=== PATIENT | male | born 1985 | race Caucasian/White ===

== ENCOUNTER 2017-07-30 16:46 | Inpatient (IN) | payer SELFPAY ==
[~2017-07-30] VITALS: Ht 180.3 cm; Wt 68.8 kg
[~2017-07-30 16:46] MED LIST: LORTA5
[2017-07-30 16:52] VITALS: BP 124/74; PULSE 87; RESP 12; TEMP 98.5; O2SAT 99
--- NOTE | 2017-07-30 17:43 | RADRPT ---
EXAM DATE/TIME: 07/30/2017 17:17 [facility] COMPARISON: No previous studies available for comparison. INDICATIONS : Pain. MEDICAL HISTORY : Previous ankle fracture. SURGICAL HISTORY : None. ENCOUNTER: Initial ACUITY: 1 week PAIN SCORE: 8/10 LOCATION: Right Tib fib. FINDINGS: Two view examination of the right tibia demonstrates no evidence of fracture or dislocation. Bony mi neralization is normal. The soft tissue structures are intact. CONCLUSION: Negative Lauri Hein MD FACR on July 30, 2017 at 17:40 Board Certified Radiologist. This report was verified electronically.
--- NOTE | 2017-07-30 17:44 | RADRPT ---
EXAM DATE/TIME: 07/30/2017 17:24 [facility] COMPARISON: No previous studies available for comparison. INDICATIONS : Pain. MEDICAL HISTORY : None. SURGICAL HISTORY : None. ENCOUNTER: Initial ACUITY: 1 week PAIN SCORE: 10/10 LOCATION: Right Knee FINDINGS: Plateau fracture involving the lateral plateau depression by approximately 5-6 mm. Medial plateau in tact. Large joint effusion. CONCLUSION: Lateral plateau fracture Lauri Hein MD FACR on July 30, 2017 at 17:41 Board Certified Radiologist. This report was verified electronically.
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
[2017-07-30] MEDS ORDERED: ACETAMINOPHEN/HYDROcodone 325 MG/5 MG TAB PO ONE (19:45)
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
--- NOTE | 2017-07-30 21:04 | RADRPT ---
EXAM DATE/TIME: 07/30/2017 20:00 [facility] COMPARISON: No previous studies available for comparison. INDICATIONS : Right leg pain. MEDICAL HISTORY : Right ankle fracture. SURGICAL HISTORY : None. ENCOUNTER: Initial ACUITY: 4 - 6 days PAIN SCORE: 8/10 LOCATION: Right leg. TECHNIQUE: Venous ultrasound of the leg was performed from the inguinal ligament to the proximal calf. Real-kinjal e, color Doppler and spectral tracing, compression and augmentation techniques were used. FINDINGS: There is normal compressibility of the deep venous system from the inguinal region to the proximal ca lf. No echogenic clot is seen in the lumen of the common femoral, femoral, popliteal, and posterior tibial veins. There is a normal response of the venous system to proximal and distal augmentation an d respiration. CONCLUSION: No evidence of right lower extremity DVT. Liang Johnson MD on July 30, 2017 at 21:01 Board Certified Radiologist. This report was verified electronically.
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
[2017-07-30] MEDS ORDERED: BISACODYL 10 MG SUPP RECTAL PRN (23:00)
[2017-07-30] MEDS ORDERED: ONDANSETRON HCL 4 MG/2 ML VIAL IVP PRN (23:00)
[2017-07-30] MEDS ORDERED: SENNOSIDES 8.6 MG TAB PO PRN (23:00)
[2017-07-30] MEDS ORDERED: LACTULOSE SYRUP 20 GM/30 ML CUP PO PRN (23:00)
[2017-07-30] MEDS ORDERED: SODIUM CHLORIDE 0.9% FLUSH 10 ML FLUSH IV FLUSH PRN (23:00)
[2017-07-30] MEDS ORDERED: ACETAMINOPHEN/HYDROcodone 325 MG/5 MG TAB PO PRN (23:00)
[2017-07-30] MEDS ORDERED: MAGNESIUM HYDROXIDE SUSP 30 ML CUP PO PRN (23:00)
[2017-07-30] MEDS ORDERED: ACETAMINOPHEN 325 MG TAB PO PRN (23:00)
[2017-07-30 23:34] VITALS: PULSE 71; RESP 16; O2SAT 100
[2017-07-30] MEDS: MORPHINE SULFATE 2 MG/ML INJ IV PUSH PRN (23:35)
[2017-07-30] MEDS: SODIUM CHLOR 0.9% 1000 ML INJ 1,000 ML IV SCH (23:35)
[2017-07-31] VITALS (8 sets, daily range): BP systolic 108–125; BP diastolic 57–75; PULSE 64–88; RESP 16–18; TEMP 96.1–98.4; O2SAT 97–99
[2017-07-31] MEDS ORDERED: CHLORHEXIDINE GLUCONATE 2 % 1 PACK (2 CLOTHS) TOPICAL PRN (02:45)
[2017-07-31] MEDS ORDERED: LACTATED RINGER'S 1000 ML IV PRN (02:45)
[2017-07-31] MEDS ORDERED: POVIDONE IODINE 5% (ANTISEPSIS KIT) 4 APPLICATIONS EACH NARE PRN (02:45)
[2017-07-31] MEDS ORDERED: SODIUM CHLORID 0.9% 500 ML IV PRN (02:45)
[2017-07-31] MEDS: MORPHINE SULFATE 2 MG/ML INJ IV PUSH PRN ×2 (02:45→05:56)
[2017-07-31 03:06] LABS: AUTOMATED NEUTROPHIL # 2.5 TH/MM3 (1.8-7.7); BASOPHIL # 0.1 TH/MM3 (0-0.2); BASOPHIL % 0.8 % (0.0-2.0); EOSINOPHIL # 0.7 TH/MM3 (0-0.4); HEMATOCRIT 39.7 % (39.0-51.0); HEMOGLOBIN 13.4 GM/DL (13.0-17.0); LYMPH % 41.5 % (9.0-44.0); LYMPHOCYTE # 2.7 TH/MM3 (1.0-4.8); MEAN CELL VOLUME 88.7 FL (80.0-100.0); MEAN CORPUSCULAR HGB CONC 33.8 % (32.0-36.0); MEAN PLATELET VOLUME 7.5 FL (7.0-11.0); MONO % 8.6 % (0.0-8.0); MONOCYTE # 0.6 TH/MM3 (0-0.9); NEUT % 38.1 % (16.0-70.0); PLATELET COUNT 214 TH/MM3 (150-450); RED BLOOD COUNT 4.47 MIL/MM3 (4.50-5.90); RED CELL DISTRIBUTION WIDTH 13.9 % (11.6-17.2); WHITE BLOOD COUNT 6.6 TH/MM3 (4.0-11.0)
[2017-07-31 03:09] LABS: PROTHROMBIN TIME - PATIENT 10.3 SEC (9.8-11.6)
[2017-07-31 03:27] LABS: ALBUMIN 3.1 GM/DL (3.4-5.0); ALT (GPT) 19 U/L (12-78); AST (GOT) 28 U/L (15-37); BICARBONATE 24.2 MEQ/L (21.0-32.0); BLOOD UREA NITROGEN 11 MG/DL (7-18); CALCIUM 8.4 MG/DL (8.5-10.1); CHLORIDE 105 MEQ/L (98-107); CREATININE 0.83 MG/DL (0.60-1.30); GLOMERULAR FILTRATION RATE 107 ML/MIN (>89); GLUCOSE,RANDOM 85 MG/DL (74-106); SODIUM (NA) 135 MEQ/L (136-145)
[2017-07-31 03:30] LABS: ALKALINE PHOSPHATASE 62 U/L (45-117); TOTAL BILIRUBIN ADULT 0.4 MG/DL (0.2-1.0); TOTAL PROTEIN 7.8 GM/DL (6.4-8.2)
[2017-07-31] MEDS: SODIUM CHLOR 0.9% 1000 ML INJ 1,000 ML IV SCH (08:48)
[2017-07-31] MEDS: SODIUM CHLORIDE 0.9% FLUSH 10 ML FLUSH IV FLUSH SCH ×2 (09:00→21:00)
[2017-07-31] MEDS: DOCUSATE SODIUM 50 MG/SENNA 8.6 MG TAB PO SCH ×2 (09:00→21:24)
[2017-07-31] MEDS ORDERED: ACETAMINOPHEN 1000 MG/100 ML 100 ML IV ONE (10:18)
[2017-07-31] MEDS ORDERED: GENTAMICIN SULFATE 80 MG/2 ML VIAL ONE (10:23)
[2017-07-31] MEDS ORDERED: VANCOMYCIN HCL 1000 MG VIAL ONE (10:53)
[2017-07-31] MEDS ORDERED: ceFAZolin INJ 1,000 MG VIAL IV ONE (12:00)
[2017-07-31] MEDS ORDERED: PROPOFOL 200 MG/20 ML AMP IV ONE (12:00)
[2017-07-31] MEDS ORDERED: DEXAMETHASONE SOD PHOS 4 MG/ML VIAL IV ONE (12:00)
[2017-07-31] MEDS ORDERED: LIDOCAINE HCL 1% PF 5 ML SYRINGE OTHER ONE (12:00)
[2017-07-31] MEDS ORDERED: SUCCINYLCHOLINE CHLORIDE 200 MG/10 ML VIAL IV ONE (12:00)
[2017-07-31] MEDS ORDERED: ePHEDrine/NS 25 MG/5 ML SYRINGE IV ONE (12:00)
[2017-07-31] MEDS ORDERED: ONDANSETRON HCL 4 MG/2 ML VIAL IV ONE (12:00)
[2017-07-31] MEDS ORDERED: diphenhydrAMINE HCL 25 MG CAP PO PRN (12:15)
[2017-07-31] MEDS ORDERED: NALOXONE HCL 0.4 MG/ML AMP IV PUSH PRN (12:15)
[2017-07-31] MEDS ORDERED: oxyCODONE/ACETAMINOPHEN 5 MG/325 MG TAB PO PRN (12:15)
[2017-07-31] MEDS ORDERED: Post-op Orders (for Pharmacy) XX ONE (12:15)
[2017-07-31] MEDS ORDERED: MISCELLANEOUS NURSING INFORMATION XX PRN (12:15)
[2017-07-31] MEDS ORDERED: *MEPERIDINE 25 MG INJ VIAL PERIprocedural Use ONLY ONE (12:24)
[2017-07-31] MEDS ORDERED: *morphine SULFATE 10 MG/ML PERIprocedure ONLY ONE ×2 (12:28→12:35)
[2017-07-31] MEDS ORDERED: MIDAZOLAM HCL 2 MG/2 ML VIAL ONE (12:29)
[2017-07-31] MEDS ORDERED: MORPHINE SULFATE 4 MG/ML INJ ONE (12:30)
[2017-07-31] MEDS ORDERED: *HYDROmorphone PF 1 MG VIAL PERIprocedural Use ONLY ONE ×2 (12:39→13:01)
--- NOTE | 2017-07-31 12:41 | RADRPT ---
EXAM DATE/TIME: 07/31/2017 11:49 [facility] COMPARISON: KNEE RIGHT COMPLETE (4VWS), July 30, 2017, 17:24. INDICATIONS : Open reduction, internal fixation of the right knee. MEDICAL HISTORY : None. SURGICAL HISTORY : None. ENCOUNTER: Subsequent ACUITY: 2 days PAIN SCORE: Non-responsive. LOCATION: Right knee. FINDINGS: 4 intraoperative digital spot images of the right knee. Lateral proximal tibial internal fixation dragan te and 6 transfixing screws identified. Lateral tibial condyle fracture again seen. Alignment near-an atomic. CONCLUSION: Intraoperative images showing proximal tibial surgical hardware. Liang Johnson MD on July 31, 2017 at 12:37 Board Certified Radiologist. This report was verified electronically.
[2017-07-31] MEDS: D5-1/2 NS + KCL 20 MEQ INJ 1,000 ML IV SCH ×2 (12:45→23:44)
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
[2017-07-31] MEDS ORDERED: DO NOT ADM ANY ANTICOAGULANT DRUGS PRN (13:15)
[2017-07-31] MEDS: PCA - TOTAL MG MORPHINE DELIVERED PER SHIFT SCH ×2 (14:00→21:25)
[2017-07-31] MEDS: MORPHINE SULFATE 30 MG/30 ML PCA IV SCH (14:37)
--- NOTE | 2017-07-31 16:36 | HHI.PR ---
Subjective Remarks Mr. Clark is status post repair of his right tibial plateau fracture. He's doing well postop. No complaints of nausea or vomiting. Pain is under control. Objective Vital Signs Date Time Temp Pulse Resp B/P (MAP) Pulse Ox O2 Delivery O2 Flow Rate FiO2 07/31/17 14:37 16 07/31/17 14:00 18 07/31/17 13:30 96.1 68 18 118/75 (89) 99 07/31/17 13:25 Nasal Cannula 2.00 07/31/17 13:00 97.6 89 16 135/74 (94) 97 Nasal Cannula 2 07/31/17 12:45 90 16 135/57 (83) 97 Nasal Cannula 2 07/31/17 12:30 92 16 159/73 (101) 98 Nasal Cannula 2 07/31/17 12:23 97.6 90 16 125/57 (79) 97 Nasal Cannula 2 07/31/17 08:00 96.5 65 18 119/73 (88) 99 07/31/17 04:00 96.5 70 16 119/67 (84) 99 07/31/17 00:05 97.4 66 17 120/71 (87) 99 07/30/17 23:52 07/30/17 23:34 71 16 100 Room Air 07/30/17 20:15 Room Air 07/30/17 16:52 98.5 87 12 124/74 (91) 99 I/O 07/30/17 07/30/17 07/30/17 07/31/17 07/31/17 07/31/17 07:00 15:00 23:00 07:00 15:00 23:00 Intake Total 0 ml 800 ml Output Total 200 ml Balance 0 ml 600 ml Intake Oral 0 ml Other 800 ml Output Estimated Blood Loss 200 ml # Voids 2 Result Diagram: 07/31/17 0245 07/31/17 0245 Objective Remarks GENERAL: NAD, A&Ox3 HEAD: Normocephalic. NECK: Supple, trachea midline. No lymphadenopathy. EYES: No scleral icterus. No injection or drainage. CARDIOVASCULAR: Regular rate and rhythm without murmurs, gallops, or rubs. RESPIRATORY: Breath sounds equal bilaterally. No accessory muscle use. GASTROINTESTINAL: Abdomen soft, non-tender, nondistended. MUSCULOSKELETAL: No cyanosis, or edema. Right leg is bandaged, postop. SKIN: Warm and dry. NEURO: No focal neurological deficitis. A/P Problem List: (1) Tibial plateau fracture, right ICD Code: S82.141A - Displaced bicondylar fracture of right tibia, initial encounter for closed fracture Assessment and Plan 32-year-old male admitted secondary to right tibial plateau fracture. Status post surgical repair this morning. Patient doing well postop. Labs ordered for monitoring. Check hemoglobin level tomorrow. Consider transfusion if hemoglobin level is significantly low. Right tibial plateau fracture Status post surgical repair PT Ortho following Continue as needed pain treatments Nicotine dependence Patient has been counseled to quit As needed NicoDerm DVT prophylaxis Per orthopedic prescription, postop Problem Qualifiers (1) Tibial plateau fracture, right: Qualified Codes: S82.141A - Displaced bicondylar fracture of right tibia, initial encounter for closed fracture Nadir Zarco MD Jul 31, 2017 16:36
[2017-07-31] MEDS: ceFAZolin 2 GM PREMIX 50 ML IV SCH (17:11)
[2017-07-31] MEDS: oxyCODONE/ACETAMINOPHEN 5 MG/325 MG TAB PO PRN (21:25)
--- NOTE | 2017-07-31 22:23 | MP ---
cc: TIGIST PERRY DATE OF SURGERY 07/31/17 PREOPERATIVE DIAGNOSIS Right knee tibial plateau fracture. POSTOPERATIVE DIAGNOSIS Right knee tibial plateau fracture. PROCEDURE Right knee open reduction internal fixation using [employer] specialty locking plate for lateral intra-articular displaced tibial plateau fracture. ANESTHESIA General SURGEON Milton Perry MD CARE MANAGER CNA SURGEON Beatriz NUR ESTIMATED BLOOD LOSS 200 mL DRAINS None SPECIMEN None COMPLICATIONS None known. INDICATION Sanchez Clark is a 32-year-old male who sustained a fracture to his right knee, primarily lateral side tibial plateau fracture, although there is some minimal displaced fragments in the medial side. Significant intra-articular displacement and diastasis of the fracture fragment as well as displacement and therefore surgical intervention was discussed and we did discuss the theoretical option of nonoperative treatment and the recommendation was surgery. The risks and benefits and alternatives were thoroughly discussed including discussion of risk of infection, nerve damage, blood vessel damage, anesthetic complications, medical complications, unforeseen possible complications. All of his questions were answered. Informed consent was obtained. PROCEDURE IN DETAIL The patient was brought into the operating room, was placed under general anesthetic. The right lower extremity was prepped and draped in usual sterile fashion. IV antibiotics were given. Time-out was completed. We made a lateral based incision and obtained hemostasis and then went down to the fascial layer. Then we split the fascial layer and, at this point, we put the tourniquet up. Then we proceeded to mobilize the soft tissue away from the bone at the lateral aspect of the knee. We did make a small horizontal cut in the synovium just below the lateral meniscus. No obvious lateral meniscus tear was identified. With traction and slight varus of the knee, we were able to look into the joint, see some displacement of the fracture. With traction and this configuration, we were able to bring a bone tamp up from underneath the bone and gently tap it upwards and we used multiple clamps to compress the bone upward into a very good anatomic appearing alignment and then provisionally fixated with K-wires and then selected our lateral based plate and then fixed that to the bone with a bone clamp and then proceeded to place our multiple different screws. The most inferior screw was a cortical screw and then other screws were locking screws. Overall excellent fixation and the alignment looked very close to anatomic. AP, lateral and oblique views showed the final result. We irrigated out with copious amounts of irrigation. We proceeded to close in layers of absorbable sutures, subcuticular on the skin and then monae. Sterile dressing was applied. The patient was awaken and returned to the recovery room in stable condition. MD SOTO Davidson/ /1:09 PM /10:07 PM
[2017-08-01] MEDS: ceFAZolin 2 GM PREMIX 50 ML IV SCH ×2 (01:34→08:26)
[2017-08-01] MEDS: MORPHINE SULFATE 30 MG/30 ML PCA IV SCH ×2 (02:46→08:30)
[2017-08-01] MEDS: oxyCODONE/ACETAMINOPHEN 5 MG/325 MG TAB PO PRN ×2 (02:47→11:08)
[2017-08-01 04:15] VITALS: BP 109/59; PULSE 83; RESP 16; TEMP 97.8; O2SAT 98
[2017-08-01] MEDS: PCA - TOTAL MG MORPHINE DELIVERED PER SHIFT SCH ×2 (06:35→11:10)
[2017-08-01 08:00] VITALS: BP 122/69; PULSE 73; RESP 18; TEMP 95.7; O2SAT 100
[2017-08-01] MEDS: DOCUSATE SODIUM 50 MG/SENNA 8.6 MG TAB PO SCH (08:25)
[2017-08-01] MEDS: D5-1/2 NS + KCL 20 MEQ INJ 1,000 ML IV SCH (08:26)
[2017-08-01] MEDS: SODIUM CHLORIDE 0.9% FLUSH 10 ML FLUSH IV FLUSH SCH (08:26)
[2017-08-01] MEDS ORDERED: MULTIVITAMINS/MINERALS THERAPEUTIC TAB PO SCH (09:00)
--- NOTE | 2017-08-01 10:34 | PD.ORT.PN ---
Subjective Subjective Remarks comfortable Objective Vitals Vital Signs Date Time Temp Pulse Resp B/P (MAP) Pulse Ox O2 Delivery O2 Flow Rate FiO2 08/01/17 08:30 18 08/01/17 08:00 95.7 73 18 122/69 (86) 100 08/01/17 06:35 18 08/01/17 05:17 Room Air 08/01/17 04:15 97.8 83 16 109/59 (76) 98 08/01/17 02:52 18 08/01/17 02:46 18 07/31/17 23:25 98.4 88 16 114/72 (86) 99 07/31/17 21:25 18 07/31/17 21:00 97.0 81 16 125/66 (85) 98 07/31/17 16:42 96.7 64 17 108/57 (74) 97 07/31/17 14:37 16 07/31/17 14:00 18 07/31/17 13:30 96.1 68 18 118/75 (89) 99 07/31/17 13:25 Nasal Cannula 2.00 07/31/17 13:00 97.6 89 16 135/74 (94) 97 Nasal Cannula 2 07/31/17 12:45 90 16 135/57 (83) 97 Nasal Cannula 2 07/31/17 12:30 92 16 159/73 (101) 98 Nasal Cannula 2 07/31/17 12:23 97.6 90 16 125/57 (79) 97 Nasal Cannula 2 I/O 07/31/17 07/31/17 07/31/17 08/01/17 08/01/17 08/01/17 07:00 15:00 23:00 07:00 15:00 23:00 Intake Total 0 ml 1520 ml 720 ml 2411 ml Output Total 800 ml 900 ml Balance 0 ml 720 ml 720 ml 1511 ml Intake Oral 0 ml 720 ml 720 ml 1020 ml IV Total 1391 ml Other 800 ml Output Urine Total 600 ml 900 ml Estimated Blood Loss 200 ml # Voids 2 2 3 # Bowel Movements 0 0 Result Diagram: 07/31/1724407/31/17244 Objective Remarks uma wrap and dressing in place calves soft NVI Assessment & Plan Ortho Post Op Day #: 1 (orif Right tibial plateau) Problem List: (1) Tibial plateau fracture, right ICD Codes: S82.141A - Displaced bicondylar fracture of right tibia, initial encounter for closed fracture Qualifiers: Qualified Codes: S82.141A - Displaced bicondylar fracture of right tibia, initial encounter for closed fracture Assessment and Plan discussed surgical findings Non weight bearing Up and active with crutches Feet and ankle range of motion exercises Ok to d/c home F/u in 2 weeks Conor Bhandari MD Aug 01, 2017 10:34
[2017-08-01] MEDS ORDERED: OXYC1TAB63 PO (10:38)
[2017-08-01 11:10] VITALS: RESP 18
[2017-08-01] MEDS ORDERED: DOCU100C15 PO (11:16)
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
== END 2017-08-01 12:56 | disposition home or self-care (01) | DRG 493 ==
LOC: NEPD 16:46 → NEDA 22:53 → N06A 23:58
PROVIDERS: ADMIT Hospitalist; ATTEND Hospitalist
PROC: 0QSG04Z Reposition Right Tibia with Internal Fixation Device, Open Approach (ICD-10-PCS; principal; 2017-07-31 10:26)
DX: S82.141A Displaced bicondylar fracture of right tibia, initial encounter for closed fracture (principal); S32.391A Other fracture of right ilium, initial encounter for closed fracture; F17.210 Nicotine dependence, cigarettes, uncomplicated; V58.6XXA Passenger in pick-up truck or van injured in noncollision transport accident in traffic accident, initial encounter
CPT/HCPCS: 73564; 73590; 73700; 76000; 80053; 85025; 85610; 85730; 93971; C1713; J0131; J0330; J0690; J1100; J1170; J1580; J2175; J2250; J2270; J2405; J3010; J3370; J3480; J7030; J7120

== ENCOUNTER 2017-08-23 05:04 | Inpatient (IN) | payer SELFPAY ==
[~2017-08-23] VITALS: Ht 180.3 cm; Wt 67.4 kg
[2017-08-23] VITALS (7 sets, daily range): BP systolic 104–144; BP diastolic 59–78; PULSE 80–114; RESP 17–22; TEMP 97.2–100.3; O2SAT 96–100
[~2017-08-23 05:04] MED LIST changes: +DOCU100C15 PO; -LORTA5; +OXYC1TAB63 PO
[2017-08-23] MEDS ORDERED: SODIUM CHLOR 0.9% 1000 ML INJ 800 ML IV ONE (05:14)
[2017-08-23] MEDS ORDERED: SODIUM CHLOR 0.9% 1000 ML INJ 1,000 ML IV ONE (05:14)
[2017-08-23] MEDS ORDERED: HYDROmorphone HCL PF 2 MG/ML VIAL IV PUSH ONE ×2 (05:15→06:30)
[2017-08-23] MEDS ORDERED: ACETAMINOPHEN 325 MG TAB PO ONE (05:15)
--- NOTE | 2017-08-23 05:32 | PD ---
HPI Chief Complaint: Pain: Acute or Chronic Time Seen by Provider: 05:09 Travel History International Travel<30 days: No Contact w/Intl Traveler<30days: No Traveled to known affect area: No History of Present Illness HPI 32-year-old male who is status post ORIF for right tibial plateau fracture on by Dr. Bhandari brought in by ambulance from home for evaluation of severe right knee pain, swelling, warmth, fever. EMS noted the patient to be hypotensive and administered a liter of normal saline IV prior to arrival. Patient reports that the pain is severe and started yesterday with mild swelling and pain. When he awoke this morning the pain was unbearable. He denies any recent injuries to the knee. He states that his dog has been licking his surgical wound. States that he has not used IV drugs in 10 years. PFSH Past Medical History ADHD: Yes Cancer: No Cardiovascular Problems: No Diminished Hearing: No Endocrine: No Genitourinary: No Immune Disorder: No Musculoskeletal: Yes (right fractured ankle twice 2011) Neurologic: No Psychiatric: No Reproductive: No Respiratory: No Tetanus Vaccination: < 5 Years Influenza Vaccination: No Social History Alcohol Use: Yes Tobacco Use: Yes (1PPD) Substance Use: No (hx of ) Allergies-Medications (Allergen,Severity, Reaction): Coded Allergies: No Known Allergies (Unverified Allergy, Unknown, 07/30/17) Reported Meds & Prescriptions Reported Meds & Active Scripts Active Docusate Sodium 100 Mg Cap 100 Mg PO BID PRN Oxycodone-Acetaminophen 5-325 (Oxycodone HCl/Acetaminophen) 5 Mg-325 Mg Tablet 1 Tab PO Q4H PRN 10 Days Review of Systems Except as stated in HPI: all other systems reviewed are Neg Physical Exam Narrative GENERAL: Well-developed, well-nourished, moderate distress secondary to pain. SKIN: Right lateral knee with several open wounds with purulent drainage. There is surrounding warmth, erythema, and edema. No crepitus. No fluctuance or induration. HEAD: Atraumatic. Normocephalic. EYES: Pupils equal and round. No scleral icterus. No injection or drainage. ENT: Mucous membranes pink and dry. NECK: Trachea midline. No JVD. No nuchal rigidity. CARDIOVASCULAR: Tachycardic, rate 115, regular. Bilateral dorsalis pedis pulses are brisk and equal. RESPIRATORY: No accessory muscle use. Clear to auscultation. Breath sounds equal bilaterally. GASTROINTESTINAL: Abdomen soft, non-tender, nondistended. MUSCULOSKELETAL: Skin exam as above. Limited range of motion in right knee secondary to pain with diffuse tenderness to the right knee. Right inguinal lymphadenopathy. NEUROLOGICAL: Awake and alert. No obvious cranial nerve deficits. Motor grossly within normal limits. Normal speech. PSYCHIATRIC: Appropriate mood and affect; insight and judgment normal. Data Data Last Documented VS Vital Signs Date Time Temp Pulse Resp B/P (MAP) Pulse Ox O2 Delivery O2 Flow Rate FiO2 08/23/17 05:16 Room Air 08/23/17 05:10 100.3 114 22 117/59 (78) 99 Orders Orders Sepsis Workup Initiated (08/23/17 ) Complete Blood Count With Diff (08/23/17 05:14) Comprehensive Metabolic Panel (08/23/17 05:14) Prothrombin Time / Inr (Pt) (08/23/17 05:14) Act Partial Throm Time (Ptt) (08/23/17 05:14) Lactic Acid Sepsis Protocol (08/23/17 05:14) Blood Culture (08/23/17 05:14) Ecg Monitoring (08/23/17 05:14) Iv Access Insert/Monitor (08/23/17 05:14) Oximetry (08/23/17 05:14) Acetaminophen (Tylenol) (08/23/17 05:15) Sodium Chlor 0.9% 1000 Ml Inj (Ns 1000 M (08/23/17 05:14) Sodium Chlor 0.9% 1000 Ml Inj (Ns 1000 M (08/23/17 05:14) Wound Culture And Gram Stain (08/23/17 05:14) Knee, Complete (4vws) (08/23/17 ) Hydromorphone Pf Inj (Dilaudid Pf Inj) (08/23/17 05:15) Westergren Sedimentation Rate (08/23/17 05:32) C-Reactive Protein (Crp) (08/23/17 05:14) Vancomycin Inj (Vancomycin Inj) (08/23/17 05:45) Piperacil-Tazo 4.5 Gm Premix (Zosyn 4.5 (08/23/17 05:45) Consult Orthopedic (08/23/17 ) Diet Npo (08/23/17 Breakfast) Admit Order (Ed Use Only) (08/23/17 06:18) Labs Laboratory Tests Test 08/23/17 05:27 White Blood Count 15.6 TH/MM3 Red Blood Count 4.24 MIL/MM3 Hemoglobin 12.8 GM/DL Hematocrit 36.1 % Mean Corpuscular Volume 85.1 FL Mean Corpuscular Hemoglobin 30.1 PG Mean Corpuscular Hemoglobin Concent 35.4 % Red Cell Distribution Width 12.7 % Platelet Count 202 TH/MM3 Mean Platelet Volume 8.5 FL Neutrophils (%) (Auto) 84.7 % Lymphocytes (%) (Auto) 6.7 % Monocytes (%) (Auto) 7.8 % Eosinophils (%) (Auto) 0.5 % Basophils (%) (Auto) 0.3 % Neutrophils # (Auto) 13.2 TH/MM3 Lymphocytes # (Auto) 1.0 TH/MM3 Monocytes # (Auto) 1.2 TH/MM3 Eosinophils # (Auto) 0.1 TH/MM3 Basophils # (Auto) 0.0 TH/MM3 CBC Comment DIFF FINAL Differential Comment Erythrocyte Sedimentation Rate 23 mm/hr Prothrombin Time 12.5 SEC Prothromb Time International Ratio 1.2 RATIO Activated Partial Thromboplast Time 29.8 SEC Blood Urea Nitrogen 12 MG/DL Creatinine 1.07 MG/DL Random Glucose 112 MG/DL Total Protein 8.1 GM/DL Albumin 3.8 GM/DL Calcium Level 9.0 MG/DL Alkaline Phosphatase 91 U/L Aspartate Amino Transf (AST/SGOT) 16 U/L Alanine Aminotransferase (ALT/SGPT) 9 U/L Total Bilirubin 1.3 MG/DL Sodium Level 132 MEQ/L Potassium Level 3.4 MEQ/L Chloride Level 97 MEQ/L Carbon Dioxide Level 24.3 MEQ/L Anion Gap 11 MEQ/L Estimat Glomerular Filtration Rate 80 ML/MIN Lactic Acid Level 1.9 mmol/L C-Reactive Protein 7.00 MG/DL [facility] Medical Decision Making Medical Screen Exam Complete: Yes Emergency Medical Condition: Yes Differential Diagnosis Septic arthritis, infected hardware, cellulitis, sepsis Narrative Course Initial vital signs show heart rate 114, blood pressure 117/59, pulse ox 99% on room air, oral temp of 100.3F. Patient has several open wounds to his right lateral knee that are draining pus. Sample was obtained and sent for culture and sensitivity. 5:45 AM: I discussed the case with on-call orthopedist Dr. Chiang who covers for the patient's orthopedist Dr. Bhandari. Plan is to start the patient on IV antibiotics, have him admitted to the medical service with consultation placed to Dr. Bhandari. CBC: WBC 15.6, hemoglobin 12.8, hematocrit 36.1, platelets 202, neutrophils 85%. CMP: Sodium 132, potassium 3.4, chloride 97, otherwise essentially unremarkable. Lactic acid is 1.9. CRP 7. ESR 23 Right knee x-ray: CONCLUSION: Soft tissue swelling along the lateral aspect of the knee. Hardware demonstrates no abnormality. Case discussed with hospitalist Dr. Fairbanks who will admit the patient to her service. Diagnosis Primary Impression: Sepsis Qualified Codes: A41.9 - Sepsis, unspecified organism Additional Impression: Postoperative infection of knee Qualified Codes: T81.4XXA - Infection following a procedure, initial encounter Admitting Information Admitting Physician Requests: Admit Khoi Riley MD Aug 23, 2017 05:32
[2017-08-23] MEDS ORDERED: PIPERACIL-TAZO 4.5 GM PREMIX 100 ML IV ONE (05:45)
[2017-08-23] MEDS ORDERED: VANCOMYCIN INJ 1,000 MG in SODIUM CHLOR 0.9% 250 ML INJ 250 ML IV ONE (05:45)
[2017-08-23 05:48] LABS: AUTOMATED NEUTROPHIL # 13.2 TH/MM3 (1.8-7.7); BASOPHIL % 0.3 % (0.0-2.0); EOSINOPHIL # 0.1 TH/MM3 (0-0.4); EOSINOPHIL % 0.5 % (0.0-4.0); HEMATOCRIT 36.1 % (39.0-51.0); HEMOGLOBIN 12.8 GM/DL (13.0-17.0); LYMPH % 6.7 % (9.0-44.0); MEAN CELL VOLUME 85.1 FL (80.0-100.0); MEAN CORPUSCULAR HEMOGLOBIN 30.1 PG (27.0-34.0); MEAN CORPUSCULAR HGB CONC 35.4 % (32.0-36.0); MEAN PLATELET VOLUME 8.5 FL (7.0-11.0); MONO % 7.8 % (0.0-8.0); MONOCYTE # 1.2 TH/MM3 (0-0.9); NEUT % 84.7 % (16.0-70.0); PLATELET COUNT 202 TH/MM3 (150-450); RED BLOOD COUNT 4.24 MIL/MM3 (4.50-5.90); RED CELL DISTRIBUTION WIDTH 12.7 % (11.6-17.2); WHITE BLOOD COUNT 15.6 TH/MM3 (4.0-11.0)
[2017-08-23 05:56] LABS: INTERNATIONAL NORMALIZED RATIO 1.2 RATIO; PROTHROMBIN TIME - PATIENT 12.5 SEC (9.8-11.6)
[2017-08-23 06:01] LABS: ALBUMIN 3.8 GM/DL (3.4-5.0); AST (GOT) 16 U/L (15-37); BICARBONATE 24.3 MEQ/L (21.0-32.0); BLOOD UREA NITROGEN 12 MG/DL (7-18); CHLORIDE 97 MEQ/L (98-107); CREATININE 1.07 MG/DL (0.60-1.30); GLOMERULAR FILTRATION RATE 80 ML/MIN (>89); GLUCOSE,RANDOM 112 MG/DL (74-106); SODIUM (NA) 132 MEQ/L (136-145)
--- NOTE | 2017-08-23 06:02 | RADRPT ---
EXAM DATE/TIME: 08/23/2017 05:36 [facility] COMPARISON: KNEE RIGHT COMPLETE (4VWS), July 30, 2017, 17:24. KNEE RIGHT COMPLETE (4VWS), July 31, 2017, 1 1:49. INDICATIONS : Pain in right knee, possible infection. MEDICAL HISTORY : None. SURGICAL HISTORY : Tibial plateau surgery. ENCOUNTER: Initial ACUITY: 1 day PAIN SCORE: 10/10 LOCATION: Right knee FINDINGS: 5 views of the right knee demonstrate no fracture or dislocation. Mineralization is within normal hendrix its. There is a lateral proximal tibial side plate with multiple interlocking screws for treatment of the lateral tibial plateau fracture. There is mild soft tissue swelling of lateral and. No joint eff usion is identified. There are no findings to indicate hardware failure or loosening. CONCLUSION: Soft tissue swelling along the lateral aspect of the knee. Hardware demonstrates no abnormality. Pavan Shukla MD on August 23, 2017 at 5:58 Board Certified Radiologist. This report was verified electronically.
[2017-08-23 06:03] LABS: ALT (GPT) 9 U/L (12-78)
[2017-08-23 06:09] LABS: ALKALINE PHOSPHATASE 91 U/L (45-117); TOTAL BILIRUBIN ADULT 1.3 MG/DL (0.2-1.0); TOTAL PROTEIN 8.1 GM/DL (6.4-8.2)
[2017-08-23] MEDS ORDERED: Vancomycin Consult Pharmacy 1 EA OTHER SCH (06:30)
[2017-08-23] MEDS ORDERED: LACTULOSE SYRUP 20 GM/30 ML CUP PO PRN (06:30)
[2017-08-23] MEDS ORDERED: ONDANSETRON HCL 4 MG/2 ML VIAL IVP PRN (06:30)
[2017-08-23] MEDS ORDERED: ACETAMINOPHEN/HYDROcodone 325 MG/5 MG TAB PO PRN (06:30)
[2017-08-23] MEDS ORDERED: SENNOSIDES 8.6 MG TAB PO PRN (06:30)
[2017-08-23] MEDS ORDERED: MORPHINE SULFATE 2 MG/ML INJ IV PUSH PRN (06:30)
[2017-08-23] MEDS ORDERED: BISACODYL 10 MG SUPP RECTAL PRN (06:30)
[2017-08-23] MEDS ORDERED: MIDAZOLAM HCL 2 MG/2 ML VIAL ONE (07:28)
--- NOTE | 2017-08-23 07:45 | MB ---
cc: MARIANNE VEGA DATE OF ADMISSION 08/23/2017 DATE OF CONSULTATION 08/23/2017 REASON FOR CONSULTATION Right knee infection. HISTORY Sanchez is a 32-year-old male who initially sustained a right tibial plateau fracture on July 30, 2017. The patient subsequently had open reduction, internal fixation of right tibial plateau by Dr. Conor Bhandari. The patient has been at home. He complains of increasing right knee pain. He was brought to the emergency room via EMS complaining of right knee pain and swelling. He is currently writhing in discomfort in the emergency department. His only complaint is his right knee. Pain is worse with any kind of movement. PAST MEDICAL HISTORY ILLNESSES ADHD. SURGERIES ORIF right tibial plateau and right ankle. ALLERGIES None. MEDICATIONS Percocet. SOCIAL HISTORY The patient drinks alcohol. He smokes a pack a day. He has a history of IV drug use. He states that he has not used drugs in 10 years. FAMILY HISTORY Noncontributory. REVIEW OF SYSTEMS The patient denies headache, visual changes, neck pain, chest pain, shortness of breath, abdominal pain, nausea, vomiting or recent weight loss, numbness or tingling of extremities. He feels like he has had some fevers. He complains of right knee pain and swelling. PHYSICAL EXAMINATION GENERAL: The patient is a well-developed, well-nourished 32-year-old male. He is awake and alert. He is in obvious pain and discomfort. VITAL SIGNS: Temperature 100.3, pulse 109, respirations 22, blood pressure 144/75, O2 sat 98% on room air. HEAD: The patient is normocephalic. Pupils are equal. NECK: Soft, nontender. Trachea is midline. ABDOMEN: Soft, nontender, nondistended. EXTREMITIES: Examination of the bilateral upper extremities reveals no pain with shoulder, elbow or wrist motion bilaterally. Skin is intact to both hands. He has intact sensation in both fingers. Examination of the left leg reveals no pain with hip, knee or ankle motion. Skin is intact. Dorsalis pedis pulse is palpable. Sensation is intact in the left foot. Examination of right leg reveals no tenderness around his hip or ankle. He has intact sensation in the right foot. Dorsalis pedis pulse is palpable. Examination of his knee reveals some drainage from his incision. He has his knee flexed at approximately 90 degrees. He will not move his knee at all. There is a small amount of erythema around the incision. Calf and thigh compartments are soft. X-RAYS X-rays of the right knee were reviewed. X-rays reveal a right tibial plateau fracture. The fracture appears to be well-aligned. The hardware is in good position. The x-rays are of suboptimal quality because the patient is unable to extend his knee. LABORATORY DATA The patient has a white blood cell count 15.6, hemoglobin 12.8, hematocrit of 36.1. INR is 1.2. BUN is 12 and creatinine is 1.07. IMPRESSION 1. Tobacco dependence. 2. Right knee infection. 3. Right tibial plateau fracture status post ORIF on 07/31/[address] Conor Bhandari. PLAN I discussed his case with Dr. Bhandari as well as with the patient. At this point the patient would benefit from irrigation and debridement of right tibia and possible arthrotomy with irrigation and debridement of right knee. I will plan on hardware retention at this time. The patient will then need IV antibiotics. The risks of surgery include bleeding, infection, injury to arteries, nerves and blood vessels, recurrent infection and need for eventual hardware removal as well as medical complications including blood clot, stroke, heart attack and . All questions were answered. I will plan on surgery today. A mid-level provider in my office, nurse practitioner or PA, may see this patient on a follow-up basis and continue to implement the objective of this plan including: Starting or adjusting medications, injections of muscle, tendon, bursa or joints, cast application, orthotic or brace application, physical therapy, further radiographic studies including x-ray, MRI, CT, ultrasounds or bone scan, vascular studies, neurologic studies, or other specialist consultations, and proceeding with surgical management as appropriate. MD DAVID Rodas/LARISSA /7:18 AM /7:33 AM
[2017-08-23] MEDS: LACTATED RINGER'S 1000 ML IV PRN (08:00)
[2017-08-23] MEDS: SODIUM CHLORIDE 0.9% FLUSH 10 ML FLUSH IV FLUSH SCH ×2 (08:08→20:15)
[2017-08-23] MEDS: SODIUM CHLORIDE 0.9% FLUSH 10 ML FLUSH IV FLUSH PRN (08:09)
[2017-08-23] MEDS ORDERED: METOPROLOL TARTRATE 25 MG TAB PO PRN (08:45)
[2017-08-23] MEDS ORDERED: SODIUM CHLORID 0.9% 500 ML IV PRN (08:45)
[2017-08-23] MEDS ORDERED: POVIDONE IODINE 5% (ANTISEPSIS KIT) 4 APPLICATIONS EACH NARE PRN (08:45)
[2017-08-23] MEDS ORDERED: INSULIN HUMAN REGULAR 1,000 UNITS/10 ML VIAL SQ PRN (08:45)
[2017-08-23] MEDS ORDERED: CHLORHEXIDINE GLUCONATE 2 % 1 PACK (2 CLOTHS) TOPICAL PRN (08:45)
[2017-08-23] MEDS ORDERED: HYDROmorphone HCL PF 1 MG/ML VIAL IV PUSH ONE (08:45)
[2017-08-23] MEDS: DOCUSATE SODIUM 50 MG/SENNA 8.6 MG TAB PO SCH ×2 (09:00→20:15)
[2017-08-23] MEDS ORDERED: VANCOMYCIN HCL 1000 MG VIAL ONE (09:11)
[2017-08-23] MEDS ORDERED: diphenhydrAMINE HCL 25 MG CAP PO PRN (09:30)
[2017-08-23] MEDS ORDERED: Post-op Orders (for Pharmacy) XX ONE (09:30)
--- NOTE | 2017-08-23 09:30 | PD.OP ---
cc: Arturo Santamaria MD Operative Report Date of Surgery: Aug 23, 2017 Preoperative Diagnosis: Right tibial plateau wound infection, septic arthritis right knee Postoperative Diagnosis: Procedure: Irrigation and debridement right proximal tibia plateau, right knee arthrotomy with irrigation and debridement of infection Anesthesia: Gen. Surgeon: Arturo Santamaria Gore Seamer(s): SITA Hale PA-C The surgical procedure was assisted by my physician blacksmith assistant. My P.A. presence was necessary throughout this case for the manipulation and positioning of the surgical extremity. My P.A. was assisting me throughout the duration of this procedure. The skill set of a physician blacksmith assistant was medically necessary to complete this procedure. During the surgical case the holter technician was working at the back table and the physician blacksmith assistant was directly assisting me. Operation and Findings: .Patient was seen and evaluated preoperatively. Patient was found to have infection of the right proximal tibia and right knee joint. Knee effusion and erythema were noted. Informed consent was obtained after detailed discussion of risk and benefits of surgery. Operative site was marked. Patient was brought to the operating room. IV sedation and GETA were administered by anesthesiologist. Operative leg was prepped with alcohol followed by Hibiclens and draped in usual sterile fashion. Timeout procedure was performed. Procedure began with a incision through previous scar. There was purulent drainage coming from the incision. Iliotibial band was opened. Sutures were removed from previous closure. There was some purulent fluid around the tibial plateau and hardware. Fluid cultures were obtained from this. Curettes and rongeurs were now used to debride soft tissue around the proximal tibia and hardware. Pulsatile lavage was used to thoroughly irrigate soft tissue, bone, and hardware. Next attention was turned towards the right knee arthrotomy. A 4 cm incision over the lateral knee. Subcutaneous tissue dissected with Bovie. Iliotibial band was opened in line with fibers. The joint was now opened through arthrotomy. A large volume of purulent fluid was found within the knee. Specimen was obtained for cultures and sensitivities. The knee joint was manipulated. The knee joint was palpated and loculations were manually debrided. A portion of the synovium was excised. After excisional debridement was complete, the wound was thoroughly irrigated with sterile saline. At this point the wound was clean. Capsule was closed with #1 PDS, Subcutaneous tissues closed with 3-0 PDS and skin was closed with 3-0 nylon. A GABRIELA drain was placed into the wound. Sterile dressings were applied. Patient was awakened and transferred to recovery in stable condition. Needle and sponge counts were correct Arturo Santamaria MD Aug 23, 2017 09:30
[2017-08-23] MEDS ORDERED: DO NOT ADM ANY ANTICOAGULANT DRUGS PRN ×2 (09:53→10:45)
[2017-08-23] MEDS ORDERED: CEFEPIME INJ 2,000 MG in SODIUM CHLORIDE 0.9% INJ 100 ML IV SCH (10:00)
[2017-08-23] MEDS: SODIUM CHLOR 0.9% 1000 ML INJ 1,000 ML IV SCH ×2 (10:10→20:17)
[2017-08-23] MEDS: CEFEPIME INJ 2,000 MG in SODIUM CHLORIDE 0.9% INJ 100 ML IV SCH ×2 (11:36→20:14)
[2017-08-23] MEDS ORDERED: DEXAMETHASONE SOD PHOS 4 MG/ML VIAL IV ONE (12:00)
[2017-08-23] MEDS ORDERED: ONDANSETRON HCL 4 MG/2 ML VIAL IV ONE (12:00)
[2017-08-23] MEDS ORDERED: KETOROLAC TROMETHAMINE 30 MG/ML (IVP) VIAL IV PUSH ONE (12:00)
[2017-08-23] MEDS ORDERED: LIDOCAINE HCL 1% PF 5 ML SYRINGE OTHER ONE (12:00)
[2017-08-23] MEDS: ACETAMINOPHEN/HYDROcodone 325 MG/10 MG TAB PO PRN ×4 (12:00→23:22)
[2017-08-23] MEDS ORDERED: PROPOFOL 200 MG/20 ML AMP IV ONE (12:00)
[2017-08-23] MEDS: MORPHINE SULFATE 4 MG/ML INJ IV PUSH PRN ×3 (13:32→21:39)
--- NOTE | 2017-08-23 16:28 | PD.ID.CON ---
History of Present Illness Service ID Consult Requested By Dr. Mariano Reason for Consult Evaluation and Mment of possible Right knee hardware infection. Primary Care Physician No Primary Care Physician Diagnoses: History of Present Illness Mr. Clark is a 32-year-old male who reports a past medical history of injury to the right tibial plateau region in early July when he was visiting his father. After he returned from that resulted approximately a week after that injury he presented to the emergency department was seen by Dr. Conor Bhandari and underwent open reduction internal fixation of the right tibial plateau. Patient reports that postoperatively this was doing well up until the day prior to admission when the area became peritonitis swollen and tender. Due to increasing pain he presented to the emergency department via EMS. Patient was reportedly riding and discomfort in the emergency department and his only complaint was right knee pain with the slightest movement. Patient's past medical history is also significant for reported history of ADHD. Patient met criteria for sepsis on admission the temperature 100.3, leukocytosis and the source of infection being his right knee. An x-ray of the knee was done and orthopedic consult was placed. Dr. Mariano has been involved in at the present time patient has had an irrigation and debridement of the right knee. Per review of notes it appears that the hardware still in place. Intraoperative cultures are pending at the time of my evaluation but Gram stain does show gram-positive cocci in pairs likely staph or strep. Infectious disease is consulted for evaluation and management of possible right knee hardware infection. Review of Systems ROS Limitations: Poor Historian Constitutional: DENIES: Diaphoretic episodes, Fatigue, Fever, Weight gain, Weight loss, Chills, Dizziness, Change in appetite, Night Sweats Endocrine: DENIES: Heat/cold intolerance, Polydipsia, Polyuria, Polyphagia Eyes: DENIES: Blurred vision, Diplopia, Eye inflammation, Eye pain, Vision loss , Photosensitivity, Double Vision Ears, nose, mouth, throat: DENIES: Tinnitus, Hearing loss, Vertigo, Nasal discharge, Oral lesions, Throat pain, Hoarseness, Ear Pain, Running Nose, Epistaxis, Sinus Pain, Toothache, Odynophagia Respiratory: DENIES: Apneas, Cough, Snoring, Wheezing, Hemoptysis, Sputum production, Shortness of breath Cardiovascular: DENIES: Chest pain, Palpitations, Syncope, Dyspnea on Exertion , PND, Lower Extremity Edema, Orthopnea, Claudication Gastrointestinal: DENIES: Abdominal pain, Black stools, Bloody stools, Constipation, Diarrhea, Nausea, Vomiting, Difficulty Swallowing, Anorexia Genitourinary: DENIES: Sexual dysfunction, Urinary frequency, Urinary incontinence, Urgency, Hematuria, Dysuria, Nocturia, Penile Discharge, Testicular Pain, Testicular Swelling Musculoskeletal: COMPLAINS OF: Joint pain, Stiffness, Joint Swelling, DENIES: Muscle aches, Back pain, Neck pain Integumentary: DENIES: Abnormal pigmentation, Nail changes, Pruritus, Rash Hematologic/lymphatic: DENIES: Bruising, Lymphadenopathy Immunologic/allergic: DENIES: Eczema, Urticaria Neurologic: DENIES: Abnormal gait, Headache, Localized weakness, Paresthesias, Seizures, Speech Problems, Tremor, Poor Balance Psychiatric: DENIES: Anxiety, Confusion, Mood changes, Depression, Hallucinations, Agitation, Suicidal Ideation, Homicidal Ideation, Delusions Except as stated in HPI: all other systems reviewed are Neg Past Family Social History Allergies: Coded Allergies: No Known Allergies (Unverified Allergy, Unknown, 07/30/17) Past Medical History Reported history of ADHD Past Surgical History Open reduction internal fixation of the right knee August 15, 2017. Reported Medications Reported Meds & Active Scripts Active Docusate Sodium 100 Mg Cap 100 Mg PO BID PRN Oxycodone-Acetaminophen 5-325 (Oxycodone HCl/Acetaminophen) 5 Mg-325 Mg Tablet 1 Tab PO Q4H PRN 10 Days Active Ordered Medications Current Medications Medications (Trade) Dose Ordered Sig/Violette Route Start Time Stop Time Status Last Admin Pharmacy Profile Note 0 ml @ 0 mls/hr UNSCH OTHER 08/23/17 06:30 Sodium Chloride 1,000 ml @ 100 mls/hr Q10H IV 08/23/17 08:00 08/23/17 10:10 (NS Flush) 2 ml UNSCH PRN IV FLUSH 08/23/17 06:30 08/23/17 08:09 (NS Flush) 2 ml BID IV FLUSH 08/23/17 09:00 08/23/17 08:08 (Zofran Inj) 4 mg Q6H PRN IVP 08/23/17 06:30 (Tylenol) 650 mg Q6H PRN PO 08/23/17 06:30 (Roseann-Colace) 1 tab BID PO 08/23/17 09:00 (Milk Of Magnesia Liq) 30 ml Q12H PRN PO 08/23/17 06:30 (Senokot) 17.2 mg Q12H PRN PO 08/23/17 06:30 (Dulcolax Supp) 10 mg DAILY PRN RECTAL 08/23/17 06:30 (Lactulose Liq) 30 ml DAILY PRN PO 08/23/17 06:30 Lactated Ringer's 1,000 ml @ 30 mls/hr Q24H PRN IV 08/23/17 08:45 08/26/17 08:44 08/23/17 08:00 Sodium Chloride 500 ml @ 30 mls/hr [id number] PRN IV 08/23/17 08:45 08/26/17 08:44 (Lopressor) 25 mg [employer] CONSULT[employer] PRN PO 08/23/17 08:45 08/26/17 08:44 (Betadine 5% Antisepsis Kit) 1 applic [employer] CONS[employer] PRN EACH NARE 08/23/17 08:45 08/26/17 08:44 (Chlorhexidine 2% Cloth) 3 pack [employer] PRN TOPICAL 08/23/17 08:45 08/26/17 08:44 (NovoLIN R INJ) See Protocol Table ... TE[employer] CONSULTANT PRN SQ 08/23/17 08:45 08/26/17 08:44 (Benadryl) 25 mg Q6H PRN PO 08/23/17 09:30 (Morphine Inj) 4 mg Q3H PRN IV PUSH 08/23/17 09:30 08/23/17 13:32 ([place] 10-325 Mg) 1 tab Q3H PRN PO 08/23/17 09:30 08/23/17 12:00 Vancomycin HCl 1250 mg/Sodium Chloride 262.5 ml @ 250 mls/hr Q12H IV 08/23/17 16:00 Miscellaneous Information SPECIFIC LAB TO BE DRAWN:VANCOMYCIN TROUGH DATE TO... ONCE ONCE .XX 08/25/17 03:45 08/25/17 03:46 Miscellaneous Information ALL NURSING DEPARTME... UNSCH PRN .XX 08/23/17 10:45 08/24/17 10:44 Cefepime HCl 2000 mg/Sodium Chloride 100 ml @ 200 mls/hr Q8H IV 08/23/17 11:00 08/23/17 11:36 Family History Reviewed and noncontributory to current infectious disease problems. Social History Admits to occasional alcohol. Smokes one pack per day since childhood and has prior history of exposure to passive smoking. Denies any IV drug abuse. 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 Physical Exam Vital Signs Vital Signs Date Time Temp Pulse Resp B/P (MAP) Pulse Ox O2 Delivery O2 Flow Rate FiO2 08/23/17 16:12 97.2 80 17 104/66 (79) 98 08/23/17 12:15 99.3 80 17 121/78 (92) 96 08/23/17 12:00 89 08/23/17 10:28 98.9 101 14 122/75 (91) 95 Room Air 08/23/17 10:15 101 14 128/71 (90) 94 Room Air 08/23/17 10:00 104 14 136/73 (94) 97 Room Air 08/23/17 09:51 98.6 109 14 145/78 (100) 98 Room Air 08/23/17 07:14 08/23/17 06:41 109 144/75 (98) 98 Room Air 08/23/17 05:16 Room Air 08/23/17 05:10 100.3 114 22 117/59 (78) 99 Physical Exam GENERAL: This is a well-nourished, well-developed patient, in no apparent distress. SKIN: No rashes, ecchymoses or lesions. Cool and dry. HEAD: Atraumatic. Normocephalic. No temporal or scalp tenderness. EYES: Pupils equal round and reactive. Extraocular motions intact. No scleral icterus. No injection or drainage. ENT: Nose without bleeding, purulent drainage or septal hematoma. Throat without erythema, tonsillar hypertrophy or exudate. Uvula midline. Airway patent. NECK: Trachea midline. Supple, nontender, no meningeal signs. CARDIOVASCULAR: HS audible. RESPIRATORY: Clear to auscultation. Breath sounds equal bilaterally. GASTROINTESTINAL: Abdomen soft, non-tender, nondistended. MUSCULOSKELETAL: Right knee with dressing and brace in place. Drain bulb with sanguinous discharge. NEUROLOGICAL: Awake and alert. Non focal exam. Psych cooperative IV line sites with no e.o infection. Laboratory Laboratory Tests Test 08/23/17 05:27 White Blood Count 15.6 Red Blood Count 4.24 Hemoglobin 12.8 Hematocrit 36.1 Mean Corpuscular Volume 85.1 Mean Corpuscular Hemoglobin 30.1 Mean Corpuscular Hemoglobin Concent 35.4 Red Cell Distribution Width 12.7 Platelet Count 202 Mean Platelet Volume 8.5 Neutrophils (%) (Auto) 84.7 Lymphocytes (%) (Auto) 6.7 Monocytes (%) (Auto) 7.8 Eosinophils (%) (Auto) 0.5 Basophils (%) (Auto) 0.3 Neutrophils # (Auto) 13.2 Lymphocytes # (Auto) 1.0 Monocytes # (Auto) 1.2 Eosinophils # (Auto) 0.1 Basophils # (Auto) 0.0 CBC Comment DIFF FINAL Differential Comment Erythrocyte Sedimentation Rate 23 Prothrombin Time 12.5 Prothromb Time International Ratio 1.2 Activated Partial Thromboplast Time 29.8 Blood Urea Nitrogen 12 Creatinine 1.07 Random Glucose 112 Total Protein 8.1 Albumin 3.8 Calcium Level 9.0 Alkaline Phosphatase 91 Aspartate Amino Transf (AST/SGOT) 16 Alanine Aminotransferase (ALT/SGPT) 9 Total Bilirubin 1.3 Sodium Level 132 Potassium Level 3.4 Chloride Level 97 Carbon Dioxide Level 24.3 Anion Gap 11 Estimat Glomerular Filtration Rate 80 Lactic Acid Level 1.9 C-Reactive Protein 7.00 Date/Time Source Procedure Growth Status 08/23/17 05:27 Blood Peripheral Aerobic Blood Culture Pending Received 08/23/17 05:27 Blood Peripheral Anaerobic Blood Culture Pending Received 08/23/17 09:10 Fluid Other Fungal Smear - Final NO FUNGAL ELEMENTS SEEN. Resulted 08/23/17 09:10 Fluid Other Fungal Culture Pending Resulted 08/23/17 09:10 Wound Knee Fungal Smear - Final NO FUNGAL ELEMENTS SEEN. Resulted 08/23/17 09:10 Wound Knee Fungal Culture Pending Resulted Result Diagram: 08/23/17 0527 08/23/17 0527 Imaging Last Impressions Knee X-Ray 08/23/17 0000 Signed Impressions: Service Date/Time: Wednesday, August 23, 2017 05:36 - CONCLUSION: Soft tissue swelling along the lateral aspect of the knee. Hardware demonstrates no abnormality. Pavan Shukla MD Assessment and Plan Assessment and Plan Sepsis present on admission Right knee hardware infection status post irrigation and debridement Hardware still in place History of ADHD Recommendations: Continue cefepime IV Continue vancomycin IV Follow blood cultures No PICC till cleared by ID follow cultures Follow clinically. [email or web address] patient. Connie Nick MD Aug 23, 2017 16:28
[2017-08-23] MEDS: VANCOMYCIN INJ 1,250 MG in SODIUM CHLOR 0.9% 250 ML INJ 250 ML IV SCH (17:04)
[2017-08-23] MEDS ORDERED: CEFEPIME INJ 1,000 MG in SODIUM CHLORIDE 0.9% INJ 100 ML IV SCH (18:00)
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
[2017-08-23] MEDS ORDERED: VANCOMYCIN INJ 1,000 MG in SODIUM CHLOR 0.9% 250 ML INJ 250 ML IV SCH (21:00)
[2017-08-24] VITALS (10 sets, daily range): BP systolic 92–108; BP diastolic 54–57; PULSE 76–107; RESP 16–20; TEMP 97.9–100.9; O2SAT 95–100
[2017-08-24] MEDS: MORPHINE SULFATE 4 MG/ML INJ IV PUSH PRN ×8 (00:25→23:57)
[2017-08-24] MEDS: ACETAMINOPHEN/HYDROcodone 325 MG/10 MG TAB PO PRN ×7 (02:52→21:59)
[2017-08-24] MEDS: CEFEPIME INJ 2,000 MG in SODIUM CHLORIDE 0.9% INJ 100 ML IV SCH ×2 (02:52→11:20)
[2017-08-24] MEDS: VANCOMYCIN INJ 1,250 MG in SODIUM CHLOR 0.9% 250 ML INJ 250 ML IV SCH ×2 (03:01→15:54)
[2017-08-24] MEDS: SODIUM CHLOR 0.9% 1000 ML INJ 1,000 ML IV SCH (06:19)
--- NOTE | 2017-08-24 07:19 | PD.ORT.PN ---
Subjective Subjective Remarks POD 1 s/p I&D right knee doing well. pain controlled. no changes Objective Vitals Vital Signs Date Time Temp Pulse Resp B/P (MAP) Pulse Ox O2 Delivery O2 Flow Rate FiO2 08/24/17 04:00 90 08/24/17 04:00 99.6 91 16 108/57 (74) 98 08/24/17 03:45 18 08/24/17 03:45 18 08/24/17 00:00 101 08/24/17 00:00 99.0 97 16 105/55 (72) 97 08/23/17 20:00 98.8 110 18 107/60 (76) 100 08/23/17 16:12 97.2 80 17 104/66 (79) 98 08/23/17 16:05 93 08/23/17 12:15 99.3 80 17 121/78 (92) 96 08/23/17 12:00 89 08/23/17 10:28 98.9 101 14 122/75 (91) 95 Room Air 08/23/17 10:15 101 14 128/71 (90) 94 Room Air 08/23/17 10:00 104 14 136/73 (94) 97 Room Air 08/23/17 09:51 98.6 109 14 145/78 (100) 98 Room Air I/O 08/23/17 08/23/17 08/23/17 08/24/17 08/24/17 08/24/17 06:59 14:59 22:59 06:59 14:59 22:59 Intake Total 1900 ml 1050 ml 480 ml Output Total 100 ml 700 ml 1160 ml Balance 1900 ml 950 ml -220 ml -1160 ml Intake Oral 0 ml 480 ml IV Total 1900 ml 250 ml Other 800 ml Output Urine Total 700 ml 1100 ml Drainage Total 0 ml 60 ml Estimated Blood Loss 100 ml # Voids 0 # Bowel Movements 0 Result Diagram: 08/23/1752608/23/17526 Objective Remarks RLE: dressings clean and dry. intact. +drain. NVI Assessment & Plan Assessment and Plan 1)Right Tibial Plateau Fx s/p ORIF 3 weeks ago with subsequent hardware infection 2) Right tibial plateau I&D - POD 1 -NWB -maintain knee brace except for PROM with therapy -maintain drain. plan for DC -will monitor cultures and tailor Abx accordingly. Fuentes Pizarro PA/[employer] PA Aug 24, 2017 07:19
[2017-08-24] MEDS: DOCUSATE SODIUM 50 MG/SENNA 8.6 MG TAB PO SCH ×2 (08:20→20:59)
[2017-08-24] MEDS: SODIUM CHLORIDE 0.9% FLUSH 10 ML FLUSH IV FLUSH PRN ×2 (08:22→11:19)
[2017-08-24 08:38] LABS: AUTOMATED NEUTROPHIL # 7.2 TH/MM3 (1.8-7.7); BASOPHIL % 0.2 % (0.0-2.0); EOSINOPHIL # 0.1 TH/MM3 (0-0.4); EOSINOPHIL % 0.6 % (0.0-4.0); HEMATOCRIT 35.8 % (39.0-51.0); HEMOGLOBIN 12.3 GM/DL (13.0-17.0); LYMPH % 12.4 % (9.0-44.0); LYMPHOCYTE # 1.2 TH/MM3 (1.0-4.8); MEAN CELL VOLUME 87.6 FL (80.0-100.0); MEAN CORPUSCULAR HEMOGLOBIN 30.1 PG (27.0-34.0); MEAN CORPUSCULAR HGB CONC 34.4 % (32.0-36.0); MONO % 10.9 % (0.0-8.0); NEUT % 75.9 % (16.0-70.0); PLATELET COUNT 121 TH/MM3 (150-450); RED BLOOD COUNT 4.08 MIL/MM3 (4.50-5.90); RED CELL DISTRIBUTION WIDTH 12.8 % (11.6-17.2); WHITE BLOOD COUNT 9.5 TH/MM3 (4.0-11.0)
[2017-08-24 08:56] LABS: ALBUMIN 2.4 GM/DL (3.4-5.0); ALKALINE PHOSPHATASE 63 U/L (45-117); ALT (GPT) 9 U/L (12-78); AST (GOT) 22 U/L (15-37); BICARBONATE 25.6 MEQ/L (21.0-32.0); BLOOD UREA NITROGEN 9 MG/DL (7-18); CALCIUM 8.1 MG/DL (8.5-10.1); CHLORIDE 103 MEQ/L (98-107); CREATININE 0.84 MG/DL (0.60-1.30); GLOMERULAR FILTRATION RATE 106 ML/MIN (>89); GLUCOSE,RANDOM 124 MG/DL (74-106); SODIUM (NA) 132 MEQ/L (136-145); TOTAL BILIRUBIN ADULT 0.5 MG/DL (0.2-1.0); TOTAL PROTEIN 6.4 GM/DL (6.4-8.2)
[2017-08-24] MEDS: SODIUM CHLORIDE 0.9% FLUSH 10 ML FLUSH IV FLUSH SCH ×2 (09:00→20:59)
[2017-08-24] MEDS: cefTRIAXone INJ 2,000 MG in SODIUM CHLORIDE 0.9% INJ 100 ML IV SCH (13:10)
--- NOTE | 2017-08-24 14:25 | HHI.PR ---
Subjective Remarks Pain on right knee is better.' Denies fevers but states has had chills. Denies abdominal pain, nausea, vomiting or diarrhea. Objective Vitals Vital Signs Date Time Temp Pulse Resp B/P (MAP) Pulse Ox O2 Delivery O2 Flow Rate FiO2 08/24/17 12:00 86 08/24/17 12:00 99.3 92 18 99/54 (69) 95 08/24/17 08:00 86 08/24/17 08:00 98.9 91 18 100/54 (69) 96 08/24/17 08:00 107 08/24/17 04:00 90 08/24/17 04:00 99.6 91 16 108/57 (74) 98 08/24/17 03:45 18 08/24/17 03:45 18 08/24/17 00:00 101 08/24/17 00:00 99.0 97 16 105/55 (72) 97 08/23/17 20:00 98.8 110 18 107/60 (76) 100 08/23/17 16:12 97.2 80 17 104/66 (79) 98 08/23/17 16:05 93 I/O 08/23/17 08/23/17 08/23/17 08/24/17 08/24/17 08/24/17 07:00 15:00 23:00 07:00 15:00 23:00 Intake Total 1900 ml 1050 ml 480 ml Output Total 100 ml 700 ml 1160 ml Balance 1900 ml 950 ml -220 ml -1160 ml Intake Oral 0 ml 480 ml IV Total 1900 ml 250 ml Other 800 ml Output Urine Total 700 ml 1100 ml Drainage Total 0 ml 60 ml Estimated Blood Loss 100 ml # Voids 0 # Bowel Movements 0 Result Diagram: 08/24/17 0758 08/24/17 0758 Imaging Last Impressions Knee X-Ray 08/23/17 0000 Signed Impressions: Service Date/Time: Wednesday, August 23, 2017 05:36 - CONCLUSION: Soft tissue swelling along the lateral aspect of the knee. Hardware demonstrates no abnormality. Pavan Shukla MD Objective Remarks GENERAL: This is a well-nourished, well-developed patient, in water distress due to pain. SKIN: No rashes, ecchymoses or lesions. Cool and dry. HEAD: Atraumatic. Normocephalic. No temporal or scalp tenderness. EYES: Pupils equal round and reactive. Extraocular motions intact. No scleral icterus. No injection or drainage. ENT: Nose without bleeding, purulent drainage or septal hematoma. Throat without erythema, tonsillar hypertrophy or exudate. Uvula midline. Airway patent. NECK: Trachea midline. No JVD or lymphadenopathy. Supple, nontender, no meningeal signs. CARDIOVASCULAR: Regular rate and rhythm without murmurs, gallops, or rubs. RESPIRATORY: Clear to auscultation. Breath sounds equal bilaterally. No wheezes , rales, or rhonchi. GASTROINTESTINAL: Abdomen soft, non-tender, nondistended. No hepato-splenomegaly , or palpable masses. No guarding. MUSCULOSKELETAL: Right lower extremity is currently in a cast. Right knee is dressed in a brace with moderate swelling and tenderness to palpation. The left lower extremity has no edema. There is no calf tenderness bilaterally. Pedal pulses are intact bilaterally. NEUROLOGICAL: Awake and alert. Cranial nerves II through XII intact. Motor and sensory grossly within normal limits. Five out of 5 muscle strength in all muscle groups. Normal speech. Procedures Irrigation and debridement right proximal tibia plateau, right knee arthrotomy with irrigation and debridement of infection Medications and IVs Current Medications Medications (Trade) Dose Ordered Sig/Violette Route Start Time Stop Time Status Last Admin Pharmacy Profile Note 0 ml @ 0 mls/hr UNSCH OTHER 08/23/17 06:30 Sodium Chloride 1,000 ml @ 100 mls/hr Q10H IV 08/23/17 08:00 08/24/17 06:19 (NS Flush) 2 ml UNSCH PRN IV FLUSH 08/23/17 06:30 08/24/17 11:19 (NS Flush) 2 ml BID IV FLUSH 08/23/17 09:00 08/24/17 09:00 (Zofran Inj) 4 mg Q6H PRN IVP 08/23/17 06:30 (Tylenol) 650 mg Q6H PRN PO 08/23/17 06:30 (Roseann-Colace) 1 tab BID PO 08/23/17 09:00 (Milk Of Magnesia Liq) 30 ml Q12H PRN PO 08/23/17 06:30 (Senokot) 17.2 mg Q12H PRN PO 08/23/17 06:30 (Dulcolax Supp) 10 mg DAILY PRN RECTAL 08/23/17 06:30 (Lactulose Liq) 30 ml DAILY PRN PO 08/23/17 06:30 Lactated Ringer's 1,000 ml @ 30 mls/hr Q24H PRN IV 08/23/17 08:45 08/26/17 08:44 08/23/17 08:00 Sodium Chloride 500 ml @ 30 mls/hr [id number] PRN IV 08/23/17 08:45 08/26/17 08:44 (Lopressor) 25 mg HEALTH AND WELLNESS MANAGER PRN PO 08/23/17 08:45 08/26/17 08:44 (Betadine 5% Antisepsis Kit) 1 applic HEALTH AND WELLNESS MANAGER PRN EACH NARE 08/23/17 08:45 08/26/17 08:44 (Chlorhexidine 2% Cloth) 3 pack HEALTH AND WELLNESS MANAGER PRN TOPICAL 08/23/17 08:45 08/26/17 08:44 (NovoLIN R INJ) See Protocol Table ... HEALTH AND WELLNESS MANAGER PRN SQ 08/23/17 08:45 08/26/17 08:44 (Benadryl) 25 mg Q6H PRN PO 08/23/17 09:30 (Morphine Inj) 4 mg Q3H PRN IV PUSH 08/23/17 09:30 08/24/17 11:19 ([place] 10-325 Mg) 1 tab Q3H PRN PO 08/23/17 09:30 08/24/17 13:00 Vancomycin HCl 1250 mg/Sodium Chloride 262.5 ml @ 250 mls/hr Q12H IV 08/23/17 16:00 08/24/17 03:01 Miscellaneous Information SPECIFIC LAB TO BE DRAWN:VANCOMYCIN TROUGH DATE TO... ONCE ONCE .XX 08/25/17 03:45 08/25/17 03:46 Ceftriaxone Sodium 2000 mg/ Sodium Chloride 100 ml @ 200 mls/hr Q24H IV 08/24/17 13:00 08/24/17 13:10 Urinary Catheter: No Vascular Central Line Catheter: No A/P Problem List: (1) Sepsis ICD Code: A41.9 - Sepsis, unspecified organism Status: Acute (2) Postoperative infection of knee ICD Code: T81.4XXA - Infection following a procedure, initial encounter Status: Acute (3) Tobacco abuse ICD Code: Z72.0 - Tobacco use Assessment and Plan Patient admitted to the medical floor. Orthopedic surgery and infectious disease consulted. sp Irrigation and debridement right proximal tibia plateau, right knee arthrotomy with irrigation and debridement of infection Continue IV antibiotics as per ID recommendations Sepsis clinically improving with resolved leukocytosis and improving tachycardia. Patient currently On Iv Vancomycin and IV Rocephin Wound culture growing Group A beta strep. Pain control as per orthopedic surgery recommendations. Pain control with [place] and IV morphine. Follow-up wound and blood cultures. Monitor WBC and vital signs per We'll place on nicotine patch. Smoking cessation advised. Discharge Planning Continue to monitor in the medical floor. Problem Qualifiers (1) Sepsis: Qualified Codes: A41.9 - Sepsis, unspecified organism (2) Postoperative infection of knee: Qualified Codes: T81.4XXA - Infection following a procedure, initial encounter Shawn Smith MD Aug 24, 2017 14:25
[2017-08-24] MEDS ORDERED: NICOTINE 21 MG/24 HR PATCH T-DERMAL ONE (14:30)
--- NOTE | 2017-08-24 14:32 | HHI.IDPN ---
Subjective Subjective Remarks Mr. Clark is a 32-year-old male who reports a past medical history of injury to the right tibial plateau region in early July when he was visiting his father. After he returned from that resulted approximately a week after that injury he presented to the emergency department was seen by Dr. Conor Bhandari and underwent open reduction internal fixation of the right tibial plateau. Patient reports that postoperatively this was doing well up until the day prior to admission when the area became peritonitis swollen and tender. Due to increasing pain he presented to the emergency department via EMS. Patient was reportedly riding and discomfort in the emergency department and his only complaint was right knee pain with the slightest movement. Patient's past medical history is also significant for reported history of ADHD. Patient met criteria for sepsis on admission the temperature 100.3, leukocytosis and the source of infection being his right knee. An x-ray of the knee was done and orthopedic consult was placed. Dr. Santamaria has been involved in at the present time patient has had an irrigation and debridement of the right knee. Per review of notes it appears that the hardware still in place. Intraoperative cultures are pending at the time of my evaluation but Gram stain does show gram-positive cocci in pairs likely staph or strep. Infectious disease is consulted for evaluation and management of possible right knee hardware infection. Overnight events reviewed Low grade fevers No rash No diarrhea reports he does not have home. Was putting up with mother: he will have to check if she will take him back. Antibiotics Cefepime IV Vanco IV Lines Line sites with no e.o infection Past Medical History reviewed Allergies: Coded Allergies: No Known Allergies (Unverified Allergy, Unknown, 07/30/17) Objective . Vital Signs Date Time Temp Pulse Resp B/P (MAP) Pulse Ox O2 Delivery O2 Flow Rate FiO2 08/24/17 12:00 86 08/24/17 12:00 99.3 92 18 99/54 (69) 95 08/24/17 08:00 86 08/24/17 08:00 98.9 91 18 100/54 (69) 96 08/24/17 08:00 107 08/24/17 04:00 90 08/24/17 04:00 99.6 91 16 108/57 (74) 98 08/24/17 03:45 18 08/24/17 03:45 18 08/24/17 00:00 101 08/24/17 00:00 99.0 97 16 105/55 (72) 97 08/23/17 20:00 98.8 110 18 107/60 (76) 100 08/23/17 16:12 97.2 80 17 104/66 (79) 98 08/23/17 16:05 93 . Laboratory Tests Test 08/23/17 05:27 08/24/17 07:58 White Blood Count 15.6 TH/MM3 9.5 TH/MM3 Red Blood Count 4.24 MIL/MM3 4.08 MIL/MM3 Hemoglobin 12.8 GM/DL 12.3 GM/DL Hematocrit 36.1 % 35.8 % Mean Corpuscular Volume 85.1 FL 87.6 FL Mean Corpuscular Hemoglobin 30.1 PG 30.1 PG Mean Corpuscular Hemoglobin Concent 35.4 % 34.4 % Red Cell Distribution Width 12.7 % 12.8 % Platelet Count 202 TH/MM3 121 TH/MM3 Mean Platelet Volume 8.5 FL 9.0 FL Neutrophils (%) (Auto) 84.7 % 75.9 % Lymphocytes (%) (Auto) 6.7 % 12.4 % Monocytes (%) (Auto) 7.8 % 10.9 % Eosinophils (%) (Auto) 0.5 % 0.6 % Basophils (%) (Auto) 0.3 % 0.2 % Neutrophils # (Auto) 13.2 TH/MM3 7.2 TH/MM3 Lymphocytes # (Auto) 1.0 TH/MM3 1.2 TH/MM3 Monocytes # (Auto) 1.2 TH/MM3 1.0 TH/MM3 Eosinophils # (Auto) 0.1 TH/MM3 0.1 TH/MM3 Basophils # (Auto) 0.0 TH/MM3 0.0 TH/MM3 CBC Comment DIFF FINAL DIFF FINAL Differential Comment Erythrocyte Sedimentation Rate 23 mm/hr Laboratory Tests Test 08/23/17 05:27 08/24/17 07:58 Blood Urea Nitrogen 12 MG/DL 9 MG/DL Creatinine 1.07 MG/DL 0.84 MG/DL Random Glucose 112 MG/DL 124 MG/DL Total Protein 8.1 GM/DL 6.4 GM/DL Albumin 3.8 GM/DL 2.4 GM/DL Calcium Level 9.0 MG/DL 8.1 MG/DL Alkaline Phosphatase 91 U/L 63 U/L Aspartate Amino Transf (AST/SGOT) 16 U/L 22 U/L Alanine Aminotransferase (ALT/SGPT) 9 U/L 9 U/L Total Bilirubin 1.3 MG/DL 0.5 MG/DL Sodium Level 132 MEQ/L 132 MEQ/L Potassium Level 3.4 MEQ/L 4.5 MEQ/L Chloride Level 97 MEQ/L 103 MEQ/L Carbon Dioxide Level 24.3 MEQ/L 25.6 MEQ/L Anion Gap 11 MEQ/L 3 MEQ/L Estimat Glomerular Filtration Rate 80 ML/MIN 106 ML/MIN Lactic Acid Level 1.9 mmol/L C-Reactive Protein 7.00 MG/DL Microbiology Date/Time Source Procedure Growth Status 08/23/17 05:27 Blood Peripheral Aerobic Blood Culture - Preliminary NO GROWTH IN 1 DAY Resulted 08/23/17 05:27 Blood Peripheral Anaerobic Blood Culture - Preliminary NO GROWTH IN 1 DAY Resulted 08/23/17 05:09 Blood Peripheral Aerobic Blood Culture - Preliminary NO GROWTH IN 1 DAY Resulted 08/23/17 05:09 Blood Peripheral Anaerobic Blood Culture - Preliminary NO GROWTH IN 1 DAY Resulted 08/23/17 09:10 Fluid Other Fungal Smear - Final NO FUNGAL ELEMENTS SEEN. Resulted 08/23/17 09:10 Fluid Other Fungal Culture Pending Resulted 08/23/17 09:10 Fluid Other Acid Fast Stain - Final NO ACID FAST BACILLI SEEN Resulted 08/23/17 09:10 Fluid Other Mycobacterial Culture Pending Resulted 08/23/17 09:10 Fluid Other Gram Stain - Final Resulted 08/23/17 09:10 Body Fluid Culture - Preliminary Group A Beta Strep Resulted 08/23/17 09:10 Wound Knee Fungal Smear - Final NO FUNGAL ELEMENTS SEEN. Resulted 08/23/17 09:10 Wound Knee Fungal Culture Pending Resulted 08/23/17 09:10 Wound Knee Acid Fast Stain - Final NO ACID FAST BACILLI SEEN Resulted 08/23/17 09:10 Wound Knee Mycobacterial Culture Pending Resulted 08/23/17 09:10 Wound Knee Gram Stain - Final Resulted 08/23/17 09:10 Wound Culture - Preliminary Group A Beta Strep Resulted 08/23/17 06:20 Wound Knee Gram Stain - Final Resulted 08/23/17 06:20 Wound Culture - Preliminary Group A Beta Strep Resulted Imaging Last Impressions Knee X-Ray 08/23/17 0000 Signed Impressions: Service Date/Time: Wednesday, August 23, 2017 05:36 - CONCLUSION: Soft tissue swelling along the lateral aspect of the knee. Hardware demonstrates no abnormality. Pavan Shukla MD Physical Exam GENERAL: This is a well-nourished, well-developed patient, in no apparent distress. SKIN: No rashes, ecchymoses or lesions. Cool and dry. HEAD: Atraumatic. Normocephalic. No temporal or scalp tenderness. EYES: Pupils equal round and reactive. Extraocular motions intact. No scleral icterus. No injection or drainage. ENT: Nose without bleeding, purulent drainage or septal hematoma. Throat without erythema, tonsillar hypertrophy or exudate. Uvula midline. Airway patent. NECK: Trachea midline. Supple, nontender, no meningeal signs. CARDIOVASCULAR: HS audible. RESPIRATORY: Clear to auscultation. Breath sounds equal bilaterally. GASTROINTESTINAL: Abdomen soft, non-tender, nondistended. MUSCULOSKELETAL: Right knee with dressing and brace in place. Drain bulb with sanguinous discharge. NEUROLOGICAL: Awake and alert. Non focal exam. Psych cooperative IV line sites with no e.o infection. Assessment & Plan Remarks Sepsis present on admission Right knee hardware infection status post irrigation and debridement Hardware still in place History of ADHD Recommendations: DC cefepime IV Start Ceftriaxone IV d.w Micro to get susceptibilities on Strep from intraop specimen. Continue vancomycin IV Follow blood cultures No PICC till cleared by ID follow cultures Follow clinically. d.w patient. d/w Case management: will need IV antibiotics for 6 wks. Homeless. Will ask mom if she will let him stay. Will d.w Ortho about any plans for further surgery. Await Micro susceptibilities for Connie Nick MD Aug 24, 2017 14:32
[2017-08-24] MEDS: IBUPROFEN 400 MG TAB PO PRN (15:53)
[2017-08-25] VITALS (8 sets, daily range): BP systolic 100–116; BP diastolic 52–59; PULSE 75–95; RESP 17–18; TEMP 97.5–99.5; O2SAT 96–100
[2017-08-25] MEDS: ACETAMINOPHEN/HYDROcodone 325 MG/10 MG TAB PO PRN ×7 (01:00→21:59)
[2017-08-25] MEDS: MORPHINE SULFATE 4 MG/ML INJ IV PUSH PRN ×6 (03:23→23:07)
[2017-08-25] MEDS ORDERED: PHARMACY ORDERED LAB ONE ×2 (03:45→15:45)
[2017-08-25] MEDS: VANCOMYCIN INJ 1,250 MG in SODIUM CHLOR 0.9% 250 ML INJ 250 ML IV SCH ×2 (04:36→16:39)
--- NOTE | 2017-08-25 07:08 | PD.ORT.PN ---
Subjective Subjective Remarks Resting in bed. Has removed knee immobilizer, because "puts too much pressure on my knee". Objective Vitals Vital Signs Date Time Temp Pulse Resp B/P (MAP) Pulse Ox O2 Delivery O2 Flow Rate FiO2 08/25/17 03:18 97.5 76 18 100/55 (70) 96 08/25/17 02:23 Room Air 08/24/17 23:55 97.9 76 18 92/54 (67) 97 08/24/17 23:43 78 08/24/17 20:25 Room Air 08/24/17 20:12 98.0 84 18 106/56 (73) 97 08/24/17 19:44 85 08/24/17 16:31 100.9 86 20 98/57 (71) 100 08/24/17 16:00 87 08/24/17 12:00 86 08/24/17 12:00 99.3 92 18 99/54 (69) 95 08/24/17 08:00 86 08/24/17 08:00 98.9 91 18 100/54 (69) 96 08/24/17 08:00 107 I/O 08/24/17 08/24/17 08/24/17 08/25/17 08/25/17 08/25/17 07:00 15:00 23:00 07:00 15:00 23:00 Intake Total 120 ml 262.5 ml Output Total 1160 ml 1200 ml 60 ml Balance -1160 ml -1080 ml -60 ml 262.5 ml Intake Oral 120 ml IV Total 262.5 ml Output Urine Total 1100 ml 1200 ml Drainage Total 60 ml 60 ml # Bowel Movements 0 Result Diagram: 08/24/17 0758 08/24/17 0758 Objective Remarks Right lower extremity: Clean dry dressings in place. Drain intact. Knee immobilizer on counter. Knee resting on pillows at about 25. Intact sensation distally with good capillary refills Assessment & Plan Assessment and Plan 1)Right Tibial Plateau Fx s/p ORIF 3 weeks ago with subsequent hardware infection 2) Right tibial plateau I&D - POD 2 -NWB -maintain knee brace except for PROM with therapy -maintain drain. plan for DC -will monitor cultures and tailor Abx accordingly. Joey Bella Jr. Aug 25, 2017 07:08
[2017-08-25] MEDS: DOCUSATE SODIUM 50 MG/SENNA 8.6 MG TAB PO SCH ×2 (08:34→20:44)
[2017-08-25] MEDS: NICOTINE 21 MG/24 HR PATCH T-DERMAL SCH (08:35)
[2017-08-25] MEDS: SODIUM CHLORIDE 0.9% FLUSH 10 ML FLUSH IV FLUSH SCH ×2 (09:00→20:36)
[2017-08-25] MEDS: REMOVE OLD PATCH T-DERMAL SCH (09:00)
[2017-08-25] MEDS: IBUPROFEN 400 MG TAB PO PRN (10:22)
[2017-08-25] MEDS: LACTATED RINGER'S 1000 ML IV PRN (13:08)
[2017-08-25] MEDS: cefTRIAXone INJ 2,000 MG in SODIUM CHLORIDE 0.9% INJ 100 ML IV SCH (13:08)
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
[2017-08-25] MEDS: SODIUM CHLOR 0.9% 1000 ML INJ 1,000 ML IV SCH (15:43)
[2017-08-25 16:04] LABS: HEMOGLOBIN 10.4 GM/DL (13.0-17.0); MEAN CELL VOLUME 86.7 FL (80.0-100.0); MEAN CORPUSCULAR HEMOGLOBIN 30.1 PG (27.0-34.0); MEAN CORPUSCULAR HGB CONC 34.7 % (32.0-36.0); MEAN PLATELET VOLUME 8.7 FL (7.0-11.0); PLATELET COUNT 127 TH/MM3 (150-450); RED BLOOD COUNT 3.46 MIL/MM3 (4.50-5.90); RED CELL DISTRIBUTION WIDTH 12.9 % (11.6-17.2); WHITE BLOOD COUNT 6.2 TH/MM3 (4.0-11.0)
[2017-08-25 16:41] LABS: CREATININE 0.61 MG/DL (0.60-1.30)
--- NOTE | 2017-08-25 19:41 | RADRPT ---
EXAM DATE/TIME: 08/25/2017 19:04 [facility] COMPARISON: US LEG RIGHT VENOUS DOPPLER, July 30, 2017, 20:00. INDICATIONS : Right leg pain. MEDICAL HISTORY : ADHD. Right ankle fracture. SURGICAL HISTORY : Right knee surgery. Right kne incision and drainage. ENCOUNTER: Subsequent ACUITY: 3 days PAIN SCORE: 6/10 LOCATION: Right leg. TECHNIQUE: Venous ultrasound of the leg was performed from the inguinal ligament to the proximal calf. Real-kinjal e, color Doppler and spectral tracing, compression and augmentation techniques were used. FINDINGS: There is normal compressibility of the visualized deep venous system from the inguinal region to the proximal calf. No echogenic clot is seen in the lumen of the common femoral, femoral, popliteal, and posterior tibial veins. There is a normal response of the venous system to proximal and distal augm entation and respiration. CONCLUSION: No evidence of DVT. No change compared to the prior study. Andrew Bland MD on August 25, 2017 at 19:38 Board Certified Radiologist. This report was verified electronically.
[2017-08-25] MEDS: HEPARIN SODIUM - SQ 10,000 UNITS/ML VIAL SQ SCH (20:45)
--- NOTE | 2017-08-25 21:16 | RADRPT ---
EXAM DATE/TIME: 08/25/2017 20:14 [place] COMPARISON: No previous studies available for comparison. INDICATIONS : Lower back pain after fall. MEDICAL HISTORY : None. SURGICAL HISTORY : None. ENCOUNTER: Initial ACUITY: 3 weeks PAIN SCORE: 6/10 LOCATION: lower back. FINDINGS: There are five non-rib bearing vertebral bodies. The vertebral bodies are in normal alignment withou t evidence of subluxation or scoliosis. The disc spaces are maintained. The posterior elements are intact without evidence of spondylolysis. The pedicles are intact. Bony mineralization is normal. No fracture is identified. CONCLUSION: Normal examination for a patient of this age. Andrew Bland MD on August 25, 2017 at 21:13 Board Certified Radiologist. This report was verified electronically.
[2017-08-25] MEDS: VANCOMYCIN 1 GM/200 ML PREMIX IV SCH (23:09)
[2017-08-26] VITALS (12 sets, daily range): BP systolic 102–120; BP diastolic 56–69; PULSE 60–94; RESP 17–20; TEMP 98–99.5; O2SAT 96–99
[2017-08-26] MEDS: ACETAMINOPHEN/HYDROcodone 325 MG/10 MG TAB PO PRN ×2 (01:25→08:10)
[2017-08-26] MEDS: MORPHINE SULFATE 4 MG/ML INJ IV PUSH PRN ×5 (03:27→22:28)
[2017-08-26] MEDS: HEPARIN SODIUM - SQ 10,000 UNITS/ML VIAL SQ SCH ×3 (06:00→22:27)
[2017-08-26] MEDS: SODIUM CHLOR 0.9% 1000 ML INJ 1,000 ML IV SCH ×2 (06:04→20:34)
[2017-08-26] MEDS: VANCOMYCIN 1 GM/200 ML PREMIX IV SCH (08:00)
[2017-08-26] MEDS: SODIUM CHLORIDE 0.9% FLUSH 10 ML FLUSH IV FLUSH SCH ×2 (08:08→20:29)
[2017-08-26] MEDS: DOCUSATE SODIUM 50 MG/SENNA 8.6 MG TAB PO SCH ×2 (08:09→20:27)
[2017-08-26] MEDS: REMOVE OLD PATCH T-DERMAL SCH (08:10)
[2017-08-26] MEDS: NICOTINE 21 MG/24 HR PATCH T-DERMAL SCH (08:10)
[2017-08-26] MEDS ORDERED: ACETAMINOPHEN/HYDROcodone 325 MG/5 MG TAB PO PRN (10:45)
[2017-08-26] MEDS: ACETAMINOPHEN/HYDROcodone 325 MG/5 MG TAB PO PRN ×3 (11:48→20:29)
[2017-08-26] MEDS: cefTRIAXone INJ 2,000 MG in SODIUM CHLORIDE 0.9% INJ 100 ML IV SCH (12:08)
[2017-08-26] MEDS ORDERED: EPIN1INJ21 SQ (13:28)
[2017-08-26] MEDS ORDERED: SOLU250I IV PUSH (13:28)
[2017-08-26] MEDS ORDERED: EPIN1INJ21 IV PUSH (13:28)
[2017-08-26] MEDS ORDERED: CEFT2INJ IV (13:28)
--- NOTE | 2017-08-26 13:35 | HHI.FF ---
cc: Negar Villa MD Infusion Therapy Location of Infusion Therapy: Ambulatory Infusion Therapy Order Patient Information Appointment Date: Aug 26, 2017 Patient Weight 74.1 kg Diagnosis: Diagnosis Strep hardware infection/osteomyelitis. 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 [] May leave port accessed during therapy. [] May leave peripheral site accessed for duration of therapy. [x] If patient has SOB or respiratory distress, check oxygen saturation. If less than 90% or clinical signs of respiratory distress, administer oxygen at 2 L/min. via nasal cannula and notify physician. [x] Anaphylaxis/Reaction orders: * Stop infusion. * Keep IV line open with saline flush. * Notify physician. * Monitor vital signs every 15 minutes until symptoms resolve. * Check Oxygen saturation; Oxygen at 2 L/min. via nasal cannula if less than 90% or clinical signs of respiratory distress. * Administer diphenhydramine (Benadryl) 25 mg IV STAT, (unless patient has received as pre-med). May repeat once, if necessary. * Solu-Cortef 250 mg IVP over 30-60 seconds, use 100 mg vials for each dissolution. * Epinephrine (1mg/1 ml) 0.3 mg subcutaneously or IVP now with any signs of respiratory distress. * Check with physician for new additional pre-med orders if patient is re- challenged or re-treated. [x] May remove PICC line when treatment complete, after confirming with Physician. [x] If the patient is admitted to the hospital, the ED, or transferred via [facility] , complete transfer form including medication reconciliation order sheet. Laboratory Tests Weekly Labs: CBC w/diff, Creatinine, CRP, LFT's (Hepatic function test) Additional Information Please draw weekly labs, fax to numbers below and Call with abnormals, change in clinical condition or problems to: Dr.Reba Villa or or covering ID Physician Follow up appt: Patient to schedule follow up appt with Dr.Reba Villa within 2 weeks post discharge. Follow up with PCP Follow up with other MDs as planned. Counseling: Counseled about medication side effects Counseled about PICC line care and hand hygiene. Connie Nick MD Aug 26, 2017 13:35
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
[2017-08-26] MEDS: ACETAMINOPHEN 325 MG TAB PO PRN (15:07)
[2017-08-26] MEDS ORDERED: PHARMACY ORDERED LAB ONE (15:45)
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
[2017-08-27] VITALS (7 sets, daily range): BP systolic 103–139; BP diastolic 59–83; PULSE 66–91; RESP 20; TEMP 97.6–101; O2SAT 95–97
[2017-08-27] MEDS: ACETAMINOPHEN/HYDROcodone 325 MG/5 MG TAB PO PRN ×5 (00:46→21:27)
[2017-08-27] MEDS: MORPHINE SULFATE 4 MG/ML INJ IV PUSH PRN ×3 (03:09→10:59)
[2017-08-27] MEDS: SODIUM CHLOR 0.9% 1000 ML INJ 1,000 ML IV SCH ×3 (06:40→19:25)
[2017-08-27] MEDS: HEPARIN SODIUM - SQ 10,000 UNITS/ML VIAL SQ SCH ×3 (06:41→21:27)
[2017-08-27 07:50] LABS: HEMATOCRIT 32.5 % (39.0-51.0); HEMOGLOBIN 11.3 GM/DL (13.0-17.0); MEAN CELL VOLUME 86.7 FL (80.0-100.0); MEAN CORPUSCULAR HEMOGLOBIN 30.2 PG (27.0-34.0); MEAN CORPUSCULAR HGB CONC 34.8 % (32.0-36.0); MEAN PLATELET VOLUME 8.1 FL (7.0-11.0); PLATELET COUNT 185 TH/MM3 (150-450); RED BLOOD COUNT 3.75 MIL/MM3 (4.50-5.90); RED CELL DISTRIBUTION WIDTH 12.9 % (11.6-17.2); WHITE BLOOD COUNT 5.8 TH/MM3 (4.0-11.0)
[2017-08-27 08:11] LABS: BICARBONATE 36.2 MEQ/L (21.0-32.0); CALCIUM 9.1 MG/DL (8.5-10.1); CREATININE 0.67 MG/DL (0.60-1.30)
[2017-08-27] MEDS: NICOTINE 21 MG/24 HR PATCH T-DERMAL SCH (08:45)
[2017-08-27] MEDS: SODIUM CHLORIDE 0.9% FLUSH 10 ML FLUSH IV FLUSH SCH ×2 (08:45→19:48)
[2017-08-27] MEDS: DOCUSATE SODIUM 50 MG/SENNA 8.6 MG TAB PO SCH ×2 (08:45→19:47)
[2017-08-27] MEDS: REMOVE OLD PATCH T-DERMAL SCH (08:45)
[2017-08-27] MEDS: cefTRIAXone INJ 2,000 MG in SODIUM CHLORIDE 0.9% INJ 100 ML IV SCH (13:13)
[2017-08-27] MEDS: MORPHINE SULFATE 15 MG CONTROLLED RELEASE TAB PO SCH ×2 (13:15→21:27)
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
[2017-08-27] MEDS: IBUPROFEN 400 MG TAB PO PRN (17:51)
[2017-08-27] MEDS: MAGNESIUM HYDROXIDE SUSP 30 ML CUP PO PRN (19:47)
[2017-08-28] VITALS (9 sets, daily range): BP systolic 105–119; BP diastolic 58–71; PULSE 66–98; RESP 18–22; TEMP 97.7–99.5; O2SAT 94–98
[2017-08-28] MEDS: ACETAMINOPHEN/HYDROcodone 325 MG/5 MG TAB PO PRN ×4 (03:09→23:15)
[2017-08-28] MEDS: MORPHINE SULFATE 15 MG CONTROLLED RELEASE TAB PO SCH ×2 (05:44→13:21)
[2017-08-28] MEDS: HEPARIN SODIUM - SQ 10,000 UNITS/ML VIAL SQ SCH ×3 (05:44→21:44)
[2017-08-28] MEDS: SODIUM CHLOR 0.9% 1000 ML INJ 1,000 ML IV SCH (05:44)
[2017-08-28] MEDS: SODIUM CHLORIDE 0.9% FLUSH 10 ML FLUSH IV FLUSH SCH ×2 (09:00→21:00)
[2017-08-28] MEDS: DOCUSATE SODIUM 50 MG/SENNA 8.6 MG TAB PO SCH ×2 (09:28→21:44)
[2017-08-28] MEDS: REMOVE OLD PATCH T-DERMAL SCH (09:28)
[2017-08-28] MEDS: NICOTINE 21 MG/24 HR PATCH T-DERMAL SCH (09:28)
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
[2017-08-28] MEDS: cefTRIAXone INJ 2,000 MG in SODIUM CHLORIDE 0.9% INJ 100 ML IV SCH (13:20)
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
[2017-08-28] MEDS: MORPHINE SULFATE 30 MG CONTROLLED RELEASE TAB PO SCH (21:44)
[2017-08-29] VITALS: BP 118/69; PULSE 71; PULSE 80; RESP 16; TEMP 98.4; O2SAT 96
[2017-08-29] MEDS: ACETAMINOPHEN/HYDROcodone 325 MG/5 MG TAB PO PRN ×5 (03:18→20:56)
[2017-08-29 04:00] VITALS: BP 120/63; PULSE 70; PULSE 81; RESP 18; TEMP 98.6; O2SAT 96
[2017-08-29] MEDS: MORPHINE SULFATE 30 MG CONTROLLED RELEASE TAB PO SCH ×3 (05:15→23:00)
[2017-08-29] MEDS: HEPARIN SODIUM - SQ 10,000 UNITS/ML VIAL SQ SCH ×3 (05:49→23:00)
[2017-08-29 08:00] VITALS: BP 104/61; PULSE 67; PULSE 71; RESP 22; TEMP 97.9; O2SAT 97
[2017-08-29] MEDS: NICOTINE 21 MG/24 HR PATCH T-DERMAL SCH (08:04)
[2017-08-29] MEDS: REMOVE OLD PATCH T-DERMAL SCH (08:05)
[2017-08-29] MEDS: DOCUSATE SODIUM 50 MG/SENNA 8.6 MG TAB PO SCH ×2 (08:05→20:55)
[2017-08-29] MEDS: SODIUM CHLORIDE 0.9% FLUSH 10 ML FLUSH IV FLUSH SCH ×2 (08:07→20:56)
[2017-08-29 12:00] VITALS: BP 114/68; PULSE 78; PULSE 80; RESP 20; TEMP 97.9; O2SAT 94
--- NOTE | 2017-08-29 13:19 | PD.ORT.PN ---
Subjective Subjective Remarks Patient resting comfortably. Denies CP/SOB. Denies current fevers. States drain output has increased over the last couple of days Objective Vitals Vital Signs Date Time Temp Pulse Resp B/P (MAP) Pulse Ox O2 Delivery O2 Flow Rate FiO2 08/29/17 12:00 97.9 80 20 114/68 (83) 94 08/29/17 08:00 71 08/29/17 08:00 97.9 67 22 104/61 (75) 97 08/29/17 08:00 Room Air 08/29/17 04:22 Room Air 08/29/17 04:00 98.6 81 18 120/63 (82) 96 08/29/17 04:00 70 08/29/17 00:00 71 08/29/17 00:00 98.4 80 16 118/69 (85) 96 08/29/17 00:00 Room Air 08/28/17 22:00 66 08/28/17 20:00 99.5 78 18 111/64 (80) 96 08/28/17 20:00 Room Air 08/28/17 16:00 99.1 98 20 119/59 (79) 94 08/28/17 16:00 85 I/O 08/28/17 08/28/17 08/28/17 08/29/17 08/29/17 08/29/17 07:00 15:00 23:00 07:00 15:00 23:00 Intake Total 1236 ml 480 ml Output Total 2080 ml 2600 ml 850 ml Balance -844 ml -2120 ml -850 ml Intake Oral 236 ml 480 ml IV Total 1000 ml Output Urine Total 2050 ml 2600 ml 750 ml Drainage Total 30 ml 100 ml Result Diagram: 08/27/17 0654 08/27/17 0654 Objective Remarks Awake, alert. NAD Right lower extremity: Clean dry dressings in place. Drain intact. Knee immobilizer on counter. Knee resting on pillows at about 25. Intact sensation distally with good capillary refills. Negative homans Assessment & Plan Assessment and Plan 1) Right Tibial Plateau Fx s/p ORIF 3 weeks ago with subsequent hardware infection 2) Right tibial plateau I&D - POD 4 -NWB RLE -maintain knee brace except for PROM with therapy -maintain drain. Output remains high -will monitor cultures and tailor Abx accordingly. Shell Bhatia MD Aug 29, 2017 13:19
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
[2017-08-29] MEDS: cefTRIAXone INJ 2,000 MG in SODIUM CHLORIDE 0.9% INJ 100 ML IV SCH (14:32)
[2017-08-29 16:00] VITALS: BP 105/56; PULSE 84; PULSE 86; RESP 20; TEMP 98.6; O2SAT 98
[2017-08-29 20:00] VITALS: BP 111/58; PULSE 82; PULSE 84; RESP 20; TEMP 99.2; O2SAT 96
[2017-08-30] VITALS (7 sets, daily range): BP systolic 98–128; BP diastolic 60–69; PULSE 68–93; RESP 16–20; TEMP 98–100.3; O2SAT 96–97
[2017-08-30] MEDS: ACETAMINOPHEN/HYDROcodone 325 MG/5 MG TAB PO PRN ×5 (01:01→20:27)
[2017-08-30] MEDS: MORPHINE SULFATE 30 MG CONTROLLED RELEASE TAB PO SCH ×3 (05:07→22:00)
[2017-08-30] MEDS: HEPARIN SODIUM - SQ 10,000 UNITS/ML VIAL SQ SCH ×3 (05:08→21:59)
--- NOTE | 2017-08-30 07:05 | PD.ORT.PN ---
Subjective Subjective Remarks Resting in bed. Has removed knee immobilizer, because "puts too much pressure on my knee". Objective Vitals Vital Signs Date Time Temp Pulse Resp B/P (MAP) Pulse Ox O2 Delivery O2 Flow Rate FiO2 08/30/17 04:00 75 08/30/17 04:00 Room Air 08/30/17 00:28 77 08/30/17 00:28 Room Air 08/30/17 00:00 98.4 77 20 98/61 (73) 97 08/29/17 20:00 82 08/29/17 20:00 99.2 84 20 111/58 (75) 96 08/29/17 20:00 Room Air 08/29/17 16:26 Room Air 08/29/17 16:00 98.6 86 20 105/56 (72) 98 08/29/17 16:00 84 08/29/17 12:00 78 08/29/17 12:00 97.9 80 20 114/68 (83) 94 08/29/17 12:00 Room Air 08/29/17 08:00 71 08/29/17 08:00 97.9 67 22 104/61 (75) 97 08/29/17 08:00 Room Air I/O 08/29/17 08/29/17 08/29/17 08/30/17 08/30/17 08/30/17 07:00 15:00 23:00 07:00 15:00 23:00 Intake Total 480 ml Output Total 850 ml 1200 ml 70 ml Balance -850 ml -720 ml -70 ml Intake Oral 480 ml Output Urine Total 750 ml 1200 ml Drainage Total 100 ml 70 ml Result Diagram: 08/27/17 0654 08/27/17 0654 Objective Remarks Awake, alert. NAD Right lower extremity: Clean dry dressings in place. Drain intact. Knee immobilizer on counter. Knee resting on pillows at about 25. Intact sensation distally with good capillary refills. Negative homans Assessment & Plan Assessment and Plan 1) Right Tibial Plateau Fx s/p ORIF 3 weeks ago with subsequent hardware infection 2) Right tibial plateau I&D - POD 7 -NWB RLE -maintain knee brace except for PROM with therapy -maintain drain. Output remains high -will monitor cultures and tailor Abx accordingly. Joey Bella Jr. Aug 30, 2017 07:05
[2017-08-30] MEDS: DOCUSATE SODIUM 50 MG/SENNA 8.6 MG TAB PO SCH ×2 (09:00→20:27)
[2017-08-30] MEDS: REMOVE OLD PATCH T-DERMAL SCH (09:12)
[2017-08-30] MEDS: NICOTINE 21 MG/24 HR PATCH T-DERMAL SCH (09:12)
[2017-08-30] MEDS: SODIUM CHLORIDE 0.9% FLUSH 10 ML FLUSH IV FLUSH SCH ×2 (09:14→20:27)
[2017-08-30] MEDS: MAGNESIUM HYDROXIDE SUSP 30 ML CUP PO PRN (10:58)
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
[2017-08-30] MEDS: cefTRIAXone INJ 2,000 MG in SODIUM CHLORIDE 0.9% INJ 100 ML IV SCH (13:00)
[2017-08-30] MEDS: ACETAMINOPHEN 325 MG TAB PO PRN (13:00)
[2017-08-31] VITALS (9 sets, daily range): BP systolic 99–127; BP diastolic 62–69; PULSE 74–95; RESP 18–20; TEMP 97.1–98.3; O2SAT 95–99
[2017-08-31] MEDS: ACETAMINOPHEN/HYDROcodone 325 MG/5 MG TAB PO PRN ×5 (00:30→23:06)
[2017-08-31] MEDS: MORPHINE SULFATE 30 MG CONTROLLED RELEASE TAB PO SCH ×3 (06:03→20:46)
[2017-08-31] MEDS: HEPARIN SODIUM - SQ 10,000 UNITS/ML VIAL SQ SCH ×3 (06:03→20:46)
[2017-08-31] MEDS: REMOVE OLD PATCH T-DERMAL SCH (08:35)
[2017-08-31] MEDS: NICOTINE 21 MG/24 HR PATCH T-DERMAL SCH (08:35)
[2017-08-31] MEDS: DOCUSATE SODIUM 50 MG/SENNA 8.6 MG TAB PO SCH ×2 (08:36→20:46)
[2017-08-31] MEDS: SODIUM CHLORIDE 0.9% FLUSH 10 ML FLUSH IV FLUSH SCH ×2 (08:36→20:46)
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
[2017-08-31] MEDS: cefTRIAXone INJ 2,000 MG in SODIUM CHLORIDE 0.9% INJ 100 ML IV SCH (13:23)
[2017-08-31 13:58] LABS: HEMATOCRIT 38.6 % (39.0-51.0); HEMOGLOBIN 13.6 GM/DL (13.0-17.0); MEAN CELL VOLUME 85.2 FL (80.0-100.0); MEAN CORPUSCULAR HGB CONC 35.3 % (32.0-36.0); MEAN PLATELET VOLUME 6.9 FL (7.0-11.0); PLATELET COUNT 360 TH/MM3 (150-450); RED BLOOD COUNT 4.54 MIL/MM3 (4.50-5.90); WHITE BLOOD COUNT 5.3 TH/MM3 (4.0-11.0)
[2017-08-31 14:04] LABS: AST (GOT) 21 U/L (15-37); BICARBONATE 32.7 MEQ/L (21.0-32.0); CALCIUM 9.5 MG/DL (8.5-10.1); CHLORIDE 94 MEQ/L (98-107); CREATININE 0.72 MG/DL (0.60-1.30); GLOMERULAR FILTRATION RATE 127 ML/MIN (>89); GLUCOSE,RANDOM 94 MG/DL (74-106); SODIUM (NA) 134 MEQ/L (136-145)
[2017-08-31 14:06] LABS: BLOOD UREA NITROGEN 11 MG/DL (7-18)
[2017-08-31 14:07] LABS: ALKALINE PHOSPHATASE 75 U/L (45-117); ALT (GPT) 24 U/L (12-78); TOTAL BILIRUBIN ADULT 0.3 MG/DL (0.2-1.0); TOTAL PROTEIN 8.5 GM/DL (6.4-8.2)
[2017-09-01] VITALS (10 sets, daily range): BP systolic 110–124; BP diastolic 59–65; PULSE 69–92; RESP 14–18; TEMP 97.8–99.5; O2SAT 96–100
[2017-09-01] MEDS ORDERED: oxyCODONE/ACETAMINOPHEN 10 MG/325 MG TAB PO ONE (01:00)
[2017-09-01] MEDS: MORPHINE SULFATE 30 MG CONTROLLED RELEASE TAB PO SCH ×3 (05:14→22:02)
[2017-09-01] MEDS: HEPARIN SODIUM - SQ 10,000 UNITS/ML VIAL SQ SCH ×3 (05:15→22:02)
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
[2017-09-01] MEDS: DOCUSATE SODIUM 50 MG/SENNA 8.6 MG TAB PO SCH ×2 (08:23→20:30)
[2017-09-01] MEDS: NICOTINE 21 MG/24 HR PATCH T-DERMAL SCH (08:23)
[2017-09-01] MEDS: REMOVE OLD PATCH T-DERMAL SCH (08:24)
[2017-09-01] MEDS: SODIUM CHLORIDE 0.9% FLUSH 10 ML FLUSH IV FLUSH SCH ×2 (08:24→20:31)
[2017-09-01] MEDS: ACETAMINOPHEN/HYDROcodone 325 MG/5 MG TAB PO PRN ×3 (08:29→20:32)
--- NOTE | 2017-09-01 12:19 | HHI.PR ---
Subjective Remarks Follow-up sepsis/Postop infection of right knee 09/01/17-patient seen and examined, patient complains of right groin nod and he is concerned about possible DVT, requesting Doppler. Afebrile. GABRIELA drain still with high output Objective Vitals Vital Signs Date Time Temp Pulse Resp B/P (MAP) Pulse Ox O2 Delivery O2 Flow Rate FiO2 09/01/17 08:25 98.7 83 18 110/61 (77) 98 09/01/17 07:52 80 09/01/17 04:00 69 09/01/17 04:00 97.8 75 18 113/59 (77) 96 09/01/17 00:00 99.5 91 18 124/63 (83) 98 09/01/17 00:00 92 08/31/17 20:00 84 08/31/17 20:00 Room Air 08/31/17 20:00 98.1 88 18 119/67 (84) 97 08/31/17 16:00 80 08/31/17 16:00 98.2 92 20 121/65 (83) 99 I/O 08/31/17 08/31/17 08/31/17 09/01/17 09/01/17 09/01/17 07:00 15:00 23:00 07:00 15:00 23:00 Intake Total 840 ml Output Total 1445 ml 400 ml 60 ml 1200 ml Balance -605 ml -400 ml -60 ml -1200 ml Intake Oral 840 ml Output Urine Total 1400 ml 400 ml 1200 ml Drainage Total 45 ml 60 ml # Bowel Movements 0 Result Diagram: 08/31/17 1300 08/31/17 1300 Imaging Last Impressions Lumbar Spine X-Ray 08/25/17 0000 Signed Impressions: Service Date/Time: Friday, August 25, 2017 20:14 - CONCLUSION: Normal examination for a patient of this age. Andrew Bland MD Lower Extremity Ultrasound 08/25/17 0000 Signed Impressions: Service Date/Time: Friday, August 25, 2017 19:04 - CONCLUSION: No evidence of DVT. No change compared to the prior study. Andrew Bland MD Knee X-Ray 08/23/17 0000 Signed Impressions: Service Date/Time: Wednesday, August 23, 2017 05:36 - CONCLUSION: Soft tissue swelling along the lateral aspect of the knee. Hardware demonstrates no abnormality. Pavan Shukla MD Objective Remarks GENERAL: NAD SKIN: Warm and dry. HEAD: Normocephalic. EYES: No scleral icterus. No injection or drainage. NECK: Supple, trachea midline. No JVD or lymphadenopathy. CARDIOVASCULAR: Regular rate and rhythm without murmurs, gallops, or rubs. RESPIRATORY: Breath sounds equal bilaterally. No accessory muscle use. GASTROINTESTINAL: Abdomen soft, non-tender, nondistended. MUSCULOSKELETAL: No cyanosis, or edema. dressing over right knee-GABRIELA drain in place with high output BACK: Nontender without obvious deformity. No CVA tenderness. Procedures Irrigation and debridement right proximal tibia plateau, right knee arthrotomy with irrigation and debridement of infection A/P Problem List: (1) Sepsis ICD Code: A41.9 - Sepsis, unspecified organism Status: Acute (2) Postoperative infection of knee ICD Code: T81.4XXA - Infection following a procedure, initial encounter Status: Acute (3) Tobacco abuse ICD Code: Z72.0 - Tobacco use (4) Hypotension ICD Code: I95.9 - Hypotension, unspecified (5) Right thigh pain ICD Code: M79.651 - Pain in right thigh (6) Low back pain ICD Code: M54.5 - Low back pain (7) Constipation ICD Code: K59.00 - Constipation, unspecified Assessment and Plan 32-year-old man with Sepsis-Resolved Wound cultures are growing group A beta strep, blood culture so far negative. Postoperative infection of knee S/P Irrigation and debridement right proximal tibia plateau, right knee arthrotomy with irrigation and debridement of infection. Management as per orthopedic surgery. NWB RLE. PT to treat Continue Rocephin 2gm IV. PICC line consult placed. As per ID recommendations the patient will need transition to suppressive oral antibiotics after completion of 6 weeks of IV Continue pain management. Tobacco abuse On nicotine patch. Hypotension Resolved after IV fluid administration. Right thigh pain US r/o DVT ---> negative for DVT. Low back pain Improved with k Thermia pad. DVT prophylaxis: SCDs, heparin subcutaneously. Problem Qualifiers (1) Sepsis: Qualified Codes: A41.9 - Sepsis, unspecified organism (2) Postoperative infection of knee: Qualified Codes: T81.4XXA - Infection following a procedure, initial encounter (3) Hypotension: Qualified Codes: I95.9 - Hypotension, unspecified (4) Low back pain: Qualified Codes: M54.41 - Lumbago with sciatica, right side (5) Constipation: Qualified Codes: K59.03 - Drug induced constipation Jasiel Pina MD Sep 01, 2017 12:19
[2017-09-01] MEDS: cefTRIAXone INJ 2,000 MG in SODIUM CHLORIDE 0.9% INJ 100 ML IV SCH (14:40)
[2017-09-02] VITALS (9 sets, daily range): BP systolic 107–125; BP diastolic 57–70; PULSE 58–88; RESP 14–20; TEMP 97.5–98.3; O2SAT 97–98
[2017-09-02] MEDS: ACETAMINOPHEN/HYDROcodone 325 MG/5 MG TAB PO PRN ×4 (01:08→20:30)
[2017-09-02] MEDS: HEPARIN SODIUM - SQ 10,000 UNITS/ML VIAL SQ SCH ×3 (05:52→21:58)
[2017-09-02] MEDS: MORPHINE SULFATE 30 MG CONTROLLED RELEASE TAB PO SCH ×3 (05:52→21:57)
[2017-09-02] MEDS: DOCUSATE SODIUM 50 MG/SENNA 8.6 MG TAB PO SCH ×2 (08:37→20:30)
[2017-09-02] MEDS: SODIUM CHLORIDE 0.9% FLUSH 10 ML FLUSH IV FLUSH SCH ×2 (08:37→20:30)
[2017-09-02] MEDS: NICOTINE 21 MG/24 HR PATCH T-DERMAL SCH (08:37)
[2017-09-02] MEDS: REMOVE OLD PATCH T-DERMAL SCH (08:38)
--- NOTE | 2017-09-02 10:49 | HHI.PR ---
Subjective Remarks Follow-up sepsis/Postop infection of right knee 09/01/17-patient seen and examined, patient complains of right groin nod and he is concerned about possible DVT, requesting Doppler. Afebrile. GABRIELA drain still with high output 09/02/17-patient seen and examined, complains of constipation. requesting that his narcotics be Changed to morphine and Percocet Objective Vitals Vital Signs Date Time Temp Pulse Resp B/P (MAP) Pulse Ox O2 Delivery O2 Flow Rate FiO2 09/02/17 08:07 98.0 75 16 107/59 (75) 97 09/02/17 04:00 Room Air 09/02/17 04:00 97.8 60 20 111/67 (82) 98 09/02/17 04:00 58 09/02/17 00:00 Room Air 09/02/17 00:00 97.9 88 14 113/57 (75) 97 09/02/17 00:00 80 09/01/17 20:15 98.7 74 14 113/62 (79) 98 09/01/17 20:00 Room Air 09/01/17 20:00 87 09/01/17 16:07 98.2 88 17 122/65 (84) 100 09/01/17 16:00 Room Air 09/01/17 15:49 88 09/01/17 12:07 98.0 75 17 114/63 (80) 97 09/01/17 12:00 Room Air 09/01/17 11:51 71 I/O 09/01/17 09/01/17 09/01/17 09/02/17 09/02/17 09/02/17 07:00 15:00 23:00 07:00 15:00 23:00 Intake Total 460 ml Output Total 1200 ml 1180 ml Balance -1200 ml -720 ml Intake Oral 360 ml IV Total 100 ml Output Urine Total 1200 ml 1150 ml Drainage Total 30 ml # Bowel Movements 0 Result Diagram: 08/31/17 1300 08/31/17 1300 Objective Remarks GENERAL: NAD SKIN: Warm and dry. HEAD: Normocephalic. EYES: No scleral icterus. No injection or drainage. NECK: Supple, trachea midline. No JVD or lymphadenopathy. CARDIOVASCULAR: Regular rate and rhythm without murmurs, gallops, or rubs. RESPIRATORY: Breath sounds equal bilaterally. No accessory muscle use. GASTROINTESTINAL: Abdomen soft, non-tender, nondistended. MUSCULOSKELETAL: No cyanosis, or edema. dressing over right knee-GABRIELA drain in place with high output BACK: Nontender without obvious deformity. No CVA tenderness. Procedures Irrigation and debridement right proximal tibia plateau, right knee arthrotomy with irrigation and debridement of infection A/P Problem List: (1) Sepsis ICD Code: A41.9 - Sepsis, unspecified organism Status: Acute (2) Postoperative infection of knee ICD Code: T81.4XXA - Infection following a procedure, initial encounter Status: Acute (3) Tobacco abuse ICD Code: Z72.0 - Tobacco use (4) Hypotension ICD Code: I95.9 - Hypotension, unspecified (5) Right thigh pain ICD Code: M79.651 - Pain in right thigh (6) Low back pain ICD Code: M54.5 - Low back pain (7) Constipation ICD Code: K59.00 - Constipation, unspecified Assessment and Plan 32-year-old man with Sepsis-Resolved Wound cultures are growing group A beta strep, blood culture so far negative. Postoperative infection of knee S/P Irrigation and debridement right proximal tibia plateau, right knee arthrotomy with irrigation and debridement of infection. Management as per orthopedic surgery. NWB RLE. PT to treat Continue Rocephin 2gm IV. As per ID recommendations the patient will need transition to suppressive oral antibiotics after completion of 6 weeks of IV Continue pain management. Tobacco abuse On nicotine patch. Hypotension Resolved after IV fluid administration. Right thigh pain US r/o DVT ---> negative for DVT. Low back pain Improved with k Thermia pad. Constipation -2/2 Narcotics, Give Lactulose x 1 now and continue with current stool softener DVT prophylaxis: SCDs, heparin subcutaneously. Problem Qualifiers (1) Sepsis: Qualified Codes: A41.9 - Sepsis, unspecified organism (2) Postoperative infection of knee: Qualified Codes: T81.4XXA - Infection following a procedure, initial encounter (3) Hypotension: Qualified Codes: I95.9 - Hypotension, unspecified (4) Low back pain: Qualified Codes: M54.41 - Lumbago with sciatica, right side (5) Constipation: Qualified Codes: K59.03 - Drug induced constipation Jasiel Pina MD Sep 02, 2017 10:49
[2017-09-02] MEDS ORDERED: LACTULOSE SYRUP 20 GM/30 ML CUP PO ONE (11:00)
[2017-09-02] MEDS: cefTRIAXone INJ 2,000 MG in SODIUM CHLORIDE 0.9% INJ 100 ML IV SCH (13:07)
--- NOTE | 2017-09-02 15:16 | HHI.IDPN ---
Subjective Subjective Remarks Mr. Clark is a 32-year-old male who reports a past medical history of injury to the right tibial plateau region in early July when he was visiting his father. After he returned from that resulted approximately a week after that injury he presented to the emergency department was seen by Dr. Conor Bhandari and underwent open reduction internal fixation of the right tibial plateau. Patient reports that postoperatively this was doing well up until the day prior to admission when the area became peritonitis swollen and tender. Due to increasing pain he presented to the emergency department via EMS. Patient was reportedly riding and discomfort in the emergency department and his only complaint was right knee pain with the slightest movement. Patient's past medical history is also significant for reported history of ADHD. Patient met criteria for sepsis on admission the temperature 100.3, leukocytosis and the source of infection being his right knee. An x-ray of the knee was done and orthopedic consult was placed. Dr. Santamaria has been involved in at the present time patient has had an irrigation and debridement of the right knee. Per review of notes it appears that the hardware still in place. Intraoperative cultures are pending at the time of my evaluation but Gram stain does show gram-positive cocci in pairs likely staph or strep. Infectious disease is consulted for evaluation and management of possible right knee hardware infection. Overnight events reviewed No fevers No rash No diarrhea Drain output high Antibiotics Ceftriaxone IV Vanco IV Lines Line sites with no e.o infection Past Medical History reviewed Allergies: Coded Allergies: No Known Allergies (Unverified Allergy, Unknown, 07/30/17) Objective . Vital Signs Date Time Temp Pulse Resp B/P (MAP) Pulse Ox O2 Delivery O2 Flow Rate FiO2 09/02/17 12:07 97.7 79 16 125/70 (88) 97 09/02/17 08:07 98.0 75 16 107/59 (75) 97 09/02/17 08:00 73 09/02/17 04:00 Room Air 09/02/17 04:00 97.8 60 20 111/67 (82) 98 09/02/17 04:00 58 09/02/17 00:00 Room Air 09/02/17 00:00 97.9 88 14 113/57 (75) 97 09/02/17 00:00 80 09/01/17 20:15 98.7 74 14 113/62 (79) 98 09/01/17 20:00 Room Air 09/01/17 20:00 87 09/01/17 16:07 98.2 88 17 122/65 (84) 100 09/01/17 16:00 Room Air 09/01/17 15:49 88 Imaging Last Impressions Knee X-Ray 08/23/17 0000 Signed Impressions: Service Date/Time: Wednesday, August 23, 2017 05:36 - CONCLUSION: Soft tissue swelling along the lateral aspect of the knee. Hardware demonstrates no abnormality. Pavan Shukla MD Physical Exam GENERAL: This is a well-nourished, well-developed patient, in no apparent distress. SKIN: No rashes, ecchymoses or lesions. Cool and dry. HEAD: Atraumatic. Normocephalic. No temporal or scalp tenderness. EYES: Pupils equal round and reactive. Extraocular motions intact. No scleral icterus. No injection or drainage. ENT: Nose without bleeding, purulent drainage or septal hematoma. Throat without erythema, tonsillar hypertrophy or exudate. Uvula midline. Airway patent. NECK: Trachea midline. Supple, nontender, no meningeal signs. CARDIOVASCULAR: HS audible. RESPIRATORY: Clear to auscultation. Breath sounds equal bilaterally. GASTROINTESTINAL: Abdomen soft, non-tender, nondistended. MUSCULOSKELETAL: Right knee with dressing in place. NEUROLOGICAL: Awake and alert. Non focal exam. Psych cooperative IV line sites with no e.o infection. Assessment & Plan Remarks Sepsis present on admission Right knee hardware infection status post irrigation and debridement Hardware still in place History of ADHD Recommendations: Continue Ceftriaxone IV Hospitalist to order and follow weekly labs: CBC with diff, CMP, CRP every Wednesday. If any abnormal labs of change in clinical condition please call back sooner. d.w patient. dw . d/w Case management: will need IV antibiotics for 6 wks. Homeless. Will ask mom if she will let him stay. Connie Nick MD Sep 02, 2017 15:16
[2017-09-03] VITALS: BP 109/60; PULSE 71; PULSE 83; RESP 18; TEMP 97.8; O2SAT 98
[2017-09-03] MEDS: ACETAMINOPHEN/HYDROcodone 325 MG/5 MG TAB PO PRN ×3 (03:37→19:37)
[2017-09-03 04:00] VITALS: BP 148/60; PULSE 75; PULSE 80; RESP 18; TEMP 98.3; O2SAT 96
[2017-09-03] MEDS: HEPARIN SODIUM - SQ 10,000 UNITS/ML VIAL SQ SCH ×3 (06:09→21:56)
[2017-09-03] MEDS: MORPHINE SULFATE 30 MG CONTROLLED RELEASE TAB PO SCH ×3 (06:10→21:56)
[2017-09-03 08:00] VITALS: BP 112/60; PULSE 62; PULSE 75; RESP 20; TEMP 98.3; O2SAT 96
[2017-09-03] MEDS: DOCUSATE SODIUM 50 MG/SENNA 8.6 MG TAB PO SCH ×2 (08:41→19:37)
[2017-09-03] MEDS: NICOTINE 21 MG/24 HR PATCH T-DERMAL SCH (08:43)
[2017-09-03] MEDS: REMOVE OLD PATCH T-DERMAL SCH (08:45)
[2017-09-03] MEDS: SODIUM CHLORIDE 0.9% FLUSH 10 ML FLUSH IV FLUSH SCH ×2 (08:46→19:37)
[2017-09-03 12:00] VITALS: BP 117/60; PULSE 80; RESP 20; TEMP 98.8; O2SAT 98
[2017-09-03] MEDS: cefTRIAXone INJ 2,000 MG in SODIUM CHLORIDE 0.9% INJ 100 ML IV SCH (12:14)
--- NOTE | 2017-09-03 13:11 | HHI.PR ---
Subjective Remarks Follow-up sepsis/Postop infection of right knee 09/01/17-patient seen and examined, patient complains of right groin nod and he is concerned about possible DVT, requesting Doppler. Afebrile. GABRIELA drain still with high output 09/02/17-patient seen and examined, complains of constipation. requesting that his narcotics be Changed to morphine and Percocet 09/03/17-patient seen and examined, Constipation resolved, complains of mild discomfort to RLE Objective Vitals Vital Signs Date Time Temp Pulse Resp B/P (MAP) Pulse Ox O2 Delivery O2 Flow Rate FiO2 09/03/17 12:00 80 09/03/17 12:00 98.8 80 20 117/60 (79) 98 09/03/17 08:00 62 09/03/17 08:00 98.3 75 20 112/60 (77) 96 09/03/17 07:50 Room Air 09/03/17 04:00 98.3 80 18 148/60 (89) 96 09/03/17 04:00 Room Air 09/03/17 04:00 75 09/03/17 00:00 Room Air 09/03/17 00:00 83 09/03/17 00:00 97.8 71 18 109/60 (76) 98 09/02/17 20:00 Room Air 09/02/17 20:00 98.3 80 18 113/57 (75) 98 09/02/17 20:00 88 09/02/17 17:00 75 09/02/17 16:22 97.5 81 17 111/63 (79) 98 09/02/17 16:00 Room Air I/O 09/02/17 09/02/17 09/02/17 09/03/17 09/03/17 09/03/17 07:00 15:00 23:00 07:00 15:00 23:00 Intake Total 720 ml Output Total 1700 ml 1400 ml Balance -980 ml -1400 ml Intake Oral 720 ml Output Urine Total 1700 ml 1400 ml # Bowel Movements 0 Result Diagram: 08/31/17 1300 08/31/17 1300 Objective Remarks GENERAL: NAD SKIN: Warm and dry. HEAD: Normocephalic. EYES: No scleral icterus. No injection or drainage. NECK: Supple, trachea midline. No JVD or lymphadenopathy. CARDIOVASCULAR: Regular rate and rhythm without murmurs, gallops, or rubs. RESPIRATORY: Breath sounds equal bilaterally. No accessory muscle use. GASTROINTESTINAL: Abdomen soft, non-tender, nondistended. MUSCULOSKELETAL: No cyanosis, or edema. dressing over right knee-GABRIELA drain in place with high output BACK: Nontender without obvious deformity. No CVA tenderness. Procedures Irrigation and debridement right proximal tibia plateau, right knee arthrotomy with irrigation and debridement of infection A/P Problem List: (1) Sepsis ICD Code: A41.9 - Sepsis, unspecified organism Status: Acute (2) Postoperative infection of knee ICD Code: T81.4XXA - Infection following a procedure, initial encounter Status: Acute (3) Tobacco abuse ICD Code: Z72.0 - Tobacco use (4) Hypotension ICD Code: I95.9 - Hypotension, unspecified (5) Right thigh pain ICD Code: M79.651 - Pain in right thigh (6) Low back pain ICD Code: M54.5 - Low back pain (7) Constipation ICD Code: K59.00 - Constipation, unspecified Assessment and Plan 32-year-old man with Sepsis-Resolved Wound cultures are growing group A beta strep, blood culture so far negative. Postoperative infection of knee S/P Irrigation and debridement right proximal tibia plateau, right knee arthrotomy with irrigation and debridement of infection. Management as per orthopedic surgery. NWB RLE. PT to treat Continue Rocephin 2gm IV. As per ID recommendations the patient will need transition to suppressive oral antibiotics after completion of 6 weeks of IV Continue pain management. Tobacco abuse On nicotine patch. Hypotension Resolved after IV fluid administration. Right thigh pain US r/o DVT ---> negative for DVT. Low back pain Improved with k Thermia pad. Constipation -Resolved and continue with stool softener DVT prophylaxis: SCDs, heparin subcutaneously. Problem Qualifiers (1) Sepsis: Qualified Codes: A41.9 - Sepsis, unspecified organism (2) Postoperative infection of knee: Qualified Codes: T81.4XXA - Infection following a procedure, initial encounter (3) Hypotension: Qualified Codes: I95.9 - Hypotension, unspecified (4) Low back pain: Qualified Codes: M54.41 - Lumbago with sciatica, right side (5) Constipation: Qualified Codes: K59.03 - Drug induced constipation Jasiel Pina MD Sep 03, 2017 13:11
[2017-09-03 16:00] VITALS: BP 106/61; PULSE 73; PULSE 74; RESP 20; TEMP 97.6; O2SAT 97
[2017-09-03 20:00] VITALS: BP 127/56; PULSE 79; PULSE 98; RESP 16; TEMP 98.2; O2SAT 98
[2017-09-04] VITALS (9 sets, daily range): BP systolic 102–123; BP diastolic 56–67; PULSE 64–82; RESP 16–20; TEMP 97.6–98.2; O2SAT 96–99
[2017-09-04] MEDS: ACETAMINOPHEN/HYDROcodone 325 MG/5 MG TAB PO PRN ×4 (01:52→21:28)
[2017-09-04] MEDS: MORPHINE SULFATE 30 MG CONTROLLED RELEASE TAB PO SCH ×3 (05:22→21:29)
[2017-09-04] MEDS: HEPARIN SODIUM - SQ 10,000 UNITS/ML VIAL SQ SCH ×3 (05:23→21:28)
[2017-09-04] MEDS: NICOTINE 21 MG/24 HR PATCH T-DERMAL SCH (08:21)
[2017-09-04] MEDS: DOCUSATE SODIUM 50 MG/SENNA 8.6 MG TAB PO SCH ×2 (08:22→21:28)
[2017-09-04] MEDS: REMOVE OLD PATCH T-DERMAL SCH (08:22)
[2017-09-04] MEDS: SODIUM CHLORIDE 0.9% FLUSH 10 ML FLUSH IV FLUSH SCH ×2 (09:00→21:29)
--- NOTE | 2017-09-04 11:37 | HHI.PR ---
Subjective Remarks Follow-up sepsis/Postop infection of right knee 09/01/17-patient seen and examined, patient complains of right groin nod and he is concerned about possible DVT, requesting Doppler. Afebrile. GABRIELA drain still with high output 09/02/17-patient seen and examined, complains of constipation. requesting that his narcotics be Changed to morphine and Percocet 09/03/17-patient seen and examined, Constipation resolved, complains of mild discomfort to RLE 09/04/17-patient seen and examined complaining of soreness otherwise stable. States when he moves his legs this leads to increase GABRIELA output Objective Vitals Vital Signs Date Time Temp Pulse Resp B/P (MAP) Pulse Ox O2 Delivery O2 Flow Rate FiO2 09/04/17 08:00 98.1 80 20 123/61 (81) 97 09/04/17 04:00 98.2 64 16 102/56 (71) 96 09/04/17 00:00 98.2 72 16 102/56 (71) 96 09/03/17 20:00 98.2 98 16 127/56 (79) 98 09/03/17 20:00 79 09/03/17 16:00 97.6 73 20 106/61 (76) 97 09/03/17 16:00 74 09/03/17 16:00 Room Air 09/03/17 12:00 80 09/03/17 12:00 98.8 80 20 117/60 (79) 98 09/03/17 12:00 Room Air I/O 09/03/17 09/03/17 09/03/17 09/04/17 09/04/17 09/04/17 07:00 15:00 23:00 07:00 15:00 23:00 Intake Total 360 ml 1000 ml Output Total 1400 ml 1230 ml 385 ml Balance -1400 ml -870 ml 615 ml Intake Oral 360 ml 1000 ml Output Urine Total 1400 ml 1200 ml 350 ml Drainage Total 30 ml 35 ml Result Diagram: 08/31/17 1300 08/31/17 1300 Objective Remarks GENERAL: NAD SKIN: Warm and dry. HEAD: Normocephalic. EYES: No scleral icterus. No injection or drainage. NECK: Supple, trachea midline. No JVD or lymphadenopathy. CARDIOVASCULAR: Regular rate and rhythm without murmurs, gallops, or rubs. RESPIRATORY: Breath sounds equal bilaterally. No accessory muscle use. GASTROINTESTINAL: Abdomen soft, non-tender, nondistended. MUSCULOSKELETAL: No cyanosis, or edema. dressing over right knee-GABRIELA drain in place with high output BACK: Nontender without obvious deformity. No CVA tenderness. Procedures Irrigation and debridement right proximal tibia plateau, right knee arthrotomy with irrigation and debridement of infection A/P Problem List: (1) Sepsis ICD Code: A41.9 - Sepsis, unspecified organism Status: Acute (2) Postoperative infection of knee ICD Code: T81.4XXA - Infection following a procedure, initial encounter Status: Acute (3) Tobacco abuse ICD Code: Z72.0 - Tobacco use (4) Hypotension ICD Code: I95.9 - Hypotension, unspecified (5) Right thigh pain ICD Code: M79.651 - Pain in right thigh (6) Low back pain ICD Code: M54.5 - Low back pain (7) Constipation ICD Code: K59.00 - Constipation, unspecified Assessment and Plan 32-year-old man with Sepsis-Resolved Wound cultures are growing group A beta strep, blood culture so far negative. Postoperative infection of knee S/P Irrigation and debridement right proximal tibia plateau, right knee arthrotomy with irrigation and debridement of infection. Management as per orthopedic surgery. NWB RLE. PT to treat Continue Rocephin 2gm IV daily. As per ID recommendations the patient will need transition to suppressive oral antibiotics after completion of 6 weeks of IV Continue pain management. Tobacco abuse On nicotine patch. Hypotension Resolved after IV fluid administration. Right thigh pain US r/o DVT ---> negative for DVT. Low back pain Improved Constipation -Resolved and continue with stool softener DVT prophylaxis: SCDs, heparin subcutaneously. Problem Qualifiers (1) Sepsis: Qualified Codes: A41.9 - Sepsis, unspecified organism (2) Postoperative infection of knee: Qualified Codes: T81.4XXA - Infection following a procedure, initial encounter (3) Hypotension: Qualified Codes: I95.9 - Hypotension, unspecified (4) Low back pain: Qualified Codes: M54.41 - Lumbago with sciatica, right side (5) Constipation: Qualified Codes: K59.03 - Drug induced constipation Jasiel Pina MD Sep 04, 2017 11:37
[2017-09-04] MEDS: cefTRIAXone INJ 2,000 MG in SODIUM CHLORIDE 0.9% INJ 100 ML IV SCH (14:11)
[2017-09-05] VITALS (9 sets, daily range): BP systolic 95–124; BP diastolic 53–82; PULSE 62–87; RESP 16–20; TEMP 97.5–98.7; O2SAT 95–100
[2017-09-05] MEDS: ACETAMINOPHEN/HYDROcodone 325 MG/5 MG TAB PO PRN ×2 (02:56→06:44)
[2017-09-05] MEDS: HEPARIN SODIUM - SQ 10,000 UNITS/ML VIAL SQ SCH ×3 (05:21→20:54)
[2017-09-05] MEDS: MORPHINE SULFATE 30 MG CONTROLLED RELEASE TAB PO SCH ×3 (05:21→20:54)
[2017-09-05] MEDS: REMOVE OLD PATCH T-DERMAL SCH (09:00)
[2017-09-05] MEDS: NICOTINE 21 MG/24 HR PATCH T-DERMAL SCH (09:09)
[2017-09-05] MEDS: DOCUSATE SODIUM 50 MG/SENNA 8.6 MG TAB PO SCH ×2 (09:09→20:53)
[2017-09-05] MEDS: SODIUM CHLORIDE 0.9% FLUSH 10 ML FLUSH IV FLUSH SCH ×2 (09:12→20:53)
--- NOTE | 2017-09-05 09:52 | HHI.PR ---
Subjective Remarks Follow-up sepsis/Postop infection of right knee 09/01/17-patient seen and examined, patient complains of right groin nod and he is concerned about possible DVT, requesting Doppler. Afebrile. GABRIELA drain still with high output 09/02/17-patient seen and examined, complains of constipation. requesting that his narcotics be Changed to morphine and Percocet 09/03/17-patient seen and examined, Constipation resolved, complains of mild discomfort to RLE 09/04/17-patient seen and examined complaining of soreness otherwise stable. States when he moves his legs this leads to increase GABRIELA output 09/05/17-patient seen and examined, stable, no complaints, appetite, GABREILA drain still with high output Objective Vitals Vital Signs Date Time Temp Pulse Resp B/P (MAP) Pulse Ox O2 Delivery O2 Flow Rate FiO2 09/05/17 08:00 98.2 69 20 114/56 (75) 98 09/05/17 04:00 69 09/05/17 04:00 97.5 73 16 109/58 (75) 98 09/05/17 04:00 Room Air 09/05/17 00:00 98.7 77 16 95/53 (67) 95 09/05/17 00:00 Room Air 09/05/17 00:00 75 09/04/17 21:00 Room Air 09/04/17 20:00 79 09/04/17 20:00 97.6 77 16 113/58 (76) 97 09/04/17 16:00 97.7 76 20 117/64 (81) 99 09/04/17 16:00 Room Air 09/04/17 15:48 82 09/04/17 12:04 67 09/04/17 12:00 Room Air 09/04/17 12:00 98.0 75 20 116/67 (83) 96 I/O 09/04/17 09/04/17 09/04/17 09/05/17 09/05/17 09/05/17 07:00 15:00 23:00 07:00 15:00 23:00 Intake Total 1000 ml 240 ml 860 ml Output Total 385 ml 1230 ml 1125 ml Balance 615 ml -990 ml -265 ml Intake Oral 1000 ml 240 ml 860 ml Output Urine Total 350 ml 1200 ml 1100 ml Drainage Total 35 ml 30 ml 25 ml Objective Remarks GENERAL: NAD SKIN: Warm and dry. HEAD: Normocephalic. EYES: No scleral icterus. No injection or drainage. NECK: Supple, trachea midline. No JVD or lymphadenopathy. CARDIOVASCULAR: Regular rate and rhythm without murmurs, gallops, or rubs. RESPIRATORY: Breath sounds equal bilaterally. No accessory muscle use. GASTROINTESTINAL: Abdomen soft, non-tender, nondistended. MUSCULOSKELETAL: No cyanosis, or edema. dressing over right knee-GABRIELA drain in place with high output BACK: Nontender without obvious deformity. No CVA tenderness. Procedures Irrigation and debridement right proximal tibia plateau, right knee arthrotomy with irrigation and debridement of infection A/P Problem List: (1) Sepsis ICD Code: A41.9 - Sepsis, unspecified organism Status: Acute (2) Postoperative infection of knee ICD Code: T81.4XXA - Infection following a procedure, initial encounter Status: Acute (3) Tobacco abuse ICD Code: Z72.0 - Tobacco use (4) Hypotension ICD Code: I95.9 - Hypotension, unspecified (5) Right thigh pain ICD Code: M79.651 - Pain in right thigh (6) Low back pain ICD Code: M54.5 - Low back pain (7) Constipation ICD Code: K59.00 - Constipation, unspecified Assessment and Plan 32-year-old man with Sepsis-Resolved Wound cultures are growing group A beta strep, blood culture so far negative. Postoperative infection of knee S/P Irrigation and debridement right proximal tibia plateau, right knee arthrotomy with irrigation and debridement of infection. Management as per orthopedic surgery. NWB RLE. PT to treat Continue Rocephin 2gm IV daily. As per ID recommendations the patient will need transition to suppressive oral antibiotics after completion of 6 weeks of IV. Continue pain management. Tobacco abuse On nicotine patch. Hypotension Resolved after IV fluid administration. Right thigh pain US r/o DVT ---> negative for DVT. Low back pain Improved Constipation -Resolved and continue with stool softener DVT prophylaxis: SCDs, heparin subcutaneously. Problem Qualifiers (1) Sepsis: Qualified Codes: A41.9 - Sepsis, unspecified organism (2) Postoperative infection of knee: Qualified Codes: T81.4XXA - Infection following a procedure, initial encounter (3) Hypotension: Qualified Codes: I95.9 - Hypotension, unspecified (4) Low back pain: Qualified Codes: M54.41 - Lumbago with sciatica, right side (5) Constipation: Qualified Codes: K59.03 - Drug induced constipation Jasiel Pina MD Sep 05, 2017 09:52
[2017-09-05] MEDS: cefTRIAXone INJ 2,000 MG in SODIUM CHLORIDE 0.9% INJ 100 ML IV SCH (13:41)
[2017-09-06] VITALS (9 sets, daily range): BP systolic 100–120; BP diastolic 56–63; PULSE 68–88; RESP 17–20; TEMP 97.7–98.6; O2SAT 96–98
[2017-09-06] MEDS: HEPARIN SODIUM - SQ 10,000 UNITS/ML VIAL SQ SCH ×3 (05:31→21:51)
[2017-09-06] MEDS: MORPHINE SULFATE 30 MG CONTROLLED RELEASE TAB PO SCH ×3 (05:31→21:51)
[2017-09-06] MEDS: ACETAMINOPHEN/HYDROcodone 325 MG/5 MG TAB PO PRN ×3 (06:49→16:06)
--- NOTE | 2017-09-06 06:54 | PD.ORT.PN ---
Subjective Subjective Remarks Resting in bed. Objective Vitals Vital Signs Date Time Temp Pulse Resp B/P (MAP) Pulse Ox O2 Delivery O2 Flow Rate FiO2 09/06/17 04:00 98.4 75 19 120/60 (80) 97 09/06/17 04:00 Room Air 09/06/17 00:00 81 09/06/17 00:00 Room Air 09/05/17 23:51 98.2 68 20 124/82 (96) 96 09/05/17 20:00 Room Air 09/05/17 20:00 98.3 76 20 119/57 (77) 100 09/05/17 16:00 Room Air 09/05/17 16:00 97.6 87 20 103/62 (76) 96 09/05/17 15:53 80 09/05/17 12:00 97.9 85 20 117/68 (84) 97 09/05/17 12:00 70 09/05/17 12:00 Room Air 09/05/17 08:00 98.2 69 20 114/56 (75) 98 09/05/17 08:00 Room Air 09/05/17 07:57 62 I/O 09/05/17 09/05/17 09/05/17 09/06/17 09/06/17 09/06/17 07:00 15:00 23:00 07:00 15:00 23:00 Intake Total 860 ml 480 ml 240 ml Output Total 1125 ml 1250 ml 1480 ml Balance -265 ml -770 ml -1240 ml Intake Oral 860 ml 480 ml 240 ml Output Urine Total 1100 ml 1200 ml 1450 ml Drainage Total 25 ml 50 ml 30 ml Objective Remarks Awake, alert. NAD Right lower extremity: Clean dry dressings in place. Drain intact. Knee immobilizer on counter. Knee resting on pillows at about 15. Intact sensation distally with good capillary refills. Negative homans Assessment & Plan Assessment and Plan 1) Right Tibial Plateau Fx s/p ORIF 4 weeks ago with subsequent hardware infection 2) Right tibial plateau I&D - POD 14 -NWB RLE -maintain knee brace except for PROM with therapy -Discontinue drain -Continue ABX per ID Plan for outpatient IV antibiotics We'll plan on follow-up with Dr. Thony Bella,Joey ZULETA Sep 06, 2017 06:54
[2017-09-06] MEDS: REMOVE OLD PATCH T-DERMAL SCH (09:00)
[2017-09-06 09:26] LABS: AUTOMATED NEUTROPHIL # 3.2 TH/MM3 (1.8-7.7); BASOPHIL % 0.7 % (0.0-2.0); EOSINOPHIL # 0.3 TH/MM3 (0-0.4); EOSINOPHIL % 5.7 % (0.0-4.0); HEMATOCRIT 35.6 % (39.0-51.0); HEMOGLOBIN 12.3 GM/DL (13.0-17.0); LYMPH % 24.9 % (9.0-44.0); LYMPHOCYTE # 1.4 TH/MM3 (1.0-4.8); MEAN CELL VOLUME 85.5 FL (80.0-100.0); MEAN CORPUSCULAR HEMOGLOBIN 29.6 PG (27.0-34.0); MEAN CORPUSCULAR HGB CONC 34.6 % (32.0-36.0); MEAN PLATELET VOLUME 6.9 FL (7.0-11.0); MONO % 11.3 % (0.0-8.0); MONOCYTE # 0.6 TH/MM3 (0-0.9); NEUT % 57.4 % (16.0-70.0); PLATELET COUNT 538 TH/MM3 (150-450); RED BLOOD COUNT 4.16 MIL/MM3 (4.50-5.90); RED CELL DISTRIBUTION WIDTH 12.9 % (11.6-17.2); WHITE BLOOD COUNT 5.6 TH/MM3 (4.0-11.0)
--- NOTE | 2017-09-06 09:27 | HHI.PR ---
Subjective Remarks Follow-up sepsis/Postop infection of right knee 09/01/17-patient seen and examined, patient complains of right groin nod and he is concerned about possible DVT, requesting Doppler. Afebrile. GABRIELA drain still with high output 09/02/17-patient seen and examined, complains of constipation. requesting that his narcotics be Changed to morphine and Percocet 09/03/17-patient seen and examined, Constipation resolved, complains of mild discomfort to RLE 09/04/17-patient seen and examined complaining of soreness otherwise stable. States when he moves his legs this leads to increase GABRIELA output 09/05/17-patient seen and examined, stable, no complaints, appetite, GABRIELA drain still with high output 09/06/17-patient seen and examined, GABRIELA drain still with high output. Reports some right hip soreness. Currently afebrile Objective Vitals Vital Signs Date Time Temp Pulse Resp B/P (MAP) Pulse Ox O2 Delivery O2 Flow Rate FiO2 09/06/17 08:07 98.6 80 17 114/63 (80) 98 09/06/17 04:00 98.4 75 19 120/60 (80) 97 09/06/17 04:00 Room Air 09/06/17 00:00 81 09/06/17 00:00 Room Air 09/05/17 23:51 98.2 68 20 124/82 (96) 96 09/05/17 20:00 Room Air 09/05/17 20:00 98.3 76 20 119/57 (77) 100 09/05/17 16:00 Room Air 09/05/17 16:00 97.6 87 20 103/62 (76) 96 09/05/17 15:53 80 09/05/17 12:00 97.9 85 20 117/68 (84) 97 09/05/17 12:00 70 09/05/17 12:00 Room Air I/O 09/05/17 09/05/17 09/05/17 09/06/17 09/06/17 09/06/17 07:00 15:00 23:00 07:00 15:00 23:00 Intake Total 860 ml 480 ml 240 ml Output Total 1125 ml 1250 ml 1480 ml Balance -265 ml -770 ml -1240 ml Intake Oral 860 ml 480 ml 240 ml Output Urine Total 1100 ml 1200 ml 1450 ml Drainage Total 25 ml 50 ml 30 ml Objective Remarks GENERAL: NAD SKIN: Warm and dry. HEAD: Normocephalic. EYES: No scleral icterus. No injection or drainage. NECK: Supple, trachea midline. No JVD or lymphadenopathy. CARDIOVASCULAR: Regular rate and rhythm without murmurs, gallops, or rubs. RESPIRATORY: Breath sounds equal bilaterally. No accessory muscle use. GASTROINTESTINAL: Abdomen soft, non-tender, nondistended. MUSCULOSKELETAL: No cyanosis, or edema. dressing over right knee-GABRIELA drain in place with high output BACK: Nontender without obvious deformity. No CVA tenderness. Procedures Irrigation and debridement right proximal tibia plateau, right knee arthrotomy with irrigation and debridement of infection A/P Problem List: (1) Sepsis ICD Code: A41.9 - Sepsis, unspecified organism Status: Acute (2) Postoperative infection of knee ICD Code: T81.4XXA - Infection following a procedure, initial encounter Status: Acute (3) Tobacco abuse ICD Code: Z72.0 - Tobacco use (4) Hypotension ICD Code: I95.9 - Hypotension, unspecified (5) Right thigh pain ICD Code: M79.651 - Pain in right thigh (6) Low back pain ICD Code: M54.5 - Low back pain (7) Constipation ICD Code: K59.00 - Constipation, unspecified Assessment and Plan 32-year-old man with Sepsis-Resolved Postoperative infection of knee S/P Irrigation and debridement right proximal tibia plateau, right knee arthrotomy with irrigation and debridement of infection. Management as per orthopedic surgery. NWB RLE. PT to treat Continue Rocephin 2gm IV daily. As per ID recommendations the patient will need transition to suppressive oral antibiotics after completion of 6 weeks of IV. Continue pain management. Tobacco abuse On nicotine patch. Hypotension Resolved after IV fluid administration. Right thigh pain US r/o DVT ---> negative for DVT. Low back pain Improved Constipation -Resolved and continue with stool softener DVT prophylaxis: SCDs, heparin subcutaneously. Problem Qualifiers (1) Sepsis: Qualified Codes: A41.9 - Sepsis, unspecified organism (2) Postoperative infection of knee: Qualified Codes: T81.4XXA - Infection following a procedure, initial encounter (3) Hypotension: Qualified Codes: I95.9 - Hypotension, unspecified (4) Low back pain: Qualified Codes: M54.41 - Lumbago with sciatica, right side (5) Constipation: Qualified Codes: K59.03 - Drug induced constipation Jasiel Pina MD Sep 06, 2017 09:27
[2017-09-06 09:52] LABS: ALT (GPT) 37 U/L (12-78); AST (GOT) 28 U/L (15-37); BICARBONATE 32.3 MEQ/L (21.0-32.0); BLOOD UREA NITROGEN 13 MG/DL (7-18); CALCIUM 9.7 MG/DL (8.5-10.1); CHLORIDE 96 MEQ/L (98-107); CREATININE 0.89 MG/DL (0.60-1.30); GLOMERULAR FILTRATION RATE 99 ML/MIN (>89); GLUCOSE,RANDOM 124 MG/DL (74-106); SODIUM (NA) 135 MEQ/L (136-145)
[2017-09-06 09:54] LABS: ALKALINE PHOSPHATASE 77 U/L (45-117); TOTAL BILIRUBIN ADULT 0.2 MG/DL (0.2-1.0); TOTAL PROTEIN 9.1 GM/DL (6.4-8.2)
[2017-09-06] MEDS: DOCUSATE SODIUM 50 MG/SENNA 8.6 MG TAB PO SCH ×2 (10:07→21:50)
[2017-09-06] MEDS: NICOTINE 21 MG/24 HR PATCH T-DERMAL SCH (10:08)
[2017-09-06] MEDS: SODIUM CHLORIDE 0.9% FLUSH 10 ML FLUSH IV FLUSH SCH ×2 (10:14→21:51)
[2017-09-06] MEDS: cefTRIAXone INJ 2,000 MG in SODIUM CHLORIDE 0.9% INJ 100 ML IV SCH (13:33)
--- NOTE | 2017-09-06 19:50 | HHI.PR ---
Addendum to Inpatient Note Addendum Reason: Additional Documentation Additional Information Discussed with patient's mom and attending of record over the phone. Mom requested for patient to go for his appointment with patient's assistance program tomorrow around 3 PM. Discussed with patient's attending who agrees that patient is okay to go for this appointment. Patient's mother who is ICU nurse will accompany him to the appointment. Nursing order has been written for this so that nursing staff can allow patient to go for this appointment. Also, I have reduced patient's pain medications effective tomorrow at 9 AM. I have reduced from his rescue medicine Lortab 2 tablets by mouth every 4 hours when necessary for pain greater than 5 to Lortab 1 tablet by mouth every 4 hours when necessary for pain greater than 5 starting tomorrow a.m. Also have informed patient attending regarding pain meds. Eleuterio Newby MD Sep 06, 2017 19:50
[2017-09-07] VITALS (9 sets, daily range): BP systolic 95–112; BP diastolic 52–62; PULSE 70–87; RESP 18–20; TEMP 97.7–98.6; O2SAT 96–99
[2017-09-07] MEDS: ACETAMINOPHEN/HYDROcodone 325 MG/5 MG TAB PO PRN ×4 (00:07→17:09)
[2017-09-07] MEDS: MORPHINE SULFATE 30 MG CONTROLLED RELEASE TAB PO SCH ×3 (05:49→22:10)
[2017-09-07] MEDS: HEPARIN SODIUM - SQ 10,000 UNITS/ML VIAL SQ SCH ×3 (05:49→22:10)
[2017-09-07] MEDS: DOCUSATE SODIUM 50 MG/SENNA 8.6 MG TAB PO SCH ×2 (08:52→22:10)
[2017-09-07] MEDS: REMOVE OLD PATCH T-DERMAL SCH (08:54)
[2017-09-07] MEDS: NICOTINE 21 MG/24 HR PATCH T-DERMAL SCH (08:54)
[2017-09-07] MEDS: SODIUM CHLORIDE 0.9% FLUSH 10 ML FLUSH IV FLUSH SCH ×2 (08:57→22:11)
--- NOTE | 2017-09-07 09:57 | HHI.PR ---
Subjective Remarks Follow-up sepsis/Postop infection of right knee 09/01/17-patient seen and examined, patient complains of right groin nod and he is concerned about possible DVT, requesting Doppler. Afebrile. GABRIELA drain still with high output 09/02/17-patient seen and examined, complains of constipation. requesting that his narcotics be Changed to morphine and Percocet 09/03/17-patient seen and examined, Constipation resolved, complains of mild discomfort to RLE 09/04/17-patient seen and examined complaining of soreness otherwise stable. States when he moves his legs this leads to increase GABRIELA output 09/05/17-patient seen and examined, stable, no complaints, appetite, GABRIELA drain still with high output 09/06/17-patient seen and examined, GABRIELA drain still with high output. Reports some right hip soreness. Currently afebrile 09/07/17-patient seen and examined, stable and no complaint.Patient to leave the floor today with his MOM to attend meeting Objective Vitals Vital Signs Date Time Temp Pulse Resp B/P (MAP) Pulse Ox O2 Delivery O2 Flow Rate FiO2 09/07/17 08:00 98.3 71 20 95/52 (66) 96 09/07/17 04:00 97.9 87 20 109/55 (73) 97 09/07/17 04:00 Room Air 09/07/17 03:46 70 09/07/17 00:16 76 09/07/17 00:00 98.1 86 18 112/61 (78) 97 09/07/17 00:00 Room Air 09/06/17 20:00 98.3 77 20 100/62 (75) 98 09/06/17 20:00 Room Air 09/06/17 19:39 88 09/06/17 16:19 97.7 74 17 106/56 (73) 96 09/06/17 16:16 68 09/06/17 12:07 98.0 88 17 116/56 (76) 98 09/06/17 12:05 81 I/O 09/06/17 09/06/17 09/06/17 09/07/17 09/07/17 09/07/17 07:00 15:00 23:00 07:00 15:00 23:00 Intake Total 240 ml 600 ml 780 ml Output Total 1480 ml 1200 ml 1100 ml Balance -1240 ml -600 ml -320 ml Intake Oral 240 ml 600 ml 780 ml Output Urine Total 1450 ml 1200 ml 1050 ml Drainage Total 30 ml 50 ml # Bowel Movements 0 1 Result Diagram: 09/06/1783109/06/17831 Objective Remarks GENERAL: NAD SKIN: Warm and dry. HEAD: Normocephalic. EYES: No scleral icterus. No injection or drainage. NECK: Supple, trachea midline. No JVD or lymphadenopathy. CARDIOVASCULAR: Regular rate and rhythm without murmurs, gallops, or rubs. RESPIRATORY: Breath sounds equal bilaterally. No accessory muscle use. GASTROINTESTINAL: Abdomen soft, non-tender, nondistended. MUSCULOSKELETAL: No cyanosis, or edema. dressing over right knee-GABRIELA drain in place with high output BACK: Nontender without obvious deformity. No CVA tenderness. Procedures Irrigation and debridement right proximal tibia plateau, right knee arthrotomy with irrigation and debridement of infection A/P Problem List: (1) Sepsis ICD Code: A41.9 - Sepsis, unspecified organism Status: Acute (2) Postoperative infection of knee ICD Code: T81.4XXA - Infection following a procedure, initial encounter Status: Acute (3) Tobacco abuse ICD Code: Z72.0 - Tobacco use (4) Hypotension ICD Code: I95.9 - Hypotension, unspecified (5) Right thigh pain ICD Code: M79.651 - Pain in right thigh (6) Low back pain ICD Code: M54.5 - Low back pain (7) Constipation ICD Code: K59.00 - Constipation, unspecified Assessment and Plan 32-year-old man with Sepsis-Resolved Postoperative infection of knee S/P Irrigation and debridement right proximal tibia plateau, right knee arthrotomy with irrigation and debridement of infection. Management as per orthopedic surgery. NWB RLE. PT to treat Continue Rocephin 2gm IV daily. As per ID recommendations the patient will need transition to suppressive oral antibiotics after completion of 6 weeks of IV. Continue pain management. Tobacco abuse On nicotine patch. Hypotension Resolved after IV fluid administration. Right thigh pain US r/o DVT ---> negative for DVT. Low back pain Improved Constipation -Resolved and continue with stool softener DVT prophylaxis: SCDs, heparin subcutaneously. Problem Qualifiers (1) Sepsis: Qualified Codes: A41.9 - Sepsis, unspecified organism (2) Postoperative infection of knee: Qualified Codes: T81.4XXA - Infection following a procedure, initial encounter (3) Hypotension: Qualified Codes: I95.9 - Hypotension, unspecified (4) Low back pain: Qualified Codes: M54.41 - Lumbago with sciatica, right side (5) Constipation: Qualified Codes: K59.03 - Drug induced constipation Jasiel Pina MD Sep 07, 2017 09:57
[2017-09-07] MEDS: cefTRIAXone INJ 2,000 MG in SODIUM CHLORIDE 0.9% INJ 100 ML IV SCH (13:12)
[2017-09-08] VITALS (8 sets, daily range): BP systolic 99–122; BP diastolic 54–66; PULSE 77–115; RESP 16–18; TEMP 97.3–99; O2SAT 95–99
[2017-09-08] MEDS: HEPARIN SODIUM - SQ 10,000 UNITS/ML VIAL SQ SCH ×3 (05:31→21:53)
[2017-09-08] MEDS: MORPHINE SULFATE 30 MG CONTROLLED RELEASE TAB PO SCH ×3 (05:32→21:53)
[2017-09-08] MEDS: NICOTINE 21 MG/24 HR PATCH T-DERMAL SCH (08:55)
[2017-09-08] MEDS: ACETAMINOPHEN/HYDROcodone 325 MG/5 MG TAB PO PRN ×2 (08:56→17:19)
[2017-09-08] MEDS: SODIUM CHLORIDE 0.9% FLUSH 10 ML FLUSH IV FLUSH SCH ×2 (08:58→21:53)
[2017-09-08] MEDS: DOCUSATE SODIUM 50 MG/SENNA 8.6 MG TAB PO SCH ×2 (09:00→21:52)
--- NOTE | 2017-09-08 10:39 | HHI.PR ---
Subjective Remarks Follow-up sepsis/Postop infection of right knee 09/01/17-patient seen and examined, patient complains of right groin nod and he is concerned about possible DVT, requesting Doppler. Afebrile. GABRIELA drain still with high output 09/02/17-patient seen and examined, complains of constipation. requesting that his narcotics be Changed to morphine and Percocet 09/03/17-patient seen and examined, Constipation resolved, complains of mild discomfort to RLE 09/04/17-patient seen and examined complaining of soreness otherwise stable. States when he moves his legs this leads to increase GABRIELA output 09/05/17-patient seen and examined, stable, no complaints, appetite, GABRIELA drain still with high output 09/06/17-patient seen and examined, GABRIELA drain still with high output. Reports some right hip soreness. Currently afebrile 09/07/17-patient seen and examined, stable and no complaint.Patient to leave the floor today with his MOM to attend meeting 09/08/17-patient seen and examined,no complaints and no acute event overnight. Patient was able to attend his meeting yesterday Objective Vitals Vital Signs Date Time Temp Pulse Resp B/P (MAP) Pulse Ox O2 Delivery O2 Flow Rate FiO2 09/08/17 08:00 98.3 84 18 104/60 (75) 97 09/08/17 04:00 98.3 104 16 110/59 (76) 96 09/08/17 00:00 98.3 115 16 99/62 (74) 96 09/07/17 22:00 Room Air 09/07/17 20:00 98.6 74 20 112/62 (79) 98 09/07/17 17:17 97.7 87 20 109/57 (74) 99 09/07/17 12:00 98.3 80 20 100/56 (71) 98 09/07/17 12:00 79 I/O 09/07/17 09/07/17 09/07/17 09/08/17 09/08/17 09/08/17 07:00 15:00 23:00 07:00 15:00 23:00 Intake Total 780 ml 720 ml 680 ml Output Total 1100 ml 450 ml 800 ml Balance -320 ml 270 ml -120 ml Intake Oral 780 ml 720 ml 680 ml Output Urine Total 1050 ml 450 ml 800 ml Drainage Total 50 ml # Bowel Movements 1 0 Result Diagram: 09/06/17 0832 09/06/17 0832 Objective Remarks GENERAL: NAD SKIN: Warm and dry. HEAD: Normocephalic. EYES: No scleral icterus. No injection or drainage. NECK: Supple, trachea midline. No JVD or lymphadenopathy. CARDIOVASCULAR: Regular rate and rhythm without murmurs, gallops, or rubs. RESPIRATORY: Breath sounds equal bilaterally. No accessory muscle use. GASTROINTESTINAL: Abdomen soft, non-tender, nondistended. MUSCULOSKELETAL: No cyanosis, or edema. dressing over right knee-GABRIELA drain in place with high output BACK: Nontender without obvious deformity. No CVA tenderness. Procedures Irrigation and debridement right proximal tibia plateau, right knee arthrotomy with irrigation and debridement of infection A/P Problem List: (1) Sepsis ICD Code: A41.9 - Sepsis, unspecified organism Status: Acute (2) Postoperative infection of knee ICD Code: T81.4XXA - Infection following a procedure, initial encounter Status: Acute (3) Tobacco abuse ICD Code: Z72.0 - Tobacco use (4) Hypotension ICD Code: I95.9 - Hypotension, unspecified (5) Right thigh pain ICD Code: M79.651 - Pain in right thigh (6) Low back pain ICD Code: M54.5 - Low back pain (7) Constipation ICD Code: K59.00 - Constipation, unspecified Assessment and Plan 32-year-old man with Sepsis-Resolved Postoperative infection of knee S/P Irrigation and debridement right proximal tibia plateau, right knee arthrotomy with irrigation and debridement of infection. Management as per orthopedic surgery and continue to monitor drain output. NWB RLE. PT to treat Continue Rocephin 2gm IV daily. As per ID recommendations the patient will need transition to suppressive oral antibiotics after completion of 6 weeks of IV. Continue pain management. Tobacco abuse On nicotine patch. Hypotension Resolved after IV fluid administration. Right thigh pain US r/o DVT ---> negative for DVT. Low back pain Improved Constipation -Resolved and continue with stool softener DVT prophylaxis: SCDs, heparin subcutaneously. Problem Qualifiers (1) Sepsis: Qualified Codes: A41.9 - Sepsis, unspecified organism (2) Postoperative infection of knee: Qualified Codes: T81.4XXA - Infection following a procedure, initial encounter (3) Hypotension: Qualified Codes: I95.9 - Hypotension, unspecified (4) Low back pain: Qualified Codes: M54.41 - Lumbago with sciatica, right side (5) Constipation: Qualified Codes: K59.03 - Drug induced constipation Jasiel Pina MD Sep 08, 2017 10:39
[2017-09-08] MEDS: cefTRIAXone INJ 2,000 MG in SODIUM CHLORIDE 0.9% INJ 100 ML IV SCH (14:02)
[2017-09-09 04:34] VITALS: BP 101/56; PULSE 77; RESP 16; TEMP 98.3; O2SAT 97
[2017-09-09] MEDS: MORPHINE SULFATE 30 MG CONTROLLED RELEASE TAB PO SCH ×2 (06:05→13:06)
[2017-09-09] MEDS: HEPARIN SODIUM - SQ 10,000 UNITS/ML VIAL SQ SCH ×2 (06:05→13:08)
--- NOTE | 2017-09-09 06:53 | PD.ORT.PN ---
Subjective Subjective Remarks Resting in bed. Objective Vitals Vital Signs Date Time Temp Pulse Resp B/P (MAP) Pulse Ox O2 Delivery O2 Flow Rate FiO2 09/09/17 06:12 Room Air 09/09/17 04:34 98.3 77 16 101/56 (71) 97 09/08/17 23:25 97.3 77 16 106/56 (73) 97 09/08/17 21:15 97.4 84 17 116/64 (81) 99 09/08/17 20:00 Room Air 09/08/17 16:00 98.3 83 16 122/66 (84) 98 09/08/17 12:00 98.2 98 18 111/54 (73) 96 09/08/17 08:00 98.3 84 18 104/60 (75) 97 09/08/17 08:00 96 Room Air 09/08/17 08:00 92 I/O 09/08/17 09/08/17 09/08/17 09/09/17 09/09/17 09/09/17 07:00 15:00 23:00 07:00 15:00 23:00 Intake Total 680 ml 580 ml 1020 ml Output Total 810 ml 1020 ml Balance -130 ml 580 ml 0 ml Intake Oral 680 ml 480 ml 1020 ml IV Total 100 ml Output Urine Total 800 ml 1000 ml Drainage Total 10 ml 20 ml # Bowel Movements 0 Result Diagram: 09/06/17 0832 09/06/17 0832 Objective Remarks Awake, alert. NAD Right lower extremity: Clean dry dressings in place. Drain removed. Knee immobilizer on counter. Knee resting on pillows at about 15. Intact sensation distally with good capillary refills. Negative homans Assessment & Plan Assessment and Plan 1) Right Tibial Plateau Fx s/p ORIF 5 weeks ago with subsequent hardware infection 2) Right tibial plateau I&D - POD 17 -NWB RLE -maintain knee brace except for PROM with therapy -Discontinue drain -DC sutures and continue daily dressing changes -Continue ABX per ID Plan for outpatient IV antibiotics plan for DC to home if IV ABX can be arranged We'll plan on follow-up with Dr. Thony Bella,Joey ZULETA Sep 09, 2017 06:53
[2017-09-09 08:00] VITALS: BP 114/58; PULSE 79; RESP 18; TEMP 97.6; O2SAT 98
[2017-09-09] MEDS: REMOVE OLD PATCH T-DERMAL SCH (09:00)
[2017-09-09] MEDS: DOCUSATE SODIUM 50 MG/SENNA 8.6 MG TAB PO SCH (09:10)
[2017-09-09] MEDS: SODIUM CHLORIDE 0.9% FLUSH 10 ML FLUSH IV FLUSH SCH (09:10)
[2017-09-09] MEDS: NICOTINE 21 MG/24 HR PATCH T-DERMAL SCH (09:10)
--- NOTE | 2017-09-09 10:18 | HHI.PR ---
Subjective Remarks Follow-up sepsis/Postop infection of right knee 09/01/17-patient seen and examined, patient complains of right groin nod and he is concerned about possible DVT, requesting Doppler. Afebrile. GABRIELA drain still with high output 09/02/17-patient seen and examined, complains of constipation. requesting that his narcotics be Changed to morphine and Percocet 09/03/17-patient seen and examined, Constipation resolved, complains of mild discomfort to RLE 09/04/17-patient seen and examined complaining of soreness otherwise stable. States when he moves his legs this leads to increase GABRIELA output 09/05/17-patient seen and examined, stable, no complaints, appetite, GABRIELA drain still with high output 09/06/17-patient seen and examined, GABRIELA drain still with high output. Reports some right hip soreness. Currently afebrile 09/07/17-patient seen and examined, stable and no complaint.Patient to leave the floor today with his MOM to attend meeting 09/08/17-patient seen and examined,no complaints and no acute event overnight. Patient was able to attend his meeting yesterday 09/09/17-patient seen and examined, GABRIELA drain removed this a.m. patient would like to get some fresh air with his dad. Complains of facial rash Objective Vitals Vital Signs Date Time Temp Pulse Resp B/P (MAP) Pulse Ox O2 Delivery O2 Flow Rate FiO2 09/09/17 08:00 97.6 79 18 114/58 (76) 98 09/09/17 08:00 Room Air 09/09/17 06:12 Room Air 09/09/17 04:34 98.3 77 16 101/56 (71) 97 09/08/17 23:25 97.3 77 16 106/56 (73) 97 09/08/17 21:15 97.4 84 17 116/64 (81) 99 09/08/17 20:00 Room Air 09/08/17 16:00 98.3 83 16 122/66 (84) 98 09/08/17 12:00 98.2 98 18 111/54 (73) 96 I/O 09/08/17 09/08/17 09/08/17 09/09/17 09/09/17 09/09/17 07:00 15:00 23:00 07:00 15:00 23:00 Intake Total 680 ml 580 ml 1020 ml Output Total 810 ml 1020 ml Balance -130 ml 580 ml 0 ml Intake Oral 680 ml 480 ml 1020 ml IV Total 100 ml Output Urine Total 800 ml 1000 ml Drainage Total 10 ml 20 ml # Bowel Movements 0 Result Diagram: 09/06/17 0832 09/06/17 0832 Objective Remarks GENERAL: NAD SKIN: Warm and dry. HEAD: Normocephalic. EYES: No scleral icterus. No injection or drainage. NECK: Supple, trachea midline. No JVD or lymphadenopathy. CARDIOVASCULAR: Regular rate and rhythm without murmurs, gallops, or rubs. RESPIRATORY: Breath sounds equal bilaterally. No accessory muscle use. GASTROINTESTINAL: Abdomen soft, non-tender, nondistended. MUSCULOSKELETAL: No cyanosis, or edema. dressing over right knee-GABRIELA drain in place with high output BACK: Nontender without obvious deformity. No CVA tenderness. Procedures Irrigation and debridement right proximal tibia plateau, right knee arthrotomy with irrigation and debridement of infection A/P Problem List: (1) Sepsis ICD Code: A41.9 - Sepsis, unspecified organism Status: Acute (2) Postoperative infection of knee ICD Code: T81.4XXA - Infection following a procedure, initial encounter Status: Acute (3) Tobacco abuse ICD Code: Z72.0 - Tobacco use (4) Hypotension ICD Code: I95.9 - Hypotension, unspecified (5) Right thigh pain ICD Code: M79.651 - Pain in right thigh (6) Low back pain ICD Code: M54.5 - Low back pain (7) Constipation ICD Code: K59.00 - Constipation, unspecified Assessment and Plan 32-year-old man with Sepsis-Resolved Postoperative infection of knee S/P Irrigation and debridement right proximal tibia plateau, right knee arthrotomy with irrigation and debridement of infection. Management as per orthopedic surgery . NWB RLE. PT to treat Continue Rocephin 2gm IV daily. As per ID recommendations the patient will need transition to suppressive oral antibiotics after completion of 6 weeks of IV. Continue pain management. Need PICC order Tobacco abuse On nicotine patch. Hypotension Resolved after IV fluid administration. Right thigh pain US r/o DVT ---> negative for DVT. Low back pain Improved Constipation -Resolved and continue with stool softener DVT prophylaxis: SCDs, heparin subcutaneously. Problem Qualifiers (1) Sepsis: Qualified Codes: A41.9 - Sepsis, unspecified organism (2) Postoperative infection of knee: Qualified Codes: T81.4XXA - Infection following a procedure, initial encounter (3) Hypotension: Qualified Codes: I95.9 - Hypotension, unspecified (4) Low back pain: Qualified Codes: M54.41 - Lumbago with sciatica, right side (5) Constipation: Qualified Codes: K59.03 - Drug induced constipation Jasiel Pina MD Sep 09, 2017 10:17
[2017-09-09] MEDS ORDERED: IBUP1TAB5 PO (11:18)
[2017-09-09] MEDS ORDERED: HYDR-3516 PO (11:18)
[2017-09-09] MEDS ORDERED: PERI PO (11:18)
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
[2017-09-09 12:00] VITALS: BP 108/65; PULSE 99; RESP 20; TEMP 97.8; O2SAT 99
[2017-09-09] MEDS: cefTRIAXone INJ 2,000 MG in SODIUM CHLORIDE 0.9% INJ 100 ML IV SCH (13:08)
[2017-09-09] MEDS: ACETAMINOPHEN/HYDROcodone 325 MG/5 MG TAB PO PRN (15:00)
--- NOTE | 2017-09-09 15:18 | HHI.PR ---
Addendum to Inpatient Note Addendum Reason: Additional Documentation Additional Information RN informs me patient being discharged today. Agrees to PICC line. Mandatory referral to Negar Villa MD. Mom knows this MD and will ensure patient follows up. Will sign off please call back if any change in clinical condition or questions. Connie Nick MD Sep 09, 2017 15:18
== END 2017-09-09 15:42 | disposition home or self-care (01) | DRG 485 ==
LOC: NEPE 05:04 → NEDA 06:19 → N04A 10:44
PROVIDERS: ADMIT Hospitalist; ATTEND Hospitalist
PROC: 3E1U38Z Irrigation of Joints using Irrigating Substance, Percutaneous Approach (ICD-10-PCS; 2017-08-23)
PROC: 0SBC0ZZ Excision of Right Knee Joint, Open Approach (ICD-10-PCS; principal; 2017-08-23 08:41)
PROC: 02HV33Z Insertion of Infusion Device into Superior Vena Cava, Percutaneous Approach (ICD-10-PCS; 2017-09-09)
DX: T84.622A Infection and inflammatory reaction due to internal fixation device of right tibia, initial encounter (principal); A41.9 Sepsis, unspecified organism; M00.861 Arthritis due to other bacteria, right knee; F17.210 Nicotine dependence, cigarettes, uncomplicated; F90.9 Attention-deficit hyperactivity disorder, unspecified type; S82.144 Nondisplaced bicondylar fracture of right tibia; I95.9 Hypotension, unspecified; B95.0 Streptococcus, group A, as the cause of diseases classified elsewhere; Y83.8 Other surgical procedures as the cause of abnormal reaction of the patient, or of later complication, without mention of misadventure at the time of the procedure; M79.651 Pain in right thigh; R21 Rash and other nonspecific skin eruption; K59.00 Constipation, unspecified; M54.41 Lumbago with sciatica, right side; M79.671 Pain in right foot; V89.9XXS Person injured in unspecified vehicle accident, sequela
CPT/HCPCS: 36569; 72110; 73564; 76937; 80048; 80053; 80202; 83605; 85025; 85027; 85610; 85652; 85730; 86140; 86403; 87015; 87040; 87070; 87102; 87116; 87186; 87205; 87206; 93971; 94150; 96365; 96375; E0113; J0692; J0696; J1100; J1170; J1644; J1885; J2250; J2270; J2405; J2543; J3010; J3370; J7030; J7050; J7120; L1830

== ENCOUNTER 2017-12-30 15:27 | Emergency (ER) | payer SELFPAY ==
[~2017-12-30] VITALS: Ht 180.3 cm; Wt 72.5 kg
[~2017-12-30 15:27] MED LIST changes: +CEFT2INJ IV; +IBUP1TAB5 PO
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
[2017-12-30 15:35] VITALS: BP 137/57; PULSE 104; RESP 20; TEMP 97.8; O2SAT 99
[2017-12-30] MEDS ORDERED: SODIUM CHLOR 0.9% 1000 ML INJ 1,000 ML IV SCH (15:42)
[2017-12-30] MEDS ORDERED: SODIUM CHLORIDE 0.9% FLUSH 10 ML FLUSH IV FLUSH PRN (15:45)
[2017-12-30] MEDS ORDERED: METOCLOPRAMIDE HCL 10 MG/2 ML VIAL IV PUSH ONE (15:45)
--- NOTE | 2017-12-30 16:40 | RADRPT ---
EXAM DATE: 12/30/2017 4:19 PM EDT AGE/SEX: 32 years / Male INDICATIONS: Chest pain and nausea. CLINICAL DATA: This is the patient's initial encounter. Patient reports that signs and symptoms have been present for 1 day and indicates a pain score of 8/10. MEDICAL/SURGICAL HISTORY: None. None. COMPARISON: No prior exams available for comparison. FINDINGS: Lungs are hyperinflated but otherwise clear there is no evidence of acute airspace disease, mass dens ities or congestion. There are no pleural effusions. Heart and mediastinal structures are unremarkable. Osseous structures are intact. CONCLUSION: Hyperinflated lungs characteristic of COPD No evidence of acute airspace disease. Electronically signed by: Pedro Yadav MD 12/30/2017 4:39 PM EDT
[2017-12-30] MEDS ORDERED: SODIUM CHLOR 0.9% 1000 ML INJ 1,000 ML IV ONE (17:00)
[2017-12-30 17:04] LABS: BILIRUBIN, URINE LARGE (NEG); BLOOD, URINE LARGE (NEG); GLUCOSE,URINE 100 mg/dL (NEG); KETONE, URINE 15 mg/dL (NEG); NITRITE,URINE NEG (NEG); PH, URINE 6.5 (5.0-8.5); URINE COLOR OTHER (YELLW/STRAW); URINE LEUKOCYTE ESTERASE TRACE (NEG)
[2017-12-30 17:14] LABS: RBC, URINE INNUM /hpf (0-3); SQUAMOUS EPITHELIAL CELL URINE > 8 /hpf (0-5)
[2017-12-30 17:38] VITALS: O2SAT 95
[2017-12-30 17:44] VITALS: BP 128/80; PULSE 100; RESP 18; O2SAT 100
[2017-12-30 17:46] LABS: AUTOMATED NEUTROPHIL # 7.5 TH/MM3 (1.8-7.7); BASOPHIL # 0.1 TH/MM3 (0-0.2); BASOPHIL % 0.6 % (0.0-2.0); EOSINOPHIL % 0.2 % (0.0-4.0); HEMATOCRIT 42.7 % (39.0-51.0); HEMOGLOBIN 14.4 GM/DL (13.0-17.0); LYMPH % 4.3 % (9.0-44.0); LYMPHOCYTE # 0.4 TH/MM3 (1.0-4.8); MEAN CELL VOLUME 84.6 FL (80.0-100.0); MEAN CORPUSCULAR HEMOGLOBIN 28.5 PG (27.0-34.0); MEAN CORPUSCULAR HGB CONC 33.7 % (32.0-36.0); MEAN PLATELET VOLUME 8.6 FL (7.0-11.0); MONO % 9.6 % (0.0-8.0); MONOCYTE # 0.8 TH/MM3 (0-0.9); NEUT % 85.3 % (16.0-70.0); PLATELET COUNT 191 TH/MM3 (150-450); RED BLOOD COUNT 5.04 MIL/MM3 (4.50-5.90); RED CELL DISTRIBUTION WIDTH 12.8 % (11.6-17.2); WHITE BLOOD COUNT 8.8 TH/MM3 (4.0-11.0)
[2017-12-30 17:54] LABS: CHLORIDE 95 MEQ/L (98-107); SODIUM (NA) 134 MEQ/L (136-145)
[2017-12-30 17:58] LABS: ALBUMIN 3.2 GM/DL (3.4-5.0); BICARBONATE 28.8 MEQ/L (21.0-32.0); BLOOD UREA NITROGEN 11 MG/DL (7-18); CALCIUM 8.6 MG/DL (8.5-10.1); GLUCOSE,RANDOM 78 MG/DL (74-106)
[2017-12-30 18:00] LABS: DIRECT BILIRUBIN ADULT 3.3 MG/DL (0.0-0.2)
[2017-12-30 18:01] LABS: CREATININE 0.74 MG/DL (0.60-1.30); GLOMERULAR FILTRATION RATE 123 ML/MIN (>89); PROTHROMBIN TIME - PATIENT 137.7 SEC (9.8-11.6)
[2017-12-30 18:02] LABS: TOTAL BILIRUBIN ADULT 5.7 MG/DL (0.2-1.0); TOTAL PROTEIN 7.1 GM/DL (6.4-8.2)
[2017-12-30 18:04] LABS: ALKALINE PHOSPHATASE 179 U/L (45-117)
[2017-12-30 18:06] LABS: TROPONIN I LESS THAN 0.02 NG/ML (0.02-0.05)
[2017-12-30 18:08] LABS: ALT (GPT) 2888 U/L (12-78)
[2017-12-30 18:09] LABS: AST (GOT) 1654 U/L (15-37)
[2017-12-30 18:12] LABS: INTERNATIONAL NORMALIZED RATIO 13.9 RATIO
--- NOTE | 2017-12-30 18:24 | RADRPT ---
EXAM DATE: 12/30/2017 6:09 PM EDT AGE/SEX: 32 years / Male INDICATIONS: Upper abdominal pain and nausea. CLINICAL DATA: This is the patient's initial encounter. Patient reports that signs and symptoms have been present for 1 day and indicates a pain score of 8/10. MEDICAL/SURGICAL HISTORY: None. None. RADIATION DOSE: 5.70 CTDI (mGy) COMPARISON: No prior exams available for comparison. TECHNIQUE: Multiple contiguous axial images were obtained through the abdomen. Images were obtained using multiple row detector helical technique. Using dose reduction techniques, radiation dose was ke pt as low as reasonably achievable to obtain optimal diagnostic quality images. FINDINGS: Lower Lungs: The visualized lower lungs are clear. Liver: The liver is enlarged and decreased density without space-occupying lesion. There is no dilati on of the biliary tree. Spleen: Homogeneous density without enlargement. Pancreas: Unremarkable without mass or calcification. Kidneys: Normal in size and shape. No evidence of mass or hydronephrosis. Adrenal Glands: Unremarkable. Aorta: The aorta and proximal iliac vessels are grossly unremarkable without aneurysmal dilation. Bowel/Mesentery: The bowel loops are grossly unremarkable. The cecum and sigmoid colon have a normal configuration. Normal appendix. Abdominal Wall: Intact. Retroperitoneum: No evidence of adenopathy in the retrocrural, para-aortic, or deep pelvic regions. Bladder: Contours are smooth. Reproductive Organs: No abnormal masses or calcifications seen. Inguinal: The inguinal region is unremarkable without evidence of adenopathy. Bony Structures: Unremarkable. CONCLUSION: 1. Enlarged liver with hepatic steatosis. 2. No renal calculi or hydronephrosis. Electronically signed by: Jasiel Etienne MD 12/30/2017 6:22 PM EDT
[2017-12-30] MEDS ORDERED: PHYTONADIONE 10 MG/ML VIAL SQ ONE (18:30)
--- NOTE | 2017-12-30 20:52 | EKG ---
Date Performed: 12/30/2017 Time Performed: 15:52:21 PTAGE: 32 years EKG: SINUS TACHYCARDIA ABNORMAL RHYTHM ECG NO PREVIOUS TRACING DOCTOR: Sean Velasquez Interpretating Date/Time 12/30/2017 20:51:07
== END 2017-12-30 19:11 | disposition left against medical advice (07) ==
LOC: PHED 15:27
DX: K75.9 Inflammatory liver disease, unspecified (principal); K72.90 Hepatic failure, unspecified without coma; R79.1 Abnormal coagulation profile; R94.31 Abnormal electrocardiogram [ECG] [EKG]; M79.602 Pain in left arm; R07.89 Other chest pain; R06.02 Shortness of breath; R11.2 Nausea with vomiting, unspecified; F90.9 Attention-deficit hyperactivity disorder, unspecified type; F17.200 Nicotine dependence, unspecified, uncomplicated
CPT/HCPCS: 71046; 74176; 80053; 80074; 80307; 81001; 82248; 83690; 84484; 85025; 85610; 93005; 96361; 96372; 96374; 99285; J2765; J3430; J7030

== ENCOUNTER 2017-12-31 10:25 | Inpatient (IN) ==
[2018-01-15] MEDS ORDERED: MethylPREDNISolone Sod Succinate Inj 40 MG/ML Vial ONE (22:50)
[2018-01-16] MEDS ORDERED: Potassium Chlor 20 mEq Premix 20 MEQ/100 ML PIGGYBACK IV.SIG PRN ×2 (00:01)
[2018-01-16] MEDS ORDERED: Magnesium Oxide 400 MG Tablet PO PRN (00:01)
[2018-01-16] MEDS ORDERED: Sodium Phosphate Inj 30 MMOL in Sodium Chlor 0.9% Inj 250 ML IV.SIG PRN (00:01)
[2018-01-16] MEDS ORDERED: Potassium Chloride 25 MEQ Effervescent Tablet PO PRN (00:01)
[2018-01-16] MEDS ORDERED: Magnesium Sulfate Inj 2 GM in Sodium Chlor 0.9% Inj 96 ML IV.SIG PRN (00:01)
[2018-01-16] MEDS ORDERED: Potassium Phosphate 500 MG Soluble Tablet PO PRN ×2 (00:01→01:00)
[2018-01-16] MEDS ORDERED: Magnesium Sulfate Inj 4 GM in Sodium Chlor 0.9% Inj 92 ML IV.SIG PRN (00:01)
[2018-01-16] MEDS ORDERED: Potassium Phosphate Inj 30 MMOL in Sodium Chlor 0.9% Inj 250 ML IV.SIG PRN (00:01)
[2018-01-16] MEDS ORDERED: Dextrose 50% in Water 50 ML Vial IV.PUSH PRN (01:00)
[2018-01-16] MEDS ORDERED: Melatonin 5 MG Tablet PO PRN (01:00)
[2018-01-16] MEDS ORDERED: Dextrose 5%/NaCl 0.45% Inj 1,000 ML IV.SIG SCH (01:00)
[2018-01-16] MEDS ORDERED: Vancomycin Consult Pharmacy 1 EACH OTHER SCH (01:00)
[2018-01-16] MEDS ORDERED: Vancomycin Inj 1,250 MG in Sodium Chlor 0.9% Inj 250 ML IV.SIG SCH (04:00)
[2018-01-16] MEDS: Famotidine PF Inj 20 MG/2 ML Vial IV.PUSH SCH ×2 (04:36→14:03)
[2018-01-16] MEDS: MethylPREDNISolone Sod Succinate Inj 40 MG/ML Vial IV.PUSH SCH ×4 (04:37→23:17)
[2018-01-16] MEDS: Water Sterile for Irr Bot 700 ML, Lactulose Liq 300 ML RECTAL SCH ×8 (04:39→20:57)
[2018-01-16 05:10] LABS: Prothrombin Time 105.8 sec (9.8-11.6)
[2018-01-16 05:14] LABS: INR 10.6 Ratio
[2018-01-16 05:31] LABS: Baso % (Auto) 0.2 % (0.0-2.0); Eos % (Auto) 0.2 % (0.0-4.0); Hematocrit 34.3 % (39.0-51.0); Hemoglobin 11.8 gm/dL (13.0-17.0); Lymph # (Auto) 1.2 th/mm3 (1.0-4.8); Lymph % (Auto) 18.8 % (9.0-44.0); Mean Corpuscular HGB Conc 34.5 % (32.0-36.0); Mean Corpuscular Volume 83.9 fL (80.0-100.0); Mean Platelet Volume 8.6 fL (7.0-11.0); Mono # (Auto) 1.5 th/mm3 (0.0-0.9); Mono % (Auto) 24.5 % (0.0-8.0); Neut # (Auto) 3.6 th/mm3 (1.8-7.7); Neut % (Auto) 56.3 % (16.0-70.0); Platelet Count 129 th/mm3 (150-450); Red Blood Count 4.09 mil/mm3 (4.50-5.90); Red Cell Distribution Width 18.3 % (11.6-17.2); White Blood Count 6.3 th/mm3 (4.0-11.0)
[2018-01-16] MEDS: Pentoxifylline 400 MG Controlled Release Tablet PO SCH ×3 (05:39→22:41)
[2018-01-16] MEDS: ACYCLOVIR IV.SIG SCH ×3 (05:39→23:16)
[2018-01-16] MEDS: SODIUM CHLOR 0.9% IV.SIG SCH ×3 (05:39→23:16)
[2018-01-16] MEDS ORDERED: Fosphenytoin Sodium Inj 100 MGPE/2 ML Vial IV.SIG SCH (06:00)
[2018-01-16 06:11] LABS: Acanthocytes 1+; Burr Cells 1+
[2018-01-16] MEDS ORDERED: Insulin NovoLOG Aspart Correctional Sugar Inj SQ SCH (08:00)
[2018-01-16] MEDS: Senna/Docusate Sodium 8.6/50 MG Tablet PO SCH ×2 (08:39→20:55)
[2018-01-16] MEDS: rifAXIMin 550 MG Tablet PO SCH ×2 (08:39→20:56)
[2018-01-16] MEDS: Spironolactone 50 MG Tablet PO SCH (08:39)
[2018-01-16] MEDS: Polyethylene Glycol 3350 17 GM Packet PO SCH (08:40)
--- NOTE | 2018-01-16 10:24 | P.PNNEU ---
Subjective Subjective Comments: on vent no new overnoc no sz reported Active Medications: Active Medications Generic Name Dose Route Start Last Admin Trade Name Freq PRN Reason Stop Dose Admin Albuterol 2.5 mg 01/16/18 08:00 01/16/18 08:59 Albuterol Neb ([place]) INH 2.5 mg BID NEB VIOLETTE Administration Albuterol 1 ampul 01/16/18 01:00 Duoneb Neb (Prn) NEB Q4HR NEB PRN WHEEZING Betamethasone/Clotrimazole 1 applicatio 01/16/18 09:00 Lotrisone Cream TOPICAL Q12HR VIOLETTE Sterile Water 700 ml/ 0 ml 01/16/18 04:00 01/16/18 04:39 Lactulose 300 ml RECTAL Not Given Q4HR VIOLETTE Dextrose 50 ml 01/16/18 01:00 D50w Vial IV.PUSH UNSCH PRN HYPOGLYEMIA-SEE COMMENTS Famotidine 20 mg 01/16/18 02:00 01/16/18 04:36 Pepcid Pf Inj IV.PUSH 20 mg Q12H VIOLETTE Administration Fosphenytoin Sodium 100 mgpe 01/16/18 06:00 01/16/18 05:38 Cerebyx Inj IV.SIG 100 mgpe Q8HR VIOLETTE Administration Furosemide 60 mg 01/16/18 09:00 01/16/18 08:40 Lasix Inj IV.PUSH 60 mg DAILY VIOLETTE Administration Glucagon 1 mg 01/16/18 01:00 Glucagon Inj OTHER UNSCH PRN HYPOGLYCEMIA-SEE COMMENTS Hyoscyamine 0.25 mg 01/16/18 09:00 01/16/18 08:39 Levsin PO 0.25 mg TID VIOLETTE Administration Vancomycin HCl 1,000 mg/ 250 mls @ 250 mls/hr 01/16/18 12:00 Sodium Chloride IV.SIG Q12H VIOLETTE Acyclovir Sodium 749 mg/ 164.98 mls @ 150 mls/hr 01/16/18 06:00 01/16/18 05: 39 Sodium Chloride IV.SIG 150 mls/hr Q8H VIOLETTE Administration Cefepime HCl 2,000 mg/ Sodium 100 mls @ 200 mls/hr 01/16/18 04:00 01/16/18 04 :00 Chloride IV.SIG 200 mls/hr Q8H VIOLETTE Administration Pharmacy Profile Note mls @ 0 mls/hr 01/16/18 01:00 Vancomycin Consult Pharmacy OTHER UNSCH [facility] As Directed Magnesium Sulfate Inj 4 gm/ 100 mls @ 50 mls/hr 01/16/18 00:01 Sodium Chloride IV.SIG UNSCH PRN For Magnesium 0.9 - 1.1 mg/dL Magnesium Sulfate Inj 2 gm/ 100 mls @ 50 mls/hr 01/16/18 00:01 Sodium Chloride IV.SIG UNSCH PRN For Magnesium 1.2 - 1.6 mg/dL Potassium Chloride 20 meq in 100 mls @ 50 mls/hr 01/16/18 00:01 Kcl 20 Meq Premix Inj IV.SIG Q2H PRN For Potassium 2.8 - 3.2 mEq/L Potassium Chloride 20 meq in 100 mls @ 50 mls/hr 01/16/18 00:01 Kcl 20 Meq Premix Inj IV.SIG Q2H PRN For Potassium 3.3 - 3.5 mEq/L Potassium Phosphate 30 mmol/ 260 mls @ 42 mls/hr 01/16/18 00:01 Sodium Chloride IV.SIG UNSCH PRN SEE LABEL COMMENTS Sodium Phosphate 30 mmol/ 260 mls @ 42 mls/hr 01/16/18 00:01 Sodium Chloride IV.SIG UNSCH PRN For Phosphorus < 2.5 mg/dL Insulin Aspart 1 unit 01/16/18 08:00 Novolog Insulin Suppl Scale Inj SQ ACHS CORRECT SUGARS [facility] Protocol Lactulose 30 ml 01/16/18 06:00 01/16/18 05:39 Lactulose Liq PO 30 ml Q6HR VIOLETTE Administration Lactulose 30 ml 01/16/18 09:00 01/16/18 08:38 Lactulose Liq RECTAL 30 ml BID VIOLETTE Administration Magnesium Oxide 800 mg 01/16/18 00:01 Mag-Ox PO UNSCH PRN For Magnesium 1.2 - 1.6 mg/dL Melatonin 5 mg 01/16/18 01:00 Melatonin PO HS PRN INSOMNIA Memantine 10 mg 01/16/18 09:00 01/16/18 08:39 Namenda PO 10 mg Q12HR VIOLETTE Administration Methylprednisolone Sodium Succinate 40 mg 01/16/18 00:00 01/16/18 08:39 Solu-Medrol Inj IV.PUSH 40 mg Q8H VIOLETTE Administration Miscellaneous Information 1 each 01/17/18 11:45 [facility] Ordered Lab Info OTHER 01/17/18 11:46 ONCE ONE Pentoxifylline 400 mg 01/16/18 06:00 01/16/18 05:39 Trental Sr PO 400 mg Q8HR VIOLETTE Administration Phytonadione 5 mg 01/16/18 09:00 Mephyton Liq PO DAILY VIOLETTE Polyethylene Glycol 34 gm 01/16/18 09:00 01/16/18 08:40 Miralax PO 34 gm DAILY VIOLETTE Administration Potassium Bicarb/Potassium Chloride 50 meq 01/16/18 00:01 K-Lyte PO UNSCH PRN Potassium 3.3-3.5 mEq/L Potassium Phosphate 2,000 mg 01/16/18 01:00 K-Phos Original PO Q4H PRN Phosphorus Less Than 2.5 mg/dL Potassium Phosphate 2,000 mg 01/16/18 00:01 K-Phos Original PO UNSCH PRN SEE LABEL COMMENTS Prochlorperazine Edisylate 5 mg 01/16/18 08:21 Compazine Inj IV.PUSH Q6H PRN NAUSEA OR VOMITING Propranolol HCl 20 mg 01/16/18 06:00 01/16/18 05:39 Inderal PO 20 mg Q8HR VIOLETTE Administration Rifaximin 550 mg 01/16/18 09:00 01/16/18 08:39 Xifaxan PO 550 mg BID VIOLETTE Administration Senna/Docusate Sodium 1 tab 01/16/18 09:00 01/16/18 08:39 Roseann-Colace PO 1 tab BID VIOLETTE Administration Spironolactone 150 mg 01/16/18 09:00 01/16/18 08:39 Aldactone PO 150 mg DAILY VIOLETTE Administration Allergies/Adverse Reactions: Allergies Allergy/AdvReac Type Severity Reaction Status Date / Time No Known Allergies Allergy Unknown Uncoded 12/31/17 10:31 Physical Exam Vital signs: Vital Signs 01/16/18 00:00 01/16/18 02:00 01/16/18 03:19 Temperature 98.9 F Pulse Rate 93 H 93 H Respiratory Rate 24 24 24 Blood Pressure 130/76 138/74 Pulse Oximetry 93 L 97 97 01/16/18 04:00 01/16/18 06:00 01/16/18 07:41 Temperature 99.4 F Pulse Rate 93 H 94 H Respiratory Rate 22 20 24 Blood Pressure 144/77 H 139/76 Pulse Oximetry 97 97 01/16/18 08:00 01/16/18 09:00 Temperature 98.9 F Pulse Rate 96 H 94 H Respiratory Rate 25 H 32 H Blood Pressure 137/74 Pulse Oximetry 97 Intake & Output 01/15/18 01/16/18 01/16/18 18:59 06:59 18:59 Intake Total 354 / 354 Output Total 700 / 700 Balance -346 / -346 Intake: Tube Feeding 234 / 234 Water Bolus Amount 120 / 120 Output: Urine 500 / 500 Stool 200 / 200 Other: Date of Last Bowel Movement 01/16/18 Narrative: coma no jerking bilat ankle clonus toes down pupil= - Urinary Catheter Management Indwelling Urethral Catheter Cath placed during this visit: yes Insertion date: 01/15/18 Objective Laboratory Results - last 24 hr 01/11/18 01/11/18 01/13/18 09:50 09:50 03:07 WBC RBC Hgb Hct MCV MCH MCHC RDW Plt Count MPV Prelim Diff (Auto) Neut % (Auto) Lymph % (Auto) [place] % (Auto) Eos % (Auto) Baso % (Auto) Neut # (Auto) Lymph # (Auto) [place] # (Auto) Eos # (Auto) Baso # (Auto) CBC Comment WBC Differential Diff Scan Differential Comment Platelet Estimate Plt Morphology Comment [place] Cells Acanthocytes (Spur) Keratocytes PT INR APTT Fibrinogen Puncture Site Patient Temperature HCO3 Base Excess O2 Saturation ABG pH ABG pCO2 ABG pO2 ABG O2 Content ABG Carboxyhemoglobin ABG Methemoglobin VBG pH VBG pCO2 VBG pO2 VBG HCO3 VBG O2 Saturation VBG O2 Content VBG Base Excess VBG Carboxyhemoglobin Hemoglobin O2 Delivery Device Liter Flow Vent Setting Inspired O2 Sodium Potassium Chloride Carbon Dioxide Anion Gap BUN Creatinine Estimated GFR POC Glucose Random Glucose Lactic Acid Calcium Total Bilirubin Direct Bilirubin Indirect Bilirubin AST ALT Alkaline Phosphatase Ammonia Lactate Dehydrogenase 274 H Total Protein 6.9 Albumin Ceruloplasmin 16 L Nasal Screen MRSA (PCR) Random Vancomycin Phenytoin Hep B DNA Qnt log IU/mL LESS THAN 1.00 Hep B DNA (Units/mL) LESS THAN 10 01/13/18 01/13/18 01/13/18 05:48 06:45 06:45 WBC RBC Hgb Hct MCV MCH MCHC RDW Plt Count MPV Prelim Diff (Auto) Neut % (Auto) Lymph % (Auto) [place] % (Auto) Eos % (Auto) Baso % (Auto) Neut # (Auto) Lymph # (Auto) [place] # (Auto) Eos # (Auto) Baso # (Auto) CBC Comment WBC Differential Diff Scan Differential Comment Platelet Estimate Plt Morphology Comment [place] Cells Acanthocytes (Spur) Keratocytes PT INR APTT Fibrinogen Puncture Site RT RADIAL Patient Temperature 98.6 HCO3 29 H Base Excess 7.4 H O2 Saturation 97 ABG pH 7.74 H* ABG pCO2 20 L* ABG pO2 102 ABG O2 Content 15.2 ABG Carboxyhemoglobin 1.6 ABG Methemoglobin 0.6 VBG pH VBG pCO2 VBG pO2 VBG HCO3 VBG O2 Saturation VBG O2 Content VBG Base Excess VBG Carboxyhemoglobin Hemoglobin 11.1 L O2 Delivery Device NASAL CANNULA Liter Flow 2 Vent Setting Inspired O2 Sodium 131 L Potassium 3.6 Chloride 90 L Carbon Dioxide 31.0 Anion Gap 10 BUN 4 L Creatinine 1.30 Estimated GFR 64 L POC Glucose Random Glucose 83 Lactic Acid Calcium 9.7 Total Bilirubin 19.4 H Direct Bilirubin Indirect Bilirubin AST 28 ALT 102 H Alkaline Phosphatase 165 H Ammonia 95 H Lactate Dehydrogenase Total Protein 6.5 Albumin 3.7 Ceruloplasmin Nasal Screen MRSA (PCR) Random Vancomycin Phenytoin Hep B DNA Qnt log IU/mL Hep B DNA (Units/mL) 01/13/18 01/13/18 01/13/18 06:45 06:45 07:28 WBC 8.4 RBC 3.97 L Hgb 11.3 L Hct 34.0 L MCV 85.6 MCH 28.4 MCHC 33.2 RDW 16.5 Plt Count 98 L D MPV 8.4 Prelim Diff (Auto) Neut % (Auto) 70.2 H Lymph % (Auto) 10.3 [place] % (Auto) 17.8 H Eos % (Auto) 0.9 Baso % (Auto) 0.8 Neut # (Auto) 5.8 Lymph # (Auto) 0.9 L [place] # (Auto) 1.5 H Eos # (Auto) 0.1 Baso # (Auto) 0.1 CBC Comment AUTO DIFF WBC Differential Diff Scan Differential Comment AUTO DIFF CONFIRMED Platelet Estimate Plt Morphology Comment [place] Cells Acanthocytes (Spur) Keratocytes PT 23.2 H D INR 2.3 APTT Fibrinogen Puncture Site Patient Temperature HCO3 Base Excess O2 Saturation ABG pH ABG pCO2 ABG pO2 ABG O2 Content ABG Carboxyhemoglobin ABG Methemoglobin VBG pH VBG pCO2 VBG pO2 VBG HCO3 VBG O2 Saturation VBG O2 Content VBG Base Excess VBG Carboxyhemoglobin Hemoglobin O2 Delivery Device Liter Flow Vent Setting Inspired O2 Sodium Potassium Chloride Carbon Dioxide Anion Gap BUN Creatinine Estimated GFR POC Glucose Random Glucose Lactic Acid Calcium Total Bilirubin Direct Bilirubin 4.2 H Indirect Bilirubin AST ALT Alkaline Phosphatase Ammonia Lactate Dehydrogenase Total Protein Albumin Ceruloplasmin Nasal Screen MRSA (PCR) Random Vancomycin Phenytoin Hep B DNA Qnt log IU/mL Hep B DNA (Units/mL) 01/13/18 01/13/18 01/13/18 17:00 17:10 18:30 WBC RBC Hgb Hct MCV MCH MCHC RDW Plt Count MPV Prelim Diff (Auto) Neut % (Auto) Lymph % (Auto) [place] % (Auto) Eos % (Auto) Baso % (Auto) Neut # (Auto) Lymph # (Auto) [place] # (Auto) Eos # (Auto) Baso # (Auto) CBC Comment WBC Differential Diff Scan Differential Comment Platelet Estimate Plt Morphology Comment [place] Cells Acanthocytes (Spur) Keratocytes PT 42.3 H D INR 4.2 APTT Fibrinogen Puncture Site RT RADIAL Patient Temperature 98.6 HCO3 30 H Base Excess 7.2 H O2 Saturation 96 ABG pH 7.57 H* ABG pCO2 33 L ABG pO2 95 ABG O2 Content 16.2 ABG Carboxyhemoglobin 1.0 ABG Methemoglobin 1.0 VBG pH VBG pCO2 VBG pO2 VBG HCO3 VBG O2 Saturation VBG O2 Content VBG Base Excess VBG Carboxyhemoglobin Hemoglobin 12.0 O2 Delivery Device Liter Flow Vent Setting Inspired O2 Sodium Potassium Chloride Carbon Dioxide Anion Gap BUN Creatinine Estimated GFR POC Glucose Random Glucose Lactic Acid Calcium Total Bilirubin Direct Bilirubin Indirect Bilirubin AST ALT Alkaline Phosphatase Ammonia Lactate Dehydrogenase Total Protein Albumin Ceruloplasmin Nasal Screen MRSA (PCR) MRSA NOT DETECTED Random Vancomycin Phenytoin Hep B DNA Qnt log IU/mL Hep B DNA (Units/mL) 01/13/18 01/13/18 01/14/18 19:45 19:45 02:00 WBC 7.8 RBC 4.22 L Hgb 11.9 L Hct 35.2 L MCV 83.5 MCH 28.2 MCHC 33.8 RDW 17.3 H Plt Count 93 L MPV 8.7 Prelim Diff (Auto) Neut % (Auto) Lymph % (Auto) [place] % (Auto) Eos % (Auto) Baso % (Auto) Neut # (Auto) Lymph # (Auto) [place] # (Auto) Eos # (Auto) Baso # (Auto) CBC Comment WBC Differential Diff Scan Differential Comment Platelet Estimate Plt Morphology Comment [place] Cells Acanthocytes (Spur) Keratocytes PT INR APTT 43.5 H Fibrinogen Puncture Site Patient Temperature HCO3 Base Excess O2 Saturation ABG pH ABG pCO2 ABG pO2 ABG O2 Content ABG Carboxyhemoglobin ABG Methemoglobin VBG pH VBG pCO2 VBG pO2 VBG HCO3 VBG O2 Saturation VBG O2 Content VBG Base Excess VBG Carboxyhemoglobin Hemoglobin O2 Delivery Device Liter Flow Vent Setting Inspired O2 Sodium 135 L Potassium 2.7 L* D Chloride 93 L Carbon Dioxide 25.8 Anion Gap 16 H BUN 5 L Creatinine 1.42 H Estimated GFR 58 L POC Glucose Random Glucose 99 Lactic Acid Calcium 9.9 Total Bilirubin 22.7 H Direct Bilirubin Indirect Bilirubin AST 31 ALT 89 H Alkaline Phosphatase 186 H Ammonia Lactate Dehydrogenase Total Protein 7.2 D Albumin 3.9 Ceruloplasmin Nasal Screen MRSA (PCR) Random Vancomycin Phenytoin Hep B DNA Qnt log IU/mL Hep B DNA (Units/mL) 01/14/18 01/14/18 01/14/18 02:00 02:00 02:00 WBC 11.3 H RBC 4.26 L Hgb 12.0 L Hct 35.2 L MCV 82.7 MCH 28.2 MCHC 34.1 RDW 17.2 Plt Count 103 L MPV 8.6 Prelim Diff (Auto) Neut % (Auto) 54.5 Lymph % (Auto) 25.7 [place] % (Auto) 19.0 H Eos % (Auto) 0.7 Baso % (Auto) 0.1 Neut # (Auto) 6.2 Lymph # (Auto) 2.9 [place] # (Auto) 2.2 H Eos # (Auto) 0.1 Baso # (Auto) 0.0 CBC Comment AUTO DIFF WBC Differential Diff Scan Differential Comment AUTO DIFF CONFIRMED Platelet Estimate LOW L Plt Morphology Comment NORMAL [place] Cells Acanthocytes (Spur) 1+ H Keratocytes OCC PT 30.0 H D INR 3.0 APTT Fibrinogen Puncture Site Patient Temperature HCO3 Base Excess O2 Saturation ABG pH ABG pCO2 ABG pO2 ABG O2 Content ABG Carboxyhemoglobin ABG Methemoglobin VBG pH VBG pCO2 VBG pO2 VBG HCO3 VBG O2 Saturation VBG O2 Content VBG Base Excess VBG Carboxyhemoglobin Hemoglobin O2 Delivery Device Liter Flow Vent Setting Inspired O2 Sodium Potassium Chloride Carbon Dioxide Anion Gap BUN Creatinine Estimated GFR POC Glucose Random Glucose Lactic Acid Calcium Total Bilirubin Direct Bilirubin Indirect Bilirubin AST ALT Alkaline Phosphatase Ammonia Lactate Dehydrogenase Total Protein Albumin Ceruloplasmin Nasal Screen MRSA (PCR) Random Vancomycin Phenytoin 13.4 Hep B DNA Qnt log IU/mL Hep B DNA (Units/mL) 01/14/18 01/14/18 01/14/18 02:02 02:31 05:49 WBC RBC Hgb Hct MCV MCH MCHC RDW Plt Count MPV Prelim Diff (Auto) Neut % (Auto) Lymph % (Auto) [place] % (Auto) Eos % (Auto) Baso % (Auto) Neut # (Auto) Lymph # (Auto) [place] # (Auto) Eos # (Auto) Baso # (Auto) CBC Comment WBC Differential Diff Scan Differential Comment Platelet Estimate Plt Morphology Comment [place] Cells Acanthocytes (Spur) Keratocytes PT 30.1 H INR 3.0 APTT 33.4 H D Fibrinogen 153 L Puncture Site RT BRACHIAL Patient Temperature 98.6 HCO3 28 H Base Excess 5.4 H O2 Saturation 49 L* ABG pH 7.59 H* ABG pCO2 29 L ABG pO2 29 L* ABG O2 Content 8.3 L ABG Carboxyhemoglobin 0.9 ABG Methemoglobin 1.1 VBG pH VBG pCO2 VBG pO2 VBG HCO3 VBG O2 Saturation VBG O2 Content VBG Base Excess VBG Carboxyhemoglobin Hemoglobin 12.0 O2 Delivery Device NASAL CANNULA Liter Flow 2 Vent Setting Inspired O2 Sodium Potassium Chloride Carbon Dioxide Anion Gap BUN Creatinine Estimated GFR POC Glucose Random Glucose Lactic Acid Calcium Total Bilirubin Direct Bilirubin Indirect Bilirubin AST ALT Alkaline Phosphatase Ammonia 121 H Lactate Dehydrogenase Total Protein Albumin Ceruloplasmin Nasal Screen MRSA (PCR) Random Vancomycin Phenytoin Hep B DNA Qnt log IU/mL Hep B DNA (Units/mL) 01/14/18 01/14/18 01/14/18 05:49 07:46 17:30 WBC RBC Hgb Hct MCV MCH MCHC RDW Plt Count MPV Prelim Diff (Auto) Neut % (Auto) Lymph % (Auto) [place] % (Auto) Eos % (Auto) Baso % (Auto) Neut # (Auto) Lymph # (Auto) [place] # (Auto) Eos # (Auto) Baso # (Auto) CBC Comment WBC Differential Diff Scan Differential Comment Platelet Estimate Plt Morphology Comment [place] Cells Acanthocytes (Spur) Keratocytes PT 26.9 H INR 2.7 APTT Fibrinogen Puncture Site CENTRAL LINE Patient Temperature 98.6 HCO3 Base Excess O2 Saturation ABG pH ABG pCO2 ABG pO2 ABG O2 Content ABG Carboxyhemoglobin ABG Methemoglobin VBG pH 7.59 H* VBG pCO2 29 L VBG pO2 29 L* VBG HCO3 28 H VBG O2 Saturation 49 L VBG O2 Content 8.3 L VBG Base Excess 5.4 H VBG Carboxyhemoglobin 1.1 Hemoglobin O2 Delivery Device NASAL CANNULA Liter Flow 2 Vent Setting Inspired O2 Sodium Potassium 2.4 L* Chloride Carbon Dioxide Anion Gap BUN Creatinine Estimated GFR POC Glucose Random Glucose Lactic Acid Calcium Total Bilirubin Direct Bilirubin Indirect Bilirubin AST ALT Alkaline Phosphatase Ammonia Lactate Dehydrogenase Total Protein Albumin Ceruloplasmin Nasal Screen MRSA (PCR) Random Vancomycin Phenytoin Hep B DNA Qnt log IU/mL Hep B DNA (Units/mL) 01/14/18 01/14/18 01/15/18 18:40 23:24 00:20 WBC RBC Hgb Hct MCV MCH MCHC RDW Plt Count MPV Prelim Diff (Auto) Neut % (Auto) Lymph % (Auto) [place] % (Auto) Eos % (Auto) Baso % (Auto) Neut # (Auto) Lymph # (Auto) [place] # (Auto) Eos # (Auto) Baso # (Auto) CBC Comment WBC Differential Diff Scan Differential Comment Platelet Estimate Plt Morphology Comment [place] Cells Acanthocytes (Spur) Keratocytes PT INR APTT Fibrinogen Puncture Site CENTRAL LINE RT RADIAL Patient Temperature 98.6 98.6 HCO3 28 H Base Excess 5.3 H O2 Saturation 98 ABG pH 7.57 H* ABG pCO2 30 L ABG pO2 175 H ABG O2 Content 16.6 ABG Carboxyhemoglobin 0.9 ABG Methemoglobin 0.9 VBG pH 7.59 H* VBG pCO2 31 L VBG pO2 46 H VBG HCO3 30 H VBG O2 Saturation 80 H VBG O2 Content 12.4 VBG Base Excess 7.7 H VBG Carboxyhemoglobin Hemoglobin 11.8 L O2 Delivery Device NASAL CANNULA NASAL CANNULA Liter Flow 4 4 Vent Setting Inspired O2 Sodium Potassium Chloride Carbon Dioxide Anion Gap BUN Creatinine Estimated GFR POC Glucose Random Glucose Lactic Acid Calcium Total Bilirubin 23.8 H Direct Bilirubin 5.0 H Indirect Bilirubin 18.8 H AST 32 ALT 80 H Alkaline Phosphatase 172 H Ammonia Lactate Dehydrogenase Total Protein 7.2 Albumin 3.7 Ceruloplasmin Nasal Screen MRSA (PCR) Random Vancomycin Phenytoin Hep B DNA Qnt log IU/mL Hep B DNA (Units/mL) 01/15/18 01/15/18 01/15/18 00:20 03:58 03:58 WBC RBC Hgb Hct MCV MCH MCHC RDW Plt Count MPV Prelim Diff (Auto) Neut % (Auto) Lymph % (Auto) [place] % (Auto) Eos % (Auto) Baso % (Auto) Neut # (Auto) Lymph # (Auto) [place] # (Auto) Eos # (Auto) Baso # (Auto) CBC Comment WBC Differential Diff Scan Differential Comment Platelet Estimate Plt Morphology Comment [place] Cells Acanthocytes (Spur) Keratocytes PT INR APTT Fibrinogen Puncture Site Patient Temperature HCO3 Base Excess O2 Saturation ABG pH ABG pCO2 ABG pO2 ABG O2 Content ABG Carboxyhemoglobin ABG Methemoglobin VBG pH VBG pCO2 VBG pO2 VBG HCO3 VBG O2 Saturation VBG O2 Content VBG Base Excess VBG Carboxyhemoglobin Hemoglobin O2 Delivery Device Liter Flow Vent Setting Inspired O2 Sodium 137 Potassium 3.2 L D Chloride 99 Carbon Dioxide 24.7 Anion Gap 13 BUN 6 L Creatinine 1.42 H Estimated GFR 58 L POC Glucose Random Glucose 133 H Lactic Acid Calcium 9.7 Total Bilirubin 24.3 H Direct Bilirubin Indirect Bilirubin AST 31 ALT 80 H Alkaline Phosphatase 165 H Ammonia 156 H 180 H Lactate Dehydrogenase Total Protein 7.0 Albumin 3.6 Ceruloplasmin Nasal Screen MRSA (PCR) Random Vancomycin 19.0 Phenytoin 13.6 Hep B DNA Qnt log IU/mL Hep B DNA (Units/mL) 01/15/18 01/15/18 01/15/18 03:58 03:58 04:50 WBC 5.2 RBC 4.15 L Hgb 12.0 L Hct 34.7 L MCV 83.6 MCH 29.0 MCHC 34.7 RDW 17.8 H Plt Count 106 L MPV 8.6 Prelim Diff (Auto) Neut % (Auto) 77.6 H Lymph % (Auto) 13.4 [place] % (Auto) 8.5 H Eos % (Auto) 0.1 Baso % (Auto) 0.4 Neut # (Auto) 4.1 Lymph # (Auto) 0.7 L [place] # (Auto) 0.4 Eos # (Auto) 0.0 Baso # (Auto) 0.0 CBC Comment AUTO DIFF WBC Differential Diff Scan Differential Comment AUTO DIFF CONFIRMED Platelet Estimate LOW L Plt Morphology Comment NORMAL [place] Cells Acanthocytes (Spur) 1+ H Keratocytes OCC PT 121.5 H D INR 12.2 H* APTT Fibrinogen Puncture Site Patient Temperature HCO3 Base Excess O2 Saturation ABG pH ABG pCO2 ABG pO2 ABG O2 Content ABG Carboxyhemoglobin ABG Methemoglobin VBG pH VBG pCO2 VBG pO2 VBG HCO3 VBG O2 Saturation VBG O2 Content VBG Base Excess VBG Carboxyhemoglobin Hemoglobin O2 Delivery Device Liter Flow Vent Setting Inspired O2 Sodium Potassium Chloride Carbon Dioxide Anion Gap BUN Creatinine Estimated GFR POC Glucose Random Glucose Lactic Acid 5.1 H* Calcium Total Bilirubin Direct Bilirubin Indirect Bilirubin AST ALT Alkaline Phosphatase Ammonia Lactate Dehydrogenase Total Protein Albumin Ceruloplasmin Nasal Screen MRSA (PCR) Random Vancomycin Phenytoin Hep B DNA Qnt log IU/mL Hep B DNA (Units/mL) 01/15/18 01/15/18 01/15/18 06:03 12:00 18:05 WBC RBC Hgb Hct MCV MCH MCHC RDW Plt Count MPV Prelim Diff (Auto) Neut % (Auto) Lymph % (Auto) [place] % (Auto) Eos % (Auto) Baso % (Auto) Neut # (Auto) Lymph # (Auto) [place] # (Auto) Eos # (Auto) Baso # (Auto) CBC Comment WBC Differential Diff Scan Differential Comment Platelet Estimate Plt Morphology Comment [place] Cells Acanthocytes (Spur) Keratocytes PT INR APTT Fibrinogen Puncture Site CENTRAL LINE RT RADIAL Patient Temperature 98.6 98.6 HCO3 25 Base Excess 4.4 H O2 Saturation 98 ABG pH 7.71 H* ABG pCO2 19 L* ABG pO2 200 H ABG O2 Content 15.6 ABG Carboxyhemoglobin 0.8 ABG Methemoglobin 0.8 VBG pH 7.59 H* VBG pCO2 29 L VBG pO2 44 H VBG HCO3 28 H VBG O2 Saturation 78 H VBG O2 Content 12.5 VBG Base Excess 5.5 H VBG Carboxyhemoglobin Hemoglobin 11.0 L O2 Delivery Device VENTILATOR VENTILATOR Liter Flow Vent Setting SEE COMMENTS [id number] Inspired O2 50 40 Sodium Potassium 3.4 L Chloride Carbon Dioxide Anion Gap BUN Creatinine Estimated GFR POC Glucose Random Glucose Lactic Acid Calcium Total Bilirubin Direct Bilirubin Indirect Bilirubin AST ALT Alkaline Phosphatase Ammonia Lactate Dehydrogenase Total Protein Albumin Ceruloplasmin Nasal Screen MRSA (PCR) Random Vancomycin Phenytoin Hep B DNA Qnt log IU/mL Hep B DNA (Units/mL) 01/16/18 01/16/18 01/16/18 04:16 04:16 04:16 WBC 6.3 RBC 4.09 L Hgb 11.8 L Hct 34.3 L MCV 83.9 MCH 29.0 MCHC 34.5 RDW 18.3 H Plt Count 129 L MPV 8.6 Prelim Diff (Auto) Slide review pending Neut % (Auto) 56.3 Lymph % (Auto) 18.8 [place] % (Auto) 24.5 H Eos % (Auto) 0.2 Baso % (Auto) 0.2 Neut # (Auto) 3.6 Lymph # (Auto) 1.2 [place] # (Auto) 1.5 H Eos # (Auto) 0.0 Baso # (Auto) 0.0 CBC Comment WBC Differential . Diff Scan Auto diff confirmed Differential Comment . Platelet Estimate Plt Morphology Comment [place] Cells 1+ H Acanthocytes (Spur) 1+ H Keratocytes Occ H PT 105.8 H INR 10.6 H* APTT Fibrinogen Puncture Site Patient Temperature HCO3 Base Excess O2 Saturation ABG pH ABG pCO2 ABG pO2 ABG O2 Content ABG Carboxyhemoglobin ABG Methemoglobin VBG pH VBG pCO2 VBG pO2 VBG HCO3 VBG O2 Saturation VBG O2 Content VBG Base Excess VBG Carboxyhemoglobin Hemoglobin O2 Delivery Device Liter Flow Vent Setting Inspired O2 Sodium Potassium Chloride Carbon Dioxide Anion Gap BUN Creatinine Estimated GFR POC Glucose Random Glucose Lactic Acid Calcium Total Bilirubin Direct Bilirubin Indirect Bilirubin AST ALT Alkaline Phosphatase Ammonia Lactate Dehydrogenase Total Protein Albumin Ceruloplasmin Nasal Screen MRSA (PCR) Random Vancomycin Phenytoin 18.2 Hep B DNA Qnt log IU/mL Hep B DNA (Units/mL) 01/16/18 01/16/18 01/16/18 04:16 04:16 08:01 WBC RBC Hgb Hct MCV MCH MCHC RDW Plt Count MPV Prelim Diff (Auto) Neut % (Auto) Lymph % (Auto) [place] % (Auto) Eos % (Auto) Baso % (Auto) Neut # (Auto) Lymph # (Auto) [place] # (Auto) Eos # (Auto) Baso # (Auto) CBC Comment WBC Differential Diff Scan Differential Comment Platelet Estimate Plt Morphology Comment [place] Cells Acanthocytes (Spur) Keratocytes PT INR APTT Fibrinogen Puncture Site Patient Temperature HCO3 Base Excess O2 Saturation ABG pH ABG pCO2 ABG pO2 ABG O2 Content ABG Carboxyhemoglobin ABG Methemoglobin VBG pH VBG pCO2 VBG pO2 VBG HCO3 VBG O2 Saturation VBG O2 Content VBG Base Excess VBG Carboxyhemoglobin Hemoglobin O2 Delivery Device Liter Flow Vent Setting Inspired O2 Sodium Potassium Chloride Carbon Dioxide Anion Gap BUN Creatinine Estimated GFR POC Glucose 162 H Random Glucose Lactic Acid Calcium Total Bilirubin Direct Bilirubin Indirect Bilirubin AST ALT Alkaline Phosphatase Ammonia 147 H Lactate Dehydrogenase Total Protein Albumin Ceruloplasmin Nasal Screen MRSA (PCR) Random Vancomycin 19.5 Phenytoin Hep B DNA Qnt log IU/mL Hep B DNA (Units/mL) Review/Management - Review/Management Plan: imp recheck mri hepatic enceph dil 18 lower dose
[2018-01-16] MEDS ORDERED: Gadodiamide PF Inj 287 MG/ML 20 ML Syringe (for RAD MRI) IVCONTRAST ONE (11:30)
--- NOTE | 2018-01-16 11:59 | MR ---
EXAM DATE: 01/16/2018 11:41 AM EDT AGE/SEX: 32 years / Male INDICATIONS: . Hepatic encephalopathy. CLINICAL DATA: This is the patient's subsequent encounter. Patient reports that signs and symptoms h ave been present for 2 weeks and indicates a pain score of 0/10. MEDICAL/SURGICAL HISTORY: Hepatitis C. . Knee surgery. COMPARISON: No prior exams available for comparison. TECHNIQUE: Multiplanar, multisequence examination of the brain was performed without and with 20cc ml Omniscan (gadodiamide) contrast as a single exam dose. FINDINGS: Ventricles are normal size. Minimal periventricular white matter changes are evident. There are no extra-axial fluid collections appreciated. There is no parenchymal hemorrhage identified . There is no restricted diffusion to suggest an acute infarction. There is subtle restricted diffusion in the cortical white matter when compared to the gold matter. This can be seen with hypoxic encepha lopathy. Following intravenous administration gadolinium there is no abnormal contrast enhancement. The posterior fossa is unremarkable midline fourth ventricle The orbits appear sinuses visualized are unremarkable. CONCLUSION: 1. Subtle restricted diffusion in the gold matter when compared to the white most prevalent in mid s ylvian regions bilaterally. This is symmetric. This can be seen with anoxic encephalopathy. 2. There is no abnormal contrast enhancement. 3. There is no parenchymal hemorrhage. Electronically signed by: Lauri Hein MD 01/16/2018 11:57 AM EDT
[2018-01-16 13:05] LABS: Bacteria,Urine Rare /hpf; Bilirubin,Urine Negative (Negative); Calcium Oxalate Crystals,Urine Occasional /hpf; Clarity,Urine Cloudy (Clear); Color,Urine Amber (Yellw/Straw); Glucose,Urine (UA) 50 mg/dL (Negative); Hyaline Casts,Urine 17 /lpf (0-3); Leukocyte Esterase,Urine Large (Negative); Mucus,Urine Few /lpf (Occasional); Nitrite,Urine Negative (Negative); Specific Gravity,Urine 1.017 (1.002-1.035); Squamous Epithelial Cell,Urine 1 /hpf (0-5)
[2018-01-16 13:38] LABS: VBG Blood Gas Oxygen Content 12.3 Vol % (9.0-17.0); VBG PCO2 26 mmHG (44-48); VBG PO2 46 mmHG (35-40)
--- NOTE | 2018-01-16 13:42 | P.PNCC ---
Subjective Subjective Remarks/Hospital Course: Remarks/Hospital Course This is a 32-year-old male that presented to the ED at [facility] on 12/31/2017 with complaints of nausea and vomiting and generalized malaise. The patient's medical history is significant for hepatitis C, liver failure , coagulopathy and previous encephalopathy. The patient has a medical history significant for IVDU and alcohol use disorder. Upon presentation the patient was alert and oriented but noted he was having worsening symptoms, since his admission the patient has become progressively more left and coagulopathic with INR as high as 7.9. Upon admission imaging and laboratory studies were performed which showed a significant increase in INR and CT abdomen showing hepatic cirrhosis for the laboratory studies were provided and the patient was noted to have alpha-1 antitrypsin deficiency, pulmonology was also consulted. The patient has been receiving with currently by GI 6 units of FFP daily, lactulose, rifaximin ,propranolol and vitamin K. The patient has progressively become more lethargic, neurology has been consulted EEG was with encephalopathic findings, and an MRI brain and CT brain 01/07 showed no acute abnormality. The patient was unable to be aroused early this a.m., critical care medicine was consulted. Upon my evaluation at 6:30 AM the patient was unable to be awakened with deep sternal rub and pain stimuli. No eye opening nor withdrawal to pain ,the patient's O2 saturation was within normal limits 98 to 99% on 4 LPM N/C. Concern for possible cerebral edema, or acute bleed, a stat MRI was obtained that showed no acute abnormality, I discussed findings and comparison of 01/07 MRI with no significant findings. Over the last 3-4 hours, the patient now has spontaneous eye opening, is making verbal sounds that are incomprehensible, and has passed a bedside swallow evaluation. Ammonia level upon review continues to down trend from 120 to currently 94. I telephoned the healthcare surrogate mother, Raphael, and [employer] and provided her medical status update upon my evaluation. A discussion regarding possible emergent intubation, and she stated that the patient would not want to be intubated. A discussion was also performed discussing INR currently of 2.3, placement of NG tube for administration of medications as well as nutrition at which point she said stated she was undecided. Extensive conversation was performed and a palliative consult has been initiated to define goals of care. I thoroughly discussed with the healthcare surrogate concern for protection of the airway as well as nutrition and administration of medication and the need for intubation. Currently the patient is protecting his airway even though he is nonverbal at this point she does not want an intubation awaiting palliative care consult for further recommendations . The patient remains a full code. I contacted Dr. Capps, in the ED informed her of the situation, the patient may require emergent intubation until clarification of goals are met. Subjective: 01/14: Orders to transfer the patient to [facility] were initiated at 10 AM ,however the patient was transferred at 6 PM at [facility], mother's request. The patient's INR had trended down to 2.3. The patient was seen by neurology last evening discussed with Dr. Marcano plan was for possible lumbar puncture and paracentesis today. A scan was performed last evening patient did not have enough fluid for drainage/paracentesis (small amount of fluid). The patient received during the night and an additional 5 units of FFP and attempts to place the INR less than 1.8, but unsuccessful, INR 2.7. I discussed with Infectious Disease Dr. Nick last evening, plan for MRI with contrast of cervical, thoracic and lumbar spine this am., If unable to perform LP. Empiric antibiotics were provided. Echo is pending. no further transfusion of FFP required. I discussed with Dr. Rojo, to discontinue transfusion of FFP 6 units per day as previously ordered, as the patient has no signs of active bleeding. I also conferred with Dr. Bain, Heme- Onc, who is in agreement. The patient remains encephalopathic, attempts were made last evening for placement of NG tube unsuccessful on multiple attempts by nursing staff. Plan for placement of NG tube under fluoroscopy this a.m. to continue administration of medications. 01/15: (Dr. Obregon) I spoke with patient's healthcare decision maker, Mickey Lai again after labs that she requested were resulted. She would like to proceed with intubation for airway protection. She would not want prolonged intubation or trach. She states that he is not improving her goal would be to transition him to home hospice. She states she would like to speak with consultants regarding prognosis. I will proceed with intubation. 01/15: The patient is status post intubation, currently on PRVC overbreathing the vent. Last evening the patient's INR was noted to be significantly elevated he was scheduled to be transfused 4 units of FFP, INR is 12.2 however no active signs of bleeding or noted. Ammonia level significantly elevated despite lactulose and rifaximin ammonia level 180 this a.m.. IV infusion D5 increased to 77 cc/hour. Plan to consider TPN will consult with GI. Hydrocortisone dosing was initiated yesterday. 01/16: Additional maximal dosing polyethylene glycol, 34 g per day was added to medication regimen last night. Ammonia level this a.m. 147. Repeat MRI revealed restricted diffusion in the gold matter. The patient remains encephalopathic. The patient is tolerating tube feeds. INR 10.6. Objective Vital Signs / I&O: Vital Signs 01/16/18 00:00 01/16/18 02:00 01/16/18 03:19 Temperature 98.9 F Pulse Rate 93 H 93 H Respiratory Rate 24 24 24 Blood Pressure 130/76 138/74 Pulse Oximetry 93 L 97 97 01/16/18 04:00 01/16/18 06:00 01/16/18 07:41 Temperature 99.4 F Pulse Rate 93 H 94 H Respiratory Rate 22 20 24 Blood Pressure 144/77 H 139/76 Pulse Oximetry 97 97 01/16/18 08:00 01/16/18 09:00 01/16/18 12:00 Temperature 98.9 F 98.9 F Pulse Rate 96 H 94 H 93 H Respiratory Rate 25 H 32 H 26 H Blood Pressure 137/74 143/74 H Pulse Oximetry 97 01/16/18 12:03 Temperature Pulse Rate Respiratory Rate 23 Blood Pressure Pulse Oximetry 96 Intake & Output 01/15/18 01/16/18 01/16/18 18:59 06:59 18:59 Intake Total 354 / 354 Output Total 700 / 700 Balance -346 / -346 Intake: Tube Feeding 234 / 234 Water Bolus Amount 120 / 120 Output: Urine 500 / 500 Stool 200 / 200 Other: Date of Last Bowel Movement 01/16/18 01/16/18 Result Diagrams: 01/16/18 04:16 01/15/18 18:05 Other Results: Laboratory Results - last 24 hr 01/11/18 01/11/18 01/13/18 09:50 09:50 03:07 WBC RBC Hgb Hct MCV MCH MCHC RDW Plt Count MPV Prelim Diff (Auto) Neut % (Auto) Lymph % (Auto) Wake % (Auto) Eos % (Auto) Baso % (Auto) Neut # (Auto) Lymph # (Auto) [place] # (Auto) Eos # (Auto) Baso # (Auto) CBC Comment WBC Differential Diff Scan Differential Comment Platelet Estimate Plt Morphology Comment [place] Cells Acanthocytes (Spur) Keratocytes PT INR APTT Fibrinogen Puncture Site Patient Temperature HCO3 Base Excess O2 Saturation ABG pH ABG pCO2 ABG pO2 ABG O2 Content ABG Carboxyhemoglobin ABG Methemoglobin VBG pH VBG pCO2 VBG pO2 VBG HCO3 VBG O2 Saturation VBG O2 Content VBG Base Excess VBG Carboxyhemoglobin Hemoglobin O2 Delivery Device Liter Flow Vent Setting Inspired O2 Sodium Potassium Chloride Carbon Dioxide Anion Gap BUN Creatinine Estimated GFR POC Glucose Random Glucose Lactic Acid Calcium Total Bilirubin Direct Bilirubin Indirect Bilirubin AST ALT Alkaline Phosphatase Ammonia Lactate Dehydrogenase 274 H Total Protein 6.9 Albumin Ceruloplasmin 16 L Urine Color Urine Clarity Urine pH Ur Specific [place] Urine Protein Urine Glucose (UA) Urine Ketones Urine Occult Blood Urine Nitrate Urine Bilirubin Urine Urobilinogen Ur Leukocyte Esterase Urine RBC Urine WBC Urine WBC Clumps Ur Squamous Epith Cells Calcium Oxalate Crystal Urine Bacteria Hyaline Casts Urine Mucus Urine Yeast Ur Yeast w Hyphae Micro UA Comment Urine Culture Comments Nasal Screen MRSA (PCR) Random Vancomycin Phenytoin Hep B DNA Qnt log IU/mL LESS THAN 1.00 Hep B DNA (Units/mL) LESS THAN 10 01/13/18 01/13/18 01/13/18 05:48 06:45 06:45 WBC RBC Hgb Hct MCV MCH MCHC RDW Plt Count MPV Prelim Diff (Auto) Neut % (Auto) Lymph % (Auto) [place] % (Auto) Eos % (Auto) Baso % (Auto) Neut # (Auto) Lymph # (Auto) [place] # (Auto) Eos # (Auto) Baso # (Auto) CBC Comment WBC Differential Diff Scan Differential Comment Platelet Estimate Plt Morphology Comment [place] Cells Acanthocytes (Spur) Keratocytes PT INR APTT Fibrinogen Puncture Site RT RADIAL Patient Temperature 98.6 HCO3 29 H Base Excess 7.4 H O2 Saturation 97 ABG pH 7.74 H* ABG pCO2 20 L* ABG pO2 102 ABG O2 Content 15.2 ABG Carboxyhemoglobin 1.6 ABG Methemoglobin 0.6 VBG pH VBG pCO2 VBG pO2 VBG HCO3 VBG O2 Saturation VBG O2 Content VBG Base Excess VBG Carboxyhemoglobin Hemoglobin 11.1 L O2 Delivery Device NASAL CANNULA Liter Flow 2 Vent Setting Inspired O2 Sodium 131 L Potassium 3.6 Chloride 90 L Carbon Dioxide 31.0 Anion Gap 10 BUN 4 L Creatinine 1.30 Estimated GFR 64 L POC Glucose Random Glucose 83 Lactic Acid Calcium 9.7 Total Bilirubin 19.4 H Direct Bilirubin Indirect Bilirubin AST 28 ALT 102 H Alkaline Phosphatase 165 H Ammonia 95 H Lactate Dehydrogenase Total Protein 6.5 Albumin 3.7 Ceruloplasmin Urine Color Urine Clarity Urine pH Ur Specific [place] Urine Protein Urine Glucose (UA) Urine Ketones Urine Occult Blood Urine Nitrate Urine Bilirubin Urine Urobilinogen Ur Leukocyte Esterase Urine RBC Urine WBC Urine WBC Clumps Ur Squamous Epith Cells Calcium Oxalate Crystal Urine Bacteria Hyaline Casts Urine Mucus Urine Yeast Ur Yeast w Hyphae Micro UA Comment Urine Culture Comments Nasal Screen MRSA (PCR) Random Vancomycin Phenytoin Hep B DNA Qnt log IU/mL Hep B DNA (Units/mL) 01/13/18 01/13/18 01/13/18 06:45 06:45 07:28 WBC 8.4 RBC 3.97 L Hgb 11.3 L Hct 34.0 L MCV 85.6 MCH 28.4 MCHC 33.2 RDW 16.5 Plt Count 98 L D MPV 8.4 Prelim Diff (Auto) Neut % (Auto) 70.2 H Lymph % (Auto) 10.3 Wake % (Auto) 17.8 H Eos % (Auto) 0.9 Baso % (Auto) 0.8 Neut # (Auto) 5.8 Lymph # (Auto) 0.9 L [place] # (Auto) 1.5 H Eos # (Auto) 0.1 Baso # (Auto) 0.1 CBC Comment AUTO DIFF WBC Differential Diff Scan Differential Comment AUTO DIFF CONFIRMED Platelet Estimate Plt Morphology Comment [place] Cells Acanthocytes (Spur) Keratocytes PT 23.2 H D INR 2.3 APTT Fibrinogen Puncture Site Patient Temperature HCO3 Base Excess O2 Saturation ABG pH ABG pCO2 ABG pO2 ABG O2 Content ABG Carboxyhemoglobin ABG Methemoglobin VBG pH VBG pCO2 VBG pO2 VBG HCO3 VBG O2 Saturation VBG O2 Content VBG Base Excess VBG Carboxyhemoglobin Hemoglobin O2 Delivery Device Liter Flow Vent Setting Inspired O2 Sodium Potassium Chloride Carbon Dioxide Anion Gap BUN Creatinine Estimated GFR POC Glucose Random Glucose Lactic Acid Calcium Total Bilirubin Direct Bilirubin 4.2 H Indirect Bilirubin AST ALT Alkaline Phosphatase Ammonia Lactate Dehydrogenase Total Protein Albumin Ceruloplasmin Urine Color Urine Clarity Urine pH Ur Specific [place] Urine Protein Urine Glucose (UA) Urine Ketones Urine Occult Blood Urine Nitrate Urine Bilirubin Urine Urobilinogen Ur Leukocyte Esterase Urine RBC Urine WBC Urine WBC Clumps Ur Squamous Epith Cells Calcium Oxalate Crystal Urine Bacteria Hyaline Casts Urine Mucus Urine Yeast Ur Yeast w Hyphae Micro UA Comment Urine Culture Comments Nasal Screen MRSA (PCR) Random Vancomycin Phenytoin Hep B DNA Qnt log IU/mL Hep B DNA (Units/mL) 01/13/18 01/13/18 01/13/18 17:00 17:10 18:30 WBC RBC Hgb Hct MCV MCH MCHC RDW Plt Count MPV Prelim Diff (Auto) Neut % (Auto) Lymph % (Auto) Wake % (Auto) Eos % (Auto) Baso % (Auto) Neut # (Auto) Lymph # (Auto) [place] # (Auto) Eos # (Auto) Baso # (Auto) CBC Comment WBC Differential Diff Scan Differential Comment Platelet Estimate Plt Morphology Comment [place] Cells Acanthocytes (Spur) Keratocytes PT 42.3 H D INR 4.2 APTT Fibrinogen Puncture Site RT RADIAL Patient Temperature 98.6 HCO3 30 H Base Excess 7.2 H O2 Saturation 96 ABG pH 7.57 H* ABG pCO2 33 L ABG pO2 95 ABG O2 Content 16.2 ABG Carboxyhemoglobin 1.0 ABG Methemoglobin 1.0 VBG pH VBG pCO2 VBG pO2 VBG HCO3 VBG O2 Saturation VBG O2 Content VBG Base Excess VBG Carboxyhemoglobin Hemoglobin 12.0 O2 Delivery Device Liter Flow Vent Setting Inspired O2 Sodium Potassium Chloride Carbon Dioxide Anion Gap BUN Creatinine Estimated GFR POC Glucose Random Glucose Lactic Acid Calcium Total Bilirubin Direct Bilirubin Indirect Bilirubin AST ALT Alkaline Phosphatase Ammonia Lactate Dehydrogenase Total Protein Albumin Ceruloplasmin Urine Color Urine Clarity Urine pH Ur Specific [place] Urine Protein Urine Glucose (UA) Urine Ketones Urine Occult Blood Urine Nitrate Urine Bilirubin Urine Urobilinogen Ur Leukocyte Esterase Urine RBC Urine WBC Urine WBC Clumps Ur Squamous Epith Cells Calcium Oxalate Crystal Urine Bacteria Hyaline Casts Urine Mucus Urine Yeast Ur Yeast w Hyphae Micro UA Comment Urine Culture Comments Nasal Screen MRSA (PCR) MRSA NOT DETECTED Random Vancomycin Phenytoin Hep B DNA Qnt log IU/mL Hep B DNA (Units/mL) 01/13/18 01/13/18 01/14/18 19:45 19:45 02:00 WBC 7.8 RBC 4.22 L Hgb 11.9 L Hct 35.2 L MCV 83.5 MCH 28.2 MCHC 33.8 RDW 17.3 H Plt Count 93 L MPV 8.7 Prelim Diff (Auto) Neut % (Auto) Lymph % (Auto) [place] % (Auto) Eos % (Auto) Baso % (Auto) Neut # (Auto) Lymph # (Auto) [place] # (Auto) Eos # (Auto) Baso # (Auto) CBC Comment WBC Differential Diff Scan Differential Comment Platelet Estimate Plt Morphology Comment [place] Cells Acanthocytes (Spur) Keratocytes PT INR APTT 43.5 H Fibrinogen Puncture Site Patient Temperature HCO3 Base Excess O2 Saturation ABG pH ABG pCO2 ABG pO2 ABG O2 Content ABG Carboxyhemoglobin ABG Methemoglobin VBG pH VBG pCO2 VBG pO2 VBG HCO3 VBG O2 Saturation VBG O2 Content VBG Base Excess VBG Carboxyhemoglobin Hemoglobin O2 Delivery Device Liter Flow Vent Setting Inspired O2 Sodium 135 L Potassium 2.7 L* D Chloride 93 L Carbon Dioxide 25.8 Anion Gap 16 H BUN 5 L Creatinine 1.42 H Estimated GFR 58 L POC Glucose Random Glucose 99 Lactic Acid Calcium 9.9 Total Bilirubin 22.7 H Direct Bilirubin Indirect Bilirubin AST 31 ALT 89 H Alkaline Phosphatase 186 H Ammonia Lactate Dehydrogenase Total Protein 7.2 D Albumin 3.9 Ceruloplasmin Urine Color Urine Clarity Urine pH Ur Specific [place] Urine Protein Urine Glucose (UA) Urine Ketones Urine Occult Blood Urine Nitrate Urine Bilirubin Urine Urobilinogen Ur Leukocyte Esterase Urine RBC Urine WBC Urine WBC Clumps Ur Squamous Epith Cells Calcium Oxalate Crystal Urine Bacteria Hyaline Casts Urine Mucus Urine Yeast Ur Yeast w Hyphae Micro UA Comment Urine Culture Comments Nasal Screen MRSA (PCR) Random Vancomycin Phenytoin Hep B DNA Qnt log IU/mL Hep B DNA (Units/mL) 01/14/18 01/14/18 01/14/18 02:00 02:00 02:00 WBC 11.3 H RBC 4.26 L Hgb 12.0 L Hct 35.2 L MCV 82.7 MCH 28.2 MCHC 34.1 RDW 17.2 Plt Count 103 L MPV 8.6 Prelim Diff (Auto) Neut % (Auto) 54.5 Lymph % (Auto) 25.7 Wake % (Auto) 19.0 H Eos % (Auto) 0.7 Baso % (Auto) 0.1 Neut # (Auto) 6.2 Lymph # (Auto) 2.9 Wake # (Auto) 2.2 H Eos # (Auto) 0.1 Baso # (Auto) 0.0 CBC Comment AUTO DIFF WBC Differential Diff Scan Differential Comment AUTO DIFF CONFIRMED Platelet Estimate LOW L Plt Morphology Comment NORMAL [place] Cells Acanthocytes (Spur) 1+ H Keratocytes OCC PT 30.0 H D INR 3.0 APTT Fibrinogen Puncture Site Patient Temperature HCO3 Base Excess O2 Saturation ABG pH ABG pCO2 ABG pO2 ABG O2 Content ABG Carboxyhemoglobin ABG Methemoglobin VBG pH VBG pCO2 VBG pO2 VBG HCO3 VBG O2 Saturation VBG O2 Content VBG Base Excess VBG Carboxyhemoglobin Hemoglobin O2 Delivery Device Liter Flow Vent Setting Inspired O2 Sodium Potassium Chloride Carbon Dioxide Anion Gap BUN Creatinine Estimated GFR POC Glucose Random Glucose Lactic Acid Calcium Total Bilirubin Direct Bilirubin Indirect Bilirubin AST ALT Alkaline Phosphatase Ammonia Lactate Dehydrogenase Total Protein Albumin Ceruloplasmin Urine Color Urine Clarity Urine pH Ur Specific [place] Urine Protein Urine Glucose (UA) Urine Ketones Urine Occult Blood Urine Nitrate Urine Bilirubin Urine Urobilinogen Ur Leukocyte Esterase Urine RBC Urine WBC Urine WBC Clumps Ur Squamous Epith Cells Calcium Oxalate Crystal Urine Bacteria Hyaline Casts Urine Mucus Urine Yeast Ur Yeast w Hyphae Micro UA Comment Urine Culture Comments Nasal Screen MRSA (PCR) Random Vancomycin Phenytoin 13.4 Hep B DNA Qnt log IU/mL Hep B DNA (Units/mL) 01/14/18 01/14/18 01/14/18 02:02 02:31 05:49 WBC RBC Hgb Hct MCV MCH MCHC RDW Plt Count MPV Prelim Diff (Auto) Neut % (Auto) Lymph % (Auto) [place] % (Auto) Eos % (Auto) Baso % (Auto) Neut # (Auto) Lymph # (Auto) [place] # (Auto) Eos # (Auto) Baso # (Auto) CBC Comment WBC Differential Diff Scan Differential Comment Platelet Estimate Plt Morphology Comment [place] Cells Acanthocytes (Spur) Keratocytes PT 30.1 H INR 3.0 APTT 33.4 H D Fibrinogen 153 L Puncture Site RT BRACHIAL Patient Temperature 98.6 HCO3 28 H Base Excess 5.4 H O2 Saturation 49 L* ABG pH 7.59 H* ABG pCO2 29 L ABG pO2 29 L* ABG O2 Content 8.3 L ABG Carboxyhemoglobin 0.9 ABG Methemoglobin 1.1 VBG pH VBG pCO2 VBG pO2 VBG HCO3 VBG O2 Saturation VBG O2 Content VBG Base Excess VBG Carboxyhemoglobin Hemoglobin 12.0 O2 Delivery Device NASAL CANNULA Liter Flow 2 Vent Setting Inspired O2 Sodium Potassium Chloride Carbon Dioxide Anion Gap BUN Creatinine Estimated GFR POC Glucose Random Glucose Lactic Acid Calcium Total Bilirubin Direct Bilirubin Indirect Bilirubin AST ALT Alkaline Phosphatase Ammonia 121 H Lactate Dehydrogenase Total Protein Albumin Ceruloplasmin Urine Color Urine Clarity Urine pH Ur Specific [place] Urine Protein Urine Glucose (UA) Urine Ketones Urine Occult Blood Urine Nitrate Urine Bilirubin Urine Urobilinogen Ur Leukocyte Esterase Urine RBC Urine WBC Urine WBC Clumps Ur Squamous Epith Cells Calcium Oxalate Crystal Urine Bacteria Hyaline Casts Urine Mucus Urine Yeast Ur Yeast w Hyphae Micro UA Comment Urine Culture Comments Nasal Screen MRSA (PCR) Random Vancomycin Phenytoin Hep B DNA Qnt log IU/mL Hep B DNA (Units/mL) 01/14/18 01/14/18 01/14/18 05:49 07:46 17:30 WBC RBC Hgb Hct MCV MCH MCHC RDW Plt Count MPV Prelim Diff (Auto) Neut % (Auto) Lymph % (Auto) [place] % (Auto) Eos % (Auto) Baso % (Auto) Neut # (Auto) Lymph # (Auto) [place] # (Auto) Eos # (Auto) Baso # (Auto) CBC Comment WBC Differential Diff Scan Differential Comment Platelet Estimate Plt Morphology Comment [place] Cells Acanthocytes (Spur) Keratocytes PT 26.9 H INR 2.7 APTT Fibrinogen Puncture Site CENTRAL LINE Patient Temperature 98.6 HCO3 Base Excess O2 Saturation ABG pH ABG pCO2 ABG pO2 ABG O2 Content ABG Carboxyhemoglobin ABG Methemoglobin VBG pH 7.59 H* VBG pCO2 29 L VBG pO2 29 L* VBG HCO3 28 H VBG O2 Saturation 49 L VBG O2 Content 8.3 L VBG Base Excess 5.4 H VBG Carboxyhemoglobin 1.1 Hemoglobin O2 Delivery Device NASAL CANNULA Liter Flow 2 Vent Setting Inspired O2 Sodium Potassium 2.4 L* Chloride Carbon Dioxide Anion Gap BUN Creatinine Estimated GFR POC Glucose Random Glucose Lactic Acid Calcium Total Bilirubin Direct Bilirubin Indirect Bilirubin AST ALT Alkaline Phosphatase Ammonia Lactate Dehydrogenase Total Protein Albumin Ceruloplasmin Urine Color Urine Clarity Urine pH Ur Specific [place] Urine Protein Urine Glucose (UA) Urine Ketones Urine Occult Blood Urine Nitrate Urine Bilirubin Urine Urobilinogen Ur Leukocyte Esterase Urine RBC Urine WBC Urine WBC Clumps Ur Squamous Epith Cells Calcium Oxalate Crystal Urine Bacteria Hyaline Casts Urine Mucus Urine Yeast Ur Yeast w Hyphae Micro UA Comment Urine Culture Comments Nasal Screen MRSA (PCR) Random Vancomycin Phenytoin Hep B DNA Qnt log IU/mL Hep B DNA (Units/mL) 01/14/18 01/14/18 01/15/18 18:40 23:24 00:20 WBC RBC Hgb Hct MCV MCH MCHC RDW Plt Count MPV Prelim Diff (Auto) Neut % (Auto) Lymph % (Auto) [place] % (Auto) Eos % (Auto) Baso % (Auto) Neut # (Auto) Lymph # (Auto) [place] # (Auto) Eos # (Auto) Baso # (Auto) CBC Comment WBC Differential Diff Scan Differential Comment Platelet Estimate Plt Morphology Comment [place] Cells Acanthocytes (Spur) Keratocytes PT INR APTT Fibrinogen Puncture Site CENTRAL LINE RT RADIAL Patient Temperature 98.6 98.6 HCO3 28 H Base Excess 5.3 H O2 Saturation 98 ABG pH 7.57 H* ABG pCO2 30 L ABG pO2 175 H ABG O2 Content 16.6 ABG Carboxyhemoglobin 0.9 ABG Methemoglobin 0.9 VBG pH 7.59 H* VBG pCO2 31 L VBG pO2 46 H VBG HCO3 30 H VBG O2 Saturation 80 H VBG O2 Content 12.4 VBG Base Excess 7.7 H VBG Carboxyhemoglobin Hemoglobin 11.8 L O2 Delivery Device NASAL CANNULA NASAL CANNULA Liter Flow 4 4 Vent Setting Inspired O2 Sodium Potassium Chloride Carbon Dioxide Anion Gap BUN Creatinine Estimated GFR POC Glucose Random Glucose Lactic Acid Calcium Total Bilirubin 23.8 H Direct Bilirubin 5.0 H Indirect Bilirubin 18.8 H AST 32 ALT 80 H Alkaline Phosphatase 172 H Ammonia Lactate Dehydrogenase Total Protein 7.2 Albumin 3.7 Ceruloplasmin Urine Color Urine Clarity Urine pH Ur Specific [place] Urine Protein Urine Glucose (UA) Urine Ketones Urine Occult Blood Urine Nitrate Urine Bilirubin Urine Urobilinogen Ur Leukocyte Esterase Urine RBC Urine WBC Urine WBC Clumps Ur Squamous Epith Cells Calcium Oxalate Crystal Urine Bacteria Hyaline Casts Urine Mucus Urine Yeast Ur Yeast w Hyphae Micro UA Comment Urine Culture Comments Nasal Screen MRSA (PCR) Random Vancomycin Phenytoin Hep B DNA Qnt log IU/mL Hep B DNA (Units/mL) 01/15/18 01/15/18 01/15/18 00:20 03:58 03:58 WBC RBC Hgb Hct MCV MCH MCHC RDW Plt Count MPV Prelim Diff (Auto) Neut % (Auto) Lymph % (Auto) [place] % (Auto) Eos % (Auto) Baso % (Auto) Neut # (Auto) Lymph # (Auto) [place] # (Auto) Eos # (Auto) Baso # (Auto) CBC Comment WBC Differential Diff Scan Differential Comment Platelet Estimate Plt Morphology Comment [place] Cells Acanthocytes (Spur) Keratocytes PT INR APTT Fibrinogen Puncture Site Patient Temperature HCO3 Base Excess O2 Saturation ABG pH ABG pCO2 ABG pO2 ABG O2 Content ABG Carboxyhemoglobin ABG Methemoglobin VBG pH VBG pCO2 VBG pO2 VBG HCO3 VBG O2 Saturation VBG O2 Content VBG Base Excess VBG Carboxyhemoglobin Hemoglobin O2 Delivery Device Liter Flow Vent Setting Inspired O2 Sodium 137 Potassium 3.2 L D Chloride 99 Carbon Dioxide 24.7 Anion Gap 13 BUN 6 L Creatinine 1.42 H Estimated GFR 58 L POC Glucose Random Glucose 133 H Lactic Acid Calcium 9.7 Total Bilirubin 24.3 H Direct Bilirubin Indirect Bilirubin AST 31 ALT 80 H Alkaline Phosphatase 165 H Ammonia 156 H 180 H Lactate Dehydrogenase Total Protein 7.0 Albumin 3.6 Ceruloplasmin Urine Color Urine Clarity Urine pH Ur Specific [place] Urine Protein Urine Glucose (UA) Urine Ketones Urine Occult Blood Urine Nitrate Urine Bilirubin Urine Urobilinogen Ur Leukocyte Esterase Urine RBC Urine WBC Urine WBC Clumps Ur Squamous Epith Cells Calcium Oxalate Crystal Urine Bacteria Hyaline Casts Urine Mucus Urine Yeast Ur Yeast w Hyphae Micro UA Comment Urine Culture Comments Nasal Screen MRSA (PCR) Random Vancomycin 19.0 Phenytoin 13.6 Hep B DNA Qnt log IU/mL Hep B DNA (Units/mL) 01/15/18 01/15/18 01/15/18 03:58 03:58 04:50 WBC 5.2 RBC 4.15 L Hgb 12.0 L Hct 34.7 L MCV 83.6 MCH 29.0 MCHC 34.7 RDW 17.8 H Plt Count 106 L MPV 8.6 Prelim Diff (Auto) Neut % (Auto) 77.6 H Lymph % (Auto) 13.4 [place] % (Auto) 8.5 H Eos % (Auto) 0.1 Baso % (Auto) 0.4 Neut # (Auto) 4.1 Lymph # (Auto) 0.7 L [place] # (Auto) 0.4 Eos # (Auto) 0.0 Baso # (Auto) 0.0 CBC Comment AUTO DIFF WBC Differential Diff Scan Differential Comment AUTO DIFF CONFIRMED Platelet Estimate LOW L Plt Morphology Comment NORMAL [place] Cells Acanthocytes (Spur) 1+ H Keratocytes OCC PT 121.5 H D INR 12.2 H* APTT Fibrinogen Puncture Site Patient Temperature HCO3 Base Excess O2 Saturation ABG pH ABG pCO2 ABG pO2 ABG O2 Content ABG Carboxyhemoglobin ABG Methemoglobin VBG pH VBG pCO2 VBG pO2 VBG HCO3 VBG O2 Saturation VBG O2 Content VBG Base Excess VBG Carboxyhemoglobin Hemoglobin O2 Delivery Device Liter Flow Vent Setting Inspired O2 Sodium Potassium Chloride Carbon Dioxide Anion Gap BUN Creatinine Estimated GFR POC Glucose Random Glucose Lactic Acid 5.1 H* Calcium Total Bilirubin Direct Bilirubin Indirect Bilirubin AST ALT Alkaline Phosphatase Ammonia Lactate Dehydrogenase Total Protein Albumin Ceruloplasmin Urine Color Urine Clarity Urine pH Ur Specific [place] Urine Protein Urine Glucose (UA) Urine Ketones Urine Occult Blood Urine Nitrate Urine Bilirubin Urine Urobilinogen Ur Leukocyte Esterase Urine RBC Urine WBC Urine WBC Clumps Ur Squamous Epith Cells Calcium Oxalate Crystal Urine Bacteria Hyaline Casts Urine Mucus Urine Yeast Ur Yeast w Hyphae Micro UA Comment Urine Culture Comments Nasal Screen MRSA (PCR) Random Vancomycin Phenytoin Hep B DNA Qnt log IU/mL Hep B DNA (Units/mL) 01/15/18 01/15/18 01/15/18 06:03 12:00 18:05 WBC RBC Hgb Hct MCV MCH MCHC RDW Plt Count MPV Prelim Diff (Auto) Neut % (Auto) Lymph % (Auto) Wake % (Auto) Eos % (Auto) Baso % (Auto) Neut # (Auto) Lymph # (Auto) Wake # (Auto) Eos # (Auto) Baso # (Auto) CBC Comment WBC Differential Diff Scan Differential Comment Platelet Estimate Plt Morphology Comment [place] Cells Acanthocytes (Spur) Keratocytes PT INR APTT Fibrinogen Puncture Site CENTRAL LINE RT RADIAL Patient Temperature 98.6 98.6 HCO3 25 Base Excess 4.4 H O2 Saturation 98 ABG pH 7.71 H* ABG pCO2 19 L* ABG pO2 200 H ABG O2 Content 15.6 ABG Carboxyhemoglobin 0.8 ABG Methemoglobin 0.8 VBG pH 7.59 H* VBG pCO2 29 L VBG pO2 44 H VBG HCO3 28 H VBG O2 Saturation 78 H VBG O2 Content 12.5 VBG Base Excess 5.5 H VBG Carboxyhemoglobin Hemoglobin 11.0 L O2 Delivery Device VENTILATOR VENTILATOR Liter Flow Vent Setting SEE COMMENTS [id number] Inspired O2 50 40 Sodium Potassium 3.4 L Chloride Carbon Dioxide Anion Gap BUN Creatinine Estimated GFR POC Glucose Random Glucose Lactic Acid Calcium Total Bilirubin Direct Bilirubin Indirect Bilirubin AST ALT Alkaline Phosphatase Ammonia Lactate Dehydrogenase Total Protein Albumin Ceruloplasmin Urine Color Urine Clarity Urine pH Ur Specific [place] Urine Protein Urine Glucose (UA) Urine Ketones Urine Occult Blood Urine Nitrate Urine Bilirubin Urine Urobilinogen Ur Leukocyte Esterase Urine RBC Urine WBC Urine WBC Clumps Ur Squamous Epith Cells Calcium Oxalate Crystal Urine Bacteria Hyaline Casts Urine Mucus Urine Yeast Ur Yeast w Hyphae Micro UA Comment Urine Culture Comments Nasal Screen MRSA (PCR) Random Vancomycin Phenytoin Hep B DNA Qnt log IU/mL Hep B DNA (Units/mL) 01/16/18 01/16/18 01/16/18 04:16 04:16 04:16 WBC 6.3 RBC 4.09 L Hgb 11.8 L Hct 34.3 L MCV 83.9 MCH 29.0 MCHC 34.5 RDW 18.3 H Plt Count 129 L MPV 8.6 Prelim Diff (Auto) Slide review pending Neut % (Auto) 56.3 Lymph % (Auto) 18.8 Wake % (Auto) 24.5 H Eos % (Auto) 0.2 Baso % (Auto) 0.2 Neut # (Auto) 3.6 Lymph # (Auto) 1.2 Wake # (Auto) 1.5 H Eos # (Auto) 0.0 Baso # (Auto) 0.0 CBC Comment WBC Differential . Diff Scan Auto diff confirmed Differential Comment . Platelet Estimate Plt Morphology Comment [place] Cells 1+ H Acanthocytes (Spur) 1+ H Keratocytes Occ H PT 105.8 H INR 10.6 H* APTT Fibrinogen Puncture Site Patient Temperature HCO3 Base Excess O2 Saturation ABG pH ABG pCO2 ABG pO2 ABG O2 Content ABG Carboxyhemoglobin ABG Methemoglobin VBG pH VBG pCO2 VBG pO2 VBG HCO3 VBG O2 Saturation VBG O2 Content VBG Base Excess VBG Carboxyhemoglobin Hemoglobin O2 Delivery Device Liter Flow Vent Setting Inspired O2 Sodium Potassium Chloride Carbon Dioxide Anion Gap BUN Creatinine Estimated GFR POC Glucose Random Glucose Lactic Acid Calcium Total Bilirubin Direct Bilirubin Indirect Bilirubin AST ALT Alkaline Phosphatase Ammonia Lactate Dehydrogenase Total Protein Albumin Ceruloplasmin Urine Color Urine Clarity Urine pH Ur Specific [place] Urine Protein Urine Glucose (UA) Urine Ketones Urine Occult Blood Urine Nitrate Urine Bilirubin Urine Urobilinogen Ur Leukocyte Esterase Urine RBC Urine WBC Urine WBC Clumps Ur Squamous Epith Cells Calcium Oxalate Crystal Urine Bacteria Hyaline Casts Urine Mucus Urine Yeast Ur Yeast w Hyphae Micro UA Comment Urine Culture Comments Nasal Screen MRSA (PCR) Random Vancomycin Phenytoin 18.2 Hep B DNA Qnt log IU/mL Hep B DNA (Units/mL) 01/16/18 01/16/18 01/16/18 04:16 04:16 08:01 WBC RBC Hgb Hct MCV MCH MCHC RDW Plt Count MPV Prelim Diff (Auto) Neut % (Auto) Lymph % (Auto) Wake % (Auto) Eos % (Auto) Baso % (Auto) Neut # (Auto) Lymph # (Auto) Wake # (Auto) Eos # (Auto) Baso # (Auto) CBC Comment WBC Differential Diff Scan Differential Comment Platelet Estimate Plt Morphology Comment [place] Cells Acanthocytes (Spur) Keratocytes PT INR APTT Fibrinogen Puncture Site Patient Temperature HCO3 Base Excess O2 Saturation ABG pH ABG pCO2 ABG pO2 ABG O2 Content ABG Carboxyhemoglobin ABG Methemoglobin VBG pH VBG pCO2 VBG pO2 VBG HCO3 VBG O2 Saturation VBG O2 Content VBG Base Excess VBG Carboxyhemoglobin Hemoglobin O2 Delivery Device Liter Flow Vent Setting Inspired O2 Sodium Potassium Chloride Carbon Dioxide Anion Gap BUN Creatinine Estimated GFR POC Glucose 162 H Random Glucose Lactic Acid Calcium Total Bilirubin Direct Bilirubin Indirect Bilirubin AST ALT Alkaline Phosphatase Ammonia 147 H Lactate Dehydrogenase Total Protein Albumin Ceruloplasmin Urine Color Urine Clarity Urine pH Ur Specific [place] Urine Protein Urine Glucose (UA) Urine Ketones Urine Occult Blood Urine Nitrate Urine Bilirubin Urine Urobilinogen Ur Leukocyte Esterase Urine RBC Urine WBC Urine WBC Clumps Ur Squamous Epith Cells Calcium Oxalate Crystal Urine Bacteria Hyaline Casts Urine Mucus Urine Yeast Ur Yeast w Hyphae Micro UA Comment Urine Culture Comments Nasal Screen MRSA (PCR) Random Vancomycin 19.5 Phenytoin Hep B DNA Qnt log IU/mL Hep B DNA (Units/mL) 01/16/18 01/16/18 12:40 12:56 WBC RBC Hgb Hct MCV MCH MCHC RDW Plt Count MPV Prelim Diff (Auto) Neut % (Auto) Lymph % (Auto) Wake % (Auto) Eos % (Auto) Baso % (Auto) Neut # (Auto) Lymph # (Auto) Wake # (Auto) Eos # (Auto) Baso # (Auto) CBC Comment WBC Differential Diff Scan Differential Comment Platelet Estimate Plt Morphology Comment [place] Cells Acanthocytes (Spur) Keratocytes PT INR APTT Fibrinogen Puncture Site Patient Temperature HCO3 Base Excess O2 Saturation ABG pH ABG pCO2 ABG pO2 ABG O2 Content ABG Carboxyhemoglobin ABG Methemoglobin VBG pH VBG pCO2 VBG pO2 VBG HCO3 VBG O2 Saturation VBG O2 Content VBG Base Excess VBG Carboxyhemoglobin Hemoglobin O2 Delivery Device Liter Flow Vent Setting Inspired O2 Sodium Potassium Chloride Carbon Dioxide Anion Gap BUN Creatinine Estimated GFR POC Glucose 150 H Random Glucose Lactic Acid Calcium Total Bilirubin Direct Bilirubin Indirect Bilirubin AST ALT Alkaline Phosphatase Ammonia Lactate Dehydrogenase Total Protein Albumin Ceruloplasmin Urine Color [place] Urine Clarity Cloudy H Urine pH 5.0 Ur Specific [place] 1.017 Urine Protein Negative Urine Glucose (UA) 50 Urine Ketones Trace Urine Occult Blood Large H Urine Nitrate Negative Urine Bilirubin Negative Urine Urobilinogen Less than 2 Ur Leukocyte Esterase Large H Urine RBC 46 H Urine WBC 91 H Urine WBC Clumps Many H Ur Squamous Epith Cells 1 Calcium Oxalate Crystal Occasional H Urine Bacteria Rare H Hyaline Casts 17 Urine Mucus Few H Urine Yeast Many H Ur Yeast w Hyphae Moderate H Micro UA Comment Culture indicated Urine Culture Comments Culture indicated Nasal Screen MRSA (PCR) Random Vancomycin Phenytoin Hep B DNA Qnt log IU/mL Hep B DNA (Units/mL) Imaging: Impressions Head MRI 01/16/18 00:00 CONCLUSION: 1. Subtle restricted diffusion in the gold matter when compared to the white most prevalent in mid sylvian regions bilaterally. This is symmetric. This can be seen with anoxic encephalopathy. 2. There is no abnormal contrast enhancement. 3. There is no parenchymal hemorrhage. Objective Remarks: GENERAL: Well-developed well-nourished male, comatose, intubated. SKIN: Warm and dry. Jaundice HEAD: Atraumatic. Normocephalic. EYES: Pupils equal and round. 4-5 mm with sluggish reactivity. scleral icterus. No injection or drainage. ENT: No nasal bleeding or discharge. Mucous membranes pink and moist. NECK: Trachea midline. No JVD. CARDIOVASCULAR: Normal rate, regular rhythm. RESPIRATORY: No accessory muscle use. Clear to auscultation. Breath sounds equal bilaterally. GASTROINTESTINAL: Abdomen soft, non-tender, nondistended. No guarding. MUSCULOSKELETAL: Extremities without clubbing, cyanosis, or edema. No obvious deformities. NEUROLOGICAL: GCS 3 T. No gross focal/sensory deficits. No purposeful movement. Assessment and Plan - Assessment and Plan Plan: Problem List: (1) Hepatic encephalopathy ICD Code: K72.90 - Hepatic failure, unspecified without coma Status: Acute (2) Portal hypertension ICD Code: K76.6 - Portal hypertension Status: Chronic (3) Ascites ICD Code: R18.8 - Other ascites Status: Chronic (4) Cirrhosis ICD Code: K74.60 - Unspecified cirrhosis of liver Status: Chronic (5) Coagulopathy ICD Code: D68.9 - Coagulation defect, unspecified Status: Acute (6) Hypoglycemia ICD Code: E16.2 - Hypoglycemia, unspecified Status: Acute (7) Hepatitis C ICD Code: B19.20 - Unspecified viral hepatitis C without hepatic coma Status: Acute (8) Liver failure ICD Code: K72.90 - Hepatic failure, unspecified without coma Status: Acute (9) Tobacco abuse ICD Code: Z72.0 - Tobacco use Status: Chronic Assessment and Plan Plan by systems: Neurologic: Severe Hepatic encephalopathy Hyperammonemia Hepatic Coma EEG-encephalopathic findings 01/15: Repeat EEG severe metabolic encephalopathy however slightly improved per Dr. Marcano Neurology following-Dr. Solomon 01/07 MRI brain-no acute findings 01/07 CT brain-no acute findings 01/13: CT brain-no acute findings-discussed with Dr. Gomez F/U repeat EEG -R/O subclinical seizures 01/14: Unable to perform lumbar puncture, 2/2 coagulopathy obtain MRI of cervical cervical thoracic and lumbar spine 01/15 Ammonia level 180, patient continues on lactulose and rifaximin (maximum dose)- Concern for cerebral edema will add Polyethylene glycol daily. Maintain HOB elevation 30 degrees 01/16: MRI restricted diffusion in the gold matter compared to white matter can be seen with anoxic encephalopathy. No hemorrhage Respiratory: Alpha 1 antitrypsin deficiency Tobacco use disorder Maintain O2 saturation greater than 92% Bronchodilators every 4 hours as needed for wheezing Bronchodilators every 6 hours scheduled dosing Patient currently maintaining O2 saturation 98- 99% 01/15 - Intubated - PRVC Mode Maintain head of bed 30 Discontinued nicotine patch F/U VBG Cardiovascular: Maintain MAP greater than 65 Monitor CVP Normotensive Renal: Obstructive uropathy-resolved -- Strict I/Os Insert and maintain Pappas catheter patient is receiving diuretics urinary retention of greater than 600 cc FEN/GI: Acute alcoholic hepatitis Hepatitis C Hyperammonemia Acute hepatic failure Protein calorie malnutrition Transaminitis Cirrhosis Portal hypertension Jaundice/ Hyperbilirubinemia Ascites Hypoglycemia GI following Dr. Sher ([place]), Dr. Rojo ([facility]) Continue lactulose, rifaximin Monitor ammonia levels-180->147 01/14 insertion of NG tube for medications and feedings- insertion via invasive radiology 01/15-Jevity 1.5 at 25 cc/hour Consider HIDA scan-defer to GI 01/15: IV fluids discontinued last night with the addition of tube feed Heme/ID: Coagulopathy Thrombocytopenia Continue vitamin K daily-we will change to IV 5 mg daily Hematology following- Dr Messer Infectious disease following- Dr. Nick Patient received 11units of FFP in the last 24 hours,this has been discontinued , INR remains elevated, unable to do interventional procedures/LP Transfuse for platelet count less than 50,000 or active signs of bleeding. 01/07 Urine culture-Tiffany albicans - received Diflucan dc'd 01/12 01/13 Urine culture-Klebsiella pneumonae 01/13: Repeat blood culture- NGTD 01/13: Provide empiric coverage for meningitis to include cefepime, acyclovir and vancomycin. D/W Dr. Nick 01/14 FFP administration discontinued, as discussed with GI Dr. Rojo and Hematology Oncology Dr. Messer. Patient has no active signs of bleeding 01/15: INR 12.2-patient to received 2 units of FFP. 7.1 INR 10.6 Endocrine: Hypoglycemia-resolved Glucose monitoring every 4 hours, low-dose regimen -- SSI Prophylaxis: GI Prophylaxis Famotidine DVT Prophylaxis -- SCDs No pharmacological DVT prophylaxis in the setting of severe thrombocytopenia and coagulopathic state Lines: Right subclavian central line 12/31, peripheral IVs 2 my billing statement This patient remains critically ill with one or more organ systems which are or may become a threat to life. I have spent in excess of 35 minutes discontinuously in the care and management of this patient. This time is exclusive of procedures, and includes, but is not limited to, evaluation of the patient, review of the medical record, discussions with family, consultants, nursing staff, or respiratory therapy, and documentation in the medical record. Dispo: I spoke with the patient's mother last evening, provided medical status update. Aggressive measures continued. Code Status: Full Discussed Condition With: [employer] at bedside.
[2018-01-16] MEDS: Vancomycin Inj 1,000 MG in Sodium Chlor 0.9% Inj 250 ML IV.SIG SCH (14:01)
[2018-01-16 14:12] LABS: Aspartate Aminotransferase 26 U/L (15-37)
[2018-01-16 14:30] LABS: Anion Gap 14 meq/L (5-15); Blood Urea Nitrogen 7 mg/dL (7-18); Carbon Dioxide 24.7 meq/L (21.0-32.0); Chloride 101 meq/L (98-107); Glomerular Filtration Rate 52 mL/min (>89); Potassium 3.4 meq/L (3.5-5.1); Sodium 140 meq/L (136-145)
[2018-01-16 14:32] LABS: Alanine Aminotransferase 63 U/L (12-78); Albumin 3.6 g/dL (3.4-5.0); Alkaline Phosphatase 151 U/L (45-117); Total Protein 6.8 g/dL (6.4-8.2)
[2018-01-16 14:42] LABS: Calcium 9.9 mg/dL (8.5-10.1); Glucose,Random 136 mg/dL (74-106)
--- NOTE | 2018-01-16 15:45 | P.PNGI ---
Subjective Interval history: Unfortunate 32-year-old male currently being managed in the intensive care setting and was a transfer from [address]. Currently patient is hep C positive and struggling with acute liver failure, cirrhosis, portal hypertension and coagulopathy. He currently remains on ventilator management respiratory rate between 20-23 FiO2 30-40%, O2 sat 95. Pappas catheter shows dark orange urine minimal amount. Head MRI shows possible anoxic encephalopathy completed today. Nutritional support with NG tube and Jevity at 1.525 cc an hour Hepatitis C and liver failure patient has a significant history of alcohol and multiple drug usage. There is no current family here but mother is a nurse at the [facility]. Acute alcoholic hepatitis, positive for jaundice and ascites. Liver workup initiated at [facility]. 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 We will continue to monitor his liver failure lactulose and rifaximin, PPI Patient was seen per myself and Dr. Cano, this note was written on his behalf <Dalila Merchant - Last Filed: 01/16/18 15:36> Physical Exam Vital signs: Vital Signs 01/16/18 00:00 01/16/18 02:00 01/16/18 03:19 Temperature 98.9 F Pulse Rate 93 H 93 H Respiratory Rate 24 24 24 Blood Pressure 130/76 138/74 Pulse Oximetry 93 L 97 97 01/16/18 04:00 01/16/18 06:00 01/16/18 07:41 Temperature 99.4 F Pulse Rate 93 H 94 H Respiratory Rate 22 20 24 Blood Pressure 144/77 H 139/76 Pulse Oximetry 97 97 01/16/18 08:00 01/16/18 09:00 01/16/18 12:00 Temperature 98.9 F 98.9 F Pulse Rate 96 H 94 H 93 H Respiratory Rate 25 H 32 H 26 H Blood Pressure 137/74 143/74 H Pulse Oximetry 97 01/16/18 12:03 Temperature Pulse Rate Respiratory Rate 23 Blood Pressure Pulse Oximetry 96 Intake & Output 01/15/18 01/16/18 01/16/18 18:59 06:59 18:59 Intake Total 454 / 454 Output Total 700 / 700 Balance -246 / -246 Intake: IV 100 / 100 Maxipime Inj 2,000 MG In NS Inj 100 / 100 100 ML @ 200 mls/hr IV.SIG Q8H [facility] Rx#:[id number] Tube Feeding 234 / 234 Water Bolus Amount 120 / 120 Output: Urine 500 / 500 Stool 200 / 200 Other: Date of Last Bowel Movement 01/16/18 01/16/18 - Urinary Catheter Management Indwelling Urethral Catheter Cath placed during this visit: yes Insertion date: 01/15/18 Insertion time: 12:45 <[email or web address] M - Last Filed: 01/16/18 15:36> Vital signs: Vital Signs 01/16/18 00:00 01/16/18 02:00 01/16/18 03:19 Temperature 98.9 F Pulse Rate 93 H 93 H Respiratory Rate 24 24 24 Blood Pressure 130/76 138/74 Pulse Oximetry 93 L 97 97 01/16/18 04:00 01/16/18 06:00 01/16/18 07:41 Temperature 99.4 F Pulse Rate 93 H 94 H Respiratory Rate 22 20 24 Blood Pressure 144/77 H 139/76 Pulse Oximetry 97 97 01/16/18 08:00 01/16/18 09:00 01/16/18 12:00 Temperature 98.9 F 98.9 F Pulse Rate 96 H 94 H 93 H Respiratory Rate 25 H 32 H 26 H Blood Pressure 137/74 143/74 H Pulse Oximetry 97 01/16/18 12:03 01/16/18 15:47 Temperature Pulse Rate Respiratory Rate 23 26 H Blood Pressure Pulse Oximetry 96 Intake & Output 01/15/18 01/16/18 01/16/18 18:59 06:59 18:59 Intake Total 618.98 / 618.98 350 / 350 Output Total 700 / 700 Balance -81.02 / -81.02 350 / 350 Intake: IV 264.98 / 264.98 350 / 350 Zovirax Inj 749 MG In NS Inj 164.98 / 164.98 150 ML @ 150 mls/hr IV.SIG Q8H [facility] Rx#:[id number] Maxipime Inj 2,000 MG In NS Inj 100 / 100 100 / 100 100 ML @ 200 mls/hr IV.SIG Q8H [facility] Rx#:[id number] Vancomycin Inj 1,000 MG In NS 250 / 250 Inj 250 ML @ 250 mls/hr IV.SIG Q12H [facility] Rx#:[id number] Tube Feeding 234 / 234 Water Bolus Amount 120 / 120 Output: Urine 500 / 500 Stool 200 / 200 Other: Date of Last Bowel Movement 01/16/18 01/16/18 - Constitutional no acute distress - Routine HEENT Exam ENT: Present: mucous membranes moist - Routine Neck Exam Present: supple - Routine Cardiovascular Exam Present: RRR - Routine Abdominal Exam Present: soft, normoactive bowel sounds - Urinary Catheter Management Indwelling Urethral Catheter Cath placed during this visit: no <Reyna Cano - Last Filed: 01/16/18 17:01> Results - Labs CBC & Chem 7: 01/16/18 04:16 01/16/18 12:40 Labs: Laboratory Results - last 24 hr 01/11/18 01/11/18 01/13/18 09:50 09:50 03:07 WBC RBC Hgb Hct MCV MCH MCHC RDW Plt Count MPV Prelim Diff (Auto) Neut % (Auto) Lymph % (Auto) Grant % (Auto) Eos % (Auto) Baso % (Auto) Neut # (Auto) Lymph # (Auto) Grant # (Auto) Eos # (Auto) Baso # (Auto) CBC Comment WBC Differential Diff Scan Differential Comment Platelet Estimate Plt Morphology Comment [place] Cells Acanthocytes (Spur) Keratocytes PT INR APTT Fibrinogen Puncture Site Patient Temperature HCO3 Base Excess O2 Saturation ABG pH ABG pCO2 ABG pO2 ABG O2 Content ABG Carboxyhemoglobin ABG Methemoglobin VBG pH VBG pCO2 VBG pO2 VBG HCO3 VBG O2 Saturation VBG O2 Content VBG Base Excess VBG Carboxyhemoglobin VBG Methemoglobin Hemoglobin O2 Delivery Device Liter Flow Vent Setting Inspired O2 Critical Value Sodium Potassium Chloride Carbon Dioxide Anion Gap BUN Creatinine Estimated GFR POC Glucose Random Glucose Lactic Acid Calcium Total Bilirubin Direct Bilirubin Indirect Bilirubin AST ALT Alkaline Phosphatase Ammonia Lactate Dehydrogenase 274 H Total Protein 6.9 Albumin Ceruloplasmin 16 L Urine Color Urine Clarity Urine pH Ur Specific [place] Urine Protein Urine Glucose (UA) Urine Ketones Urine Occult Blood Urine Nitrate Urine Bilirubin Urine Urobilinogen Ur Leukocyte Esterase Urine RBC Urine WBC Urine WBC Clumps Ur Squamous Epith Cells Calcium Oxalate Crystal Urine Bacteria Hyaline Casts Urine Mucus Urine Yeast Ur Yeast w Hyphae Micro UA Comment Urine Culture Comments Nasal Screen MRSA (PCR) Random Vancomycin Phenytoin Hep B DNA Qnt log IU/mL LESS THAN 1.00 Hep B DNA (Units/mL) LESS THAN 10 01/13/18 01/13/18 01/13/18 05:48 06:45 06:45 WBC RBC Hgb Hct MCV MCH MCHC RDW Plt Count MPV Prelim Diff (Auto) Neut % (Auto) Lymph % (Auto) Grant % (Auto) Eos % (Auto) Baso % (Auto) Neut # (Auto) Lymph # (Auto) Grant # (Auto) Eos # (Auto) Baso # (Auto) CBC Comment WBC Differential Diff Scan Differential Comment Platelet Estimate Plt Morphology Comment [place] Cells Acanthocytes (Spur) Keratocytes PT INR APTT Fibrinogen Puncture Site RT RADIAL Patient Temperature 98.6 HCO3 29 H Base Excess 7.4 H O2 Saturation 97 ABG pH 7.74 H* ABG pCO2 20 L* ABG pO2 102 ABG O2 Content 15.2 ABG Carboxyhemoglobin 1.6 ABG Methemoglobin 0.6 VBG pH VBG pCO2 VBG pO2 VBG HCO3 VBG O2 Saturation VBG O2 Content VBG Base Excess VBG Carboxyhemoglobin VBG Methemoglobin Hemoglobin 11.1 L O2 Delivery Device NASAL CANNULA Liter Flow 2 Vent Setting Inspired O2 Critical Value Sodium 131 L Potassium 3.6 Chloride 90 L Carbon Dioxide 31.0 Anion Gap 10 BUN 4 L Creatinine 1.30 Estimated GFR 64 L POC Glucose Random Glucose 83 Lactic Acid Calcium 9.7 Total Bilirubin 19.4 H Direct Bilirubin Indirect Bilirubin AST 28 ALT 102 H Alkaline Phosphatase 165 H Ammonia 95 H Lactate Dehydrogenase Total Protein 6.5 Albumin 3.7 Ceruloplasmin Urine Color Urine Clarity Urine pH Ur Specific [place] Urine Protein Urine Glucose (UA) Urine Ketones Urine Occult Blood Urine Nitrate Urine Bilirubin Urine Urobilinogen Ur Leukocyte Esterase Urine RBC Urine WBC Urine WBC Clumps Ur Squamous Epith Cells Calcium Oxalate Crystal Urine Bacteria Hyaline Casts Urine Mucus Urine Yeast Ur Yeast w Hyphae Micro UA Comment Urine Culture Comments Nasal Screen MRSA (PCR) Random Vancomycin Phenytoin Hep B DNA Qnt log IU/mL Hep B DNA (Units/mL) 01/13/18 01/13/18 01/13/18 06:45 06:45 07:28 WBC 8.4 RBC 3.97 L Hgb 11.3 L Hct 34.0 L MCV 85.6 MCH 28.4 MCHC 33.2 RDW 16.5 Plt Count 98 L D MPV 8.4 Prelim Diff (Auto) Neut % (Auto) 70.2 H Lymph % (Auto) 10.3 Grant % (Auto) 17.8 H Eos % (Auto) 0.9 Baso % (Auto) 0.8 Neut # (Auto) 5.8 Lymph # (Auto) 0.9 L Grant # (Auto) 1.5 H Eos # (Auto) 0.1 Baso # (Auto) 0.1 CBC Comment AUTO DIFF WBC Differential Diff Scan Differential Comment AUTO DIFF CONFIRMED Platelet Estimate Plt Morphology Comment [place] Cells Acanthocytes (Spur) Keratocytes PT 23.2 H D INR 2.3 APTT Fibrinogen Puncture Site Patient Temperature HCO3 Base Excess O2 Saturation ABG pH ABG pCO2 ABG pO2 ABG O2 Content ABG Carboxyhemoglobin ABG Methemoglobin VBG pH VBG pCO2 VBG pO2 VBG HCO3 VBG O2 Saturation VBG O2 Content VBG Base Excess VBG Carboxyhemoglobin VBG Methemoglobin Hemoglobin O2 Delivery Device Liter Flow Vent Setting Inspired O2 Critical Value Sodium Potassium Chloride Carbon Dioxide Anion Gap BUN Creatinine Estimated GFR POC Glucose Random Glucose Lactic Acid Calcium Total Bilirubin Direct Bilirubin 4.2 H Indirect Bilirubin AST ALT Alkaline Phosphatase Ammonia Lactate Dehydrogenase Total Protein Albumin Ceruloplasmin Urine Color Urine Clarity Urine pH Ur Specific [place] Urine Protein Urine Glucose (UA) Urine Ketones Urine Occult Blood Urine Nitrate Urine Bilirubin Urine Urobilinogen Ur Leukocyte Esterase Urine RBC Urine WBC Urine WBC Clumps Ur Squamous Epith Cells Calcium Oxalate Crystal Urine Bacteria Hyaline Casts Urine Mucus Urine Yeast Ur Yeast w Hyphae Micro UA Comment Urine Culture Comments Nasal Screen MRSA (PCR) Random Vancomycin Phenytoin Hep B DNA Qnt log IU/mL Hep B DNA (Units/mL) 01/13/18 01/13/18 01/13/18 17:00 17:10 18:30 WBC RBC Hgb Hct MCV MCH MCHC RDW Plt Count MPV Prelim Diff (Auto) Neut % (Auto) Lymph % (Auto) Grant % (Auto) Eos % (Auto) Baso % (Auto) Neut # (Auto) Lymph # (Auto) Grant # (Auto) Eos # (Auto) Baso # (Auto) CBC Comment WBC Differential Diff Scan Differential Comment Platelet Estimate Plt Morphology Comment [place] Cells Acanthocytes (Spur) Keratocytes PT 42.3 H D INR 4.2 APTT Fibrinogen Puncture Site RT RADIAL Patient Temperature 98.6 HCO3 30 H Base Excess 7.2 H O2 Saturation 96 ABG pH 7.57 H* ABG pCO2 33 L ABG pO2 95 ABG O2 Content 16.2 ABG Carboxyhemoglobin 1.0 ABG Methemoglobin 1.0 VBG pH VBG pCO2 VBG pO2 VBG HCO3 VBG O2 Saturation VBG O2 Content VBG Base Excess VBG Carboxyhemoglobin VBG Methemoglobin Hemoglobin 12.0 O2 Delivery Device Liter Flow Vent Setting Inspired O2 Critical Value Sodium Potassium Chloride Carbon Dioxide Anion Gap BUN Creatinine Estimated GFR POC Glucose Random Glucose Lactic Acid Calcium Total Bilirubin Direct Bilirubin Indirect Bilirubin AST ALT Alkaline Phosphatase Ammonia Lactate Dehydrogenase Total Protein Albumin Ceruloplasmin Urine Color Urine Clarity Urine pH Ur Specific [place] Urine Protein Urine Glucose (UA) Urine Ketones Urine Occult Blood Urine Nitrate Urine Bilirubin Urine Urobilinogen Ur Leukocyte Esterase Urine RBC Urine WBC Urine WBC Clumps Ur Squamous Epith Cells Calcium Oxalate Crystal Urine Bacteria Hyaline Casts Urine Mucus Urine Yeast Ur Yeast w Hyphae Micro UA Comment Urine Culture Comments Nasal Screen MRSA (PCR) MRSA NOT DETECTED Random Vancomycin Phenytoin Hep B DNA Qnt log IU/mL Hep B DNA (Units/mL) 01/13/18 01/13/18 01/14/18 19:45 19:45 02:00 WBC 7.8 RBC 4.22 L Hgb 11.9 L Hct 35.2 L MCV 83.5 MCH 28.2 MCHC 33.8 RDW 17.3 H Plt Count 93 L MPV 8.7 Prelim Diff (Auto) Neut % (Auto) Lymph % (Auto) Grant % (Auto) Eos % (Auto) Baso % (Auto) Neut # (Auto) Lymph # (Auto) Grant # (Auto) Eos # (Auto) Baso # (Auto) CBC Comment WBC Differential Diff Scan Differential Comment Platelet Estimate Plt Morphology Comment [place] Cells Acanthocytes (Spur) Keratocytes PT INR APTT 43.5 H Fibrinogen Puncture Site Patient Temperature HCO3 Base Excess O2 Saturation ABG pH ABG pCO2 ABG pO2 ABG O2 Content ABG Carboxyhemoglobin ABG Methemoglobin VBG pH VBG pCO2 VBG pO2 VBG HCO3 VBG O2 Saturation VBG O2 Content VBG Base Excess VBG Carboxyhemoglobin VBG Methemoglobin Hemoglobin O2 Delivery Device Liter Flow Vent Setting Inspired O2 Critical Value Sodium 135 L Potassium 2.7 L* D Chloride 93 L Carbon Dioxide 25.8 Anion Gap 16 H BUN 5 L Creatinine 1.42 H Estimated GFR 58 L POC Glucose Random Glucose 99 Lactic Acid Calcium 9.9 Total Bilirubin 22.7 H Direct Bilirubin Indirect Bilirubin AST 31 ALT 89 H Alkaline Phosphatase 186 H Ammonia Lactate Dehydrogenase Total Protein 7.2 D Albumin 3.9 Ceruloplasmin Urine Color Urine Clarity Urine pH Ur Specific [place] Urine Protein Urine Glucose (UA) Urine Ketones Urine Occult Blood Urine Nitrate Urine Bilirubin Urine Urobilinogen Ur Leukocyte Esterase Urine RBC Urine WBC Urine WBC Clumps Ur Squamous Epith Cells Calcium Oxalate Crystal Urine Bacteria Hyaline Casts Urine Mucus Urine Yeast Ur Yeast w Hyphae Micro UA Comment Urine Culture Comments Nasal Screen MRSA (PCR) Random Vancomycin Phenytoin Hep B DNA Qnt log IU/mL Hep B DNA (Units/mL) 01/14/18 01/14/18 01/14/18 02:00 02:00 02:00 WBC 11.3 H RBC 4.26 L Hgb 12.0 L Hct 35.2 L MCV 82.7 MCH 28.2 MCHC 34.1 RDW 17.2 Plt Count 103 L MPV 8.6 Prelim Diff (Auto) Neut % (Auto) 54.5 Lymph % (Auto) 25.7 Grant % (Auto) 19.0 H Eos % (Auto) 0.7 Baso % (Auto) 0.1 Neut # (Auto) 6.2 Lymph # (Auto) 2.9 Grant # (Auto) 2.2 H Eos # (Auto) 0.1 Baso # (Auto) 0.0 CBC Comment AUTO DIFF WBC Differential Diff Scan Differential Comment AUTO DIFF CONFIRMED Platelet Estimate LOW L Plt Morphology Comment NORMAL [place] Cells Acanthocytes (Spur) 1+ H Keratocytes OCC PT 30.0 H D INR 3.0 APTT Fibrinogen Puncture Site Patient Temperature HCO3 Base Excess O2 Saturation ABG pH ABG pCO2 ABG pO2 ABG O2 Content ABG Carboxyhemoglobin ABG Methemoglobin VBG pH VBG pCO2 VBG pO2 VBG HCO3 VBG O2 Saturation VBG O2 Content VBG Base Excess VBG Carboxyhemoglobin VBG Methemoglobin Hemoglobin O2 Delivery Device Liter Flow Vent Setting Inspired O2 Critical Value Sodium Potassium Chloride Carbon Dioxide Anion Gap BUN Creatinine Estimated GFR POC Glucose Random Glucose Lactic Acid Calcium Total Bilirubin Direct Bilirubin Indirect Bilirubin AST ALT Alkaline Phosphatase Ammonia Lactate Dehydrogenase Total Protein Albumin Ceruloplasmin Urine Color Urine Clarity Urine pH Ur Specific [place] Urine Protein Urine Glucose (UA) Urine Ketones Urine Occult Blood Urine Nitrate Urine Bilirubin Urine Urobilinogen Ur Leukocyte Esterase Urine RBC Urine WBC Urine WBC Clumps Ur Squamous Epith Cells Calcium Oxalate Crystal Urine Bacteria Hyaline Casts Urine Mucus Urine Yeast Ur Yeast w Hyphae Micro UA Comment Urine Culture Comments Nasal Screen MRSA (PCR) Random Vancomycin Phenytoin 13.4 Hep B DNA Qnt log IU/mL Hep B DNA (Units/mL) 01/14/18 01/14/18 01/14/18 02:02 02:31 05:49 WBC RBC Hgb Hct MCV MCH MCHC RDW Plt Count MPV Prelim Diff (Auto) Neut % (Auto) Lymph % (Auto) Grant % (Auto) Eos % (Auto) Baso % (Auto) Neut # (Auto) Lymph # (Auto) Grant # (Auto) Eos # (Auto) Baso # (Auto) CBC Comment WBC Differential Diff Scan Differential Comment Platelet Estimate Plt Morphology Comment [place] Cells Acanthocytes (Spur) Keratocytes PT 30.1 H INR 3.0 APTT 33.4 H D Fibrinogen 153 L Puncture Site RT BRACHIAL Patient Temperature 98.6 HCO3 28 H Base Excess 5.4 H O2 Saturation 49 L* ABG pH 7.59 H* ABG pCO2 29 L ABG pO2 29 L* ABG O2 Content 8.3 L ABG Carboxyhemoglobin 0.9 ABG Methemoglobin 1.1 VBG pH VBG pCO2 VBG pO2 VBG HCO3 VBG O2 Saturation VBG O2 Content VBG Base Excess VBG Carboxyhemoglobin VBG Methemoglobin Hemoglobin 12.0 O2 Delivery Device NASAL CANNULA Liter Flow 2 Vent Setting Inspired O2 Critical Value Sodium Potassium Chloride Carbon Dioxide Anion Gap BUN Creatinine Estimated GFR POC Glucose Random Glucose Lactic Acid Calcium Total Bilirubin Direct Bilirubin Indirect Bilirubin AST ALT Alkaline Phosphatase Ammonia 121 H Lactate Dehydrogenase Total Protein Albumin Ceruloplasmin Urine Color Urine Clarity Urine pH Ur Specific [place] Urine Protein Urine Glucose (UA) Urine Ketones Urine Occult Blood Urine Nitrate Urine Bilirubin Urine Urobilinogen Ur Leukocyte Esterase Urine RBC Urine WBC Urine WBC Clumps Ur Squamous Epith Cells Calcium Oxalate Crystal Urine Bacteria Hyaline Casts Urine Mucus Urine Yeast Ur Yeast w Hyphae Micro UA Comment Urine Culture Comments Nasal Screen MRSA (PCR) Random Vancomycin Phenytoin Hep B DNA Qnt log IU/mL Hep B DNA (Units/mL) 01/14/18 01/14/1818 05:49 07:46 17:30 WBC RBC Hgb Hct MCV MCH MCHC RDW Plt Count MPV Prelim Diff (Auto) Neut % (Auto) Lymph % (Auto) Grant % (Auto) Eos % (Auto) Baso % (Auto) Neut # (Auto) Lymph # (Auto) Grant # (Auto) Eos # (Auto) Baso # (Auto) CBC Comment WBC Differential Diff Scan Differential Comment Platelet Estimate Plt Morphology Comment [place] Cells Acanthocytes (Spur) Keratocytes PT 26.9 H INR 2.7 APTT Fibrinogen Puncture Site CENTRAL LINE Patient Temperature 98.6 HCO3 Base Excess O2 Saturation ABG pH ABG pCO2 ABG pO2 ABG O2 Content ABG Carboxyhemoglobin ABG Methemoglobin VBG pH 7.59 H* VBG pCO2 29 L VBG pO2 29 L* VBG HCO3 28 H VBG O2 Saturation 49 L VBG O2 Content 8.3 L VBG Base Excess 5.4 H VBG Carboxyhemoglobin 1.1 VBG Methemoglobin Hemoglobin O2 Delivery Device NASAL CANNULA Liter Flow 2 Vent Setting Inspired O2 Critical Value Sodium Potassium 2.4 L* Chloride Carbon Dioxide Anion Gap BUN Creatinine Estimated GFR POC Glucose Random Glucose Lactic Acid Calcium Total Bilirubin Direct Bilirubin Indirect Bilirubin AST ALT Alkaline Phosphatase Ammonia Lactate Dehydrogenase Total Protein Albumin Ceruloplasmin Urine Color Urine Clarity Urine pH Ur Specific [place] Urine Protein Urine Glucose (UA) Urine Ketones Urine Occult Blood Urine Nitrate Urine Bilirubin Urine Urobilinogen Ur Leukocyte Esterase Urine RBC Urine WBC Urine WBC Clumps Ur Squamous Epith Cells Calcium Oxalate Crystal Urine Bacteria Hyaline Casts Urine Mucus Urine Yeast Ur Yeast w Hyphae Micro UA Comment Urine Culture Comments Nasal Screen MRSA (PCR) Random Vancomycin Phenytoin Hep B DNA Qnt log IU/mL Hep B DNA (Units/mL) 01/14/18 01/14/18 01/15/18 18:40 23:24 00:20 WBC RBC Hgb Hct MCV MCH MCHC RDW Plt Count MPV Prelim Diff (Auto) Neut % (Auto) Lymph % (Auto) Grant % (Auto) Eos % (Auto) Baso % (Auto) Neut # (Auto) Lymph # (Auto) Grant # (Auto) Eos # (Auto) Baso # (Auto) CBC Comment WBC Differential Diff Scan Differential Comment Platelet Estimate Plt Morphology Comment [place] Cells Acanthocytes (Spur) Keratocytes PT INR APTT Fibrinogen Puncture Site CENTRAL LINE RT RADIAL Patient Temperature 98.6 98.6 HCO3 28 H Base Excess 5.3 H O2 Saturation 98 ABG pH 7.57 H* ABG pCO2 30 L ABG pO2 175 H ABG O2 Content 16.6 ABG Carboxyhemoglobin 0.9 ABG Methemoglobin 0.9 VBG pH 7.59 H* VBG pCO2 31 L VBG pO2 46 H VBG HCO3 30 H VBG O2 Saturation 80 H VBG O2 Content 12.4 VBG Base Excess 7.7 H VBG Carboxyhemoglobin VBG Methemoglobin Hemoglobin 11.8 L O2 Delivery Device NASAL CANNULA NASAL CANNULA Liter Flow 4 4 Vent Setting Inspired O2 Critical Value Sodium Potassium Chloride Carbon Dioxide Anion Gap BUN Creatinine Estimated GFR POC Glucose Random Glucose Lactic Acid Calcium Total Bilirubin 23.8 H Direct Bilirubin 5.0 H Indirect Bilirubin 18.8 H AST 32 ALT 80 H Alkaline Phosphatase 172 H Ammonia Lactate Dehydrogenase Total Protein 7.2 Albumin 3.7 Ceruloplasmin Urine Color Urine Clarity Urine pH Ur Specific [place] Urine Protein Urine Glucose (UA) Urine Ketones Urine Occult Blood Urine Nitrate Urine Bilirubin Urine Urobilinogen Ur Leukocyte Esterase Urine RBC Urine WBC Urine WBC Clumps Ur Squamous Epith Cells Calcium Oxalate Crystal Urine Bacteria Hyaline Casts Urine Mucus Urine Yeast Ur Yeast w Hyphae Micro UA Comment Urine Culture Comments Nasal Screen MRSA (PCR) Random Vancomycin Phenytoin Hep B DNA Qnt log IU/mL Hep B DNA (Units/mL) 01/15/18 01/15/18 01/15/18 00:20 03:58 03:58 WBC RBC Hgb Hct MCV MCH MCHC RDW Plt Count MPV Prelim Diff (Auto) Neut % (Auto) Lymph % (Auto) Grant % (Auto) Eos % (Auto) Baso % (Auto) Neut # (Auto) Lymph # (Auto) Grant # (Auto) Eos # (Auto) Baso # (Auto) CBC Comment WBC Differential Diff Scan Differential Comment Platelet Estimate Plt Morphology Comment [place] Cells Acanthocytes (Spur) Keratocytes PT INR APTT Fibrinogen Puncture Site Patient Temperature HCO3 Base Excess O2 Saturation ABG pH ABG pCO2 ABG pO2 ABG O2 Content ABG Carboxyhemoglobin ABG Methemoglobin VBG pH VBG pCO2 VBG pO2 VBG HCO3 VBG O2 Saturation VBG O2 Content VBG Base Excess VBG Carboxyhemoglobin VBG Methemoglobin Hemoglobin O2 Delivery Device Liter Flow Vent Setting Inspired O2 Critical Value Sodium 137 Potassium 3.2 L D Chloride 99 Carbon Dioxide 24.7 Anion Gap 13 BUN 6 L Creatinine 1.42 H Estimated GFR 58 L POC Glucose Random Glucose 133 H Lactic Acid Calcium 9.7 Total Bilirubin 24.3 H Direct Bilirubin Indirect Bilirubin AST 31 ALT 80 H Alkaline Phosphatase 165 H Ammonia 156 H 180 H Lactate Dehydrogenase Total Protein 7.0 Albumin 3.6 Ceruloplasmin Urine Color Urine Clarity Urine pH Ur Specific [place] Urine Protein Urine Glucose (UA) Urine Ketones Urine Occult Blood Urine Nitrate Urine Bilirubin Urine Urobilinogen Ur Leukocyte Esterase Urine RBC Urine WBC Urine WBC Clumps Ur Squamous Epith Cells Calcium Oxalate Crystal Urine Bacteria Hyaline Casts Urine Mucus Urine Yeast Ur Yeast w Hyphae Micro UA Comment Urine Culture Comments Nasal Screen MRSA (PCR) Random Vancomycin 19.0 Phenytoin 13.6 Hep B DNA Qnt log IU/mL Hep B DNA (Units/mL) 01/15/18 01/15/18 01/15/18 03:58 03:58 04:50 WBC 5.2 RBC 4.15 L Hgb 12.0 L Hct 34.7 L MCV 83.6 MCH 29.0 MCHC 34.7 RDW 17.8 H Plt Count 106 L MPV 8.6 Prelim Diff (Auto) Neut % (Auto) 77.6 H Lymph % (Auto) 13.4 Grant % (Auto) 8.5 H Eos % (Auto) 0.1 Baso % (Auto) 0.4 Neut # (Auto) 4.1 Lymph # (Auto) 0.7 L Grant # (Auto) 0.4 Eos # (Auto) 0.0 Baso # (Auto) 0.0 CBC Comment AUTO DIFF WBC Differential Diff Scan Differential Comment AUTO DIFF CONFIRMED Platelet Estimate LOW L Plt Morphology Comment NORMAL [place] Cells Acanthocytes (Spur) 1+ H Keratocytes OCC PT 121.5 H D INR 12.2 H* APTT Fibrinogen Puncture Site Patient Temperature HCO3 Base Excess O2 Saturation ABG pH ABG pCO2 ABG pO2 ABG O2 Content ABG Carboxyhemoglobin ABG Methemoglobin VBG pH VBG pCO2 VBG pO2 VBG HCO3 VBG O2 Saturation VBG O2 Content VBG Base Excess VBG Carboxyhemoglobin VBG Methemoglobin Hemoglobin O2 Delivery Device Liter Flow Vent Setting Inspired O2 Critical Value Sodium Potassium Chloride Carbon Dioxide Anion Gap BUN Creatinine Estimated GFR POC Glucose Random Glucose Lactic Acid 5.1 H* Calcium Total Bilirubin Direct Bilirubin Indirect Bilirubin AST ALT Alkaline Phosphatase Ammonia Lactate Dehydrogenase Total Protein Albumin Ceruloplasmin Urine Color Urine Clarity Urine pH Ur Specific [place] Urine Protein Urine Glucose (UA) Urine Ketones Urine Occult Blood Urine Nitrate Urine Bilirubin Urine Urobilinogen Ur Leukocyte Esterase Urine RBC Urine WBC Urine WBC Clumps Ur Squamous Epith Cells Calcium Oxalate Crystal Urine Bacteria Hyaline Casts Urine Mucus Urine Yeast Ur Yeast w Hyphae Micro UA Comment Urine Culture Comments Nasal Screen MRSA (PCR) Random Vancomycin Phenytoin Hep B DNA Qnt log IU/mL Hep B DNA (Units/mL) 01/15/18 01/15/18 01/15/18 06:03 12:00 18:05 WBC RBC Hgb Hct MCV MCH MCHC RDW Plt Count MPV Prelim Diff (Auto) Neut % (Auto) Lymph % (Auto) Grant % (Auto) Eos % (Auto) Baso % (Auto) Neut # (Auto) Lymph # (Auto) Grant # (Auto) Eos # (Auto) Baso # (Auto) CBC Comment WBC Differential Diff Scan Differential Comment Platelet Estimate Plt Morphology Comment [place] Cells Acanthocytes (Spur) Keratocytes PT INR APTT Fibrinogen Puncture Site CENTRAL LINE RT RADIAL Patient Temperature 98.6 98.6 HCO3 25 Base Excess 4.4 H O2 Saturation 98 ABG pH 7.71 H* ABG pCO2 19 L* ABG pO2 200 H ABG O2 Content 15.6 ABG Carboxyhemoglobin 0.8 ABG Methemoglobin 0.8 VBG pH 7.59 H* VBG pCO2 29 L VBG pO2 44 H VBG HCO3 28 H VBG O2 Saturation 78 H VBG O2 Content 12.5 VBG Base Excess 5.5 H VBG Carboxyhemoglobin VBG Methemoglobin Hemoglobin 11.0 L O2 Delivery Device VENTILATOR VENTILATOR Liter Flow Vent Setting SEE COMMENTS [id number] Inspired O2 50 40 Critical Value Sodium Potassium 3.4 L Chloride Carbon Dioxide Anion Gap BUN Creatinine Estimated GFR POC Glucose Random Glucose Lactic Acid Calcium Total Bilirubin Direct Bilirubin Indirect Bilirubin AST ALT Alkaline Phosphatase Ammonia Lactate Dehydrogenase Total Protein Albumin Ceruloplasmin Urine Color Urine Clarity Urine pH Ur Specific [place] Urine Protein Urine Glucose (UA) Urine Ketones Urine Occult Blood Urine Nitrate Urine Bilirubin Urine Urobilinogen Ur Leukocyte Esterase Urine RBC Urine WBC Urine WBC Clumps Ur Squamous Epith Cells Calcium Oxalate Crystal Urine Bacteria Hyaline Casts Urine Mucus Urine Yeast Ur Yeast w Hyphae Micro UA Comment Urine Culture Comments Nasal Screen MRSA (PCR) Random Vancomycin Phenytoin Hep B DNA Qnt log IU/mL Hep B DNA (Units/mL) 01/16/18 01/16/18 01/16/18 04:16 04:16 04:16 WBC 6.3 RBC 4.09 L Hgb 11.8 L Hct 34.3 L MCV 83.9 MCH 29.0 MCHC 34.5 RDW 18.3 H Plt Count 129 L MPV 8.6 Prelim Diff (Auto) Slide review pending Neut % (Auto) 56.3 Lymph % (Auto) 18.8 Grant % (Auto) 24.5 H Eos % (Auto) 0.2 Baso % (Auto) 0.2 Neut # (Auto) 3.6 Lymph # (Auto) 1.2 Grant # (Auto) 1.5 H Eos # (Auto) 0.0 Baso # (Auto) 0.0 CBC Comment WBC Differential . Diff Scan Auto diff confirmed Differential Comment . Platelet Estimate Plt Morphology Comment [place] Cells 1+ H Acanthocytes (Spur) 1+ H Keratocytes Occ H PT 105.8 H INR 10.6 H* APTT Fibrinogen Puncture Site Patient Temperature HCO3 Base Excess O2 Saturation ABG pH ABG pCO2 ABG pO2 ABG O2 Content ABG Carboxyhemoglobin ABG Methemoglobin VBG pH VBG pCO2 VBG pO2 VBG HCO3 VBG O2 Saturation VBG O2 Content VBG Base Excess VBG Carboxyhemoglobin VBG Methemoglobin Hemoglobin O2 Delivery Device Liter Flow Vent Setting Inspired O2 Critical Value Sodium Potassium Chloride Carbon Dioxide Anion Gap BUN Creatinine Estimated GFR POC Glucose Random Glucose Lactic Acid Calcium Total Bilirubin Direct Bilirubin Indirect Bilirubin AST ALT Alkaline Phosphatase Ammonia Lactate Dehydrogenase Total Protein Albumin Ceruloplasmin Urine Color Urine Clarity Urine pH Ur Specific [place] Urine Protein Urine Glucose (UA) Urine Ketones Urine Occult Blood Urine Nitrate Urine Bilirubin Urine Urobilinogen Ur Leukocyte Esterase Urine RBC Urine WBC Urine WBC Clumps Ur Squamous Epith Cells Calcium Oxalate Crystal Urine Bacteria Hyaline Casts Urine Mucus Urine Yeast Ur Yeast w Hyphae Micro UA Comment Urine Culture Comments Nasal Screen MRSA (PCR) Random Vancomycin Phenytoin 18.2 Hep B DNA Qnt log IU/mL Hep B DNA (Units/mL) 01/16/18 01/16/18 01/16/18 04:16 04:16 08:01 WBC RBC Hgb Hct MCV MCH MCHC RDW Plt Count MPV Prelim Diff (Auto) Neut % (Auto) Lymph % (Auto) Grant % (Auto) Eos % (Auto) Baso % (Auto) Neut # (Auto) Lymph # (Auto) Grant # (Auto) Eos # (Auto) Baso # (Auto) CBC Comment WBC Differential Diff Scan Differential Comment Platelet Estimate Plt Morphology Comment [place] Cells Acanthocytes (Spur) Keratocytes PT INR APTT Fibrinogen Puncture Site Patient Temperature HCO3 Base Excess O2 Saturation ABG pH ABG pCO2 ABG pO2 ABG O2 Content ABG Carboxyhemoglobin ABG Methemoglobin VBG pH VBG pCO2 VBG pO2 VBG HCO3 VBG O2 Saturation VBG O2 Content VBG Base Excess VBG Carboxyhemoglobin VBG Methemoglobin Hemoglobin O2 Delivery Device Liter Flow Vent Setting Inspired O2 Critical Value Sodium Potassium Chloride Carbon Dioxide Anion Gap BUN Creatinine Estimated GFR POC Glucose 162 H Random Glucose Lactic Acid Calcium Total Bilirubin Direct Bilirubin Indirect Bilirubin AST ALT Alkaline Phosphatase Ammonia 147 H Lactate Dehydrogenase Total Protein Albumin Ceruloplasmin Urine Color Urine Clarity Urine pH Ur Specific [place] Urine Protein Urine Glucose (UA) Urine Ketones Urine Occult Blood Urine Nitrate Urine Bilirubin Urine Urobilinogen Ur Leukocyte Esterase Urine RBC Urine WBC Urine WBC Clumps Ur Squamous Epith Cells Calcium Oxalate Crystal Urine Bacteria Hyaline Casts Urine Mucus Urine Yeast Ur Yeast w Hyphae Micro UA Comment Urine Culture Comments Nasal Screen MRSA (PCR) Random Vancomycin 19.5 Phenytoin Hep B DNA Qnt log IU/mL Hep B DNA (Units/mL) 01/16/18 01/16/18 01/16/18 12:40 12:40 12:56 WBC RBC Hgb Hct MCV MCH MCHC RDW Plt Count MPV Prelim Diff (Auto) Neut % (Auto) Lymph % (Auto) Grant % (Auto) Eos % (Auto) Baso % (Auto) Neut # (Auto) Lymph # (Auto) Grant # (Auto) Eos # (Auto) Baso # (Auto) CBC Comment WBC Differential Diff Scan Differential Comment Platelet Estimate Plt Morphology Comment G[place] Cells Acanthocytes (Spur) Keratocytes PT INR APTT Fibrinogen Puncture Site Patient Temperature HCO3 Base Excess O2 Saturation ABG pH ABG pCO2 ABG pO2 ABG O2 Content ABG Carboxyhemoglobin ABG Methemoglobin VBG pH VBG pCO2 VBG pO2 VBG HCO3 VBG O2 Saturation VBG O2 Content VBG Base Excess VBG Carboxyhemoglobin VBG Methemoglobin Hemoglobin O2 Delivery Device Liter Flow Vent Setting Inspired O2 Critical Value Sodium 140 Potassium 3.4 L Chloride 101 Carbon Dioxide 24.7 Anion Gap 14 BUN 7 Creatinine 1.56 H Estimated GFR 52 L POC Glucose 150 H Random Glucose 136 H Lactic Acid Calcium 9.9 Total Bilirubin 25.4 H Direct Bilirubin Indirect Bilirubin AST 26 ALT 63 Alkaline Phosphatase 151 H Ammonia Lactate Dehydrogenase Total Protein 6.8 Albumin 3.6 Ceruloplasmin Urine Color [place] Urine Clarity Cloudy H Urine pH 5.0 Ur Specific [place] 1.017 Urine Protein Negative Urine Glucose (UA) 50 Urine Ketones Trace Urine Occult Blood Large H Urine Nitrate Negative Urine Bilirubin Negative Urine Urobilinogen Less than 2 Ur Leukocyte Esterase Large H Urine RBC 46 H Urine WBC 91 H Urine WBC Clumps Many H Ur Squamous Epith Cells 1 Calcium Oxalate Crystal Occasional H Urine Bacteria Rare H Hyaline Casts 17 Urine Mucus Few H Urine Yeast Many H Ur Yeast w Hyphae Moderate H Micro UA Comment Culture indicated Urine Culture Comments Culture indicated Nasal Screen MRSA (PCR) Random Vancomycin Phenytoin Hep B DNA Qnt log IU/mL Hep B DNA (Units/mL) 01/16/18 13:29 WBC RBC Hgb Hct MCV MCH MCHC RDW Plt Count MPV Prelim Diff (Auto) Neut % (Auto) Lymph % (Auto) [place] % (Auto) Eos % (Auto) Baso % (Auto) Neut # (Auto) Lymph # (Auto) Grant # (Auto) Eos # (Auto) Baso # (Auto) CBC Comment WBC Differential Diff Scan Differential Comment Platelet Estimate Plt Morphology Comment [place] Cells Acanthocytes (Spur) Keratocytes PT INR APTT Fibrinogen Puncture Site Central line Patient Temperature 98.6 HCO3 Base Excess O2 Saturation ABG pH ABG pCO2 ABG pO2 ABG O2 Content ABG Carboxyhemoglobin ABG Methemoglobin VBG pH 7.60 H* VBG pCO2 26 L VBG pO2 46 H VBG HCO3 26 VBG O2 Saturation 81 H VBG O2 Content 12.3 VBG Base Excess 4.0 H VBG Carboxyhemoglobin 0.9 VBG Methemoglobin 0.8 Hemoglobin 10.8 L O2 Delivery Device Ventilator Liter Flow Vent Setting [id number] Inspired O2 30 Critical Value Yes Sodium Potassium Chloride Carbon Dioxide Anion Gap BUN Creatinine Estimated GFR POC Glucose Random Glucose Lactic Acid Calcium Total Bilirubin Direct Bilirubin Indirect Bilirubin AST ALT Alkaline Phosphatase Ammonia Lactate Dehydrogenase Total Protein Albumin Ceruloplasmin Urine Color Urine Clarity Urine pH Ur Specific [place] Urine Protein Urine Glucose (UA) Urine Ketones Urine Occult Blood Urine Nitrate Urine Bilirubin Urine Urobilinogen Ur Leukocyte Esterase Urine RBC Urine WBC Urine WBC Clumps Ur Squamous Epith Cells Calcium Oxalate Crystal Urine Bacteria Hyaline Casts Urine Mucus Urine Yeast Ur Yeast w Hyphae Micro UA Comment Urine Culture Comments Nasal Screen MRSA (PCR) Random Vancomycin Phenytoin Hep B DNA Qnt log IU/mL Hep B DNA (Units/mL) - Imaging Imaging: Impressions Head MRI 01/16/18 00:00 CONCLUSION: 1. Subtle restricted diffusion in the gold matter when compared to the white most prevalent in mid [place] regions bilaterally. This is symmetric. This can be seen with anoxic encephalopathy. 2. There is no abnormal contrast enhancement. 3. There is no parenchymal hemorrhage. <Dalila Merchant - Last Filed: 01/16/18 15:36> - Labs CBC & Chem 7: 01/16/18 04:16 01/16/18 12:40 Labs: Laboratory Results - last 24 hr 01/11/18 01/11/18 01/13/18 09:50 09:50 03:07 WBC RBC Hgb Hct MCV MCH MCHC RDW Plt Count MPV Prelim Diff (Auto) Neut % (Auto) Lymph % (Auto) [place] % (Auto) Eos % (Auto) Baso % (Auto) Neut # (Auto) Lymph # (Auto) [place] # (Auto) Eos # (Auto) Baso # (Auto) CBC Comment WBC Differential Diff Scan Differential Comment Platelet Estimate Plt Morphology Comment [place] Cells Acanthocytes (Spur) Keratocytes PT INR APTT Fibrinogen Puncture Site Patient Temperature HCO3 Base Excess O2 Saturation ABG pH ABG pCO2 ABG pO2 ABG O2 Content ABG Carboxyhemoglobin ABG Methemoglobin VBG pH VBG pCO2 VBG pO2 VBG HCO3 VBG O2 Saturation VBG O2 Content VBG Base Excess VBG Carboxyhemoglobin VBG Methemoglobin Hemoglobin O2 Delivery Device Liter Flow Vent Setting Inspired O2 Critical Value Sodium Potassium Chloride Carbon Dioxide Anion Gap BUN Creatinine Estimated GFR POC Glucose Random Glucose Lactic Acid Calcium Total Bilirubin Direct Bilirubin Indirect Bilirubin AST ALT Alkaline Phosphatase Ammonia Lactate Dehydrogenase 274 H Total Protein 6.9 Albumin Ceruloplasmin 16 L Urine Color Urine Clarity Urine pH Ur Specific [place] Urine Protein Urine Glucose (UA) Urine Ketones Urine Occult Blood Urine Nitrate Urine Bilirubin Urine Urobilinogen Ur Leukocyte Esterase Urine RBC Urine WBC Urine WBC Clumps Ur Squamous Epith Cells Calcium Oxalate Crystal Urine Bacteria Hyaline Casts Urine Mucus Urine Yeast Ur Yeast w Hyphae Micro UA Comment Urine Culture Comments Nasal Screen MRSA (PCR) Random Vancomycin Phenytoin Hep B DNA Qnt log IU/mL LESS THAN 1.00 Hep B DNA (Units/mL) LESS THAN 10 01/13/18 01/13/18 01/13/18 05:48 06:45 06:45 WBC RBC Hgb Hct MCV MCH MCHC RDW Plt Count MPV Prelim Diff (Auto) Neut % (Auto) Lymph % (Auto) [place] % (Auto) Eos % (Auto) Baso % (Auto) Neut # (Auto) Lymph # (Auto) Grant # (Auto) Eos # (Auto) Baso # (Auto) CBC Comment WBC Differential Diff Scan Differential Comment Platelet Estimate Plt Morphology Comment [place] Cells Acanthocytes (Spur) Keratocytes PT INR APTT Fibrinogen Puncture Site RT RADIAL Patient Temperature 98.6 HCO3 29 H Base Excess 7.4 H O2 Saturation 97 ABG pH 7.74 H* ABG pCO2 20 L* ABG pO2 102 ABG O2 Content 15.2 ABG Carboxyhemoglobin 1.6 ABG Methemoglobin 0.6 VBG pH VBG pCO2 VBG pO2 VBG HCO3 VBG O2 Saturation VBG O2 Content VBG Base Excess VBG Carboxyhemoglobin VBG Methemoglobin Hemoglobin 11.1 L O2 Delivery Device NASAL CANNULA Liter Flow 2 Vent Setting Inspired O2 Critical Value Sodium 131 L Potassium 3.6 Chloride 90 L Carbon Dioxide 31.0 Anion Gap 10 BUN 4 L Creatinine 1.30 Estimated GFR 64 L POC Glucose Random Glucose 83 Lactic Acid Calcium 9.7 Total Bilirubin 19.4 H Direct Bilirubin Indirect Bilirubin AST 28 ALT 102 H Alkaline Phosphatase 165 H Ammonia 95 H Lactate Dehydrogenase Total Protein 6.5 Albumin 3.7 Ceruloplasmin Urine Color Urine Clarity Urine pH Ur Specific [place] Urine Protein Urine Glucose (UA) Urine Ketones Urine Occult Blood Urine Nitrate Urine Bilirubin Urine Urobilinogen Ur Leukocyte Esterase Urine RBC Urine WBC Urine WBC Clumps Ur Squamous Epith Cells Calcium Oxalate Crystal Urine Bacteria Hyaline Casts Urine Mucus Urine Yeast Ur Yeast w Hyphae Micro UA Comment Urine Culture Comments Nasal Screen MRSA (PCR) Random Vancomycin Phenytoin Hep B DNA Qnt log IU/mL Hep B DNA (Units/mL) 01/13/18 01/13/18 01/13/18 06:45 06:45 07:28 WBC 8.4 RBC 3.97 L Hgb 11.3 L Hct 34.0 L MCV 85.6 MCH 28.4 MCHC 33.2 RDW 16.5 Plt Count 98 L D MPV 8.4 Prelim Diff (Auto) Neut % (Auto) 70.2 H Lymph % (Auto) 10.3 Grant % (Auto) 17.8 H Eos % (Auto) 0.9 Baso % (Auto) 0.8 Neut # (Auto) 5.8 Lymph # (Auto) 0.9 L [place] # (Auto) 1.5 H Eos # (Auto) 0.1 Baso # (Auto) 0.1 CBC Comment AUTO DIFF WBC Differential Diff Scan Differential Comment AUTO DIFF CONFIRMED Platelet Estimate Plt Morphology Comment [place] Cells Acanthocytes (Spur) Keratocytes PT 23.2 H D INR 2.3 APTT Fibrinogen Puncture Site Patient Temperature HCO3 Base Excess O2 Saturation ABG pH ABG pCO2 ABG pO2 ABG O2 Content ABG Carboxyhemoglobin ABG Methemoglobin VBG pH VBG pCO2 VBG pO2 VBG HCO3 VBG O2 Saturation VBG O2 Content VBG Base Excess VBG Carboxyhemoglobin VBG Methemoglobin Hemoglobin O2 Delivery Device Liter Flow Vent Setting Inspired O2 Critical Value Sodium Potassium Chloride Carbon Dioxide Anion Gap BUN Creatinine Estimated GFR POC Glucose Random Glucose Lactic Acid Calcium Total Bilirubin Direct Bilirubin 4.2 H Indirect Bilirubin AST ALT Alkaline Phosphatase Ammonia Lactate Dehydrogenase Total Protein Albumin Ceruloplasmin Urine Color Urine Clarity Urine pH Ur Specific [place] Urine Protein Urine Glucose (UA) Urine Ketones Urine Occult Blood Urine Nitrate Urine Bilirubin Urine Urobilinogen Ur Leukocyte Esterase Urine RBC Urine WBC Urine WBC Clumps Ur Squamous Epith Cells Calcium Oxalate Crystal Urine Bacteria Hyaline Casts Urine Mucus Urine Yeast Ur Yeast w Hyphae Micro UA Comment Urine Culture Comments Nasal Screen MRSA (PCR) Random Vancomycin Phenytoin Hep B DNA Qnt log IU/mL Hep B DNA (Units/mL) 01/13/18 01/13/18 01/13/18 17:00 17:10 18:30 WBC RBC Hgb Hct MCV MCH MCHC RDW Plt Count MPV Prelim Diff (Auto) Neut % (Auto) Lymph % (Auto) [place] % (Auto) Eos % (Auto) Baso % (Auto) Neut # (Auto) Lymph # (Auto) Grant # (Auto) Eos # (Auto) Baso # (Auto) CBC Comment WBC Differential Diff Scan Differential Comment Platelet Estimate Plt Morphology Comment [place] Cells Acanthocytes (Spur) Keratocytes PT 42.3 H D INR 4.2 APTT Fibrinogen Puncture Site RT RADIAL Patient Temperature 98.6 HCO3 30 H Base Excess 7.2 H O2 Saturation 96 ABG pH 7.57 H* ABG pCO2 33 L ABG pO2 95 ABG O2 Content 16.2 ABG Carboxyhemoglobin 1.0 ABG Methemoglobin 1.0 VBG pH VBG pCO2 VBG pO2 VBG HCO3 VBG O2 Saturation VBG O2 Content VBG Base Excess VBG Carboxyhemoglobin VBG Methemoglobin Hemoglobin 12.0 O2 Delivery Device Liter Flow Vent Setting Inspired O2 Critical Value Sodium Potassium Chloride Carbon Dioxide Anion Gap BUN Creatinine Estimated GFR POC Glucose Random Glucose Lactic Acid Calcium Total Bilirubin Direct Bilirubin Indirect Bilirubin AST ALT Alkaline Phosphatase Ammonia Lactate Dehydrogenase Total Protein Albumin Ceruloplasmin Urine Color Urine Clarity Urine pH Ur Specific [place] Urine Protein Urine Glucose (UA) Urine Ketones Urine Occult Blood Urine Nitrate Urine Bilirubin Urine Urobilinogen Ur Leukocyte Esterase Urine RBC Urine WBC Urine WBC Clumps Ur Squamous Epith Cells Calcium Oxalate Crystal Urine Bacteria Hyaline Casts Urine Mucus Urine Yeast Ur Yeast w Hyphae Micro UA Comment Urine Culture Comments Nasal Screen MRSA (PCR) MRSA NOT DETECTED Random Vancomycin Phenytoin Hep B DNA Qnt log IU/mL Hep B DNA (Units/mL) 01/13/18 01/13/18 01/14/18 19:45 19:45 02:00 WBC 7.8 RBC 4.22 L Hgb 11.9 L Hct 35.2 L MCV 83.5 MCH 28.2 MCHC 33.8 RDW 17.3 H Plt Count 93 L MPV 8.7 Prelim Diff (Auto) Neut % (Auto) Lymph % (Auto) [place] % (Auto) Eos % (Auto) Baso % (Auto) Neut # (Auto) Lymph # (Auto) [place] # (Auto) Eos # (Auto) Baso # (Auto) CBC Comment WBC Differential Diff Scan Differential Comment Platelet Estimate Plt Morphology Comment [place] Cells Acanthocytes (Spur) Keratocytes PT INR APTT 43.5 H Fibrinogen Puncture Site Patient Temperature HCO3 Base Excess O2 Saturation ABG pH ABG pCO2 ABG pO2 ABG O2 Content ABG Carboxyhemoglobin ABG Methemoglobin VBG pH VBG pCO2 VBG pO2 VBG HCO3 VBG O2 Saturation VBG O2 Content VBG Base Excess VBG Carboxyhemoglobin VBG Methemoglobin Hemoglobin O2 Delivery Device Liter Flow Vent Setting Inspired O2 Critical Value Sodium 135 L Potassium 2.7 L* D Chloride 93 L Carbon Dioxide 25.8 Anion Gap 16 H BUN 5 L Creatinine 1.42 H Estimated GFR 58 L POC Glucose Random Glucose 99 Lactic Acid Calcium 9.9 Total Bilirubin 22.7 H Direct Bilirubin Indirect Bilirubin AST 31 ALT 89 H Alkaline Phosphatase 186 H Ammonia Lactate Dehydrogenase Total Protein 7.2 D Albumin 3.9 Ceruloplasmin Urine Color Urine Clarity Urine pH Ur Specific [place] Urine Protein Urine Glucose (UA) Urine Ketones Urine Occult Blood Urine Nitrate Urine Bilirubin Urine Urobilinogen Ur Leukocyte Esterase Urine RBC Urine WBC Urine WBC Clumps Ur Squamous Epith Cells Calcium Oxalate Crystal Urine Bacteria Hyaline Casts Urine Mucus Urine Yeast Ur Yeast w Hyphae Micro UA Comment Urine Culture Comments Nasal Screen MRSA (PCR) Random Vancomycin Phenytoin Hep B DNA Qnt log IU/mL Hep B DNA (Units/mL) 01/14/18 01/14/18 01/14/18 02:00 02:00 02:00 WBC 11.3 H RBC 4.26 L Hgb 12.0 L Hct 35.2 L MCV 82.7 MCH 28.2 MCHC 34.1 RDW 17.2 Plt Count 103 L MPV 8.6 Prelim Diff (Auto) Neut % (Auto) 54.5 Lymph % (Auto) 25.7 Grant % (Auto) 19.0 H Eos % (Auto) 0.7 Baso % (Auto) 0.1 Neut # (Auto) 6.2 Lymph # (Auto) 2.9 Grant # (Auto) 2.2 H Eos # (Auto) 0.1 Baso # (Auto) 0.0 CBC Comment AUTO DIFF WBC Differential Diff Scan Differential Comment AUTO DIFF CONFIRMED Platelet Estimate LOW L Plt Morphology Comment NORMAL [place] Cells Acanthocytes (Spur) 1+ H Keratocytes OCC PT 30.0 H D INR 3.0 APTT Fibrinogen Puncture Site Patient Temperature HCO3 Base Excess O2 Saturation ABG pH ABG pCO2 ABG pO2 ABG O2 Content ABG Carboxyhemoglobin ABG Methemoglobin VBG pH VBG pCO2 VBG pO2 VBG HCO3 VBG O2 Saturation VBG O2 Content VBG Base Excess VBG Carboxyhemoglobin VBG Methemoglobin Hemoglobin O2 Delivery Device Liter Flow Vent Setting Inspired O2 Critical Value Sodium Potassium Chloride Carbon Dioxide Anion Gap BUN Creatinine Estimated GFR POC Glucose Random Glucose Lactic Acid Calcium Total Bilirubin Direct Bilirubin Indirect Bilirubin AST ALT Alkaline Phosphatase Ammonia Lactate Dehydrogenase Total Protein Albumin Ceruloplasmin Urine Color Urine Clarity Urine pH Ur Specific [place] Urine Protein Urine Glucose (UA) Urine Ketones Urine Occult Blood Urine Nitrate Urine Bilirubin Urine Urobilinogen Ur Leukocyte Esterase Urine RBC Urine WBC Urine WBC Clumps Ur Squamous Epith Cells Calcium Oxalate Crystal Urine Bacteria Hyaline Casts Urine Mucus Urine Yeast Ur Yeast w Hyphae Micro UA Comment Urine Culture Comments Nasal Screen MRSA (PCR) Random Vancomycin Phenytoin 13.4 Hep B DNA Qnt log IU/mL Hep B DNA (Units/mL) 01/14/18 01/14/18 01/14/18 02:02 02:31 05:49 WBC RBC Hgb Hct MCV MCH MCHC RDW Plt Count MPV Prelim Diff (Auto) Neut % (Auto) Lymph % (Auto) [place] % (Auto) Eos % (Auto) Baso % (Auto) Neut # (Auto) Lymph # (Auto) Grant # (Auto) Eos # (Auto) Baso # (Auto) CBC Comment WBC Differential Diff Scan Differential Comment Platelet Estimate Plt Morphology Comment [place] Cells Acanthocytes (Spur) Keratocytes PT 30.1 H INR 3.0 APTT 33.4 H D Fibrinogen 153 L Puncture Site RT BRACHIAL Patient Temperature 98.6 HCO3 28 H Base Excess 5.4 H O2 Saturation 49 L* ABG pH 7.59 H* ABG pCO2 29 L ABG pO2 29 L* ABG O2 Content 8.3 L ABG Carboxyhemoglobin 0.9 ABG Methemoglobin 1.1 VBG pH VBG pCO2 VBG pO2 VBG HCO3 VBG O2 Saturation VBG O2 Content VBG Base Excess VBG Carboxyhemoglobin VBG Methemoglobin Hemoglobin 12.0 O2 Delivery Device NASAL CANNULA Liter Flow 2 Vent Setting Inspired O2 Critical Value Sodium Potassium Chloride Carbon Dioxide Anion Gap BUN Creatinine Estimated GFR POC Glucose Random Glucose Lactic Acid Calcium Total Bilirubin Direct Bilirubin Indirect Bilirubin AST ALT Alkaline Phosphatase Ammonia 121 H Lactate Dehydrogenase Total Protein Albumin Ceruloplasmin Urine Color Urine Clarity Urine pH Ur Specific [place] Urine Protein Urine Glucose (UA) Urine Ketones Urine Occult Blood Urine Nitrate Urine Bilirubin Urine Urobilinogen Ur Leukocyte Esterase Urine RBC Urine WBC Urine WBC Clumps Ur Squamous Epith Cells Calcium Oxalate Crystal Urine Bacteria Hyaline Casts Urine Mucus Urine Yeast Ur Yeast w Hyphae Micro UA Comment Urine Culture Comments Nasal Screen MRSA (PCR) Random Vancomycin Phenytoin Hep B DNA Qnt log IU/mL Hep B DNA (Units/mL) 01/14/18 01/14/18 01/14/18 05:49 07:46 17:30 WBC RBC Hgb Hct MCV MCH MCHC RDW Plt Count MPV Prelim Diff (Auto) Neut % (Auto) Lymph % (Auto) Grant % (Auto) Eos % (Auto) Baso % (Auto) Neut # (Auto) Lymph # (Auto) Grant # (Auto) Eos # (Auto) Baso # (Auto) CBC Comment WBC Differential Diff Scan Differential Comment Platelet Estimate Plt Morphology Comment [place] Cells Acanthocytes (Spur) Keratocytes PT 26.9 H INR 2.7 APTT Fibrinogen Puncture Site CENTRAL LINE Patient Temperature 98.6 HCO3 Base Excess O2 Saturation ABG pH ABG pCO2 ABG pO2 ABG O2 Content ABG Carboxyhemoglobin ABG Methemoglobin VBG pH 7.59 H* VBG pCO2 29 L VBG pO2 29 L* VBG HCO3 28 H VBG O2 Saturation 49 L VBG O2 Content 8.3 L VBG Base Excess 5.4 H VBG Carboxyhemoglobin 1.1 VBG Methemoglobin Hemoglobin O2 Delivery Device NASAL CANNULA Liter Flow 2 Vent Setting Inspired O2 Critical Value Sodium Potassium 2.4 L* Chloride Carbon Dioxide Anion Gap BUN Creatinine Estimated GFR POC Glucose Random Glucose Lactic Acid Calcium Total Bilirubin Direct Bilirubin Indirect Bilirubin AST ALT Alkaline Phosphatase Ammonia Lactate Dehydrogenase Total Protein Albumin Ceruloplasmin Urine Color Urine Clarity Urine pH Ur Specific [place] Urine Protein Urine Glucose (UA) Urine Ketones Urine Occult Blood Urine Nitrate Urine Bilirubin Urine Urobilinogen Ur Leukocyte Esterase Urine RBC Urine WBC Urine WBC Clumps Ur Squamous Epith Cells Calcium Oxalate Crystal Urine Bacteria Hyaline Casts Urine Mucus Urine Yeast Ur Yeast w Hyphae Micro UA Comment Urine Culture Comments Nasal Screen MRSA (PCR) Random Vancomycin Phenytoin Hep B DNA Qnt log IU/mL Hep B DNA (Units/mL) 01/14/18 01/14/18 01/15/18 18:40 23:24 00:20 WBC RBC Hgb Hct MCV MCH MCHC RDW Plt Count MPV Prelim Diff (Auto) Neut % (Auto) Lymph % (Auto) Grant % (Auto) Eos % (Auto) Baso % (Auto) Neut # (Auto) Lymph # (Auto) Grant # (Auto) Eos # (Auto) Baso # (Auto) CBC Comment WBC Differential Diff Scan Differential Comment Platelet Estimate Plt Morphology Comment [place] Cells Acanthocytes (Spur) Keratocytes PT INR APTT Fibrinogen Puncture Site CENTRAL LINE RT RADIAL Patient Temperature 98.6 98.6 HCO3 28 H Base Excess 5.3 H O2 Saturation 98 ABG pH 7.57 H* ABG pCO2 30 L ABG pO2 175 H ABG O2 Content 16.6 ABG Carboxyhemoglobin 0.9 ABG Methemoglobin 0.9 VBG pH 7.59 H* VBG pCO2 31 L VBG pO2 46 H VBG HCO3 30 H VBG O2 Saturation 80 H VBG O2 Content 12.4 VBG Base Excess 7.7 H VBG Carboxyhemoglobin VBG Methemoglobin Hemoglobin 11.8 L O2 Delivery Device NASAL CANNULA NASAL CANNULA Liter Flow 4 4 Vent Setting Inspired O2 Critical Value Sodium Potassium Chloride Carbon Dioxide Anion Gap BUN Creatinine Estimated GFR POC Glucose Random Glucose Lactic Acid Calcium Total Bilirubin 23.8 H Direct Bilirubin 5.0 H Indirect Bilirubin 18.8 H AST 32 ALT 80 H Alkaline Phosphatase 172 H Ammonia Lactate Dehydrogenase Total Protein 7.2 Albumin 3.7 Ceruloplasmin Urine Color Urine Clarity Urine pH Ur Specific [place] Urine Protein Urine Glucose (UA) Urine Ketones Urine Occult Blood Urine Nitrate Urine Bilirubin Urine Urobilinogen Ur Leukocyte Esterase Urine RBC Urine WBC Urine WBC Clumps Ur Squamous Epith Cells Calcium Oxalate Crystal Urine Bacteria Hyaline Casts Urine Mucus Urine Yeast Ur Yeast w Hyphae Micro UA Comment Urine Culture Comments Nasal Screen MRSA (PCR) Random Vancomycin Phenytoin Hep B DNA Qnt log IU/mL Hep B DNA (Units/mL) 01/15/18 01/15/18 01/15/18 00:20 03:58 03:58 WBC RBC Hgb Hct MCV MCH MCHC RDW Plt Count MPV Prelim Diff (Auto) Neut % (Auto) Lymph % (Auto) Grant % (Auto) Eos % (Auto) Baso % (Auto) Neut # (Auto) Lymph # (Auto) Grant # (Auto) Eos # (Auto) Baso # (Auto) CBC Comment WBC Differential Diff Scan Differential Comment Platelet Estimate Plt Morphology Comment [place] Cells Acanthocytes (Spur) Keratocytes PT INR APTT Fibrinogen Puncture Site Patient Temperature HCO3 Base Excess O2 Saturation ABG pH ABG pCO2 ABG pO2 ABG O2 Content ABG Carboxyhemoglobin ABG Methemoglobin VBG pH VBG pCO2 VBG pO2 VBG HCO3 VBG O2 Saturation VBG O2 Content VBG Base Excess VBG Carboxyhemoglobin VBG Methemoglobin Hemoglobin O2 Delivery Device Liter Flow Vent Setting Inspired O2 Critical Value Sodium 137 Potassium 3.2 L D Chloride 99 Carbon Dioxide 24.7 Anion Gap 13 BUN 6 L Creatinine 1.42 H Estimated GFR 58 L POC Glucose Random Glucose 133 H Lactic Acid Calcium 9.7 Total Bilirubin 24.3 H Direct Bilirubin Indirect Bilirubin AST 31 ALT 80 H Alkaline Phosphatase 165 H Ammonia 156 H 180 H Lactate Dehydrogenase Total Protein 7.0 Albumin 3.6 Ceruloplasmin Urine Color Urine Clarity Urine pH Ur Specific [place] Urine Protein Urine Glucose (UA) Urine Ketones Urine Occult Blood Urine Nitrate Urine Bilirubin Urine Urobilinogen Ur Leukocyte Esterase Urine RBC Urine WBC Urine WBC Clumps Ur Squamous Epith Cells Calcium Oxalate Crystal Urine Bacteria Hyaline Casts Urine Mucus Urine Yeast Ur Yeast w Hyphae Micro UA Comment Urine Culture Comments Nasal Screen MRSA (PCR) Random Vancomycin 19.0 Phenytoin 13.6 Hep B DNA Qnt log IU/mL Hep B DNA (Units/mL) 01/15/18 01/15/18 01/15/18 03:58 03:58 04:50 WBC 5.2 RBC 4.15 L Hgb 12.0 L Hct 34.7 L MCV 83.6 MCH 29.0 MCHC 34.7 RDW 17.8 H Plt Count 106 L MPV 8.6 Prelim Diff (Auto) Neut % (Auto) 77.6 H Lymph % (Auto) 13.4 Grant % (Auto) 8.5 H Eos % (Auto) 0.1 Baso % (Auto) 0.4 Neut # (Auto) 4.1 Lymph # (Auto) 0.7 L Grant # (Auto) 0.4 Eos # (Auto) 0.0 Baso # (Auto) 0.0 CBC Comment AUTO DIFF WBC Differential Diff Scan Differential Comment AUTO DIFF CONFIRMED Platelet Estimate LOW L Plt Morphology Comment NORMAL [place] Cells Acanthocytes (Spur) 1+ H Keratocytes OCC PT 121.5 H D INR 12.2 H* APTT Fibrinogen Puncture Site Patient Temperature HCO3 Base Excess O2 Saturation ABG pH ABG pCO2 ABG pO2 ABG O2 Content ABG Carboxyhemoglobin ABG Methemoglobin VBG pH VBG pCO2 VBG pO2 VBG HCO3 VBG O2 Saturation VBG O2 Content VBG Base Excess VBG Carboxyhemoglobin VBG Methemoglobin Hemoglobin O2 Delivery Device Liter Flow Vent Setting Inspired O2 Critical Value Sodium Potassium Chloride Carbon Dioxide Anion Gap BUN Creatinine Estimated GFR POC Glucose Random Glucose Lactic Acid 5.1 H* Calcium Total Bilirubin Direct Bilirubin Indirect Bilirubin AST ALT Alkaline Phosphatase Ammonia Lactate Dehydrogenase Total Protein Albumin Ceruloplasmin Urine Color Urine Clarity Urine pH Ur Specific [place] Urine Protein Urine Glucose (UA) Urine Ketones Urine Occult Blood Urine Nitrate Urine Bilirubin Urine Urobilinogen Ur Leukocyte Esterase Urine RBC Urine WBC Urine WBC Clumps Ur Squamous Epith Cells Calcium Oxalate Crystal Urine Bacteria Hyaline Casts Urine Mucus Urine Yeast Ur Yeast w Hyphae Micro UA Comment Urine Culture Comments Nasal Screen MRSA (PCR) Random Vancomycin Phenytoin Hep B DNA Qnt log IU/mL Hep B DNA (Units/mL) 01/15/18 01/15/18 01/15/18 06:03 12:00 18:05 WBC RBC Hgb Hct MCV MCH MCHC RDW Plt Count MPV Prelim Diff (Auto) Neut % (Auto) Lymph % (Auto) Grant % (Auto) Eos % (Auto) Baso % (Auto) Neut # (Auto) Lymph # (Auto) Grant # (Auto) Eos # (Auto) Baso # (Auto) CBC Comment WBC Differential Diff Scan Differential Comment Platelet Estimate Plt Morphology Comment [place] Cells Acanthocytes (Spur) Keratocytes PT INR APTT Fibrinogen Puncture Site CENTRAL LINE RT RADIAL Patient Temperature 98.6 98.6 HCO3 25 Base Excess 4.4 H O2 Saturation 98 ABG pH 7.71 H* ABG pCO2 19 L* ABG pO2 200 H ABG O2 Content 15.6 ABG Carboxyhemoglobin 0.8 ABG Methemoglobin 0.8 VBG pH 7.59 H* VBG pCO2 29 L VBG pO2 44 H VBG HCO3 28 H VBG O2 Saturation 78 H VBG O2 Content 12.5 VBG Base Excess 5.5 H VBG Carboxyhemoglobin VBG Methemoglobin Hemoglobin 11.0 L O2 Delivery Device VENTILATOR VENTILATOR Liter Flow Vent Setting SEE COMMENTS [id number] Inspired O2 50 40 Critical Value Sodium Potassium 3.4 L Chloride Carbon Dioxide Anion Gap BUN Creatinine Estimated GFR POC Glucose Random Glucose Lactic Acid Calcium Total Bilirubin Direct Bilirubin Indirect Bilirubin AST ALT Alkaline Phosphatase Ammonia Lactate Dehydrogenase Total Protein Albumin Ceruloplasmin Urine Color Urine Clarity Urine pH Ur Specific [place] Urine Protein Urine Glucose (UA) Urine Ketones Urine Occult Blood Urine Nitrate Urine Bilirubin Urine Urobilinogen Ur Leukocyte Esterase Urine RBC Urine WBC Urine WBC Clumps Ur Squamous Epith Cells Calcium Oxalate Crystal Urine Bacteria Hyaline Casts Urine Mucus Urine Yeast Ur Yeast w Hyphae Micro UA Comment Urine Culture Comments Nasal Screen MRSA (PCR) Random Vancomycin Phenytoin Hep B DNA Qnt log IU/mL Hep B DNA (Units/mL) 01/16/18 01/16/18 01/16/18 04:16 04:16 04:16 WBC 6.3 RBC 4.09 L Hgb 11.8 L Hct 34.3 L MCV 83.9 MCH 29.0 MCHC 34.5 RDW 18.3 H Plt Count 129 L MPV 8.6 Prelim Diff (Auto) Slide review pending Neut % (Auto) 56.3 Lymph % (Auto) 18.8 Grant % (Auto) 24.5 H Eos % (Auto) 0.2 Baso % (Auto) 0.2 Neut # (Auto) 3.6 Lymph # (Auto) 1.2 Grant # (Auto) 1.5 H Eos # (Auto) 0.0 Baso # (Auto) 0.0 CBC Comment WBC Differential . Diff Scan Auto diff confirmed Differential Comment . Platelet Estimate Plt Morphology Comment [place] Cells 1+ H Acanthocytes (Spur) 1+ H Keratocytes Occ H PT 105.8 H INR 10.6 H* APTT Fibrinogen Puncture Site Patient Temperature HCO3 Base Excess O2 Saturation ABG pH ABG pCO2 ABG pO2 ABG O2 Content ABG Carboxyhemoglobin ABG Methemoglobin VBG pH VBG pCO2 VBG pO2 VBG HCO3 VBG O2 Saturation VBG O2 Content VBG Base Excess VBG Carboxyhemoglobin VBG Methemoglobin Hemoglobin O2 Delivery Device Liter Flow Vent Setting Inspired O2 Critical Value Sodium Potassium Chloride Carbon Dioxide Anion Gap BUN Creatinine Estimated GFR POC Glucose Random Glucose Lactic Acid Calcium Total Bilirubin Direct Bilirubin Indirect Bilirubin AST ALT Alkaline Phosphatase Ammonia Lactate Dehydrogenase Total Protein Albumin Ceruloplasmin Urine Color Urine Clarity Urine pH Ur Specific [place] Urine Protein Urine Glucose (UA) Urine Ketones Urine Occult Blood Urine Nitrate Urine Bilirubin Urine Urobilinogen Ur Leukocyte Esterase Urine RBC Urine WBC Urine WBC Clumps Ur Squamous Epith Cells Calcium Oxalate Crystal Urine Bacteria Hyaline Casts Urine Mucus Urine Yeast Ur Yeast w Hyphae Micro UA Comment Urine Culture Comments Nasal Screen MRSA (PCR) Random Vancomycin Phenytoin 18.2 Hep B DNA Qnt log IU/mL Hep B DNA (Units/mL) 01/16/18 01/16/18 01/16/18 04:16 04:16 08:01 WBC RBC Hgb Hct MCV MCH MCHC RDW Plt Count MPV Prelim Diff (Auto) Neut % (Auto) Lymph % (Auto) Grant % (Auto) Eos % (Auto) Baso % (Auto) Neut # (Auto) Lymph # (Auto) Grant # (Auto) Eos # (Auto) Baso # (Auto) CBC Comment WBC Differential Diff Scan Differential Comment Platelet Estimate Plt Morphology Comment [place] Cells Acanthocytes (Spur) Keratocytes PT INR APTT Fibrinogen Puncture Site Patient Temperature HCO3 Base Excess O2 Saturation ABG pH ABG pCO2 ABG pO2 ABG O2 Content ABG Carboxyhemoglobin ABG Methemoglobin VBG pH VBG pCO2 VBG pO2 VBG HCO3 VBG O2 Saturation VBG O2 Content VBG Base Excess VBG Carboxyhemoglobin VBG Methemoglobin Hemoglobin O2 Delivery Device Liter Flow Vent Setting Inspired O2 Critical Value Sodium Potassium Chloride Carbon Dioxide Anion Gap BUN Creatinine Estimated GFR POC Glucose 162 H Random Glucose Lactic Acid Calcium Total Bilirubin Direct Bilirubin Indirect Bilirubin AST ALT Alkaline Phosphatase Ammonia 147 H Lactate Dehydrogenase Total Protein Albumin Ceruloplasmin Urine Color Urine Clarity Urine pH Ur Specific [place] Urine Protein Urine Glucose (UA) Urine Ketones Urine Occult Blood Urine Nitrate Urine Bilirubin Urine Urobilinogen Ur Leukocyte Esterase Urine RBC Urine WBC Urine WBC Clumps Ur Squamous Epith Cells Calcium Oxalate Crystal Urine Bacteria Hyaline Casts Urine Mucus Urine Yeast Ur Yeast w Hyphae Micro UA Comment Urine Culture Comments Nasal Screen MRSA (PCR) Random Vancomycin 19.5 Phenytoin Hep B DNA Qnt log IU/mL Hep B DNA (Units/mL) 01/16/18 01/16/18 01/16/18 12:40 12:40 12:56 WBC RBC Hgb Hct MCV MCH MCHC RDW Plt Count MPV Prelim Diff (Auto) Neut % (Auto) Lymph % (Auto) Grant % (Auto) Eos % (Auto) Baso % (Auto) Neut # (Auto) Lymph # (Auto) Grant # (Auto) Eos # (Auto) Baso # (Auto) CBC Comment WBC Differential Diff Scan Differential Comment Platelet Estimate Plt Morphology Comment [place] Cells Acanthocytes (Spur) Keratocytes PT INR APTT Fibrinogen Puncture Site Patient Temperature HCO3 Base Excess O2 Saturation ABG pH ABG pCO2 ABG pO2 ABG O2 Content ABG Carboxyhemoglobin ABG Methemoglobin VBG pH VBG pCO2 VBG pO2 VBG HCO3 VBG O2 Saturation VBG O2 Content VBG Base Excess VBG Carboxyhemoglobin VBG Methemoglobin Hemoglobin O2 Delivery Device Liter Flow Vent Setting Inspired O2 Critical Value Sodium 140 Potassium 3.4 L Chloride 101 Carbon Dioxide 24.7 Anion Gap 14 BUN 7 Creatinine 1.56 H Estimated GFR 52 L POC Glucose 150 H Random Glucose 136 H Lactic Acid Calcium 9.9 Total Bilirubin 25.4 H Direct Bilirubin Indirect Bilirubin AST 26 ALT 63 Alkaline Phosphatase 151 H Ammonia Lactate Dehydrogenase Total Protein 6.8 Albumin 3.6 Ceruloplasmin Urine Color [place] Urine Clarity Cloudy H Urine pH 5.0 Ur Specific [place] 1.017 Urine Protein Negative Urine Glucose (UA) 50 Urine Ketones Trace Urine Occult Blood Large H Urine Nitrate Negative Urine Bilirubin Negative Urine Urobilinogen Less than 2 Ur Leukocyte Esterase Large H Urine RBC 46 H Urine WBC 91 H Urine WBC Clumps Many H Ur Squamous Epith Cells 1 Calcium Oxalate Crystal Occasional H Urine Bacteria Rare H Hyaline Casts 17 Urine Mucus Few H Urine Yeast Many H Ur Yeast w Hyphae Moderate H Micro UA Comment Culture indicated Urine Culture Comments Culture indicated Nasal Screen MRSA (PCR) Random Vancomycin Phenytoin Hep B DNA Qnt log IU/mL Hep B DNA (Units/mL) 01/16/18 01/16/18 13:29 16:31 WBC RBC Hgb Hct MCV MCH MCHC RDW Plt Count MPV Prelim Diff (Auto) Neut % (Auto) Lymph % (Auto) Grant % (Auto) Eos % (Auto) Baso % (Auto) Neut # (Auto) Lymph # (Auto) Grant # (Auto) Eos # (Auto) Baso # (Auto) CBC Comment WBC Differential Diff Scan Differential Comment Platelet Estimate Plt Morphology Comment [place] Cells Acanthocytes (Spur) Keratocytes PT INR APTT Fibrinogen Puncture Site Central line Patient Temperature 98.6 HCO3 Base Excess O2 Saturation ABG pH ABG pCO2 ABG pO2 ABG O2 Content ABG Carboxyhemoglobin ABG Methemoglobin VBG pH 7.60 H* VBG pCO2 26 L VBG pO2 46 H VBG HCO3 26 VBG O2 Saturation 81 H VBG O2 Content 12.3 VBG Base Excess 4.0 H VBG Carboxyhemoglobin 0.9 VBG Methemoglobin 0.8 Hemoglobin 10.8 L O2 Delivery Device Ventilator Liter Flow Vent Setting [id number] Inspired O2 30 Critical Value Yes Sodium Potassium Chloride Carbon Dioxide Anion Gap BUN Creatinine Estimated GFR POC Glucose 143 H Random Glucose Lactic Acid Calcium Total Bilirubin Direct Bilirubin Indirect Bilirubin AST ALT Alkaline Phosphatase Ammonia Lactate Dehydrogenase Total Protein Albumin Ceruloplasmin Urine Color Urine Clarity Urine pH Ur Specific [place] Urine Protein Urine Glucose (UA) Urine Ketones Urine Occult Blood Urine Nitrate Urine Bilirubin Urine Urobilinogen Ur Leukocyte Esterase Urine RBC Urine WBC Urine WBC Clumps Ur Squamous Epith Cells Calcium Oxalate Crystal Urine Bacteria Hyaline Casts Urine Mucus Urine Yeast Ur Yeast w Hyphae Micro UA Comment Urine Culture Comments Nasal Screen MRSA (PCR) Random Vancomycin Phenytoin Hep B DNA Qnt log IU/mL Hep B DNA (Units/mL) - Imaging Imaging: Impressions Head MRI 01/16/18 00:00 CONCLUSION: 1. Subtle restricted diffusion in the gold matter when compared to the white most prevalent in mid [place]lv[place] regions bilaterally. This is symmetric. This can be seen with anoxic encephalopathy. 2. There is no abnormal contrast enhancement. 3. There is no parenchymal hemorrhage. <Reyna Cano - Last Filed: 01/16/18 17:01> Assessment and Plan - Attending Attestation Agree with above. Supportive care The exam, history, and the medical decision-making described in the above note were completed with the assistance of the mid-level provider. I reviewed and agree with the findings presented. I attest that I had a [id number] encounter with the patient on the same day, and personally performed and documented my assessment and findings in the medical record. <Reyna Cano - Last Filed: 01/16/18 17:01>
--- NOTE | 2018-01-16 16:20 | P.PNONC ---
Subjective Interval history: Intubated and sedated. Objective Vital Signs/Intake & Output: Vital Signs 01/16/18 00:00 01/16/18 02:00 01/16/18 03:19 Temperature 98.9 F Pulse Rate 93 H 93 H Respiratory Rate 24 24 24 Blood Pressure 130/76 138/74 Pulse Oximetry 93 L 97 97 01/16/18 04:00 01/16/18 06:00 01/16/18 07:41 Temperature 99.4 F Pulse Rate 93 H 94 H Respiratory Rate 22 20 24 Blood Pressure 144/77 H 139/76 Pulse Oximetry 97 97 01/16/18 08:00 01/16/18 09:00 01/16/18 12:00 Temperature 98.9 F 98.9 F Pulse Rate 96 H 94 H 93 H Respiratory Rate 25 H 32 H 26 H Blood Pressure 137/74 143/74 H Pulse Oximetry 97 01/16/18 12:03 01/16/18 15:47 Temperature Pulse Rate Respiratory Rate 23 26 H Blood Pressure Pulse Oximetry 96 Intake & Output 01/15/18 01/16/18 01/16/18 18:59 06:59 18:59 Intake Total 454 / 454 Output Total 700 / 700 Balance -246 / -246 Intake: IV 100 / 100 Maxipime Inj 2,000 MG In NS Inj 100 / 100 100 ML @ 200 mls/hr IV.SIG Q8H VIOLETTE Rx#:[id number] Tube Feeding 234 / 234 Water Bolus Amount 120 / 120 Output: Urine 500 / 500 Stool 200 / 200 Other: Date of Last Bowel Movement 01/16/18 01/16/18 Result Diagrams: 01/16/18 04:16 01/16/18 12:40 Laboratory Results: Laboratory Results - last 24 hr 01/11/18 01/11/18 01/13/18 09:50 09:50 03:07 WBC RBC Hgb Hct MCV MCH MCHC RDW Plt Count MPV Prelim Diff (Auto) Neut % (Auto) Lymph % (Auto) [place] % (Auto) Eos % (Auto) Baso % (Auto) Neut # (Auto) Lymph # (Auto) [place] # (Auto) Eos # (Auto) Baso # (Auto) CBC Comment WBC Differential Diff Scan Differential Comment Platelet Estimate Plt Morphology Comment [place] Cells Acanthocytes (Spur) Keratocytes PT INR APTT Fibrinogen Puncture Site Patient Temperature HCO3 Base Excess O2 Saturation ABG pH ABG pCO2 ABG pO2 ABG O2 Content ABG Carboxyhemoglobin ABG Methemoglobin VBG pH VBG pCO2 VBG pO2 VBG HCO3 VBG O2 Saturation VBG O2 Content VBG Base Excess VBG Carboxyhemoglobin VBG Methemoglobin Hemoglobin O2 Delivery Device Liter Flow Vent Setting Inspired O2 Critical Value Sodium Potassium Chloride Carbon Dioxide Anion Gap BUN Creatinine Estimated GFR POC Glucose Random Glucose Lactic Acid Calcium Total Bilirubin Direct Bilirubin Indirect Bilirubin AST ALT Alkaline Phosphatase Ammonia Lactate Dehydrogenase 274 H Total Protein 6.9 Albumin Ceruloplasmin 16 L Urine Color Urine Clarity Urine pH Ur Specific [place] Urine Protein Urine Glucose (UA) Urine Ketones Urine Occult Blood Urine Nitrate Urine Bilirubin Urine Urobilinogen Ur Leukocyte Esterase Urine RBC Urine WBC Urine WBC Clumps Ur Squamous Epith Cells Calcium Oxalate Crystal Urine Bacteria Hyaline Casts Urine Mucus Urine Yeast Ur Yeast w Hyphae Micro UA Comment Urine Culture Comments Nasal Screen MRSA (PCR) Random Vancomycin Phenytoin Hep B DNA Qnt log IU/mL LESS THAN 1.00 Hep B DNA (Units/mL) LESS THAN 10 01/13/18 01/13/18 01/13/18 05:48 06:45 06:45 WBC RBC Hgb Hct MCV MCH MCHC RDW Plt Count MPV Prelim Diff (Auto) Neut % (Auto) Lymph % (Auto) [place] % (Auto) Eos % (Auto) Baso % (Auto) Neut # (Auto) Lymph # (Auto) [place] # (Auto) Eos # (Auto) Baso # (Auto) CBC Comment WBC Differential Diff Scan Differential Comment Platelet Estimate Plt Morphology Comment [place] Cells Acanthocytes (Spur) Keratocytes PT INR APTT Fibrinogen Puncture Site RT RADIAL Patient Temperature 98.6 HCO3 29 H Base Excess 7.4 H O2 Saturation 97 ABG pH 7.74 H* ABG pCO2 20 L* ABG pO2 102 ABG O2 Content 15.2 ABG Carboxyhemoglobin 1.6 ABG Methemoglobin 0.6 VBG pH VBG pCO2 VBG pO2 VBG HCO3 VBG O2 Saturation VBG O2 Content VBG Base Excess VBG Carboxyhemoglobin VBG Methemoglobin Hemoglobin 11.1 L O2 Delivery Device NASAL CANNULA Liter Flow 2 Vent Setting Inspired O2 Critical Value Sodium 131 L Potassium 3.6 Chloride 90 L Carbon Dioxide 31.0 Anion Gap 10 BUN 4 L Creatinine 1.30 Estimated GFR 64 L POC Glucose Random Glucose 83 Lactic Acid Calcium 9.7 Total Bilirubin 19.4 H Direct Bilirubin Indirect Bilirubin AST 28 ALT 102 H Alkaline Phosphatase 165 H Ammonia 95 H Lactate Dehydrogenase Total Protein 6.5 Albumin 3.7 Ceruloplasmin Urine Color Urine Clarity Urine pH Ur Specific [place] Urine Protein Urine Glucose (UA) Urine Ketones Urine Occult Blood Urine Nitrate Urine Bilirubin Urine Urobilinogen Ur Leukocyte Esterase Urine RBC Urine WBC Urine WBC Clumps Ur Squamous Epith Cells Calcium Oxalate Crystal Urine Bacteria Hyaline Casts Urine Mucus Urine Yeast Ur Yeast w Hyphae Micro UA Comment Urine Culture Comments Nasal Screen MRSA (PCR) Random Vancomycin Phenytoin Hep B DNA Qnt log IU/mL Hep B DNA (Units/mL) 01/13/18 01/13/18 01/13/18 06:45 06:45 07:28 WBC 8.4 RBC 3.97 L Hgb 11.3 L Hct 34.0 L MCV 85.6 MCH 28.4 MCHC 33.2 RDW 16.5 Plt Count 98 L D MPV 8.4 Prelim Diff (Auto) Neut % (Auto) 70.2 H Lymph % (Auto) 10.3 [place] % (Auto) 17.8 H Eos % (Auto) 0.9 Baso % (Auto) 0.8 Neut # (Auto) 5.8 Lymph # (Auto) 0.9 L [place] # (Auto) 1.5 H Eos # (Auto) 0.1 Baso # (Auto) 0.1 CBC Comment AUTO DIFF WBC Differential Diff Scan Differential Comment AUTO DIFF CONFIRMED Platelet Estimate Plt Morphology Comment [place] Cells Acanthocytes (Spur) Keratocytes PT 23.2 H D INR 2.3 APTT Fibrinogen Puncture Site Patient Temperature HCO3 Base Excess O2 Saturation ABG pH ABG pCO2 ABG pO2 ABG O2 Content ABG Carboxyhemoglobin ABG Methemoglobin VBG pH VBG pCO2 VBG pO2 VBG HCO3 VBG O2 Saturation VBG O2 Content VBG Base Excess VBG Carboxyhemoglobin VBG Methemoglobin Hemoglobin O2 Delivery Device Liter Flow Vent Setting Inspired O2 Critical Value Sodium Potassium Chloride Carbon Dioxide Anion Gap BUN Creatinine Estimated GFR POC Glucose Random Glucose Lactic Acid Calcium Total Bilirubin Direct Bilirubin 4.2 H Indirect Bilirubin AST ALT Alkaline Phosphatase Ammonia Lactate Dehydrogenase Total Protein Albumin Ceruloplasmin Urine Color Urine Clarity Urine pH Ur Specific [place] Urine Protein Urine Glucose (UA) Urine Ketones Urine Occult Blood Urine Nitrate Urine Bilirubin Urine Urobilinogen Ur Leukocyte Esterase Urine RBC Urine WBC Urine WBC Clumps Ur Squamous Epith Cells Calcium Oxalate Crystal Urine Bacteria Hyaline Casts Urine Mucus Urine Yeast Ur Yeast w Hyphae Micro UA Comment Urine Culture Comments Nasal Screen MRSA (PCR) Random Vancomycin Phenytoin Hep B DNA Qnt log IU/mL Hep B DNA (Units/mL) 01/13/18 01/13/18 01/13/18 17:00 17:10 18:30 WBC RBC Hgb Hct MCV MCH MCHC RDW Plt Count MPV Prelim Diff (Auto) Neut % (Auto) Lymph % (Auto) [place] % (Auto) Eos % (Auto) Baso % (Auto) Neut # (Auto) Lymph # (Auto) [place] # (Auto) Eos # (Auto) Baso # (Auto) CBC Comment WBC Differential Diff Scan Differential Comment Platelet Estimate Plt Morphology Comment [place] Cells Acanthocytes (Spur) Keratocytes PT 42.3 H D INR 4.2 APTT Fibrinogen Puncture Site RT RADIAL Patient Temperature 98.6 HCO3 30 H Base Excess 7.2 H O2 Saturation 96 ABG pH 7.57 H* ABG pCO2 33 L ABG pO2 95 ABG O2 Content 16.2 ABG Carboxyhemoglobin 1.0 ABG Methemoglobin 1.0 VBG pH VBG pCO2 VBG pO2 VBG HCO3 VBG O2 Saturation VBG O2 Content VBG Base Excess VBG Carboxyhemoglobin VBG Methemoglobin Hemoglobin 12.0 O2 Delivery Device Liter Flow Vent Setting Inspired O2 Critical Value Sodium Potassium Chloride Carbon Dioxide Anion Gap BUN Creatinine Estimated GFR POC Glucose Random Glucose Lactic Acid Calcium Total Bilirubin Direct Bilirubin Indirect Bilirubin AST ALT Alkaline Phosphatase Ammonia Lactate Dehydrogenase Total Protein Albumin Ceruloplasmin Urine Color Urine Clarity Urine pH Ur Specific [place] Urine Protein Urine Glucose (UA) Urine Ketones Urine Occult Blood Urine Nitrate Urine Bilirubin Urine Urobilinogen Ur Leukocyte Esterase Urine RBC Urine WBC Urine WBC Clumps Ur Squamous Epith Cells Calcium Oxalate Crystal Urine Bacteria Hyaline Casts Urine Mucus Urine Yeast Ur Yeast w Hyphae Micro UA Comment Urine Culture Comments Nasal Screen MRSA (PCR) MRSA NOT DETECTED Random Vancomycin Phenytoin Hep B DNA Qnt log IU/mL Hep B DNA (Units/mL) 01/13/18 01/13/18 01/14/18 19:45 19:45 02:00 WBC 7.8 RBC 4.22 L Hgb 11.9 L Hct 35.2 L MCV 83.5 MCH 28.2 MCHC 33.8 RDW 17.3 H Plt Count 93 L MPV 8.7 Prelim Diff (Auto) Neut % (Auto) Lymph % (Auto) [place] % (Auto) Eos % (Auto) Baso % (Auto) Neut # (Auto) Lymph # (Auto) [place] # (Auto) Eos # (Auto) Baso # (Auto) CBC Comment WBC Differential Diff Scan Differential Comment Platelet Estimate Plt Morphology Comment [place] Cells Acanthocytes (Spur) Keratocytes PT INR APTT 43.5 H Fibrinogen Puncture Site Patient Temperature HCO3 Base Excess O2 Saturation ABG pH ABG pCO2 ABG pO2 ABG O2 Content ABG Carboxyhemoglobin ABG Methemoglobin VBG pH VBG pCO2 VBG pO2 VBG HCO3 VBG O2 Saturation VBG O2 Content VBG Base Excess VBG Carboxyhemoglobin VBG Methemoglobin Hemoglobin O2 Delivery Device Liter Flow Vent Setting Inspired O2 Critical Value Sodium 135 L Potassium 2.7 L* D Chloride 93 L Carbon Dioxide 25.8 Anion Gap 16 H BUN 5 L Creatinine 1.42 H Estimated GFR 58 L POC Glucose Random Glucose 99 Lactic Acid Calcium 9.9 Total Bilirubin 22.7 H Direct Bilirubin Indirect Bilirubin AST 31 ALT 89 H Alkaline Phosphatase 186 H Ammonia Lactate Dehydrogenase Total Protein 7.2 D Albumin 3.9 Ceruloplasmin Urine Color Urine Clarity Urine pH Ur Specific [place] Urine Protein Urine Glucose (UA) Urine Ketones Urine Occult Blood Urine Nitrate Urine Bilirubin Urine Urobilinogen Ur Leukocyte Esterase Urine RBC Urine WBC Urine WBC Clumps Ur Squamous Epith Cells Calcium Oxalate Crystal Urine Bacteria Hyaline Casts Urine Mucus Urine Yeast Ur Yeast w Hyphae Micro UA Comment Urine Culture Comments Nasal Screen MRSA (PCR) Random Vancomycin Phenytoin Hep B DNA Qnt log IU/mL Hep B DNA (Units/mL) 01/14/18 01/14/18 01/14/18 02:00 02:00 02:00 WBC 11.3 H RBC 4.26 L Hgb 12.0 L Hct 35.2 L MCV 82.7 MCH 28.2 MCHC 34.1 RDW 17.2 Plt Count 103 L MPV 8.6 Prelim Diff (Auto) Neut % (Auto) 54.5 Lymph % (Auto) 25.7 [place] % (Auto) 19.0 H Eos % (Auto) 0.7 Baso % (Auto) 0.1 Neut # (Auto) 6.2 Lymph # (Auto) 2.9 [place] # (Auto) 2.2 H Eos # (Auto) 0.1 Baso # (Auto) 0.0 CBC Comment AUTO DIFF WBC Differential Diff Scan Differential Comment AUTO DIFF CONFIRMED Platelet Estimate LOW L Plt Morphology Comment NORMAL [place] Cells Acanthocytes (Spur) 1+ H Keratocytes OCC PT 30.0 H D INR 3.0 APTT Fibrinogen Puncture Site Patient Temperature HCO3 Base Excess O2 Saturation ABG pH ABG pCO2 ABG pO2 ABG O2 Content ABG Carboxyhemoglobin ABG Methemoglobin VBG pH VBG pCO2 VBG pO2 VBG HCO3 VBG O2 Saturation VBG O2 Content VBG Base Excess VBG Carboxyhemoglobin VBG Methemoglobin Hemoglobin O2 Delivery Device Liter Flow Vent Setting Inspired O2 Critical Value Sodium Potassium Chloride Carbon Dioxide Anion Gap BUN Creatinine Estimated GFR POC Glucose Random Glucose Lactic Acid Calcium Total Bilirubin Direct Bilirubin Indirect Bilirubin AST ALT Alkaline Phosphatase Ammonia Lactate Dehydrogenase Total Protein Albumin Ceruloplasmin Urine Color Urine Clarity Urine pH Ur Specific [place] Urine Protein Urine Glucose (UA) Urine Ketones Urine Occult Blood Urine Nitrate Urine Bilirubin Urine Urobilinogen Ur Leukocyte Esterase Urine RBC Urine WBC Urine WBC Clumps Ur Squamous Epith Cells Calcium Oxalate Crystal Urine Bacteria Hyaline Casts Urine Mucus Urine Yeast Ur Yeast w Hyphae Micro UA Comment Urine Culture Comments Nasal Screen MRSA (PCR) Random Vancomycin Phenytoin 13.4 Hep B DNA Qnt log IU/mL Hep B DNA (Units/mL) 01/14/18 01/14/18 01/14/18 02:02 02:31 05:49 WBC RBC Hgb Hct MCV MCH MCHC RDW Plt Count MPV Prelim Diff (Auto) Neut % (Auto) Lymph % (Auto) [place] % (Auto) Eos % (Auto) Baso % (Auto) Neut # (Auto) Lymph # (Auto) [place] # (Auto) Eos # (Auto) Baso # (Auto) CBC Comment WBC Differential Diff Scan Differential Comment Platelet Estimate Plt Morphology Comment [place] Cells Acanthocytes (Spur) Keratocytes PT 30.1 H INR 3.0 APTT 33.4 H D Fibrinogen 153 L Puncture Site RT BRACHIAL Patient Temperature 98.6 HCO3 28 H Base Excess 5.4 H O2 Saturation 49 L* ABG pH 7.59 H* ABG pCO2 29 L ABG pO2 29 L* ABG O2 Content 8.3 L ABG Carboxyhemoglobin 0.9 ABG Methemoglobin 1.1 VBG pH VBG pCO2 VBG pO2 VBG HCO3 VBG O2 Saturation VBG O2 Content VBG Base Excess VBG Carboxyhemoglobin VBG Methemoglobin Hemoglobin 12.0 O2 Delivery Device NASAL CANNULA Liter Flow 2 Vent Setting Inspired O2 Critical Value Sodium Potassium Chloride Carbon Dioxide Anion Gap BUN Creatinine Estimated GFR POC Glucose Random Glucose Lactic Acid Calcium Total Bilirubin Direct Bilirubin Indirect Bilirubin AST ALT Alkaline Phosphatase Ammonia 121 H Lactate Dehydrogenase Total Protein Albumin Ceruloplasmin Urine Color Urine Clarity Urine pH Ur Specific [place] Urine Protein Urine Glucose (UA) Urine Ketones Urine Occult Blood Urine Nitrate Urine Bilirubin Urine Urobilinogen Ur Leukocyte Esterase Urine RBC Urine WBC Urine WBC Clumps Ur Squamous Epith Cells Calcium Oxalate Crystal Urine Bacteria Hyaline Casts Urine Mucus Urine Yeast Ur Yeast w Hyphae Micro UA Comment Urine Culture Comments Nasal Screen MRSA (PCR) Random Vancomycin Phenytoin Hep B DNA Qnt log IU/mL Hep B DNA (Units/mL) 01/14/18 01/14/18 01/14/18 05:49 07:46 17:30 WBC RBC Hgb Hct MCV MCH MCHC RDW Plt Count MPV Prelim Diff (Auto) Neut % (Auto) Lymph % (Auto) [place] % (Auto) Eos % (Auto) Baso % (Auto) Neut # (Auto) Lymph # (Auto) [place] # (Auto) Eos # (Auto) Baso # (Auto) CBC Comment WBC Differential Diff Scan Differential Comment Platelet Estimate Plt Morphology Comment [place] Cells Acanthocytes (Spur) Keratocytes PT 26.9 H INR 2.7 APTT Fibrinogen Puncture Site CENTRAL LINE Patient Temperature 98.6 HCO3 Base Excess O2 Saturation ABG pH ABG pCO2 ABG pO2 ABG O2 Content ABG Carboxyhemoglobin ABG Methemoglobin VBG pH 7.59 H* VBG pCO2 29 L VBG pO2 29 L* VBG HCO3 28 H VBG O2 Saturation 49 L VBG O2 Content 8.3 L VBG Base Excess 5.4 H VBG Carboxyhemoglobin 1.1 VBG Methemoglobin Hemoglobin O2 Delivery Device NASAL CANNULA Liter Flow 2 Vent Setting Inspired O2 Critical Value Sodium Potassium 2.4 L* Chloride Carbon Dioxide Anion Gap BUN Creatinine Estimated GFR POC Glucose Random Glucose Lactic Acid Calcium Total Bilirubin Direct Bilirubin Indirect Bilirubin AST ALT Alkaline Phosphatase Ammonia Lactate Dehydrogenase Total Protein Albumin Ceruloplasmin Urine Color Urine Clarity Urine pH Ur Specific [place] Urine Protein Urine Glucose (UA) Urine Ketones Urine Occult Blood Urine Nitrate Urine Bilirubin Urine Urobilinogen Ur Leukocyte Esterase Urine RBC Urine WBC Urine WBC Clumps Ur Squamous Epith Cells Calcium Oxalate Crystal Urine Bacteria Hyaline Casts Urine Mucus Urine Yeast Ur Yeast w Hyphae Micro UA Comment Urine Culture Comments Nasal Screen MRSA (PCR) Random Vancomycin Phenytoin Hep B DNA Qnt log IU/mL Hep B DNA (Units/mL) 01/14/18 01/14/18 01/15/18 18:40 23:24 00:20 WBC RBC Hgb Hct MCV MCH MCHC RDW Plt Count MPV Prelim Diff (Auto) Neut % (Auto) Lymph % (Auto) [place] % (Auto) Eos % (Auto) Baso % (Auto) Neut # (Auto) Lymph # (Auto) [place] # (Auto) Eos # (Auto) Baso # (Auto) CBC Comment WBC Differential Diff Scan Differential Comment Platelet Estimate Plt Morphology Comment [place] Cells Acanthocytes (Spur) Keratocytes PT INR APTT Fibrinogen Puncture Site CENTRAL LINE RT RADIAL Patient Temperature 98.6 98.6 HCO3 28 H Base Excess 5.3 H O2 Saturation 98 ABG pH 7.57 H* ABG pCO2 30 L ABG pO2 175 H ABG O2 Content 16.6 ABG Carboxyhemoglobin 0.9 ABG Methemoglobin 0.9 VBG pH 7.59 H* VBG pCO2 31 L VBG pO2 46 H VBG HCO3 30 H VBG O2 Saturation 80 H VBG O2 Content 12.4 VBG Base Excess 7.7 H VBG Carboxyhemoglobin VBG Methemoglobin Hemoglobin 11.8 L O2 Delivery Device NASAL CANNULA NASAL CANNULA Liter Flow 4 4 Vent Setting Inspired O2 Critical Value Sodium Potassium Chloride Carbon Dioxide Anion Gap BUN Creatinine Estimated GFR POC Glucose Random Glucose Lactic Acid Calcium Total Bilirubin 23.8 H Direct Bilirubin 5.0 H Indirect Bilirubin 18.8 H AST 32 ALT 80 H Alkaline Phosphatase 172 H Ammonia Lactate Dehydrogenase Total Protein 7.2 Albumin 3.7 Ceruloplasmin Urine Color Urine Clarity Urine pH Ur Specific [place] Urine Protein Urine Glucose (UA) Urine Ketones Urine Occult Blood Urine Nitrate Urine Bilirubin Urine Urobilinogen Ur Leukocyte Esterase Urine RBC Urine WBC Urine WBC Clumps Ur Squamous Epith Cells Calcium Oxalate Crystal Urine Bacteria Hyaline Casts Urine Mucus Urine Yeast Ur Yeast w Hyphae Micro UA Comment Urine Culture Comments Nasal Screen MRSA (PCR) Random Vancomycin Phenytoin Hep B DNA Qnt log IU/mL Hep B DNA (Units/mL) 01/15/18 01/15/18 01/15/18 00:20 03:58 03:58 WBC RBC Hgb Hct MCV MCH MCHC RDW Plt Count MPV Prelim Diff (Auto) Neut % (Auto) Lymph % (Auto) [place] % (Auto) Eos % (Auto) Baso % (Auto) Neut # (Auto) Lymph # (Auto) [place] # (Auto) Eos # (Auto) Baso # (Auto) CBC Comment WBC Differential Diff Scan Differential Comment Platelet Estimate Plt Morphology Comment [place] Cells Acanthocytes (Spur) Keratocytes PT INR APTT Fibrinogen Puncture Site Patient Temperature HCO3 Base Excess O2 Saturation ABG pH ABG pCO2 ABG pO2 ABG O2 Content ABG Carboxyhemoglobin ABG Methemoglobin VBG pH VBG pCO2 VBG pO2 VBG HCO3 VBG O2 Saturation VBG O2 Content VBG Base Excess VBG Carboxyhemoglobin VBG Methemoglobin Hemoglobin O2 Delivery Device Liter Flow Vent Setting Inspired O2 Critical Value Sodium 137 Potassium 3.2 L D Chloride 99 Carbon Dioxide 24.7 Anion Gap 13 BUN 6 L Creatinine 1.42 H Estimated GFR 58 L POC Glucose Random Glucose 133 H Lactic Acid Calcium 9.7 Total Bilirubin 24.3 H Direct Bilirubin Indirect Bilirubin AST 31 ALT 80 H Alkaline Phosphatase 165 H Ammonia 156 H 180 H Lactate Dehydrogenase Total Protein 7.0 Albumin 3.6 Ceruloplasmin Urine Color Urine Clarity Urine pH Ur Specific [place] Urine Protein Urine Glucose (UA) Urine Ketones Urine Occult Blood Urine Nitrate Urine Bilirubin Urine Urobilinogen Ur Leukocyte Esterase Urine RBC Urine WBC Urine WBC Clumps Ur Squamous Epith Cells Calcium Oxalate Crystal Urine Bacteria Hyaline Casts Urine Mucus Urine Yeast Ur Yeast w Hyphae Micro UA Comment Urine Culture Comments Nasal Screen MRSA (PCR) Random Vancomycin 19.0 Phenytoin 13.6 Hep B DNA Qnt log IU/mL Hep B DNA (Units/mL) 01/15/18 01/15/18 01/15/18 03:58 03:58 04:50 WBC 5.2 RBC 4.15 L Hgb 12.0 L Hct 34.7 L MCV 83.6 MCH 29.0 MCHC 34.7 RDW 17.8 H Plt Count 106 L MPV 8.6 Prelim Diff (Auto) Neut % (Auto) 77.6 H Lymph % (Auto) 13.4 [place] % (Auto) 8.5 H Eos % (Auto) 0.1 Baso % (Auto) 0.4 Neut # (Auto) 4.1 Lymph # (Auto) 0.7 L [place] # (Auto) 0.4 Eos # (Auto) 0.0 Baso # (Auto) 0.0 CBC Comment AUTO DIFF WBC Differential Diff Scan Differential Comment AUTO DIFF CONFIRMED Platelet Estimate LOW L Plt Morphology Comment NORMAL [place] Cells Acanthocytes (Spur) 1+ H Keratocytes OCC PT 121.5 H D INR 12.2 H* APTT Fibrinogen Puncture Site Patient Temperature HCO3 Base Excess O2 Saturation ABG pH ABG pCO2 ABG pO2 ABG O2 Content ABG Carboxyhemoglobin ABG Methemoglobin VBG pH VBG pCO2 VBG pO2 VBG HCO3 VBG O2 Saturation VBG O2 Content VBG Base Excess VBG Carboxyhemoglobin VBG Methemoglobin Hemoglobin O2 Delivery Device Liter Flow Vent Setting Inspired O2 Critical Value Sodium Potassium Chloride Carbon Dioxide Anion Gap BUN Creatinine Estimated GFR POC Glucose Random Glucose Lactic Acid 5.1 H* Calcium Total Bilirubin Direct Bilirubin Indirect Bilirubin AST ALT Alkaline Phosphatase Ammonia Lactate Dehydrogenase Total Protein Albumin Ceruloplasmin Urine Color Urine Clarity Urine pH Ur Specific [place] Urine Protein Urine Glucose (UA) Urine Ketones Urine Occult Blood Urine Nitrate Urine Bilirubin Urine Urobilinogen Ur Leukocyte Esterase Urine RBC Urine WBC Urine WBC Clumps Ur Squamous Epith Cells Calcium Oxalate Crystal Urine Bacteria Hyaline Casts Urine Mucus Urine Yeast Ur Yeast w Hyphae Micro UA Comment Urine Culture Comments Nasal Screen MRSA (PCR) Random Vancomycin Phenytoin Hep B DNA Qnt log IU/mL Hep B DNA (Units/mL) 01/15/18 01/15/18 01/15/18 06:03 12:00 18:05 WBC RBC Hgb Hct MCV MCH MCHC RDW Plt Count MPV Prelim Diff (Auto) Neut % (Auto) Lymph % (Auto) [place] % (Auto) Eos % (Auto) Baso % (Auto) Neut # (Auto) Lymph # (Auto) [place] # (Auto) Eos # (Auto) Baso # (Auto) CBC Comment WBC Differential Diff Scan Differential Comment Platelet Estimate Plt Morphology Comment [place] Cells Acanthocytes (Spur) Keratocytes PT INR APTT Fibrinogen Puncture Site CENTRAL LINE RT RADIAL Patient Temperature 98.6 98.6 HCO3 25 Base Excess 4.4 H O2 Saturation 98 ABG pH 7.71 H* ABG pCO2 19 L* ABG pO2 200 H ABG O2 Content 15.6 ABG Carboxyhemoglobin 0.8 ABG Methemoglobin 0.8 VBG pH 7.59 H* VBG pCO2 29 L VBG pO2 44 H VBG HCO3 28 H VBG O2 Saturation 78 H VBG O2 Content 12.5 VBG Base Excess 5.5 H VBG Carboxyhemoglobin VBG Methemoglobin Hemoglobin 11.0 L O2 Delivery Device VENTILATOR VENTILATOR Liter Flow Vent Setting SEE COMMENTS [id number] Inspired O2 50 40 Critical Value Sodium Potassium 3.4 L Chloride Carbon Dioxide Anion Gap BUN Creatinine Estimated GFR POC Glucose Random Glucose Lactic Acid Calcium Total Bilirubin Direct Bilirubin Indirect Bilirubin AST ALT Alkaline Phosphatase Ammonia Lactate Dehydrogenase Total Protein Albumin Ceruloplasmin Urine Color Urine Clarity Urine pH Ur Specific [place] Urine Protein Urine Glucose (UA) Urine Ketones Urine Occult Blood Urine Nitrate Urine Bilirubin Urine Urobilinogen Ur Leukocyte Esterase Urine RBC Urine WBC Urine WBC Clumps Ur Squamous Epith Cells Calcium Oxalate Crystal Urine Bacteria Hyaline Casts Urine Mucus Urine Yeast Ur Yeast w Hyphae Micro UA Comment Urine Culture Comments Nasal Screen MRSA (PCR) Random Vancomycin Phenytoin Hep B DNA Qnt log IU/mL Hep B DNA (Units/mL) 01/16/18 01/16/18 01/16/18 04:16 04:16 04:16 WBC 6.3 RBC 4.09 L Hgb 11.8 L Hct 34.3 L MCV 83.9 MCH 29.0 MCHC 34.5 RDW 18.3 H Plt Count 129 L MPV 8.6 Prelim Diff (Auto) Slide review pending Neut % (Auto) 56.3 Lymph % (Auto) 18.8 [place] % (Auto) 24.5 H Eos % (Auto) 0.2 Baso % (Auto) 0.2 Neut # (Auto) 3.6 Lymph # (Auto) 1.2 [place] # (Auto) 1.5 H Eos # (Auto) 0.0 Baso # (Auto) 0.0 CBC Comment WBC Differential . Diff Scan Auto diff confirmed Differential Comment . Platelet Estimate Plt Morphology Comment [place] Cells 1+ H Acanthocytes (Spur) 1+ H Keratocytes Occ H PT 105.8 H INR 10.6 H* APTT Fibrinogen Puncture Site Patient Temperature HCO3 Base Excess O2 Saturation ABG pH ABG pCO2 ABG pO2 ABG O2 Content ABG Carboxyhemoglobin ABG Methemoglobin VBG pH VBG pCO2 VBG pO2 VBG HCO3 VBG O2 Saturation VBG O2 Content VBG Base Excess VBG Carboxyhemoglobin VBG Methemoglobin Hemoglobin O2 Delivery Device Liter Flow Vent Setting Inspired O2 Critical Value Sodium Potassium Chloride Carbon Dioxide Anion Gap BUN Creatinine Estimated GFR POC Glucose Random Glucose Lactic Acid Calcium Total Bilirubin Direct Bilirubin Indirect Bilirubin AST ALT Alkaline Phosphatase Ammonia Lactate Dehydrogenase Total Protein Albumin Ceruloplasmin Urine Color Urine Clarity Urine pH Ur Specific [place] Urine Protein Urine Glucose (UA) Urine Ketones Urine Occult Blood Urine Nitrate Urine Bilirubin Urine Urobilinogen Ur Leukocyte Esterase Urine RBC Urine WBC Urine WBC Clumps Ur Squamous Epith Cells Calcium Oxalate Crystal Urine Bacteria Hyaline Casts Urine Mucus Urine Yeast Ur Yeast w Hyphae Micro UA Comment Urine Culture Comments Nasal Screen MRSA (PCR) Random Vancomycin Phenytoin 18.2 Hep B DNA Qnt log IU/mL Hep B DNA (Units/mL) 01/16/18 01/16/18 01/16/18 04:16 04:16 08:01 WBC RBC Hgb Hct MCV MCH MCHC RDW Plt Count MPV Prelim Diff (Auto) Neut % (Auto) Lymph % (Auto) [place] % (Auto) Eos % (Auto) Baso % (Auto) Neut # (Auto) Lymph # (Auto) [place] # (Auto) Eos # (Auto) Baso # (Auto) CBC Comment WBC Differential Diff Scan Differential Comment Platelet Estimate Plt Morphology Comment [place] Cells Acanthocytes (Spur) Keratocytes PT INR APTT Fibrinogen Puncture Site Patient Temperature HCO3 Base Excess O2 Saturation ABG pH ABG pCO2 ABG pO2 ABG O2 Content ABG Carboxyhemoglobin ABG Methemoglobin VBG pH VBG pCO2 VBG pO2 VBG HCO3 VBG O2 Saturation VBG O2 Content VBG Base Excess VBG Carboxyhemoglobin VBG Methemoglobin Hemoglobin O2 Delivery Device Liter Flow Vent Setting Inspired O2 Critical Value Sodium Potassium Chloride Carbon Dioxide Anion Gap BUN Creatinine Estimated GFR POC Glucose 162 H Random Glucose Lactic Acid Calcium Total Bilirubin Direct Bilirubin Indirect Bilirubin AST ALT Alkaline Phosphatase Ammonia 147 H Lactate Dehydrogenase Total Protein Albumin Ceruloplasmin Urine Color Urine Clarity Urine pH Ur Specific [place] Urine Protein Urine Glucose (UA) Urine Ketones Urine Occult Blood Urine Nitrate Urine Bilirubin Urine Urobilinogen Ur Leukocyte Esterase Urine RBC Urine WBC Urine WBC Clumps Ur Squamous Epith Cells Calcium Oxalate Crystal Urine Bacteria Hyaline Casts Urine Mucus Urine Yeast Ur Yeast w Hyphae Micro UA Comment Urine Culture Comments Nasal Screen MRSA (PCR) Random Vancomycin 19.5 Phenytoin Hep B DNA Qnt log IU/mL Hep B DNA (Units/mL) 01/16/18 01/16/18 01/16/18 12:40 12:40 12:56 WBC RBC Hgb Hct MCV MCH MCHC RDW Plt Count MPV Prelim Diff (Auto) Neut % (Auto) Lymph % (Auto) [place] % (Auto) Eos % (Auto) Baso % (Auto) Neut # (Auto) Lymph # (Auto) [place] # (Auto) Eos # (Auto) Baso # (Auto) CBC Comment WBC Differential Diff Scan Differential Comment Platelet Estimate Plt Morphology Comment [place] Cells Acanthocytes (Spur) Keratocytes PT INR APTT Fibrinogen Puncture Site Patient Temperature HCO3 Base Excess O2 Saturation ABG pH ABG pCO2 ABG pO2 ABG O2 Content ABG Carboxyhemoglobin ABG Methemoglobin VBG pH VBG pCO2 VBG pO2 VBG HCO3 VBG O2 Saturation VBG O2 Content VBG Base Excess VBG Carboxyhemoglobin VBG Methemoglobin Hemoglobin O2 Delivery Device Liter Flow Vent Setting Inspired O2 Critical Value Sodium 140 Potassium 3.4 L Chloride 101 Carbon Dioxide 24.7 Anion Gap 14 BUN 7 Creatinine 1.56 H Estimated GFR 52 L POC Glucose 150 H Random Glucose 136 H Lactic Acid Calcium 9.9 Total Bilirubin 25.4 H Direct Bilirubin Indirect Bilirubin AST 26 ALT 63 Alkaline Phosphatase 151 H Ammonia Lactate Dehydrogenase Total Protein 6.8 Albumin 3.6 Ceruloplasmin Urine Color [place] Urine Clarity Cloudy H Urine pH 5.0 Ur Specific [place] 1.017 Urine Protein Negative Urine Glucose (UA) 50 Urine Ketones Trace Urine Occult Blood Large H Urine Nitrate Negative Urine Bilirubin Negative Urine Urobilinogen Less than 2 Ur Leukocyte Esterase Large H Urine RBC 46 H Urine WBC 91 H Urine WBC Clumps Many H Ur Squamous Epith Cells 1 Calcium Oxalate Crystal Occasional H Urine Bacteria Rare H Hyaline Casts 17 Urine Mucus Few H Urine Yeast Many H Ur Yeast w Hyphae Moderate H Micro UA Comment Culture indicated Urine Culture Comments Culture indicated Nasal Screen MRSA (PCR) Random Vancomycin Phenytoin Hep B DNA Qnt log IU/mL Hep B DNA (Units/mL) 01/16/18 13:29 WBC RBC Hgb Hct MCV MCH MCHC RDW Plt Count MPV Prelim Diff (Auto) Neut % (Auto) Lymph % (Auto) [place] % (Auto) Eos % (Auto) Baso % (Auto) Neut # (Auto) Lymph # (Auto) [place] # (Auto) Eos # (Auto) Baso # (Auto) CBC Comment WBC Differential Diff Scan Differential Comment Platelet Estimate Plt Morphology Comment [place] Cells Acanthocytes (Spur) Keratocytes PT INR APTT Fibrinogen Puncture Site Central line Patient Temperature 98.6 HCO3 Base Excess O2 Saturation ABG pH ABG pCO2 ABG pO2 ABG O2 Content ABG Carboxyhemoglobin ABG Methemoglobin VBG pH 7.60 H* VBG pCO2 26 L VBG pO2 46 H VBG HCO3 26 VBG O2 Saturation 81 H VBG O2 Content 12.3 VBG Base Excess 4.0 H VBG Carboxyhemoglobin 0.9 VBG Methemoglobin 0.8 Hemoglobin 10.8 L O2 Delivery Device Ventilator Liter Flow Vent Setting Cpap,[id number] Inspired O2 30 Critical Value Yes Sodium Potassium Chloride Carbon Dioxide Anion Gap BUN Creatinine Estimated GFR POC Glucose Random Glucose Lactic Acid Calcium Total Bilirubin Direct Bilirubin Indirect Bilirubin AST ALT Alkaline Phosphatase Ammonia Lactate Dehydrogenase Total Protein Albumin Ceruloplasmin Urine Color Urine Clarity Urine pH Ur Specific [place] Urine Protein Urine Glucose (UA) Urine Ketones Urine Occult Blood Urine Nitrate Urine Bilirubin Urine Urobilinogen Ur Leukocyte Esterase Urine RBC Urine WBC Urine WBC Clumps Ur Squamous Epith Cells Calcium Oxalate Crystal Urine Bacteria Hyaline Casts Urine Mucus Urine Yeast Ur Yeast w Hyphae Micro UA Comment Urine Culture Comments Nasal Screen MRSA (PCR) Random Vancomycin Phenytoin Hep B DNA Qnt log IU/mL Hep B DNA (Units/mL) Imaging Studies: Impressions Head MRI 01/16/18 00:00 CONCLUSION: 1. Subtle restricted diffusion in the gold matter when compared to the white most prevalent in mid sylvian regions bilaterally. This is symmetric. This can be seen with anoxic encephalopathy. 2. There is no abnormal contrast enhancement. 3. There is no parenchymal hemorrhage. Medications: Active Medications Generic Name Dose Route Start Last Admin Trade Name Freq PRN Reason Stop Dose Admin Albuterol 2.5 mg 01/16/18 08:00 01/16/18 08:59 Albuterol Neb (Violette) INH 2.5 mg BID NEB VIOLETTE Administration Betamethasone/Clotrimazole 1 applicatio 01/16/18 09:00 01/16/18 14:46 Lotrisone Cream TOPICAL Not Given Q12HR VIOLETTE Sterile Water 700 ml/ 0 ml 01/16/18 04:00 01/16/18 14:01 Lactulose 300 ml RECTAL Not Given Q4HR VIOLETTE Famotidine 20 mg 01/16/18 02:00 01/16/18 14:03 Pepcid Pf Inj IV.PUSH 20 mg Q12H VIOLETTE Administration Furosemide 60 mg 01/16/18 09:00 01/16/18 08:40 Lasix Inj IV.PUSH 60 mg DAILY VIOLETTE Administration Hyoscyamine 0.25 mg 01/16/18 09:00 01/16/18 14:03 Levsin PO 0.25 mg TID VIOLETTE Administration Vancomycin HCl 1,000 mg/ 250 mls @ 250 mls/hr 01/16/18 12:00 01/16/18 14:01 Sodium Chloride IV.SIG 250 mls/hr Q12H VIOLETTE Administration Acyclovir Sodium 749 mg/ 164.98 mls @ 150 mls/hr 01/16/18 06:00 01/16/18 05: 39 Sodium Chloride IV.SIG 150 mls/hr Q8H VIOLETTE Administration Cefepime HCl 2,000 mg/ Sodium 100 mls @ 200 mls/hr 01/16/18 04:00 01/16/18 14 :02 Chloride IV.SIG 200 mls/hr Q8H VIOLETTE Administration Lactulose 30 ml 01/16/18 06:00 01/16/18 14:03 Lactulose Liq PO 30 ml Q6HR VIOLETTE Administration Lactulose 30 ml 01/16/18 09:00 01/16/18 08:38 Lactulose Liq RECTAL 30 ml BID VIOLETTE Administration Memantine 10 mg 01/16/18 09:00 01/16/18 08:39 Namenda PO 10 mg Q12HR VIOLETTE Administration Methylprednisolone Sodium Succinate 40 mg 01/16/18 00:00 01/16/18 08:39 Solu-Medrol Inj IV.PUSH 40 mg Q8H VIOLETTE Administration Pentoxifylline 400 mg 01/16/18 06:00 01/16/18 14:03 Trental Sr PO 400 mg Q8HR VIOLETTE Administration Polyethylene Glycol 34 gm 01/16/18 09:00 01/16/18 08:40 Miralax PO 34 gm DAILY VIOLETTE Administration Propranolol HCl 20 mg 01/16/18 06:00 01/16/18 14:03 Inderal PO 20 mg Q8HR VIOLETTE Administration Rifaximin 550 mg 01/16/18 09:00 01/16/18 08:39 Xifaxan PO 550 mg BID VIOLETTE Administration Senna/Docusate Sodium 1 tab 01/16/18 09:00 01/16/18 08:39 Roseann-Colace PO 1 tab BID VILOETTE Administration Spironolactone 150 mg 01/16/18 09:00 01/16/18 08:39 Aldactone PO 150 mg DAILY VIOLETTE Administration Objective Remarks: GENERAL: chronically ill appearing man in no distress SKIN: Jaundice HEAD: Normocephalic. EYES: scleral icterus. NECK: Supple, trachea midline. No JVD or lymphadenopathy. LYMPHATIC: No adenopathy. CARDIOVASCULAR: Regular rate and rhythm without murmurs. RESPIRATORY: Breath sounds equal bilaterally. No accessory muscle use. GASTROINTESTINAL: Abdomen soft, non-tender, nondistended. EXTREMITIES: No cyanosis, or edema. MUSCULOSKELETAL: Adequate muscle tone. NEUROLOGICAL: intubated and sedated on vent Assessment/Plan - Plan Alcoholic hepatitis/cirrhosis Asymtomatic, no clinical signs of bleeding. Potential side effects of FFP transfusion include transfusion reactions volume overload and increased portal pressures. There is lack of good quality evidence that transfusion of FFP and an asymptomatic patient provides clinically important benefits. Coags can be used as a prognostic measure in patients with liver disease but it does not indicate hypo-or hypercoagulability in patients with cirrhosis and liver disease. These tests are very report predicting the risk of bleeding in individuals with liver disease because the only reflect changes in procoagulant factors. Patient has severe liver disease his condition is worsening and and prognosis is guarded. He has received vitamin K. Inpatient hematology team is following.
[2018-01-16] MEDS: Insulin Detemir Inj 1,000 UNIT/10 ML Vial SQ SCH (17:15)
[2018-01-16] MEDS: Phytonadione 5 MG/SWFI 5 ML Oral Syringe PO SCH (17:21)
[2018-01-16] MEDS: Fosphenytoin Sodium Inj 100 MGPE/2 ML Vial IV.SIG SCH (20:54)
[2018-01-17] MEDS: Vancomycin Inj 1,000 MG in Sodium Chlor 0.9% Inj 250 ML IV.SIG SCH (00:22)
[2018-01-17] MEDS: Water Sterile for Irr Bot 700 ML, Lactulose Liq 300 ML RECTAL SCH ×12 (00:23→20:31)
--- NOTE | 2018-01-17 03:24 | XR ---
EXAM DATE: 01/17/2018 3:20 AM EDT AGE/SEX: 32 years / Male INDICATIONS: Short of breath. CLINICAL DATA: This is the patient's subsequent encounter. Patient reports that signs and symptoms h ave been present for 4 - 6 days and indicates a pain score of 0/10. MEDICAL/SURGICAL HISTORY: Hepatitis C. Non-responsive. COMPARISON: [facility] – [place], CHEST SINGLE AP, 01/15/2018. . FINDINGS: Mild patient rotation towards the left. ET tube tip well above the daquan. Gastric tube traverses the [id number]. Right central line tip projects over the cavoatrial junction. Lungs are symmetrically aerated. No infiltrates seen. Both hemidiaphragms well delineated. The heart is normal in size. CONCLUSION: The lungs are clear. Electronically signed by: Sanchez Beal MD 01/17/2018 3:23 AM EDT
[2018-01-17] MEDS: Famotidine PF Inj 20 MG/2 ML Vial IV.PUSH SCH ×2 (03:34→13:27)
[2018-01-17 04:10] LABS: Baso # (Auto) 0.1 th/mm3 (0.0-0.2); Baso % (Auto) 1.1 % (0.0-2.0); Eos % (Auto) 0.2 % (0.0-4.0); Hemoglobin 10.8 gm/dL (13.0-17.0); Lymph % (Auto) 14.7 % (9.0-44.0); Mean Corpuscular HGB Conc 34.8 % (32.0-36.0); Mean Corpuscular Hemoglobin 29.2 pg (27.0-34.0); Mean Corpuscular Volume 84.1 fL (80.0-100.0); Mean Platelet Volume 8.3 fL (7.0-11.0); Mono # (Auto) 1.5 th/mm3 (0.0-0.9); Mono % (Auto) 22.3 % (0.0-8.0); Neut % (Auto) 61.7 % (16.0-70.0); Platelet Count 129 th/mm3 (150-450); Red Blood Count 3.69 mil/mm3 (4.50-5.90); Red Cell Distribution Width 18.9 % (11.6-17.2); White Blood Count 6.5 th/mm3 (4.0-11.0)
[2018-01-17 04:32] LABS: Prothrombin Time 193.5 sec (9.8-11.6)
[2018-01-17 05:11] LABS: Alanine Aminotransferase 61 U/L (12-78); Albumin 3.3 g/dL (3.4-5.0); Alkaline Phosphatase 147 U/L (45-117); Anion Gap 15 meq/L (5-15); Aspartate Aminotransferase 24 U/L (15-37); Blood Urea Nitrogen 9 mg/dL (7-18); Calcium 9.5 mg/dL (8.5-10.1); Carbon Dioxide 22.3 meq/L (21.0-32.0); Chloride 103 meq/L (98-107); Glomerular Filtration Rate 48 mL/min (>89); Glucose,Random 171 mg/dL (74-106); Magnesium 1.9 mg/dL (1.5-2.5); Phosphorus 3.4 mg/dL (2.5-4.9); Potassium 4.1 meq/L (3.5-5.1); Sodium 140 meq/L (136-145); Total Protein 6.7 g/dL (6.4-8.2); Vancomycin,Random 27.1 Comment
[2018-01-17 05:15] LABS: Acanthocytes 1+; Burr Cells 1+
[2018-01-17 05:16] LABS: Platelet Morphology Normal (Normal)
[2018-01-17] MEDS: CHLORPROMAZINE IV.SIG SCH ×3 (05:34→20:19)
[2018-01-17] MEDS: SODIUM CHLOR 0.9% IV.SIG SCH ×6 (05:34→22:44)
[2018-01-17] MEDS: Insulin Detemir Inj 1,000 UNIT/10 ML Vial SQ SCH ×2 (05:56→17:31)
[2018-01-17] MEDS: Pentoxifylline 400 MG Controlled Release Tablet PO SCH ×3 (05:56→22:44)
[2018-01-17] MEDS: ACYCLOVIR IV.SIG SCH ×3 (05:57→22:44)
--- NOTE | 2018-01-17 07:32 | P.PNNEU ---
Subjective Subjective Comments: coma on vent Active Medications: Active Medications Generic Name Dose Route Start Last Admin Trade Name Freq PRN Reason Stop Dose Admin Albuterol 2.5 mg 01/16/18 08:00 01/16/18 08:59 Albuterol Neb (Violette) INH 2.5 mg BID NEB VIOLETTE Administration Albuterol 1 ampul 01/16/18 01:00 Duoneb Neb (Prn) NEB Q4HR NEB PRN WHEEZING Betamethasone/Clotrimazole 1 applicatio 01/16/18 09:00 01/16/18 20:58 Lotrisone Cream TOPICAL Not Given Q12HR VIOLETTE Sterile Water 700 ml/ 0 ml 01/16/18 04:00 01/17/18 03:36 Lactulose 300 ml RECTAL Not Given Q4HR VIOLETTE Dextrose 50 ml 01/16/18 01:00 D50w Vial IV.PUSH UNSCH PRN HYPOGLYEMIA-SEE COMMENTS Famotidine 20 mg 01/16/18 02:00 01/17/18 03:34 Pepcid Pf Inj IV.PUSH 20 mg Q12H VIOLETTE Administration Fosphenytoin Sodium 100 mgpe 01/16/18 21:00 01/16/18 20:54 Cerebyx Inj IV.SIG 100 mgpe Q12HR VIOLETTE Administration Furosemide 60 mg 01/16/18 09:00 01/16/18 08:40 Lasix Inj IV.PUSH 60 mg DAILY VIOLETTE Administration Glucagon 1 mg 01/16/18 01:00 Glucagon Inj OTHER UNSCH PRN HYPOGLYCEMIA-SEE COMMENTS Hyoscyamine 0.25 mg 01/16/18 09:00 01/16/18 17:24 Levsin PO 0.25 mg TID VIOLETTE Administration Vancomycin HCl 1,000 mg/ 250 mls @ 250 mls/hr 01/16/18 12:00 01/17/18 00:22 Sodium Chloride IV.SIG 250 mls/hr Q12H VIOLETTE Administration Chlorpromazine HCl 25 mg/ 501 mls @ 250.5 mls/hr 01/17/18 06:00 01/17/18 05: 34 Sodium Chloride IV.SIG 250.5 mls/hr Q6H VIOLETTE Administration Acyclovir Sodium 749 mg/ 164.98 mls @ 150 mls/hr 01/16/18 06:00 01/17/18 05: 57 Sodium Chloride IV.SIG 150 mls/hr Q8H VIOLETTE Administration Cefepime HCl 2,000 mg/ Sodium 100 mls @ 200 mls/hr 01/16/18 04:00 01/17/18 03 :34 Chloride IV.SIG 200 mls/hr Q8H VIOLETTE Administration Pharmacy Profile Note mls @ 0 mls/hr 01/16/18 01:00 Vancomycin Consult Pharmacy OTHER UNSCH VIOLETTE As Directed Magnesium Sulfate Inj 4 gm/ 100 mls @ 50 mls/hr 01/16/18 00:01 Sodium Chloride IV.SIG UNSCH PRN For Magnesium 0.9 - 1.1 mg/dL Magnesium Sulfate Inj 2 gm/ 100 mls @ 50 mls/hr 01/16/18 00:01 Sodium Chloride IV.SIG UNSCH PRN For Magnesium 1.2 - 1.6 mg/dL Potassium Chloride 20 meq in 100 mls @ 50 mls/hr 01/16/18 00:01 Kcl 20 Meq Premix Inj IV.SIG Q2H PRN For Potassium 2.8 - 3.2 mEq/L Potassium Chloride 20 meq in 100 mls @ 50 mls/hr 01/16/18 00:01 Kcl 20 Meq Premix Inj IV.SIG Q2H PRN For Potassium 3.3 - 3.5 mEq/L Potassium Phosphate 30 mmol/ 260 mls @ 42 mls/hr 01/16/18 00:01 Sodium Chloride IV.SIG UNSCH PRN SEE LABEL COMMENTS Sodium Phosphate 30 mmol/ 260 mls @ 42 mls/hr 01/16/18 00:01 Sodium Chloride IV.SIG UNSCH PRN For Phosphorus < 2.5 mg/dL Insulin Detemir 15 unit 01/16/18 17:00 01/17/18 05:56 Levemir Inj SQ 15 unit Q12H VIOLETTE Administration Lactulose 30 ml 01/16/18 06:00 01/17/18 05:56 Lactulose Liq PO 30 ml Q6HR VIOLETTE Administration Lactulose 30 ml 01/16/18 09:00 01/16/18 22:40 Lactulose Liq RECTAL Not Given BID [facility] Magnesium Oxide 800 mg 01/16/18 00:01 Mag-Ox PO UNSCH PRN For Magnesium 1.2 - 1.6 mg/dL Melatonin 5 mg 01/16/18 01:00 Melatonin PO HS PRN INSOMNIA Memantine 10 mg 01/16/18 09:00 01/16/18 20:55 Namenda PO 10 mg Q12HR VIOLETTE Administration Methylprednisolone Sodium Succinate 40 mg 01/16/18 00:00 01/16/18 23:17 Solu-Medrol Inj IV.PUSH 40 mg Q8H VIOLETTE Administration Miscellaneous Information 1 each 01/17/18 11:45 [facility] [place] [facility] Ordered Lab Info OTHER 01/17/18 11:46 ONCE ONE Pentoxifylline 400 mg 01/16/18 06:00 01/17/18 05:56 Trental Sr PO 400 mg Q8HR VIOLETTE Administration Phytonadione 5 mg 01/16/18 09:00 01/16/18 17:21 Mephyton Liq PO 5 mg DAILY VIOLETTE Administration Polyethylene Glycol 34 gm 01/16/18 09:00 01/16/18 08:40 Miralax PO 34 gm DAILY VIOLETTE Administration Potassium Bicarb/Potassium Chloride 50 meq 01/16/18 00:01 01/16/18 16:12 K-Lyte PO 50 meq UNSCH PRN Administration Potassium 3.3-3.5 mEq/L Potassium Phosphate 2,000 mg 01/16/18 01:00 K-Phos Original PO Q4H PRN Phosphorus Less Than 2.5 mg/dL Potassium Phosphate 2,000 mg 01/16/18 00:01 K-Phos Original PO UNSCH PRN SEE LABEL COMMENTS Prochlorperazine Edisylate 5 mg 01/16/18 08:21 Compazine Inj IV.PUSH Q6H PRN NAUSEA OR VOMITING Propranolol HCl 20 mg 01/16/18 06:00 01/17/18 05:56 Inderal PO 20 mg Q8HR VIOLETTE Administration Rifaximin 550 mg 01/16/18 09:00 01/16/18 20:56 Xifaxan PO 550 mg BID VIOLETTE Administration Senna/Docusate Sodium 1 tab 01/16/18 09:00 01/16/18 20:55 Roseann-Colace PO 1 tab BID VIOLETTE Administration Spironolactone 150 mg 01/16/18 09:00 01/16/18 08:39 Aldactone PO 150 mg DAILY VIOLETTE Administration Allergies/Adverse Reactions: Allergies Allergy/AdvReac Type Severity Reaction Status Date / Time No Known Allergies Allergy Unknown Uncoded 12/31/17 10:31 Physical Exam Vital signs: Vital Signs 01/16/18 07:41 01/16/18 08:00 01/16/18 09:00 Temperature 98.9 F Pulse Rate 96 H 94 H Respiratory Rate 24 25 H 32 H Blood Pressure 137/74 Pulse Oximetry 97 97 01/16/18 12:00 01/16/18 12:03 01/16/18 15:47 Temperature 98.9 F Pulse Rate 93 H Respiratory Rate 26 H 23 26 H Blood Pressure 143/74 H Pulse Oximetry 93 L 96 01/16/18 16:00 01/16/18 20:16 01/16/18 23:52 Temperature 98.8 F Pulse Rate 93 H Respiratory Rate 25 H 26 H 23 Blood Pressure 140/79 Pulse Oximetry 95 99 97 01/17/18 04:12 01/17/18 06:11 Temperature 98.8 F Pulse Rate 93 H Respiratory Rate 28 H 28 H Blood Pressure 140/79 Pulse Oximetry 95 95 Intake & Output 01/16/18 01/17/18 01/17/18 18:59 06:59 18:59 Intake Total 713 / 713 815 / 815 Output Total 1700 / 1700 970 / 970 Balance -987 / -987 -155 / -155 Intake: IV 350 / 350 430 / 430 Zovirax Inj 749 MG In NS Inj 330 / 330 150 ML @ 150 mls/hr IV.SIG Q8H VIOLETTE Rx#:[id number] Maxipime Inj 2,000 MG In NS Inj 100 / 100 100 / 100 100 ML @ 200 mls/hr IV.SIG Q8H VIOLETTE Rx#:[id number] Vancomycin Inj 1,000 MG In NS 250 / 250 Inj 250 ML @ 250 mls/hr IV.SIG Q12H VIOLETTE Rx#:[id number] Tube Feeding 243 / 243 285 / 285 Water Bolus Amount 120 / 120 100 / 100 Intake (Blood Product) Amt 0 / 0 Plasma Thawed 5 Day Cp2d Unit 0 / 0 [id number] Output: Urine 500 / 500 Stool 300 / 300 Urine Amount (Catheter) 1200 / 1200 650 / 650 Indwelling Urethral Catheter 1200 / 1200 650 / 650 Chest Tube Drainage 20 / 20 Right Anterior 20 20 Other: Date of Last Bowel Movement 01/16/18 01/16/18 Narrative: coma on vent pupil = no rxt threat or voice - Urinary Catheter Management Indwelling Urethral Catheter Cath placed during this visit: yes Insertion date: 01/15/18 Insertion time: 12:45 Objective Laboratory Results - last 24 hr 01/16/18 01/16/18 01/16/18 08:01 12:40 12:40 WBC RBC Hgb Hct MCV MCH MCHC RDW Plt Count MPV Prelim Diff (Auto) Neut % (Auto) Lymph % (Auto) [place] % (Auto) Eos % (Auto) Baso % (Auto) Neut # (Auto) Lymph # (Auto) [place] # (Auto) Eos # (Auto) Baso # (Auto) WBC Differential Diff Scan Differential Comment Platelet Estimate Platelet Morphology [place] Cells Acanthocytes (Spur) PT INR Puncture Site Patient Temperature VBG pH VBG pCO2 VBG pO2 VBG HCO3 VBG O2 Saturation VBG O2 Content VBG Base Excess VBG Carboxyhemoglobin VBG Methemoglobin Hemoglobin O2 Delivery Device Vent Setting Inspired O2 Critical Value Sodium 140 Potassium 3.4 L Chloride 101 Carbon Dioxide 24.7 Anion Gap 14 BUN 7 Creatinine 1.56 H Estimated GFR 52 L POC Glucose 162 H Random Glucose 136 H Calcium 9.9 Phosphorus Magnesium Total Bilirubin 25.4 H AST 26 ALT 63 Alkaline Phosphatase 151 H Ammonia Total Protein 6.8 Albumin 3.6 Urine Color [place] Urine Clarity Cloudy H Urine pH 5.0 Ur Specific [place] 1.017 Urine Protein Negative Urine Glucose (UA) 50 Urine Ketones Trace Urine Occult Blood Large H Urine Nitrate Negative Urine Bilirubin Negative Urine Urobilinogen Less than 2 Ur Leukocyte Esterase Large H Urine RBC 46 H Urine WBC 91 H Urine WBC Clumps Many H Ur Squamous Epith Cells 1 Calcium Oxalate Crystal Occasional H Urine Bacteria Rare H Hyaline Casts 17 Urine Mucus Few H Urine Yeast Many H Ur Yeast w Hyphae Moderate H Micro UA Comment Culture indicated Urine Culture Comments Culture indicated Random Vancomycin Phenytoin Blood Type Confirm Blood Bank Comment 01/16/18 01/16/18 01/16/18 12:56 13:29 16:31 WBC RBC Hgb Hct MCV MCH MCHC RDW Plt Count MPV Prelim Diff (Auto) Neut % (Auto) Lymph % (Auto) [place] % (Auto) Eos % (Auto) Baso % (Auto) Neut # (Auto) Lymph # (Auto) [place] # (Auto) Eos # (Auto) Baso # (Auto) WBC Differential Diff Scan Differential Comment Platelet Estimate Platelet Morphology [place] Cells Acanthocytes (Spur) PT INR Puncture Site Central line Patient Temperature 98.6 VBG pH 7.60 H* VBG pCO2 26 L VBG pO2 46 H VBG HCO3 26 VBG O2 Saturation 81 H VBG O2 Content 12.3 VBG Base Excess 4.0 H VBG Carboxyhemoglobin 0.9 VBG Methemoglobin 0.8 Hemoglobin 10.8 L O2 Delivery Device Ventilator Vent Setting Cpap,[id number] Inspired O2 30 Critical Value Yes Sodium Potassium Chloride Carbon Dioxide Anion Gap BUN Creatinine Estimated GFR POC Glucose 150 H 143 H Random Glucose Calcium Phosphorus Magnesium Total Bilirubin AST ALT Alkaline Phosphatase Ammonia Total Protein Albumin Urine Color Urine Clarity Urine pH Ur Specific [place] Urine Protein Urine Glucose (UA) Urine Ketones Urine Occult Blood Urine Nitrate Urine Bilirubin Urine Urobilinogen Ur Leukocyte Esterase Urine RBC Urine WBC Urine WBC Clumps Ur Squamous Epith Cells Calcium Oxalate Crystal Urine Bacteria Hyaline Casts Urine Mucus Urine Yeast Ur Yeast w Hyphae Micro UA Comment Urine Culture Comments Random Vancomycin Phenytoin Blood Type Confirm Blood Bank Comment 01/16/18 01/16/18 01/17/18 19:30 22:31 03:40 WBC RBC Hgb Hct MCV MCH MCHC RDW Plt Count MPV Prelim Diff (Auto) Neut % (Auto) Lymph % (Auto) [place] % (Auto) Eos % (Auto) Baso % (Auto) Neut # (Auto) Lymph # (Auto) [place] # (Auto) Eos # (Auto) Baso # (Auto) WBC Differential Diff Scan Differential Comment Platelet Estimate Platelet Morphology [place] Cells Acanthocytes (Spur) PT INR Puncture Site Patient Temperature VBG pH VBG pCO2 VBG pO2 VBG HCO3 VBG O2 Saturation VBG O2 Content VBG Base Excess VBG Carboxyhemoglobin VBG Methemoglobin Hemoglobin O2 Delivery Device Vent Setting Inspired O2 Critical Value Sodium Potassium Chloride Carbon Dioxide Anion Gap BUN Creatinine Estimated GFR POC Glucose 178 H Random Glucose Calcium Phosphorus Magnesium Total Bilirubin AST ALT Alkaline Phosphatase Ammonia 130 H Total Protein Albumin Urine Color Urine Clarity Urine pH Ur Specific [place] Urine Protein Urine Glucose (UA) Urine Ketones Urine Occult Blood Urine Nitrate Urine Bilirubin Urine Urobilinogen Ur Leukocyte Esterase Urine RBC Urine WBC Urine WBC Clumps Ur Squamous Epith Cells Calcium Oxalate Crystal Urine Bacteria Hyaline Casts Urine Mucus Urine Yeast Ur Yeast w Hyphae Micro UA Comment Urine Culture Comments Random Vancomycin Phenytoin 17.7 Blood Type Confirm Blood Bank Comment 01/17/18 01/17/18 01/17/18 03:40 03:40 03:40 WBC 6.5 RBC 3.69 L Hgb 10.8 L Hct 31.0 L MCV 84.1 MCH 29.2 MCHC 34.8 RDW 18.9 H Plt Count 129 L MPV 8.3 Prelim Diff (Auto) Slide review pending Neut % (Auto) 61.7 Lymph % (Auto) 14.7 [place] % (Auto) 22.3 H Eos % (Auto) 0.2 Baso % (Auto) 1.1 Neut # (Auto) 4.0 Lymph # (Auto) 1.0 [place] # (Auto) 1.5 H Eos # (Auto) 0.0 Baso # (Auto) 0.1 WBC Differential . Diff Scan Auto diff confirmed Differential Comment . Platelet Estimate Low L Platelet Morphology Normal [place] Cells 1+ H Acanthocytes (Spur) 1+ H PT 193.5 H D INR Greater than 18.2 H* Puncture Site Patient Temperature VBG pH VBG pCO2 VBG pO2 VBG HCO3 VBG O2 Saturation VBG O2 Content VBG Base Excess VBG Carboxyhemoglobin VBG Methemoglobin Hemoglobin O2 Delivery Device Vent Setting Inspired O2 Critical Value Sodium Potassium Chloride Carbon Dioxide Anion Gap BUN Creatinine Estimated GFR POC Glucose Random Glucose Calcium Phosphorus Magnesium Total Bilirubin AST ALT Alkaline Phosphatase Ammonia 142 H Total Protein Albumin Urine Color Urine Clarity Urine pH Ur Specific [place] Urine Protein Urine Glucose (UA) Urine Ketones Urine Occult Blood Urine Nitrate Urine Bilirubin Urine Urobilinogen Ur Leukocyte Esterase Urine RBC Urine WBC Urine WBC Clumps Ur Squamous Epith Cells Calcium Oxalate Crystal Urine Bacteria Hyaline Casts Urine Mucus Urine Yeast Ur Yeast w Hyphae Micro UA Comment Urine Culture Comments Random Vancomycin Phenytoin Blood Type Confirm Blood Bank Comment 01/17/18 01/17/18 03:40 04:57 WBC RBC Hgb Hct MCV MCH MCHC RDW Plt Count MPV Prelim Diff (Auto) Neut % (Auto) Lymph % (Auto) [place] % (Auto) Eos % (Auto) Baso % (Auto) Neut # (Auto) Lymph # (Auto) [place] # (Auto) Eos # (Auto) Baso # (Auto) WBC Differential Diff Scan Differential Comment Platelet Estimate Platelet Morphology [place] Cells Acanthocytes (Spur) PT INR Puncture Site Patient Temperature VBG pH VBG pCO2 VBG pO2 VBG HCO3 VBG O2 Saturation VBG O2 Content VBG Base Excess VBG Carboxyhemoglobin VBG Methemoglobin Hemoglobin O2 Delivery Device Vent Setting Inspired O2 Critical Value Sodium 140 Potassium 4.1 Chloride 103 Carbon Dioxide 22.3 Anion Gap 15 BUN 9 Creatinine 1.68 H Estimated GFR 48 L POC Glucose Random Glucose 171 H Calcium 9.5 Phosphorus 3.4 Magnesium 1.9 Total Bilirubin 27.9 H AST 24 ALT 61 Alkaline Phosphatase 147 H Ammonia Total Protein 6.7 Albumin 3.3 L Urine Color Urine Clarity Urine pH Ur Specific [place] Urine Protein Urine Glucose (UA) Urine Ketones Urine Occult Blood Urine Nitrate Urine Bilirubin Urine Urobilinogen Ur Leukocyte Esterase Urine RBC Urine WBC Urine WBC Clumps Ur Squamous Epith Cells Calcium Oxalate Crystal Urine Bacteria Hyaline Casts Urine Mucus Urine Yeast Ur Yeast w Hyphae Micro UA Comment Urine Culture Comments Random Vancomycin 27.1 Phenytoin Blood Type Confirm B Positive Blood Bank Comment Review/Management - Review/Management Plan: imp recheck mri hepatic enceph dil 18 lower dose 01/17/18 mri no major change may be some subtle cortical diffuse edema on flair if hospice called in i would agree to that as main problem here is hepatic dil 17.7
[2018-01-17] MEDS: MethylPREDNISolone Sod Succinate Inj 40 MG/ML Vial IV.PUSH SCH ×2 (08:24→17:31)
[2018-01-17] MEDS: Spironolactone 50 MG Tablet PO SCH (08:25)
[2018-01-17] MEDS: rifAXIMin 550 MG Tablet PO SCH ×2 (08:25→20:35)
[2018-01-17] MEDS: Fosphenytoin Sodium Inj 100 MGPE/2 ML Vial IV.SIG SCH ×2 (08:26→20:32)
[2018-01-17] MEDS: Phytonadione 5 MG/SWFI 5 ML Oral Syringe PO SCH (08:27)
[2018-01-17] MEDS: Senna/Docusate Sodium 8.6/50 MG Tablet PO SCH ×2 (08:27→20:35)
[2018-01-17] MEDS: Polyethylene Glycol 3350 17 GM Packet PO SCH (08:27)
[2018-01-17] MEDS ORDERED: Pharmacy Ordered Lab Info OTHER ONE (11:45)
--- NOTE | 2018-01-17 13:25 | P.PNID ---
Subjective Remarks: Most of the history was from medical records patient is encephalopathic. is a 32 y/o CM with PMHx of ADHD, Right malleolar fracture with infection in Aug 2017 when I saw him and he subsequently followed up with Dr.Reba Villa and reportedly did well. Subsequently he has had ED visits and admissions where he was diagnosed Hep C positive antibody. He also has a history of alcoholism per records. With this background, patient presented to the ED at [facility] with increasing fatigue, abdominal pain and vomiting progressively worsening few days prior to admission. He had been seen in the ED the prior day diagnosed with hepatitis C but left AMA. He reported a remote history of IV drug abuse which had occurred 10 years prior. His mother, who is an ICU nurse at [facility] [facility] [employer] believes he has probably used IV drugs more recently than that. Presenting labs showed ammonia of 66, WBC 7.8, potassium 4.8, BUN 6, creatinine 0.67, alkaline phosphatase 219, AST 1656, ALT 2846, albumin 3.2, bilirubin 6.1, INR 17.1 PTT 70.9. He was evaluated by gastroenterology to further evaluate his hepatitis infection. He was also seen by hematology due to his coagulopathy. 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 Hospital course: Based on review of Neurologist notes it appears he was progressively more encephalopathic difficult to arouse and so Critical care was consulted on 01/13/2018 .Patient was not responding to deep sternal rub and pain stimuli no eye opening or withdrawal to pain. Oxygen saturation was within normal limits 98-99% on 4 L nasal cannula out of concern for cerebral edema or an acute bleed a stat MRI was obtained, again showing no acute abnormality. Patient had developed some spontaneous eye opening later in the day incomprehensible sounds and passed a bedside swallow evaluation. Ammonia level was 94, up from 67 day prior. It appears that was concerned about resp status and approached Mom for intubation. Mom has been involved in care at bedside. Reportedly she did not want feeding tube or intubation as patient had declined that in past. Palliative care has been consulted for addressing goals of care. At the time of my evaluation patient is in the ICU, difficult to arouse, undergoing an EEG shortly. He is not on pressors. UO is low. Not coughing. No spontaneous eye opening or movements in my presence. Overnight events reviewed No fevers No rash Obtunded. Intubated over the weekend. s/P MRI to r.o epidural abscess which is negative. LP cannot be done as INR high per my dw on Wednesday. Neurology notes reviewed Palliative care notes reviewed. Antibiotics: Cefepime IV Vanco IV Acyclovir IV Lines: Lines ok Past Medical History: Hep C Hardware infection of leg Hepatitis Alcoholism Allergies/Adverse Reactions: Allergies No Known Allergies Allergy (Unknown, Uncoded 12/31/17 10:31) Objective Vital Signs 01/16/18 15:47 01/16/18 16:00 01/16/18 20:16 Temperature 98.8 F Pulse Rate 93 H Respiratory Rate 26 H 25 H 26 H Blood Pressure 140/79 Pulse Oximetry 95 99 01/16/18 23:52 01/17/18 04:12 01/17/18 06:11 Temperature 98.8 F Pulse Rate 93 H Respiratory Rate 23 28 H 28 H Blood Pressure 140/79 Pulse Oximetry 97 95 95 01/17/18 08:00 01/17/18 08:20 01/17/18 08:39 Temperature 99.8 F H 99.5 F Pulse Rate 108 H 104 H Respiratory Rate 6 L 22 22 Blood Pressure 107/51 L 109/51 L Pulse Oximetry 94 L 94 L 01/17/18 10:10 01/17/18 12:05 Temperature 100.8 F H Pulse Rate 104 H Respiratory Rate 22 7 L Blood Pressure 106/53 L Pulse Oximetry 95 96 Intake & Output 01/16/18 01/17/18 01/17/18 18:59 06:59 18:59 Intake Total 713 / 713 815 / 815 322 / 322 Output Total 1700 / 1700 970 / 970 Balance -987 / -987 -155 / -155 322 / 322 Intake: IV 350 / 350 430 / 430 Zovirax Inj 749 MG In NS Inj 330 / 330 150 ML @ 150 mls/hr IV.SIG Q8H [facility] Rx#:[id number] Maxipime Inj 2,000 MG In NS Inj 100 / 100 100 / 100 100 ML @ 200 mls/hr IV.SIG Q8H [facility] Rx#:[id number] Vancomycin Inj 1,000 MG In NS 250 / 250 Inj 250 ML @ 250 mls/hr IV.SIG Q12H [facility] Rx#:[id number] Tube Feeding 243 / 243 285 / 285 Water Bolus Amount 120 / 120 100 / 100 Intake (Blood Product) Amt 0 / 0 322 / 322 Plasma Thawed 5 Day Cp2d Unit 0 / 0 [id number] Plasma Thawed 5 Day Cp2d Unit 0 / 0 0 / 0 [id number] Plasma Thawed 5 Day Cp2d Unit 322 / 322 [id number] Output: Urine 500 / 500 Stool 300 / 300 Urine Amount (Catheter) 1200 / 1200 650 / 650 Indwelling Urethral Catheter 1200 / 1200 650 / 650 Chest Tube Drainage Right Anterior Other: Date of Last Bowel Movement 01/16/18 01/16/18 01/17/18 01/16/18 12:40 Clean Catch Urine Urine Culture - Pending Lab - Hematology Results 01/13/18 01/13/18 01/14/18 06:45 19:45 02:00 WBC 8.4 7.8 11.3 H RBC 3.97 L 4.22 L 4.26 L Hgb 11.3 L 11.9 L 12.0 L Hct 34.0 L 35.2 L 35.2 L MCV 85.6 83.5 82.7 MCH 28.4 28.2 28.2 MCHC 33.2 33.8 34.1 RDW 16.5 17.3 H 17.2 Plt Count 98 L D 93 L 103 L MPV 8.4 8.7 8.6 Prelim Diff (Auto) Neut % (Auto) 70.2 H 54.5 Lymph % (Auto) 10.3 25.7 Rankin % (Auto) 17.8 H 19.0 H Eos % (Auto) 0.9 0.7 Baso % (Auto) 0.8 0.1 Neut # (Auto) 5.8 6.2 Lymph # (Auto) 0.9 L 2.9 Rankin # (Auto) 1.5 H 2.2 H Eos # (Auto) 0.1 0.1 Baso # (Auto) 0.1 0.0 CBC Comment AUTO DIFF AUTO DIFF WBC Differential Diff Scan Differential Comment AUTO DIFF CONFIRMED AUTO DIFF CONFIRMED Platelet Estimate LOW L Platelet Morphology Plt Morphology Comment NORMAL [place] Cells Acanthocytes (Spur) 1+ H Keratocytes OCC 06/01/16/18 01/17/18 03:58 04:16 03:40 WBC 5.2 6.3 6.5 RBC 4.15 L 4.09 L 3.69 L Hgb 12.0 L 11.8 L 10.8 L Hct 34.7 L 34.3 L 31.0 L MCV 83.6 83.9 84.1 MCH 29.0 29.0 29.2 MCHC 34.7 34.5 34.8 RDW 17.8 H 18.3 H 18.9 H Plt Count 106 L 129 L 129 L MPV 8.6 8.6 8.3 Prelim Diff (Auto) Slide review pending Slide review pending Neut % (Auto) 77.6 H 56.3 61.7 Lymph % (Auto) 13.4 18.8 14.7 Rankin % (Auto) 8.5 H 24.5 H 22.3 H Eos % (Auto) 0.1 0.2 0.2 Baso % (Auto) 0.4 0.2 1.1 Neut # (Auto) 4.1 3.6 4.0 Lymph # (Auto) 0.7 L 1.2 1.0 Rankin # (Auto) 0.4 1.5 H 1.5 H Eos # (Auto) 0.0 0.0 0.0 Baso # (Auto) 0.0 0.0 0.1 CBC Comment AUTO DIFF WBC Differential . . Diff Scan Auto diff confirmed Auto diff confirmed Differential Comment AUTO DIFF CONFIRMED . . Platelet Estimate LOW L Low L Platelet Morphology Normal Plt Morphology Comment NORMAL [place] Cells 1+ H 1+ H Acanthocytes (Spur) 1+ H 1+ H 1+ H Keratocytes OCC Occ H Lab - Chemistry Results 01/11/18 01/13/18 01/13/18 09:50 03:07 06:45 Sodium 131 L Potassium 3.6 Chloride 90 L Carbon Dioxide 31.0 Anion Gap 10 BUN 4 L Creatinine 1.30 Estimated GFR 64 L POC Glucose Random Glucose 83 Lactic Acid Calcium 9.7 Phosphorus Magnesium Total Bilirubin 19.4 H Direct Bilirubin Indirect Bilirubin AST 28 ALT 102 H Alkaline Phosphatase 165 H Ammonia Lactate Dehydrogenase 274 H Total Protein 6.9 6.5 Albumin 3.7 Ceruloplasmin 16 L 01/13/18 01/13/18 01/14/18 06:45 06:45 02:00 Sodium 135 L Potassium 2.7 L* D Chloride 93 L Carbon Dioxide 25.8 Anion Gap 16 H BUN 5 L Creatinine 1.42 H Estimated GFR 58 L POC Glucose Random Glucose 99 Lactic Acid Calcium 9.9 Phosphorus Magnesium Total Bilirubin 22.7 H Direct Bilirubin 4.2 H Indirect Bilirubin AST 31 ALT 89 H Alkaline Phosphatase 186 H Ammonia 95 H Lactate Dehydrogenase Total Protein 7.2 D Albumin 3.9 Ceruloplasmin 01/14/18 01/14/18 01/15/18 02:02 17:30 00:20 Sodium Potassium 2.4 L* Chloride Carbon Dioxide Anion Gap BUN Creatinine Estimated GFR POC Glucose Random Glucose Lactic Acid Calcium Phosphorus Magnesium Total Bilirubin 23.8 H Direct Bilirubin 5.0 H Indirect Bilirubin 18.8 H AST 32 ALT 80 H Alkaline Phosphatase 172 H Ammonia 121 H Lactate Dehydrogenase Total Protein 7.2 Albumin 3.7 Ceruloplasmin 01/15/18 01/15/18 01/15/18 00:20 03:58 03:58 Sodium 137 Potassium 3.2 L D Chloride 99 Carbon Dioxide 24.7 Anion Gap 13 BUN 6 L Creatinine 1.42 H Estimated GFR 58 L POC Glucose Random Glucose 133 H Lactic Acid Calcium 9.7 Phosphorus Magnesium Total Bilirubin 24.3 H Direct Bilirubin Indirect Bilirubin AST 31 ALT 80 H Alkaline Phosphatase 165 H Ammonia 156 H 180 H Lactate Dehydrogenase Total Protein 7.0 Albumin 3.6 Ceruloplasmin 01/15/18 01/15/18 01/16/18 03:58 18:05 04:16 Sodium Potassium 3.4 L Chloride Carbon Dioxide Anion Gap BUN Creatinine Estimated GFR POC Glucose Random Glucose Lactic Acid 5.1 H* Calcium Phosphorus Magnesium Total Bilirubin Direct Bilirubin Indirect Bilirubin AST ALT Alkaline Phosphatase Ammonia 147 H Lactate Dehydrogenase Total Protein Albumin Ceruloplasmin 01/16/18 01/16/18 01/16/18 08:01 12:40 12:56 Sodium 140 Potassium 3.4 L Chloride 101 Carbon Dioxide 24.7 Anion Gap 14 BUN 7 Creatinine 1.56 H Estimated GFR 52 L POC Glucose 162 H 150 H Random Glucose 136 H Lactic Acid Calcium 9.9 Phosphorus Magnesium Total Bilirubin 25.4 H Direct Bilirubin Indirect Bilirubin AST 26 ALT 63 Alkaline Phosphatase 151 H Ammonia Lactate Dehydrogenase Total Protein 6.8 Albumin 3.6 Ceruloplasmin 01/16/18 01/16/18 01/16/18 16:31 19:30 22:31 Sodium Potassium Chloride Carbon Dioxide Anion Gap BUN Creatinine Estimated GFR POC Glucose 143 H 178 H Random Glucose Lactic Acid Calcium Phosphorus Magnesium Total Bilirubin Direct Bilirubin Indirect Bilirubin AST ALT Alkaline Phosphatase Ammonia 130 H Lactate Dehydrogenase Total Protein Albumin Ceruloplasmin 01/17/18 01/17/18 01/17/18 03:40 03:40 08:43 Sodium 140 Potassium 4.1 Chloride 103 Carbon Dioxide 22.3 Anion Gap 15 BUN 9 Creatinine 1.68 H Estimated GFR 48 L POC Glucose 173 H Random Glucose 171 H Lactic Acid Calcium 9.5 Phosphorus 3.4 Magnesium 1.9 Total Bilirubin 27.9 H Direct Bilirubin Indirect Bilirubin AST 24 ALT 61 Alkaline Phosphatase 147 H Ammonia 142 H Lactate Dehydrogenase Total Protein 6.7 Albumin 3.3 L Ceruloplasmin Imaging: ITS Impressions Head MRI 01/16/18 00:00 CONCLUSION: 1. Subtle restricted diffusion in the gold matter when compared to the white most prevalent in mid sylvian regions bilaterally. This is symmetric. This can be seen with anoxic encephalopathy. 2. There is no abnormal contrast enhancement. 3. There is no parenchymal hemorrhage. Chest X-Ray 01/17/18 04:00 CONCLUSION: The lungs are clear. Physical Exam: GENERAL: Acutely ill appearing male patient, in no apparent distress. SKIN: Areas of ecchymosis noted. Icteric skin. HEAD: Atraumatic. Normocephalic. No temporal or scalp tenderness. EYES: Pupils equal round and reactive. positive Scleral icterus. No injection or drainage. ENT: Nose without bleeding, purulent drainage or septal hematoma. Uvula midline. Airway patent. NECK: Trachea midline. Supple, nontender, no meningeal signs. CARDIOVASCULAR: HS audible. RESPIRATORY: AE decreased in the bases. GASTROINTESTINAL: Abdomen soft, Abdomen distended, positive fluid thrill. Non tender. No guarding or rigidity. MUSCULOSKELETAL: Extremities without clubbing, cyanosis, or edema. No joint tenderness, effusion, or edema noted. No calf tenderness. Negative Homans sign bilaterally. NEUROLOGICAL: Difficult to arouse. No response to painful stimuli. Psych could not be assessed. IV line sites with no e.o infection. Assessment and Plan - Plan Low probability for meningitis. LP cannot be done. Appears to be hepatic encephalopathy related. Rule out endocarditis. Acute hepatitis (Alcoholism and Hepatitis C positive) Acute metabolic encephalopathy: sepsis, metabolic, seizures. Right malleolar fracture with hardware infection Aug 2017 [facility]. Recs Continue Cefepime IV DC Vanco IV (target 15-20) No MRSA in blood or sputum and is nephrotoxic. Continue Acyclovir IV for now. Tiffany albicans in urine: likely contamination. Diflucan can cause increased LFTs and worsen encephalopathy. Unless true infection would like to avoid treatment. 2D ECHO Negative for vegetations Follow cultures Follow clinically. magdaleno RN dw palliative care. No family in room. magdaleno dolan GI Noted Neuro note re:hospice. Agree the main problem is infact hepatic from an ID standpoint I doubt this is meningitis related Altered mental status.
--- NOTE | 2018-01-17 14:25 | P.PNGI ---
Subjective Interval history: Pt unresponsive, not on sedations Remains intubated Discussed case with Dr. Herring <Peyton Meléndez - Last Filed: 01/17/18 14:01> Physical Exam Vital signs: Vital Signs 01/16/18 15:47 01/16/18 16:00 01/16/18 20:16 Temperature 98.8 F Pulse Rate 93 H Respiratory Rate 26 H 25 H 26 H Blood Pressure 140/79 Pulse Oximetry 95 99 01/16/18 23:52 01/17/18 04:12 01/17/18 06:11 Temperature 98.8 F Pulse Rate 93 H Respiratory Rate 23 28 H 28 H Blood Pressure 140/79 Pulse Oximetry 97 95 95 01/17/18 08:00 01/17/18 08:20 01/17/18 08:39 Temperature 99.8 F H 99.5 F Pulse Rate 108 H 104 H Respiratory Rate 6 L 22 22 Blood Pressure 107/51 L 109/51 L Pulse Oximetry 94 L 94 L 01/17/18 10:10 01/17/18 12:05 Temperature 100.8 F H Pulse Rate 104 H Respiratory Rate 22 7 L Blood Pressure 106/53 L Pulse Oximetry 95 96 Intake & Output 01/16/18 01/17/18 01/17/18 18:59 06:59 18:59 Intake Total 713 / 713 915 / 915 987.98 / 987.98 Output Total 1700 / 1700 970 / 970 Balance -987 / -987 -55 / -55 987.98 / 987.98 Intake: IV 350 / 350 530 / 530 665.98 / 665.98 Zovirax Inj 749 MG In NS Inj 330 / 330 164.98 / 164.98 150 ML @ 150 mls/hr IV.SIG Q8H JACQUE Rx#:[id number] Maxipime Inj 2,000 MG In NS Inj 100 / 100 200 / 200 100 ML @ 200 mls/hr IV.SIG Q8H JACQUE Rx#:[id number] Thorazine Inj 25 MG In NS Inj 501 / 501 500 ML @ 250.5 mls/hr IV.SIG Q6H JACQUE Rx#:[id number] Vancomycin Inj 1,000 MG In NS 250 / 250 Inj 250 ML @ 250 mls/hr IV.SIG Q12H JACQUE Rx#:[id number] Tube Feeding 243 / 243 285 / 285 Water Bolus Amount 120 / 120 100 / 100 Intake (Blood Product) Amt 0 / 0 322 / 322 Plasma Thawed 5 Day Cp2d Unit 0 / 0 [id number] Plasma Thawed 5 Day Cp2d Unit 0 / 0 0 / 0 [id number] Plasma Thawed 5 Day Cp2d Unit 322 / 322 [id number] Output: Urine 500 / 500 Stool 300 / 300 Urine Amount (Catheter) 1200 / 1200 650 / 650 Indwelling Urethral Catheter 1200 / 1200 650 / 650 Chest Tube Drainage 20 / 20 Right Anterior 20 20 Other: Date of Last Bowel Movement 01/16/18 01/16/18 01/17/18 - Constitutional Comments: unresponsive - Routine HEENT Exam Head: Present: normocephalic, atraumatic Eye: Present: conjunctival icterus - Routine Respiratory Exam Comments: respirations synchronized with vent - Routine Abdominal Exam Present: soft, distended - Routine Skin Exam Present: jaundice - Detailed Neurological Exam: Coma Scale Eye Opening: None Verbal Response: None Motor Response: None Ayesha Coma Scale Total: 3 - Urinary Catheter Management Indwelling Urethral Catheter Cath placed during this visit: yes Insertion date: 01/15/18 Insertion time: 12:45 <Peyton Meléndez - Last Filed: 01/17/18 14:01> Vital signs: Vital Signs 01/16/18 20:16 01/16/18 23:52 01/17/18 04:12 Temperature Pulse Rate Respiratory Rate 26 H 23 28 H Blood Pressure Pulse Oximetry 99 97 95 01/17/18 06:11 01/17/18 08:00 01/17/18 08:20 Temperature 98.8 F 99.8 F H Pulse Rate 93 H 108 H Respiratory Rate 28 H 6 L 22 Blood Pressure 140/79 107/51 L Pulse Oximetry 95 94 L 01/17/18 08:39 01/17/18 10:10 01/17/18 12:05 Temperature 99.5 F 100.8 F H Pulse Rate 104 H 104 H Respiratory Rate 22 22 7 L Blood Pressure 109/51 L 106/53 L Pulse Oximetry 94 L 95 96 01/17/18 15:38 Temperature Pulse Rate Respiratory Rate 21 Blood Pressure Pulse Oximetry 96 Intake & Output 01/17/18 01/17/18 01/18/18 06:59 18:59 06:59 Intake Total 915 / 915 2580.98 / 2580.98 Output Total 970 / 970 375 / 375 Balance -55 / -55 2205.98 / 2205.98 Intake: IV 530 / 530 1732.98 / 1732.98 Zovirax Inj 749 MG In NS Inj 330 / 330 329.98 / 329.98 150 ML @ 150 mls/hr IV.SIG Q8H JACQUE Rx#:[id number] Maxipime Inj 2,000 MG In NS Inj 200 / 200 100 / 100 100 ML @ 200 mls/hr IV.SIG Q8H JACQUE Rx#:[id number] Thorazine Inj 25 MG In NS Inj 1002 / 1002 500 ML @ 250.5 mls/hr IV.SIG Q6H JACQUE Rx#:[id number] Vancomycin Inj 1,000 MG In NS 250 / 250 Inj 250 ML @ 250 mls/hr IV.SIG Q12H JACQUE Rx#:[id number] Tube Feeding 285 / 285 282 / 282 Tube Irrigant 180 / 180 Water Bolus Amount 100 / 100 Intake (Blood Product) Amt 0 / 0 386 / 386 Plasma Thawed 5 Day Cp2d Unit 64 / 64 [id number] Plasma Thawed 5 Day Cp2d Unit 0 / 0 0 / 0 [id number] Plasma Thawed 5 Day Cp2d Unit 322 / 322 [id number] Output: Urine 375 / 375 Stool 300 / 300 0 / 0 Urine Amount (Catheter) 650 / 650 Indwelling Urethral Catheter 650 / 650 Chest Tube Drainage 20 / 20 Right Anterior 20 / 20 Other: Date of Last Bowel Movement 01/16/18 01/17/18 - Urinary Catheter Management Indwelling Urethral Catheter Cath placed during this visit: no <Abi Louis - Last Filed: 01/17/18 19:51> Results - Labs CBC & Chem 7: 01/17/18 03:40 01/17/18 03:40 Laboratory Results - last 24 hr 01/16/18 01/16/18 01/16/18 12:40 16:31 19:30 WBC RBC Hgb Hct MCV MCH MCHC RDW Plt Count MPV Prelim Diff (Auto) Neut % (Auto) Lymph % (Auto) [place] % (Auto) Eos % (Auto) Baso % (Auto) Neut # (Auto) Lymph # (Auto) [place] # (Auto) Eos # (Auto) Baso # (Auto) WBC Differential Diff Scan Differential Comment Platelet Estimate Platelet Morphology Geronimo Cells Acanthocytes (Spur) PT INR Sodium 140 Potassium 3.4 L Chloride 101 Carbon Dioxide 24.7 Anion Gap 14 BUN 7 Creatinine 1.56 H Estimated GFR 52 L POC Glucose 143 H Random Glucose 136 H Calcium 9.9 Phosphorus Magnesium Total Bilirubin 25.4 H AST 26 ALT 63 Alkaline Phosphatase 151 H Ammonia 130 H Total Protein 6.8 Albumin 3.6 Vancomycin Trough Random Vancomycin Phenytoin Blood Type Confirm Blood Bank Comment 01/16/18 01/17/18 01/17/18 22:31 03:40 03:40 WBC RBC Hgb Hct MCV MCH MCHC RDW Plt Count MPV Prelim Diff (Auto) Neut % (Auto) Lymph % (Auto) [place] % (Auto) Eos % (Auto) Baso % (Auto) Neut # (Auto) Lymph # (Auto) [place] # (Auto) Eos # (Auto) Baso # (Auto) WBC Differential Diff Scan Differential Comment Platelet Estimate Platelet Morphology [place] Cells Acanthocytes (Spur) PT 193.5 H D INR Greater than 18.2 H* Sodium Potassium Chloride Carbon Dioxide Anion Gap BUN Creatinine Estimated GFR POC Glucose 178 H Random Glucose Calcium Phosphorus Magnesium Total Bilirubin AST ALT Alkaline Phosphatase Ammonia Total Protein Albumin Vancomycin Trough Random Vancomycin Phenytoin 17.7 Blood Type Confirm Blood Bank Comment 01/17/18 01/17/18 01/17/18 03:40 03:40 03:40 WBC 6.5 RBC 3.69 L Hgb 10.8 L Hct 31.0 L MCV 84.1 MCH 29.2 MCHC 34.8 RDW 18.9 H Plt Count 129 L MPV 8.3 Prelim Diff (Auto) Slide review pending Neut % (Auto) 61.7 Lymph % (Auto) 14.7 [place] % (Auto) 22.3 H Eos % (Auto) 0.2 Baso % (Auto) 1.1 Neut # (Auto) 4.0 Lymph # (Auto) 1.0 [place] # (Auto) 1.5 H Eos # (Auto) 0.0 Baso # (Auto) 0.1 WBC Differential . Diff Scan Auto diff confirmed Differential Comment . Platelet Estimate Low L Platelet Morphology Normal [place] Cells 1+ H Acanthocytes (Spur) 1+ H PT INR Sodium 140 Potassium 4.1 Chloride 103 Carbon Dioxide 22.3 Anion Gap 15 BUN 9 Creatinine 1.68 H Estimated GFR 48 L POC Glucose Random Glucose 171 H Calcium 9.5 Phosphorus 3.4 Magnesium 1.9 Total Bilirubin 27.9 H AST 24 ALT 61 Alkaline Phosphatase 147 H Ammonia 142 H Total Protein 6.7 Albumin 3.3 L Vancomycin Trough Random Vancomycin 27.1 Phenytoin Blood Type Confirm Blood Bank Comment 01/17/18 01/17/18 01/17/18 04:57 08:43 12:28 WBC RBC Hgb Hct MCV MCH MCHC RDW Plt Count MPV Prelim Diff (Auto) Neut % (Auto) Lymph % (Auto) [place] % (Auto) Eos % (Auto) Baso % (Auto) Neut # (Auto) Lymph # (Auto) [place] # (Auto) Eos # (Auto) Baso # (Auto) WBC Differential Diff Scan Differential Comment Platelet Estimate Platelet Morphology [place] Cells Acanthocytes (Spur) PT INR Sodium Potassium Chloride Carbon Dioxide Anion Gap BUN Creatinine Estimated GFR POC Glucose 173 H Random Glucose Calcium Phosphorus Magnesium Total Bilirubin AST ALT Alkaline Phosphatase Ammonia Total Protein Albumin Vancomycin Trough 17.3 H Random Vancomycin Phenytoin Blood Type Confirm B Positive Blood Bank Comment Microbiology 01/16/18 12:40 Clean Catch Urine Urine Culture - Preliminary Yeast species - Imaging Impressions Chest X-Ray 01/17/18 04:00 CONCLUSION: The lungs are clear. <Peyton Meléndez - Last Filed: 01/17/18 14:01> - Labs CBC & Chem 7: 01/17/18 03:40 01/17/18 03:40 Laboratory Results - last 24 hr 01/16/18 01/16/18 01/16/18 04:16 19:30 22:31 WBC RBC Hgb Hct MCV MCH MCHC RDW Plt Count MPV Prelim Diff (Auto) Neut % (Auto) Lymph % (Auto) [place] % (Auto) Eos % (Auto) Baso % (Auto) Neut # (Auto) Lymph # (Auto) [place] # (Auto) Eos # (Auto) Baso # (Auto) WBC Differential Diff Scan Differential Comment Platelet Estimate Platelet Morphology [place] Cells Acanthocytes (Spur) PT INR Sodium Potassium Chloride Carbon Dioxide Anion Gap BUN Creatinine Estimated GFR POC Glucose 178 H Random Glucose Calcium Phosphorus Magnesium Total Bilirubin AST ALT Alkaline Phosphatase Ammonia 130 H Total Protein Albumin Vancomycin Trough Random Vancomycin Phenytoin Hemochromatosis Source Cancelled Hemochromat Specimen Cancelled Hemochromatosis Method Cancelled Heredit Hemochromatosis Cancelled Hemochromatosis Results Cancelled Hemochromatosis Interp Cancelled Hemochromatosis Review Cancelled Blood Type Confirm Blood Bank Comment 01/17/18 01/17/18 01/17/18 03:40 03:40 03:40 WBC RBC Hgb Hct MCV MCH MCHC RDW Plt Count MPV Prelim Diff (Auto) Neut % (Auto) Lymph % (Auto) [place] % (Auto) Eos % (Auto) Baso % (Auto) Neut # (Auto) Lymph # (Auto) [place] # (Auto) Eos # (Auto) Baso # (Auto) WBC Differential Diff Scan Differential Comment Platelet Estimate Platelet Morphology Gordon Cells Acanthocytes (Spur) PT 193.5 H D INR Greater than 18.2 H* Sodium Potassium Chloride Carbon Dioxide Anion Gap BUN Creatinine Estimated GFR POC Glucose Random Glucose Calcium Phosphorus Magnesium Total Bilirubin AST ALT Alkaline Phosphatase Ammonia 142 H Total Protein Albumin Vancomycin Trough Random Vancomycin Phenytoin 17.7 Hemochromatosis Source Hemochromat Specimen Hemochromatosis Method Heredit Hemochromatosis Hemochromatosis Results Hemochromatosis Interp Hemochromatosis Review Blood Type Confirm Blood Bank Comment 01/17/18 01/17/18 01/17/18 03:40 03:40 04:57 WBC 6.5 RBC 3.69 L Hgb 10.8 L Hct 31.0 L MCV 84.1 MCH 29.2 MCHC 34.8 RDW 18.9 H Plt Count 129 L MPV 8.3 Prelim Diff (Auto) Slide review pending Neut % (Auto) 61.7 Lymph % (Auto) 14.7 [place] % (Auto) 22.3 H Eos % (Auto) 0.2 Baso % (Auto) 1.1 Neut # (Auto) 4.0 Lymph # (Auto) 1.0 [place] # (Auto) 1.5 H Eos # (Auto) 0.0 Baso # (Auto) 0.1 WBC Differential . Diff Scan Auto diff confirmed Differential Comment . Platelet Estimate Low L Platelet Morphology Normal [place] Cells 1+ H Acanthocytes (Spur) 1+ H PT INR Sodium 140 Potassium 4.1 Chloride 103 Carbon Dioxide 22.3 Anion Gap 15 BUN 9 Creatinine 1.68 H Estimated GFR 48 L POC Glucose Random Glucose 171 H Calcium 9.5 Phosphorus 3.4 Magnesium 1.9 Total Bilirubin 27.9 H AST 24 ALT 61 Alkaline Phosphatase 147 H Ammonia Total Protein 6.7 Albumin 3.3 L Vancomycin Trough Random Vancomycin 27.1 Phenytoin Hemochromatosis Source Hemochromat Specimen Hemochromatosis Method Heredit Hemochromatosis Hemochromatosis Results Hemochromatosis Inter Hemochromatosis Review Blood Type Confirm B Positive Blood Bank Comment 01/17/18 01/17/18 01/17/18 08:43 12:28 14:11 WBC RBC Hgb Hct MCV MCH MCHC RDW Plt Count MPV Prelim Diff (Auto) Neut % (Auto) Lymph % (Auto) [place] % (Auto) Eos % (Auto) Baso % (Auto) Neut # (Auto) Lymph # (Auto) [place] # (Auto) Eos # (Auto) Baso # (Auto) WBC Differential Diff Scan Differential Comment Platelet Estimate Platelet Morphology [place] Cells Acanthocytes (Spur) PT INR Sodium Potassium Chloride Carbon Dioxide Anion Gap BUN Creatinine Estimated GFR POC Glucose 173 H 169 H Random Glucose Calcium Phosphorus Magnesium Total Bilirubin AST ALT Alkaline Phosphatase Ammonia Total Protein Albumin Vancomycin Trough 17.3 H Random Vancomycin Phenytoin Hemochromatosis Source Hemochromat Specimen Hemochromatosis Method Heredit Hemochromatosis Hemochromatosis Results Hemochromatosis Inter Hemochromatosis Review Blood Type Confirm Blood Bank Comment Microbiology 01/16/18 12:40 Clean Catch Urine Urine Culture - Preliminary Yeast species - Imaging Impressions Chest X-Ray 01/17/18 04:00 CONCLUSION: The lungs are clear. <Abi Louis - Last Filed: 01/17/18 19:51> Assessment and Plan (1) Liver failure Status: Acute Code(s): K72.90 - Hepatic failure, unspecified without coma (2) Hepatitis C Status: Acute Code(s): B19.20 - Unspecified viral hepatitis C without hepatic coma - Plan Assessment: - Acute liver failure with history of Hepatitis C, complications of coagulopathy , hepatic encephalopathy with coma, portal hypertension with ascites, and ?hepatorenal syndrome Pt was recently seen in hospital in December for same but left AMA prior to being seen by GI. According to notes pt admitted to IV drug use and ETOH. Liver KELLER: KOLBY, AMA, ASMA negative. Hepatitis C IgG antibody reactive, RNA not detected. Ceruloplasmin-16 AAT-53 Ferritin-216 Iron-144 TIBC-162 %Sat-88.7 CT abdomen and pelvis W IV contrast (01/07) Large amount of ascites. Cirrhotic liver with portal hypertension and a recanalized periumbilical vein. Prominent small bowel with thickened masters. This is nonspecific. Proximal enteritis could have this appearance. Abdomen US (01/13) Very small amount of ascites with insufficient volume for safe paracentesis (01/17) Pt continues with poor prognosis, discussed with Dr. Herring. He states pts mother is OK with withdraw of life support. Hospice has been consulted. Despite current treatment, pt has continued to decline. From a GI standpoint pt is on Trental and Solumedrol for ETOH hepatitis with elevated DF score. Inderal for portal HTN. Xifaxan and Lactulose for hepatic encephalopathy. Spironolactone and Lasix for ascites. Pt has been started on TF through NG currently running at 25 mL/hr. Pt not on sedation, unarousable, intubated H/H trending down. Pt remains severely coagulopathic. Ammonia remains elevated. Renal function trending down. Hematology following for coagulopathy-FFP ordered, pt with no obvious active bleeding Neurology following- impression notes coma from hepatic cause- states Hospice is appropriate ID following- unable to do LP because of coagulopathy. Plan: Agree with Hospice consult Despite aggressive treatment pt continues to decompensate Pt has been seen and examined by myself and Dr. Louis and this note is written on her behalf <Peyton Meléndez - Last Filed: 01/17/18 14:01> (1) Liver failure Status: Acute Code(s): K72.90 - Hepatic failure, unspecified without coma (2) Hepatitis C Status: Acute Code(s): B19.20 - Unspecified viral hepatitis C without hepatic coma - Attending Attestation agree with above <Abi Louis - Last Filed: 01/17/18 19:51>
--- NOTE | 2018-01-17 16:20 | P.PNPAL ---
Reason for Visit Reason for visit: Encephalopathy, dyspnea Subjective Subjective/Interval History: Patient seen today for follow-up of symptom management of encephalopathy and dyspnea. Patient remains encephalopathic, not responding to deep pain stimuli or vigorous stimulation. EEG done 01/15 show severe metabolic encephalopathy with no seizures. Pupils remain 4 mm, sluggishly reactive. He is not breathing over the vent, he is not on sedation. Ammonia level remains down to 142, Bilirubin is 27.9. Patient was intubated secondary to abnormal respiratory pattern and inability to protect airway. He was exhibiting agonal breathing prior to intubation. He remains on 30% FiO2. Last arterial blood gas done 01/15 shows pH 7.71, PCO2 19, PaO2 200, bicarbonate 25, base excess 4.4. . Family/Friend Interactions: Spoke with his mother, Mickey, who was requesting an update and prognosis from both GI and neurology. Per Dr. Marcano's note, he agrees with a hospice consultation as he feels that the cause of his symptoms is hepatic in nature. GI has voiced a poor prognosis. It is the mother's request to take him home and allow him to there. It is concerning that in that environment, no parenteral medication can be given for symptom management placing him at risk of uncomfortable symptoms during the dying process. Objective Vital Signs: Vital Signs 01/16/18 20:16 01/16/18 23:52 01/17/18 04:12 Temperature Pulse Rate Respiratory Rate 26 H 23 28 H Blood Pressure Pulse Oximetry 99 97 95 01/17/18 06:11 01/17/18 08:00 01/17/18 08:20 Temperature 98.8 F 99.8 F H Pulse Rate 93 H 108 H Respiratory Rate 28 H 6 L 22 Blood Pressure 140/79 107/51 L Pulse Oximetry 95 94 L 01/17/18 08:39 01/17/18 10:10 01/17/18 12:05 Temperature 99.5 F 100.8 F H Pulse Rate 104 H 104 H Respiratory Rate 22 22 7 L Blood Pressure 109/51 L 106/53 L Pulse Oximetry 94 L 95 96 01/17/18 15:38 Temperature Pulse Rate Respiratory Rate 21 Blood Pressure Pulse Oximetry 96 Intake & Output 01/16/18 01/17/18 01/17/18 18:59 06:59 18:59 Intake Total 713 / 713 915 / 915 987.98 / 987.98 Output Total 1700 / 1700 970 / 970 Balance -987 / -987 -55 / -55 987.98 / 987.98 Intake: IV 350 / 350 530 / 530 665.98 / 665.98 Zovirax Inj 749 MG In NS Inj 330 / 330 164.98 / 164.98 150 ML @ 150 mls/hr IV.SIG Q8H JACQUE Rx#:[id number] Maxipime Inj 2,000 MG In NS Inj 100 / 100 200 / 200 100 ML @ 200 mls/hr IV.SIG Q8H JACQUE Rx#:[id number] Thorazine Inj 25 MG In NS Inj 501 / 501 500 ML @ 250.5 mls/hr IV.SIG Q6H JACQUE Rx#:[id number] Vancomycin Inj 1,000 MG In NS 250 / 250 Inj 250 ML @ 250 mls/hr IV.SIG Q12H JACQUE Rx#:[id number] Tube Feeding 243 / 243 285 / 285 Water Bolus Amount 120 / 120 100 / 100 Intake (Blood Product) Amt 0 / 0 322 / 322 Plasma Thawed 5 Day Cp2d Unit 0 / 0 [id number] Plasma Thawed 5 Day Cp2d Unit 0 / 0 0 / 0 [id number] Plasma Thawed 5 Day Cp2d Unit 322 / 322 [id number] Output: Urine 500 / 500 Stool 300 / 300 Urine Amount (Catheter) 1200 / 1200 650 / 650 Indwelling Urethral Catheter 1200 / 1200 650 / 650 Chest Tube Drainage 20 / 20 Right Anterior 20 / 20 Other: Date of Last Bowel Movement 01/16/18 01/16/18 01/17/18 Physical Exam: GENERAL: Young, well-nourished, well-developed, jaundiced, male, intubated, unresponsive Lines: Triple-lumen CVL right chest SKIN: Jaundice, warm and dry. HEAD: Atraumatic. Normocephalic. EYES: Pupils 4 mm equal and round. Positive scleral icterus. No injection or drainage. ENT: No nasal bleeding or discharge. Mucous membranes pink and moist. NECK: Trachea midline. No JVD. CARDIOVASCULAR: S1, S2, regular rhythm, tachycardic rate, no rub, murmur or gallop. RESPIRATORY: No accessory muscle use. Clear to auscultation. Breath sounds equal bilaterally. GASTROINTESTINAL: Abdomen distended, not tense, hypoactive bowel sounds. MUSCULOSKELETAL: Extremities without clubbing, cyanosis. 1+ dependent edema, no obvious deformities. NEUROLOGICAL: Intubated, unresponsive. PSYCHIATRIC: Unresponsive. . Diagnostic Tests Laboratory: Laboratory Results - last 72 hr 01/11/18 01/11/18 01/13/18 09:50 09:50 03:07 WBC RBC Hgb Hct MCV MCH MCHC RDW Plt Count MPV Prelim Diff (Auto) Neut % (Auto) Lymph % (Auto) [place] % (Auto) Eos % (Auto) Baso % (Auto) Neut # (Auto) Lymph # (Auto) [place] # (Auto) Eos # (Auto) Baso # (Auto) CBC Comment WBC Differential Diff Scan Differential Comment Platelet Estimate Platelet Morphology Plt Morphology Comment [place] Cells Acanthocytes (Spur) Keratocytes PT INR APTT Fibrinogen Puncture Site Patient Temperature HCO3 Base Excess O2 Saturation ABG pH ABG pCO2 ABG pO2 ABG O2 Content ABG Carboxyhemoglobin ABG Methemoglobin VBG pH VBG pCO2 VBG pO2 VBG HCO3 VBG O2 Saturation VBG O2 Content VBG Base Excess VBG Carboxyhemoglobin VBG Methemoglobin Hemoglobin O2 Delivery Device Liter Flow Vent Setting Inspired O2 Critical Value Sodium Potassium Chloride Carbon Dioxide Anion Gap BUN Creatinine Estimated GFR POC Glucose Random Glucose Lactic Acid Calcium Phosphorus Magnesium Total Bilirubin Direct Bilirubin Indirect Bilirubin AST ALT Alkaline Phosphatase Ammonia Lactate Dehydrogenase 274 H Total Protein 6.9 Albumin Ceruloplasmin 16 L Urine Color Urine Clarity Urine pH Ur Specific [place] Urine Protein Urine Glucose (UA) Urine Ketones Urine Occult Blood Urine Nitrate Urine Bilirubin Urine Urobilinogen Ur Leukocyte Esterase Urine RBC Urine WBC Urine WBC Clumps Ur Squamous Epith Cells Calcium Oxalate Crystal Urine Bacteria Hyaline Casts Urine Mucus Urine Yeast Ur Yeast w Hyphae Micro UA Comment Urine Culture Comments Nasal Screen MRSA (PCR) Vancomycin Trough Random Vancomycin Phenytoin Hep B DNA Qnt log IU/mL LESS THAN 1.00 Hep B DNA (Units/mL) LESS THAN 10 Blood Type Confirm Blood Bank Comment 01/13/18 01/13/18 01/13/18 05:48 06:45 06:45 WBC RBC Hgb Hct MCV MCH MCHC RDW Plt Count MPV Prelim Diff (Auto) Neut % (Auto) Lymph % (Auto) [place] % (Auto) Eos % (Auto) Baso % (Auto) Neut # (Auto) Lymph # (Auto) [place] # (Auto) Eos # (Auto) Baso # (Auto) CBC Comment WBC Differential Diff Scan Differential Comment Platelet Estimate Platelet Morphology Plt Morphology Comment [place] Cells Acanthocytes (Spur) Keratocytes PT INR APTT Fibrinogen Puncture Site RT RADIAL Patient Temperature 98.6 HCO3 29 H Base Excess 7.4 H O2 Saturation 97 ABG pH 7.74 H* ABG pCO2 20 L* ABG pO2 102 ABG O2 Content 15.2 ABG Carboxyhemoglobin 1.6 ABG Methemoglobin 0.6 VBG pH VBG pCO2 VBG pO2 VBG HCO3 VBG O2 Saturation VBG O2 Content VBG Base Excess VBG Carboxyhemoglobin VBG Methemoglobin Hemoglobin 11.1 L O2 Delivery Device NASAL CANNULA Liter Flow 2 Vent Setting Inspired O2 Critical Value Sodium 131 L Potassium 3.6 Chloride 90 L Carbon Dioxide 31.0 Anion Gap 10 BUN 4 L Creatinine 1.30 Estimated GFR 64 L POC Glucose Random Glucose 83 Lactic Acid Calcium 9.7 Phosphorus Magnesium Total Bilirubin 19.4 H Direct Bilirubin Indirect Bilirubin AST 28 ALT 102 H Alkaline Phosphatase 165 H Ammonia 95 H Lactate Dehydrogenase Total Protein 6.5 Albumin 3.7 Ceruloplasmin Urine Color Urine Clarity Urine pH Ur Specific [place] Urine Protein Urine Glucose (UA) Urine Ketones Urine Occult Blood Urine Nitrate Urine Bilirubin Urine Urobilinogen Ur Leukocyte Esterase Urine RBC Urine WBC Urine WBC Clumps Ur Squamous Epith Cells Calcium Oxalate Crystal Urine Bacteria Hyaline Casts Urine Mucus Urine Yeast Ur Yeast w Hyphae Micro UA Comment Urine Culture Comments Nasal Screen MRSA (PCR) Vancomycin Trough Random Vancomycin Phenytoin Hep B DNA Qnt log IU/mL Hep B DNA (Units/mL) Blood Type Confirm Blood Bank Comment 01/13/18 01/13/18 01/13/18 06:45 06:45 07:28 WBC 8.4 RBC 3.97 L Hgb 11.3 L Hct 34.0 L MCV 85.6 MCH 28.4 MCHC 33.2 RDW 16.5 Plt Count 98 L D MPV 8.4 Prelim Diff (Auto) Neut % (Auto) 70.2 H Lymph % (Auto) 10.3 [place]son % (Auto) 17.8 H Eos % (Auto) 0.9 Baso % (Auto) 0.8 Neut # (Auto) 5.8 Lymph # (Auto) 0.9 L [place] # (Auto) 1.5 H Eos # (Auto) 0.1 Baso # (Auto) 0.1 CBC Comment AUTO DIFF WBC Differential Diff Scan Differential Comment AUTO DIFF CONFIRMED Platelet Estimate Platelet Morphology Plt Morphology Comment [place] Cells Acanthocytes (Spur) Keratocytes PT 23.2 H D INR 2.3 APTT Fibrinogen Puncture Site Patient Temperature HCO3 Base Excess O2 Saturation ABG pH ABG pCO2 ABG pO2 ABG O2 Content ABG Carboxyhemoglobin ABG Methemoglobin VBG pH VBG pCO2 VBG pO2 VBG HCO3 VBG O2 Saturation VBG O2 Content VBG Base Excess VBG Carboxyhemoglobin VBG Methemoglobin Hemoglobin O2 Delivery Device Liter Flow Vent Setting Inspired O2 Critical Value Sodium Potassium Chloride Carbon Dioxide Anion Gap BUN Creatinine Estimated GFR POC Glucose Random Glucose Lactic Acid Calcium Phosphorus Magnesium Total Bilirubin Direct Bilirubin 4.2 H Indirect Bilirubin AST ALT Alkaline Phosphatase Ammonia Lactate Dehydrogenase Total Protein Albumin Ceruloplasmin Urine Color Urine Clarity Urine pH Ur Specific [place] Urine Protein Urine Glucose (UA) Urine Ketones Urine Occult Blood Urine Nitrate Urine Bilirubin Urine Urobilinogen Ur Leukocyte Esterase Urine RBC Urine WBC Urine WBC Clumps Ur Squamous Epith Cells Calcium Oxalate Crystal Urine Bacteria Hyaline Casts Urine Mucus Urine Yeast Ur Yeast w Hyphae Micro UA Comment Urine Culture Comments Nasal Screen MRSA (PCR) Vancomycin Trough Random Vancomycin Phenytoin Hep B DNA Qnt log IU/mL Hep B DNA (Units/mL) Blood Type Confirm Blood Bank Comment 01/13/18 01/13/18 01/13/18 17:00 17:10 18:30 WBC RBC Hgb Hct MCV MCH MCHC RDW Plt Count MPV Prelim Diff (Auto) Neut % (Auto) Lymph % (Auto) [place] % (Auto) Eos % (Auto) Baso % (Auto) Neut # (Auto) Lymph # (Auto) [place] # (Auto) Eos # (Auto) Baso # (Auto) CBC Comment WBC Differential Diff Scan Differential Comment Platelet Estimate Platelet Morphology Plt Morphology Comment [place] Cells Acanthocytes (Spur) Keratocytes PT 42.3 H D INR 4.2 APTT Fibrinogen Puncture Site RT RADIAL Patient Temperature 98.6 HCO3 30 H Base Excess 7.2 H O2 Saturation 96 ABG pH 7.57 H* ABG pCO2 33 L ABG pO2 95 ABG O2 Content 16.2 ABG Carboxyhemoglobin 1.0 ABG Methemoglobin 1.0 VBG pH VBG pCO2 VBG pO2 VBG HCO3 VBG O2 Saturation VBG O2 Content VBG Base Excess VBG Carboxyhemoglobin VBG Methemoglobin Hemoglobin 12.0 O2 Delivery Device Liter Flow Vent Setting Inspired O2 Critical Value Sodium Potassium Chloride Carbon Dioxide Anion Gap BUN Creatinine Estimated GFR POC Glucose Random Glucose Lactic Acid Calcium Phosphorus Magnesium Total Bilirubin Direct Bilirubin Indirect Bilirubin AST ALT Alkaline Phosphatase Ammonia Lactate Dehydrogenase Total Protein Albumin Ceruloplasmin Urine Color Urine Clarity Urine pH Ur Specific [place] Urine Protein Urine Glucose (UA) Urine Ketones Urine Occult Blood Urine Nitrate Urine Bilirubin Urine Urobilinogen Ur Leukocyte Esterase Urine RBC Urine WBC Urine WBC Clumps Ur Squamous Epith Cells Calcium Oxalate Crystal Urine Bacteria Hyaline Casts Urine Mucus Urine Yeast Ur Yeast w Hyphae Micro UA Comment Urine Culture Comments Nasal Screen MRSA (PCR) MRSA NOT DETECTED Vancomycin Trough Random Vancomycin Phenytoin Hep B DNA Qnt log IU/mL Hep B DNA (Units/mL) Blood Type Confirm Blood Bank Comment 01/13/18 01/13/18 01/14/18 19:45 19:45 02:00 WBC 7.8 RBC 4.22 L Hgb 11.9 L Hct 35.2 L MCV 83.5 MCH 28.2 MCHC 33.8 RDW 17.3 H Plt Count 93 L MPV 8.7 Prelim Diff (Auto) Neut % (Auto) Lymph % (Auto) [place] % (Auto) Eos % (Auto) Baso % (Auto) Neut # (Auto) Lymph # (Auto) [place] # (Auto) Eos # (Auto) Baso # (Auto) CBC Comment WBC Differential Diff Scan Differential Comment Platelet Estimate Platelet Morphology Plt Morphology Comment [place] Cells Acanthocytes (Spur) Keratocytes PT INR APTT 43.5 H Fibrinogen Puncture Site Patient Temperature HCO3 Base Excess O2 Saturation ABG pH ABG pCO2 ABG pO2 ABG O2 Content ABG Carboxyhemoglobin ABG Methemoglobin VBG pH VBG pCO2 VBG pO2 VBG HCO3 VBG O2 Saturation VBG O2 Content VBG Base Excess VBG Carboxyhemoglobin VBG Methemoglobin Hemoglobin O2 Delivery Device Liter Flow Vent Setting Inspired O2 Critical Value Sodium 135 L Potassium 2.7 L* D Chloride 93 L Carbon Dioxide 25.8 Anion Gap 16 H BUN 5 L Creatinine 1.42 H Estimated GFR 58 L POC Glucose Random Glucose 99 Lactic Acid Calcium 9.9 Phosphorus Magnesium Total Bilirubin 22.7 H Direct Bilirubin Indirect Bilirubin AST 31 ALT 89 H Alkaline Phosphatase 186 H Ammonia Lactate Dehydrogenase Total Protein 7.2 D Albumin 3.9 Ceruloplasmin Urine Color Urine Clarity Urine pH Ur Specific [place] Urine Protein Urine Glucose (UA) Urine Ketones Urine Occult Blood Urine Nitrate Urine Bilirubin Urine Urobilinogen Ur Leukocyte Esterase Urine RBC Urine WBC Urine WBC Clumps Ur Squamous Epith Cells Calcium Oxalate Crystal Urine Bacteria Hyaline Casts Urine Mucus Urine Yeast Ur Yeast w Hyphae Micro UA Comment Urine Culture Comments Nasal Screen MRSA (PCR) Vancomycin Trough Random Vancomycin Phenytoin Hep B DNA Qnt log IU/mL Hep B DNA (Units/mL) Blood Type Confirm Blood Bank Comment 01/14/18 01/14/18 01/14/18 02:00 02:00 02:00 WBC 11.3 H RBC 4.26 L Hgb 12.0 L Hct 35.2 L MCV 82.7 MCH 28.2 MCHC 34.1 RDW 17.2 Plt Count 103 L MPV 8.6 Prelim Diff (Auto) Neut % (Auto) 54.5 Lymph % (Auto) 25.7 [place] % (Auto) 19.0 H Eos % (Auto) 0.7 Baso % (Auto) 0.1 Neut # (Auto) 6.2 Lymph # (Auto) 2.9 [place] # (Auto) 2.2 H Eos # (Auto) 0.1 Baso # (Auto) 0.0 CBC Comment AUTO DIFF WBC Differential Diff Scan Differential Comment AUTO DIFF CONFIRMED Platelet Estimate LOW L Platelet Morphology Plt Morphology Comment NORMAL [place] Cells Acanthocytes (Spur) 1+ H Keratocytes OCC PT 30.0 H D INR 3.0 APTT Fibrinogen Puncture Site Patient Temperature HCO3 Base Excess O2 Saturation ABG pH ABG pCO2 ABG pO2 ABG O2 Content ABG Carboxyhemoglobin ABG Methemoglobin VBG pH VBG pCO2 VBG pO2 VBG HCO3 VBG O2 Saturation VBG O2 Content VBG Base Excess VBG Carboxyhemoglobin VBG Methemoglobin Hemoglobin O2 Delivery Device Liter Flow Vent Setting Inspired O2 Critical Value Sodium Potassium Chloride Carbon Dioxide Anion Gap BUN Creatinine Estimated GFR POC Glucose Random Glucose Lactic Acid Calcium Phosphorus Magnesium Total Bilirubin Direct Bilirubin Indirect Bilirubin AST ALT Alkaline Phosphatase Ammonia Lactate Dehydrogenase Total Protein Albumin Ceruloplasmin Urine Color Urine Clarity Urine pH Ur Specific [place] Urine Protein Urine Glucose (UA) Urine Ketones Urine Occult Blood Urine Nitrate Urine Bilirubin Urine Urobilinogen Ur Leukocyte Esterase Urine RBC Urine WBC Urine WBC Clumps Ur Squamous Epith Cells Calcium Oxalate Crystal Urine Bacteria Hyaline Casts Urine Mucus Urine Yeast Ur Yeast w Hyphae Micro UA Comment Urine Culture Comments Nasal Screen MRSA (PCR) Vancomycin Trough Random Vancomycin Phenytoin 13.4 Hep B DNA Qnt log IU/mL Hep B DNA (Units/mL) Blood Type Confirm Blood Bank Comment 01/14/18 01/14/18 01/14/18 02:02 02:31 05:49 WBC RBC Hgb Hct MCV MCH MCHC RDW Plt Count MPV Prelim Diff (Auto) Neut % (Auto) Lymph % (Auto) [place] % (Auto) Eos % (Auto) Baso % (Auto) Neut # (Auto) Lymph # (Auto) [place] # (Auto) Eos # (Auto) Baso # (Auto) CBC Comment WBC Differential Diff Scan Differential Comment Platelet Estimate Platelet Morphology Plt Morphology Comment [place] Cells Acanthocytes (Spur) Keratocytes PT 30.1 H INR 3.0 APTT 33.4 H D Fibrinogen 153 L Puncture Site RT BRACHIAL Patient Temperature 98.6 HCO3 28 H Base Excess 5.4 H O2 Saturation 49 L* ABG pH 7.59 H* ABG pCO2 29 L ABG pO2 29 L* ABG O2 Content 8.3 L ABG Carboxyhemoglobin 0.9 ABG Methemoglobin 1.1 VBG pH VBG pCO2 VBG pO2 VBG HCO3 VBG O2 Saturation VBG O2 Content VBG Base Excess VBG Carboxyhemoglobin VBG Methemoglobin Hemoglobin 12.0 O2 Delivery Device NASAL CANNULA Liter Flow 2 Vent Setting Inspired O2 Critical Value Sodium Potassium Chloride Carbon Dioxide Anion Gap BUN Creatinine Estimated GFR POC Glucose Random Glucose Lactic Acid Calcium Phosphorus Magnesium Total Bilirubin Direct Bilirubin Indirect Bilirubin AST ALT Alkaline Phosphatase Ammonia 121 H Lactate Dehydrogenase Total Protein Albumin Ceruloplasmin Urine Color Urine Clarity Urine pH Ur Specific [place] Urine Protein Urine Glucose (UA) Urine Ketones Urine Occult Blood Urine Nitrate Urine Bilirubin Urine Urobilinogen Ur Leukocyte Esterase Urine RBC Urine WBC Urine WBC Clumps Ur Squamous Epith Cells Calcium Oxalate Crystal Urine Bacteria Hyaline Casts Urine Mucus Urine Yeast Ur Yeast w Hyphae Micro UA Comment Urine Culture Comments Nasal Screen MRSA (PCR) Vancomycin Trough Random Vancomycin Phenytoin Hep B DNA Qnt log IU/mL Hep B DNA (Units/mL) Blood Type Confirm Blood Bank Comment 01/14/18 01/14/18 01/14/18 05:49 07:46 17:30 WBC RBC Hgb Hct MCV MCH MCHC RDW Plt Count MPV Prelim Diff (Auto) Neut % (Auto) Lymph % (Auto) [place] % (Auto) Eos % (Auto) Baso % (Auto) Neut # (Auto) Lymph # (Auto) [place] # (Auto) Eos # (Auto) Baso # (Auto) CBC Comment WBC Differential Diff Scan Differential Comment Platelet Estimate Platelet Morphology Plt Morphology Comment [place] Cells Acanthocytes (Spur) Keratocytes PT 26.9 H INR 2.7 APTT Fibrinogen Puncture Site CENTRAL LINE Patient Temperature 98.6 HCO3 Base Excess O2 Saturation ABG pH ABG pCO2 ABG pO2 ABG O2 Content ABG Carboxyhemoglobin ABG Methemoglobin VBG pH 7.59 H* VBG pCO2 29 L VBG pO2 29 L* VBG HCO3 28 H VBG O2 Saturation 49 L VBG O2 Content 8.3 L VBG Base Excess 5.4 H VBG Carboxyhemoglobin 1.1 VBG Methemoglobin Hemoglobin O2 Delivery Device NASAL CANNULA Liter Flow 2 Vent Setting Inspired O2 Critical Value Sodium Potassium 2.4 L* Chloride Carbon Dioxide Anion Gap BUN Creatinine Estimated GFR POC Glucose Random Glucose Lactic Acid Calcium Phosphorus Magnesium Total Bilirubin Direct Bilirubin Indirect Bilirubin AST ALT Alkaline Phosphatase Ammonia Lactate Dehydrogenase Total Protein Albumin Ceruloplasmin Urine Color Urine Clarity Urine pH Ur Specific [place] Urine Protein Urine Glucose (UA) Urine Ketones Urine Occult Blood Urine Nitrate Urine Bilirubin Urine Urobilinogen Ur Leukocyte Esterase Urine RBC Urine WBC Urine WBC Clumps Ur Squamous Epith Cells Calcium Oxalate Crystal Urine Bacteria Hyaline Casts Urine Mucus Urine Yeast Ur Yeast w Hyphae Micro UA Comment Urine Culture Comments Nasal Screen MRSA (PCR) Vancomycin Trough Random Vancomycin Phenytoin Hep B DNA Qnt log IU/mL Hep B DNA (Units/mL) Blood Type Confirm Blood Bank Comment 01/14/18 01/14/18 01/15/18 18:40 23:24 00:20 WBC RBC Hgb Hct MCV MCH MCHC RDW Plt Count MPV Prelim Diff (Auto) Neut % (Auto) Lymph % (Auto) [place] % (Auto) Eos % (Auto) Baso % (Auto) Neut # (Auto) Lymph # (Auto) [place] # (Auto) Eos # (Auto) Baso # (Auto) CBC Comment WBC Differential Diff Scan Differential Comment Platelet Estimate Platelet Morphology Plt Morphology Comment [place] Cells Acanthocytes (Spur) Keratocytes PT INR APTT Fibrinogen Puncture Site CENTRAL LINE RT RADIAL Patient Temperature 98.6 98.6 HCO3 28 H Base Excess 5.3 H O2 Saturation 98 ABG pH 7.57 H* ABG pCO2 30 L ABG pO2 175 H ABG O2 Content 16.6 ABG Carboxyhemoglobin 0.9 ABG Methemoglobin 0.9 VBG pH 7.59 H* VBG pCO2 31 L VBG pO2 46 H VBG HCO3 30 H VBG O2 Saturation 80 H VBG O2 Content 12.4 VBG Base Excess 7.7 H VBG Carboxyhemoglobin VBG Methemoglobin Hemoglobin 11.8 L O2 Delivery Device NASAL CANNULA NASAL CANNULA Liter Flow 4 4 Vent Setting Inspired O2 Critical Value Sodium Potassium Chloride Carbon Dioxide Anion Gap BUN Creatinine Estimated GFR POC Glucose Random Glucose Lactic Acid Calcium Phosphorus Magnesium Total Bilirubin 23.8 H Direct Bilirubin 5.0 H Indirect Bilirubin 18.8 H AST 32 ALT 80 H Alkaline Phosphatase 172 H Ammonia Lactate Dehydrogenase Total Protein 7.2 Albumin 3.7 Ceruloplasmin Urine Color Urine Clarity Urine pH Ur Specific [place] Urine Protein Urine Glucose (UA) Urine Ketones Urine Occult Blood Urine Nitrate Urine Bilirubin Urine Urobilinogen Ur Leukocyte Esterase Urine RBC Urine WBC Urine WBC Clumps Ur Squamous Epith Cells Calcium Oxalate Crystal Urine Bacteria Hyaline Casts Urine Mucus Urine Yeast Ur Yeast w Hyphae Micro UA Comment Urine Culture Comments Nasal Screen MRSA (PCR) Vancomycin Trough Random Vancomycin Phenytoin Hep B DNA Qnt log IU/mL Hep B DNA (Units/mL) Blood Type Confirm Blood Bank Comment 01/15/18 01/15/18 01/15/18 00:20 03:58 03:58 WBC RBC Hgb Hct MCV MCH MCHC RDW Plt Count MPV Prelim Diff (Auto) Neut % (Auto) Lymph % (Auto) [place] % (Auto) Eos % (Auto) Baso % (Auto) Neut # (Auto) Lymph # (Auto) [place] # (Auto) Eos # (Auto) Baso # (Auto) CBC Comment WBC Differential Diff Scan Differential Comment Platelet Estimate Platelet Morphology Plt Morphology Comment [place] Cells Acanthocytes (Spur) Keratocytes PT INR APTT Fibrinogen Puncture Site Patient Temperature HCO3 Base Excess O2 Saturation ABG pH ABG pCO2 ABG pO2 ABG O2 Content ABG Carboxyhemoglobin ABG Methemoglobin VBG pH VBG pCO2 VBG pO2 VBG HCO3 VBG O2 Saturation VBG O2 Content VBG Base Excess VBG Carboxyhemoglobin VBG Methemoglobin Hemoglobin O2 Delivery Device Liter Flow Vent Setting Inspired O2 Critical Value Sodium 137 Potassium 3.2 L D Chloride 99 Carbon Dioxide 24.7 Anion Gap 13 BUN 6 L Creatinine 1.42 H Estimated GFR 58 L POC Glucose Random Glucose 133 H Lactic Acid Calcium 9.7 Phosphorus Magnesium Total Bilirubin 24.3 H Direct Bilirubin Indirect Bilirubin AST 31 ALT 80 H Alkaline Phosphatase 165 H Ammonia 156 H 180 H Lactate Dehydrogenase Total Protein 7.0 Albumin 3.6 Ceruloplasmin Urine Color Urine Clarity Urine pH Ur Specific [place] Urine Protein Urine Glucose (UA) Urine Ketones Urine Occult Blood Urine Nitrate Urine Bilirubin Urine Urobilinogen Ur Leukocyte Esterase Urine RBC Urine WBC Urine WBC Clumps Ur Squamous Epith Cells Calcium Oxalate Crystal Urine Bacteria Hyaline Casts Urine Mucus Urine Yeast Ur Yeast w Hyphae Micro UA Comment Urine Culture Comments Nasal Screen MRSA (PCR) Vancomycin Trough Random Vancomycin 19.0 Phenytoin 13.6 Hep B DNA Qnt log IU/mL Hep B DNA (Units/mL) Blood Type Confirm Blood Bank Comment 01/15/18 01/15/18 01/15/18 03:58 03:58 04:50 WBC 5.2 RBC 4.15 L Hgb 12.0 L Hct 34.7 L MCV 83.6 MCH 29.0 MCHC 34.7 RDW 17.8 H Plt Count 106 L MPV 8.6 Prelim Diff (Auto) Neut % (Auto) 77.6 H Lymph % (Auto) 13.4 [place] % (Auto) 8.5 H Eos % (Auto) 0.1 Baso % (Auto) 0.4 Neut # (Auto) 4.1 Lymph # (Auto) 0.7 L [place] # (Auto) 0.4 Eos # (Auto) 0.0 Baso # (Auto) 0.0 CBC Comment AUTO DIFF WBC Differential Diff Scan Differential Comment AUTO DIFF CONFIRMED Platelet Estimate LOW L Platelet Morphology Plt Morphology Comment NORMAL [place] Cells Acanthocytes (Spur) 1+ H Keratocytes OCC PT 121.5 H D INR 12.2 H* APTT Fibrinogen Puncture Site Patient Temperature HCO3 Base Excess O2 Saturation ABG pH ABG pCO2 ABG pO2 ABG O2 Content ABG Carboxyhemoglobin ABG Methemoglobin VBG pH VBG pCO2 VBG pO2 VBG HCO3 VBG O2 Saturation VBG O2 Content VBG Base Excess VBG Carboxyhemoglobin VBG Methemoglobin Hemoglobin O2 Delivery Device Liter Flow Vent Setting Inspired O2 Critical Value Sodium Potassium Chloride Carbon Dioxide Anion Gap BUN Creatinine Estimated GFR POC Glucose Random Glucose Lactic Acid 5.1 H* Calcium Phosphorus Magnesium Total Bilirubin Direct Bilirubin Indirect Bilirubin AST ALT Alkaline Phosphatase Ammonia Lactate Dehydrogenase Total Protein Albumin Ceruloplasmin Urine Color Urine Clarity Urine pH Ur Specific [place] Urine Protein Urine Glucose (UA) Urine Ketones Urine Occult Blood Urine Nitrate Urine Bilirubin Urine Urobilinogen Ur Leukocyte Esterase Urine RBC Urine WBC Urine WBC Clumps Ur Squamous Epith Cells Calcium Oxalate Crystal Urine Bacteria Hyaline Casts Urine Mucus Urine Yeast Ur Yeast w Hyphae Micro UA Comment Urine Culture Comments Nasal Screen MRSA (PCR) Vancomycin Trough Random Vancomycin Phenytoin Hep B DNA Qnt log IU/mL Hep B DNA (Units/mL) Blood Type Confirm Blood Bank Comment 01/15/18 01/15/18 01/15/18 06:03 12:00 18:05 WBC RBC Hgb Hct MCV MCH MCHC RDW Plt Count MPV Prelim Diff (Auto) Neut % (Auto) Lymph % (Auto) [place] % (Auto) Eos % (Auto) Baso % (Auto) Neut # (Auto) Lymph # (Auto) [place] # (Auto) Eos # (Auto) Baso # (Auto) CBC Comment WBC Differential Diff Scan Differential Comment Platelet Estimate Platelet Morphology Plt Morphology Comment [place] Cells Acanthocytes (Spur) Keratocytes PT INR APTT Fibrinogen Puncture Site CENTRAL LINE RT RADIAL Patient Temperature 98.6 98.6 HCO3 25 Base Excess 4.4 H O2 Saturation 98 ABG pH 7.71 H* ABG pCO2 19 L* ABG pO2 200 H ABG O2 Content 15.6 ABG Carboxyhemoglobin 0.8 ABG Methemoglobin 0.8 VBG pH 7.59 H* VBG pCO2 29 L VBG pO2 44 H VBG HCO3 28 H VBG O2 Saturation 78 H VBG O2 Content 12.5 VBG Base Excess 5.5 H VBG Carboxyhemoglobin VBG Methemoglobin Hemoglobin 11.0 L O2 Delivery Device VENTILATOR VENTILATOR Liter Flow Vent Setting SEE COMMENTS [id number] Inspired O2 50 40 Critical Value Sodium Potassium 3.4 L Chloride Carbon Dioxide Anion Gap BUN Creatinine Estimated GFR POC Glucose Random Glucose Lactic Acid Calcium Phosphorus Magnesium Total Bilirubin Direct Bilirubin Indirect Bilirubin AST ALT Alkaline Phosphatase Ammonia Lactate Dehydrogenase Total Protein Albumin Ceruloplasmin Urine Color Urine Clarity Urine pH Ur Specific [place] Urine Protein Urine Glucose (UA) Urine Ketones Urine Occult Blood Urine Nitrate Urine Bilirubin Urine Urobilinogen Ur Leukocyte Esterase Urine RBC Urine WBC Urine WBC Clumps Ur Squamous Epith Cells Calcium Oxalate Crystal Urine Bacteria Hyaline Casts Urine Mucus Urine Yeast Ur Yeast w Hyphae Micro UA Comment Urine Culture Comments Nasal Screen MRSA (PCR) Vancomycin Trough Random Vancomycin Phenytoin Hep B DNA Qnt log IU/mL Hep B DNA (Units/mL) Blood Type Confirm Blood Bank Comment 01/16/18 01/16/18 01/16/18 04:16 04:16 04:16 WBC 6.3 RBC 4.09 L Hgb 11.8 L Hct 34.3 L MCV 83.9 MCH 29.0 MCHC 34.5 RDW 18.3 H Plt Count 129 L MPV 8.6 Prelim Diff (Auto) Slide review pending Neut % (Auto) 56.3 Lymph % (Auto) 18.8 Anson % (Auto) 24.5 H Eos % (Auto) 0.2 Baso % (Auto) 0.2 Neut # (Auto) 3.6 Lymph # (Auto) 1.2 Anson # (Auto) 1.5 H Eos # (Auto) 0.0 Baso # (Auto) 0.0 CBC Comment WBC Differential . Diff Scan Auto diff confirmed Differential Comment . Platelet Estimate Platelet Morphology Plt Morphology Comment Oketo Cells 1+ H Acanthocytes (Spur) 1+ H Keratocytes Occ H PT 105.8 H INR 10.6 H* APTT Fibrinogen Puncture Site Patient Temperature HCO3 Base Excess O2 Saturation ABG pH ABG pCO2 ABG pO2 ABG O2 Content ABG Carboxyhemoglobin ABG Methemoglobin VBG pH VBG pCO2 VBG pO2 VBG HCO3 VBG O2 Saturation VBG O2 Content VBG Base Excess VBG Carboxyhemoglobin VBG Methemoglobin Hemoglobin O2 Delivery Device Liter Flow Vent Setting Inspired O2 Critical Value Sodium Potassium Chloride Carbon Dioxide Anion Gap BUN Creatinine Estimated GFR POC Glucose Random Glucose Lactic Acid Calcium Phosphorus Magnesium Total Bilirubin Direct Bilirubin Indirect Bilirubin AST ALT Alkaline Phosphatase Ammonia Lactate Dehydrogenase Total Protein Albumin Ceruloplasmin Urine Color Urine Clarity Urine pH Ur Specific [place] Urine Protein Urine Glucose (UA) Urine Ketones Urine Occult Blood Urine Nitrate Urine Bilirubin Urine Urobilinogen Ur Leukocyte Esterase Urine RBC Urine WBC Urine WBC Clumps Ur Squamous Epith Cells Calcium Oxalate Crystal Urine Bacteria Hyaline Casts Urine Mucus Urine Yeast Ur Yeast w Hyphae Micro UA Comment Urine Culture Comments Nasal Screen MRSA (PCR) Vancomycin Trough Random Vancomycin Phenytoin 18.2 Hep B DNA Qnt log IU/mL Hep B DNA (Units/mL) Blood Type Confirm Blood Bank Comment 01/16/18 01/16/18 01/16/18 04:16 04:16 08:01 WBC RBC Hgb Hct MCV MCH MCHC RDW Plt Count MPV Prelim Diff (Auto) Neut % (Auto) Lymph % (Auto) Anson % (Auto) Eos % (Auto) Baso % (Auto) Neut # (Auto) Lymph # (Auto) [place]son # (Auto) Eos # (Auto) Baso # (Auto) CBC Comment WBC Differential Diff Scan Differential Comment Platelet Estimate Platelet Morphology Plt Morphology Comment Geronimo Cells Acanthocytes (Spur) Keratocytes PT INR APTT Fibrinogen Puncture Site Patient Temperature HCO3 Base Excess O2 Saturation ABG pH ABG pCO2 ABG pO2 ABG O2 Content ABG Carboxyhemoglobin ABG Methemoglobin VBG pH VBG pCO2 VBG pO2 VBG HCO3 VBG O2 Saturation VBG O2 Content VBG Base Excess VBG Carboxyhemoglobin VBG Methemoglobin Hemoglobin O2 Delivery Device Liter Flow Vent Setting Inspired O2 Critical Value Sodium Potassium Chloride Carbon Dioxide Anion Gap BUN Creatinine Estimated GFR POC Glucose 162 H Random Glucose Lactic Acid Calcium Phosphorus Magnesium Total Bilirubin Direct Bilirubin Indirect Bilirubin AST ALT Alkaline Phosphatase Ammonia 147 H Lactate Dehydrogenase Total Protein Albumin Ceruloplasmin Urine Color Urine Clarity Urine pH Ur Specific [place] Urine Protein Urine Glucose (UA) Urine Ketones Urine Occult Blood Urine Nitrate Urine Bilirubin Urine Urobilinogen Ur Leukocyte Esterase Urine RBC Urine WBC Urine WBC Clumps Ur Squamous Epith Cells Calcium Oxalate Crystal Urine Bacteria Hyaline Casts Urine Mucus Urine Yeast Ur Yeast w Hyphae Micro UA Comment Urine Culture Comments Nasal Screen MRSA (PCR) Vancomycin Trough Random Vancomycin 19.5 Phenytoin Hep B DNA Qnt log IU/mL Hep B DNA (Units/mL) Blood Type Confirm Blood Bank Comment 01/16/18 01/16/18 01/16/18 12:40 12:40 12:56 WBC RBC Hgb Hct MCV MCH MCHC RDW Plt Count MPV Prelim Diff (Auto) Neut % (Auto) Lymph % (Auto) Anson % (Auto) Eos % (Auto) Baso % (Auto) Neut # (Auto) Lymph # (Auto) [place] # (Auto) Eos # (Auto) Baso # (Auto) CBC Comment WBC Differential Diff Scan Differential Comment Platelet Estimate Platelet Morphology Plt Morphology Comment Geronimo Cells Acanthocytes (Spur) Keratocytes PT INR APTT Fibrinogen Puncture Site Patient Temperature HCO3 Base Excess O2 Saturation ABG pH ABG pCO2 ABG pO2 ABG O2 Content ABG Carboxyhemoglobin ABG Methemoglobin VBG pH VBG pCO2 VBG pO2 VBG HCO3 VBG O2 Saturation VBG O2 Content VBG Base Excess VBG Carboxyhemoglobin VBG Methemoglobin Hemoglobin O2 Delivery Device Liter Flow Vent Setting Inspired O2 Critical Value Sodium 140 Potassium 3.4 L Chloride 101 Carbon Dioxide 24.7 Anion Gap 14 BUN 7 Creatinine 1.56 H Estimated GFR 52 L POC Glucose 150 H Random Glucose 136 H Lactic Acid Calcium 9.9 Phosphorus Magnesium Total Bilirubin 25.4 H Direct Bilirubin Indirect Bilirubin AST 26 ALT 63 Alkaline Phosphatase 151 H Ammonia Lactate Dehydrogenase Total Protein 6.8 Albumin 3.6 Ceruloplasmin Urine Color [place] Urine Clarity Cloudy H Urine pH 5.0 Ur Specific [place] 1.017 Urine Protein Negative Urine Glucose (UA) 50 Urine Ketones Trace Urine Occult Blood Large H Urine Nitrate Negative Urine Bilirubin Negative Urine Urobilinogen Less than 2 Ur Leukocyte Esterase Large H Urine RBC 46 H Urine WBC 91 H Urine WBC Clumps Many H Ur Squamous Epith Cells 1 Calcium Oxalate Crystal Occasional H Urine Bacteria Rare H Hyaline Casts 17 Urine Mucus Few H Urine Yeast Many H Ur Yeast w Hyphae Moderate H Micro UA Comment Culture indicated Urine Culture Comments Culture indicated Nasal Screen MRSA (PCR) Vancomycin Trough Random Vancomycin Phenytoin Hep B DNA Qnt log IU/mL Hep B DNA (Units/mL) Blood Type Confirm Blood Bank Comment 01/16/18 01/16/18 01/16/18 13:29 16:31 19:30 WBC RBC Hgb Hct MCV MCH MCHC RDW Plt Count MPV Prelim Diff (Auto) Neut % (Auto) Lymph % (Auto) [place] % (Auto) Eos % (Auto) Baso % (Auto) Neut # (Auto) Lymph # (Auto) [place] # (Auto) Eos # (Auto) Baso # (Auto) CBC Comment WBC Differential Diff Scan Differential Comment Platelet Estimate Platelet Morphology Plt Morphology Comment [place] Cells Acanthocytes (Spur) Keratocytes PT INR APTT Fibrinogen Puncture Site Central line Patient Temperature 98.6 HCO3 Base Excess O2 Saturation ABG pH ABG pCO2 ABG pO2 ABG O2 Content ABG Carboxyhemoglobin ABG Methemoglobin VBG pH 7.60 H* VBG pCO2 26 L VBG pO2 46 H VBG HCO3 26 VBG O2 Saturation 81 H VBG O2 Content 12.3 VBG Base Excess 4.0 H VBG Carboxyhemoglobin 0.9 VBG Methemoglobin 0.8 Hemoglobin 10.8 L O2 Delivery Device Ventilator Liter Flow Vent Setting [id number] Inspired O2 30 Critical Value Yes Sodium Potassium Chloride Carbon Dioxide Anion Gap BUN Creatinine Estimated GFR POC Glucose 143 H Random Glucose Lactic Acid Calcium Phosphorus Magnesium Total Bilirubin Direct Bilirubin Indirect Bilirubin AST ALT Alkaline Phosphatase Ammonia 130 H Lactate Dehydrogenase Total Protein Albumin Ceruloplasmin Urine Color Urine Clarity Urine pH Ur Specific [place] Urine Protein Urine Glucose (UA) Urine Ketones Urine Occult Blood Urine Nitrate Urine Bilirubin Urine Urobilinogen Ur Leukocyte Esterase Urine RBC Urine WBC Urine WBC Clumps Ur Squamous Epith Cells Calcium Oxalate Crystal Urine Bacteria Hyaline Casts Urine Mucus Urine Yeast Ur Yeast w Hyphae Micro UA Comment Urine Culture Comments Nasal Screen MRSA (PCR) Vancomycin Trough Random Vancomycin Phenytoin Hep B DNA Qnt log IU/mL Hep B DNA (Units/mL) Blood Type Confirm Blood Bank Comment 01/16/18 01/17/18 01/17/18 22:31 03:40 03:40 WBC RBC Hgb Hct MCV MCH MCHC RDW Plt Count MPV Prelim Diff (Auto) Neut % (Auto) Lymph % (Auto) [place]son % (Auto) Eos % (Auto) Baso % (Auto) Neut # (Auto) Lymph # (Auto) [place] # (Auto) Eos # (Auto) Baso # (Auto) CBC Comment WBC Differential Diff Scan Differential Comment Platelet Estimate Platelet Morphology Plt Morphology Comment [place]imo Cells Acanthocytes (Spur) Keratocytes PT 193.5 H D INR Greater than 18.2 H* APTT Fibrinogen Puncture Site Patient Temperature HCO3 Base Excess O2 Saturation ABG pH ABG pCO2 ABG pO2 ABG O2 Content ABG Carboxyhemoglobin ABG Methemoglobin VBG pH VBG pCO2 VBG pO2 VBG HCO3 VBG O2 Saturation VBG O2 Content VBG Base Excess VBG Carboxyhemoglobin VBG Methemoglobin Hemoglobin O2 Delivery Device Liter Flow Vent Setting Inspired O2 Critical Value Sodium Potassium Chloride Carbon Dioxide Anion Gap BUN Creatinine Estimated GFR POC Glucose 178 H Random Glucose Lactic Acid Calcium Phosphorus Magnesium Total Bilirubin Direct Bilirubin Indirect Bilirubin AST ALT Alkaline Phosphatase Ammonia Lactate Dehydrogenase Total Protein Albumin Ceruloplasmin Urine Color Urine Clarity Urine pH Ur Specific [place] Urine Protein Urine Glucose (UA) Urine Ketones Urine Occult Blood Urine Nitrate Urine Bilirubin Urine Urobilinogen Ur Leukocyte Esterase Urine RBC Urine WBC Urine WBC Clumps Ur Squamous Epith Cells Calcium Oxalate Crystal Urine Bacteria Hyaline Casts Urine Mucus Urine Yeast Ur Yeast w Hyphae Micro UA Comment Urine Culture Comments Nasal Screen MRSA (PCR) Vancomycin Trough Random Vancomycin Phenytoin 17.7 Hep B DNA Qnt log IU/mL Hep B DNA (Units/mL) Blood Type Confirm Blood Bank Comment 0701/17/18 01/17/18 03:40 03:40 03:40 WBC 6.5 RBC 3.69 L Hgb 10.8 L Hct 31.0 L MCV 84.1 MCH 29.2 MCHC 34.8 RDW 18.9 H Plt Count 129 L MPV 8.3 Prelim Diff (Auto) Slide review pending Neut % (Auto) 61.7 Lymph % (Auto) 14.7 [place]son % (Auto) 22.3 H Eos % (Auto) 0.2 Baso % (Auto) 1.1 Neut # (Auto) 4.0 Lymph # (Auto) 1.0 [place] # (Auto) 1.5 H Eos # (Auto) 0.0 Baso # (Auto) 0.1 CBC Comment WBC Differential . Diff Scan Auto diff confirmed Differential Comment . Platelet Estimate Low L Platelet Morphology Normal Plt Morphology Comment [place] Cells 1+ H Acanthocytes (Spur) 1+ H Keratocytes PT INR APTT Fibrinogen Puncture Site Patient Temperature HCO3 Base Excess O2 Saturation ABG pH ABG pCO2 ABG pO2 ABG O2 Content ABG Carboxyhemoglobin ABG Methemoglobin VBG pH VBG pCO2 VBG pO2 VBG HCO3 VBG O2 Saturation VBG O2 Content VBG Base Excess VBG Carboxyhemoglobin VBG Methemoglobin Hemoglobin O2 Delivery Device Liter Flow Vent Setting Inspired O2 Critical Value Sodium 140 Potassium 4.1 Chloride 103 Carbon Dioxide 22.3 Anion Gap 15 BUN 9 Creatinine 1.68 H Estimated GFR 48 L POC Glucose Random Glucose 171 H Lactic Acid Calcium 9.5 Phosphorus 3.4 Magnesium 1.9 Total Bilirubin 27.9 H Direct Bilirubin Indirect Bilirubin AST 24 ALT 61 Alkaline Phosphatase 147 H Ammonia 142 H Lactate Dehydrogenase Total Protein 6.7 Albumin 3.3 L Ceruloplasmin Urine Color Urine Clarity Urine pH Ur Specific [place] Urine Protein Urine Glucose (UA) Urine Ketones Urine Occult Blood Urine Nitrate Urine Bilirubin Urine Urobilinogen Ur Leukocyte Esterase Urine RBC Urine WBC Urine WBC Clumps Ur Squamous Epith Cells Calcium Oxalate Crystal Urine Bacteria Hyaline Casts Urine Mucus Urine Yeast Ur Yeast w Hyphae Micro UA Comment Urine Culture Comments Nasal Screen MRSA (PCR) Vancomycin Trough Random Vancomycin 27.1 Phenytoin Hep B DNA Qnt log IU/mL Hep B DNA (Units/mL) Blood Type Confirm Blood Bank Comment 01/17/18 01/17/18 01/17/18 04:57 08:43 12:28 WBC RBC Hgb Hct MCV MCH MCHC RDW Plt Count MPV Prelim Diff (Auto) Neut % (Auto) Lymph % (Auto) [place] % (Auto) Eos % (Auto) Baso % (Auto) Neut # (Auto) Lymph # (Auto) [place] # (Auto) Eos # (Auto) Baso # (Auto) CBC Comment WBC Differential Diff Scan Differential Comment Platelet Estimate Platelet Morphology Plt Morphology Comment [place] Cells Acanthocytes (Spur) Keratocytes PT INR APTT Fibrinogen Puncture Site Patient Temperature HCO3 Base Excess O2 Saturation ABG pH ABG pCO2 ABG pO2 ABG O2 Content ABG Carboxyhemoglobin ABG Methemoglobin VBG pH VBG pCO2 VBG pO2 VBG HCO3 VBG O2 Saturation VBG O2 Content VBG Base Excess VBG Carboxyhemoglobin VBG Methemoglobin Hemoglobin O2 Delivery Device Liter Flow Vent Setting Inspired O2 Critical Value Sodium Potassium Chloride Carbon Dioxide Anion Gap BUN Creatinine Estimated GFR POC Glucose 173 H Random Glucose Lactic Acid Calcium Phosphorus Magnesium Total Bilirubin Direct Bilirubin Indirect Bilirubin AST ALT Alkaline Phosphatase Ammonia Lactate Dehydrogenase Total Protein Albumin Ceruloplasmin Urine Color Urine Clarity Urine pH Ur Specific [place] Urine Protein Urine Glucose (UA) Urine Ketones Urine Occult Blood Urine Nitrate Urine Bilirubin Urine Urobilinogen Ur Leukocyte Esterase Urine RBC Urine WBC Urine WBC Clumps Ur Squamous Epith Cells Calcium Oxalate Crystal Urine Bacteria Hyaline Casts Urine Mucus Urine Yeast Ur Yeast w Hyphae Micro UA Comment Urine Culture Comments Nasal Screen MRSA (PCR) Vancomycin Trough 17.3 H Random Vancomycin Phenytoin Hep B DNA Qnt log IU/mL Hep B DNA (Units/mL) Blood Type Confirm B Positive Blood Bank Comment 01/17/18 14:11 WBC RBC Hgb Hct MCV MCH MCHC RDW Plt Count MPV Prelim Diff (Auto) Neut % (Auto) Lymph % (Auto) [place] % (Auto) Eos % (Auto) Baso % (Auto) Neut # (Auto) Lymph # (Auto) [place] # (Auto) Eos # (Auto) Baso # (Auto) CBC Comment WBC Differential Diff Scan Differential Comment Platelet Estimate Platelet Morphology Plt Morphology Comment [place] Cells Acanthocytes (Spur) Keratocytes PT INR APTT Fibrinogen Puncture Site Patient Temperature HCO3 Base Excess O2 Saturation ABG pH ABG pCO2 ABG pO2 ABG O2 Content ABG Carboxyhemoglobin ABG Methemoglobin VBG pH VBG pCO2 VBG pO2 VBG HCO3 VBG O2 Saturation VBG O2 Content VBG Base Excess VBG Carboxyhemoglobin VBG Methemoglobin Hemoglobin O2 Delivery Device Liter Flow Vent Setting Inspired O2 Critical Value Sodium Potassium Chloride Carbon Dioxide Anion Gap BUN Creatinine Estimated GFR POC Glucose 169 H Random Glucose Lactic Acid Calcium Phosphorus Magnesium Total Bilirubin Direct Bilirubin Indirect Bilirubin AST ALT Alkaline Phosphatase Ammonia Lactate Dehydrogenase Total Protein Albumin Ceruloplasmin Urine Color Urine Clarity Urine pH Ur Specific [place] Urine Protein Urine Glucose (UA) Urine Ketones Urine Occult Blood Urine Nitrate Urine Bilirubin Urine Urobilinogen Ur Leukocyte Esterase Urine RBC Urine WBC Urine WBC Clumps Ur Squamous Epith Cells Calcium Oxalate Crystal Urine Bacteria Hyaline Casts Urine Mucus Urine Yeast Ur Yeast w Hyphae Micro UA Comment Urine Culture Comments Nasal Screen MRSA (PCR) Vancomycin Trough Random Vancomycin Phenytoin Hep B DNA Qnt log IU/mL Hep B DNA (Units/mL) Blood Type Confirm Blood Bank Comment Result Diagrams: 01/18/18 00:50 01/18/18 05:50 Microbiology: Microbiology 01/16/18 12:40 Urine Culture - Preliminary Clean Catch Urine Yeast species Assessment and Plan Pertinent Non-Medical Issues: Psychosocial:He was born in [place] and 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 He is single and has no children. He was never in the . And is only one one daughter Spiritual:. Identifies with the [employer] wanda. declines manufacturing scheduler visit at this time. Legal: no legal issues identified. Ethical issues impacting care: No ethical issues identified. . Important Contacts: Mother: Mickey Lia , . Prognosis: His prognosis is guarded. Per the mother, GI has stated he has approximately 75 % chance of surviving this hospitalization. His level of consciousness and respiratory status have declined today and he is now on a 100% nonrebreather. The mother states that he would not want to be intubated per her prior conversation with him, been clarified that to use date that he would not want to be on a ventilator long-term. At this time she is still refusing intubation but would allow BiPAP if needed. She would like to be contacted for any further decline as she may consider intubation if situation is critical. He has significant liver damage and coagulopathy. He is at elevated risk of continued complications and decline. . Code Status: No Code DNR Plan: PLAN: Legal decision maker: At this time the patient is not capacitated for medical decision-making. He has an altered mental status and declined LOC. Both parents are alive would be the proxy decision makers. As the mother is an ICU nurse, is primary point of contact. Goals: To be determined CODE STATUS: FULL CODE. SYMPTOMS: * Encephalopathy: Likely hepatic, ammonia is 142. Patient had been receiving lactulose 30 mL every 6 hours orally and 30 mL twice daily rectally as well as rifaximin 550 mg twice daily. He is intubated and unresponsive, off sedation. He has now had an NG tube placed for medication administration. * Dyspnea: He is currently mechanically ventilated for airway protection and fragile respiratory status. Mother is considering withdrawal of ventilatory support, due to poor patient prognosis and continued decline. Palliative care will continue to follow the patient during hospital course as condition evolves, to assist patient/decision-maker with understanding of their medical conditions, weighing benefits/burdens of treatment options, for clarification of goals of treatment. Additionally will assist with any symptoms of palliative concern. . Attestation Collaborating MD Comments: Chart reviewed. Case discussed with palliative care HAND SPRAY OPERATOR. Above HAND SPRAY OPERATOR note reviewed and I concur. . Attestation: To help prompt me to consider important information that might be impacting today's encounter and assessment, information from prior notes written by myself or my colleagues may have been "brought forward" into today's note. My signature on this note, however, is an attestation that I personally performed the exam, history, and/or decision-making noted today, and, unless otherwise indicated, the interactions with patient, family, and staff as well as the review of records all occurred today. I also attest that the listed assessment and stated plan reflect my best clinical judgment today based on the combination of historical information, prior notes, and today's exam/ interactions. When time spent is documented, it refers only to time spent today by the signer, or if indicated, combined time spent today by collaborating physician/nurse practitioner. .
--- NOTE | 2018-01-17 17:12 | P.PN ---
Subjective Interval history: on the vent unresponive Physical Exam Vital signs: Vital Signs 01/16/18 20:16 01/16/18 23:52 01/17/18 04:12 Temperature Pulse Rate Respiratory Rate 26 H 23 28 H Blood Pressure Pulse Oximetry 99 97 95 01/17/18 06:11 01/17/18 08:00 01/17/18 08:20 Temperature 98.8 F 99.8 F H Pulse Rate 93 H 108 H Respiratory Rate 28 H 6 L 22 Blood Pressure 140/79 107/51 L Pulse Oximetry 95 94 L 01/17/18 08:39 01/17/18 10:10 01/17/18 12:05 Temperature 99.5 F 100.8 F H Pulse Rate 104 H 104 H Respiratory Rate 22 22 7 L Blood Pressure 109/51 L 106/53 L Pulse Oximetry 94 L 95 96 01/17/18 15:38 Temperature Pulse Rate Respiratory Rate 21 Blood Pressure Pulse Oximetry 96 Intake & Output 01/16/18 01/17/18 01/17/18 18:59 06:59 18:59 Intake Total 713 / 713 915 / 915 987.98 / 987.98 Output Total 1700 / 1700 970 / 970 Balance -987 / -987 -55 / -55 987.98 / 987.98 Intake: IV 350 / 350 530 / 530 665.98 / 665.98 Zovirax Inj 749 MG In NS Inj 330 / 330 164.98 / 164.98 150 ML @ 150 mls/hr IV.SIG Q8H JACQUE Rx#:[id number] Maxipime Inj 2,000 MG In NS Inj 100 / 100 200 / 200 100 ML @ 200 mls/hr IV.SIG Q8H JACQUE Rx#:[id number] Thorazine Inj 25 MG In NS Inj 501 / 501 500 ML @ 250.5 mls/hr IV.SIG Q6H JACQUE Rx#:[id number] Vancomycin Inj 1,000 MG In NS 250 / 250 Inj 250 ML @ 250 mls/hr IV.SIG Q12H JACQUE Rx#:[id number] Tube Feeding 243 / 243 285 / 285 Water Bolus Amount 120 / 120 100 / 100 Intake (Blood Product) Amt 0 / 0 322 / 322 Plasma Thawed 5 Day Cp2d Unit 0 / 0 [id number] Plasma Thawed 5 Day Cp2d Unit 0 / 0 0 / 0 [id number] Plasma Thawed 5 Day Cp2d Unit 322 / 322 [id number] Output: Urine 500 / 500 Stool 300 / 300 Urine Amount (Catheter) 1200 / 1200 650 / 650 Indwelling Urethral Catheter 1200 / 1200 650 / 650 Chest Tube Drainage 20 / 20 Right Anterior 20 / 20 Other: Date of Last Bowel Movement 01/16/18 01/16/18 01/17/18 Narrative: GENERAL: unresponsive on vent support SKIN: Warm and dry. HEAD: Atraumatic. Normocephalic. EYES: Pupils equal and round. No scleral icterus. No injection or drainage. ENT: No nasal bleeding or discharge. Mucous membranes pink and moist. NECK: Trachea midline. No JVD. CARDIOVASCULAR: Regular rate and rhythm. RESPIRATORY: No accessory muscle use. Clear to auscultation. Breath sounds equal bilaterally. GASTROINTESTINAL: Abdomen soft, non-tender, nondistended. Hepatic and splenic margins not palpable. MUSCULOSKELETAL: Extremities without clubbing, cyanosis, or edema. No obvious deformities. NEUROLOGICAL: Awake and alert. No obvious cranial nerve deficits. Motor grossly within normal limits. Five out of 5 muscle strength in the arms and legs. Normal speech. PSYCHIATRIC: Appropriate mood and affect; insight and judgment normal. - Urinary Catheter Management Indwelling Urethral Catheter Cath placed during this visit: yes Insertion date: 01/15/18 Insertion time: 12:45 Results - Labs CBC & Chem 7: 01/18/18 00:50 01/18/18 05:50 Laboratory Results - last 24 hr 01/16/18 01/16/18 01/16/18 04:16 19:30 22:31 WBC RBC Hgb Hct MCV MCH MCHC RDW Plt Count MPV Prelim Diff (Auto) Neut % (Auto) Lymph % (Auto) [place] % (Auto) Eos % (Auto) Baso % (Auto) Neut # (Auto) Lymph # (Auto) [place] # (Auto) Eos # (Auto) Baso # (Auto) WBC Differential Diff Scan Differential Comment Platelet Estimate Platelet Morphology [place] Cells Acanthocytes (Spur) PT INR Sodium Potassium Chloride Carbon Dioxide Anion Gap BUN Creatinine Estimated GFR POC Glucose 178 H Random Glucose Calcium Phosphorus Magnesium Total Bilirubin AST ALT Alkaline Phosphatase Ammonia 130 H Total Protein Albumin Vancomycin Trough Random Vancomycin Phenytoin Hemochromatosis Source Cancelled Hemochromat Specimen Cancelled Hemochromatosis Method Cancelled Heredit Hemochromatosis Cancelled Hemochromatosis Results Cancelled Hemochromatosis Interp Cancelled Hemochromatosis Review Cancelled Blood Type Confirm Blood Bank Comment 01/17/18 01/17/18 01/17/18 03:40 03:40 03:40 WBC RBC Hgb Hct MCV MCH MCHC RDW Plt Count MPV Prelim Diff (Auto) Neut % (Auto) Lymph % (Auto) [place] % (Auto) Eos % (Auto) Baso % (Auto) Neut # (Auto) Lymph # (Auto) [place] # (Auto) Eos # (Auto) Baso # (Auto) WBC Differential Diff Scan Differential Comment Platelet Estimate Platelet Morphology [place] Cells Acanthocytes (Spur) PT 193.5 H D INR Greater than 18.2 H* Sodium Potassium Chloride Carbon Dioxide Anion Gap BUN Creatinine Estimated GFR POC Glucose Random Glucose Calcium Phosphorus Magnesium Total Bilirubin AST ALT Alkaline Phosphatase Ammonia 142 H Total Protein Albumin Vancomycin Trough Random Vancomycin Phenytoin 17.7 Hemochromatosis Source Hemochromat Specimen Hemochromatosis Method Heredit Hemochromatosis Hemochromatosis Results Hemochromatosis Interp Hemochromatosis Review Blood Type Confirm Blood Bank Comment 01/17/18 01/17/18 01/17/18 03:40 03:40 04:57 WBC 6.5 RBC 3.69 L Hgb 10.8 L Hct 31.0 L MCV 84.1 MCH 29.2 MCHC 34.8 RDW 18.9 H Plt Count 129 L MPV 8.3 Prelim Diff (Auto) Slide review pending Neut % (Auto) 61.7 Lymph % (Auto) 14.7 [place] % (Auto) 22.3 H Eos % (Auto) 0.2 Baso % (Auto) 1.1 Neut # (Auto) 4.0 Lymph # (Auto) 1.0 [place] # (Auto) 1.5 H Eos # (Auto) 0.0 Baso # (Auto) 0.1 WBC Differential . Diff Scan Auto diff confirmed Differential Comment . Platelet Estimate Low L Platelet Morphology Normal [place] Cells 1+ H Acanthocytes (Spur) 1+ H PT INR Sodium 140 Potassium 4.1 Chloride 103 Carbon Dioxide 22.3 Anion Gap 15 BUN 9 Creatinine 1.68 H Estimated GFR 48 L POC Glucose Random Glucose 171 H Calcium 9.5 Phosphorus 3.4 Magnesium 1.9 Total Bilirubin 27.9 H AST 24 ALT 61 Alkaline Phosphatase 147 H Ammonia Total Protein 6.7 Albumin 3.3 L Vancomycin Trough Random Vancomycin 27.1 Phenytoin Hemochromatosis Source Hemochromat Specimen Hemochromatosis Method Heredit Hemochromatosis Hemochromatosis Results Hemochromatosis Inter Hemochromatosis Review Blood Type Confirm B Positive Blood Bank Comment 01/17/18 01/17/18 01/17/18 08:43 12:28 14:11 WBC RBC Hgb Hct MCV MCH MCHC RDW Plt Count MPV Prelim Diff (Auto) Neut % (Auto) Lymph % (Auto) [place] % (Auto) Eos % (Auto) Baso % (Auto) Neut # (Auto) Lymph # (Auto) [place] # (Auto) Eos # (Auto) Baso # (Auto) WBC Differential Diff Scan Differential Comment Platelet Estimate Platelet Morphology [place] Cells Acanthocytes (Spur) PT INR Sodium Potassium Chloride Carbon Dioxide Anion Gap BUN Creatinine Estimated GFR POC Glucose 173 H 169 H Random Glucose Calcium Phosphorus Magnesium Total Bilirubin AST ALT Alkaline Phosphatase Ammonia Total Protein Albumin Vancomycin Trough 17.3 H Random Vancomycin Phenytoin Hemochromatosis Source Hemochromat Specimen Hemochromatosis Method Heredit Hemochromatosis Hemochromatosis Results Hemochromatosis Interp Hemochromatosis Review Blood Type Confirm Blood Bank Comment Microbiology 01/16/18 12:40 Clean Catch Urine Urine Culture - Preliminary Yeast species - Imaging Impressions Chest X-Ray 01/17/18 04:00 CONCLUSION: The lungs are clear. Assessment and Plan - Assessment (1) Respiratory failure Code(s): J96.90 - Respiratory failure, unspecified, unspecified whether with hypoxia or hypercapnia Status: Acute (2) Hepatic encephalopathy Code(s): K72.90 - Hepatic failure, unspecified without coma Status: Acute - Plan vent support wean as tolerated outlook poor
--- NOTE | 2018-01-17 20:17 | P.PNCC ---
Subjective Subjective Remarks/Hospital Course: Remarks/Hospital Course This is a 32-year-old male that presented to the ED at [facility] on 12/31/2017 with complaints of nausea and vomiting and generalized malaise. The patient's medical history is significant for hepatitis C, liver failure , coagulopathy and previous encephalopathy. The patient has a medical history significant for IVDU and alcohol use disorder. Upon presentation the patient was alert and oriented but noted he was having worsening symptoms, since his admission the patient has become progressively more left and coagulopathic with INR as high as 7.9. Upon admission imaging and laboratory studies were performed which showed a significant increase in INR and CT abdomen showing hepatic cirrhosis for the laboratory studies were provided and the patient was noted to have alpha-1 antitrypsin deficiency, pulmonology was also consulted. The patient has been receiving with currently by GI 6 units of FFP daily, lactulose, rifaximin ,propranolol and vitamin K. The patient has progressively become more lethargic, neurology has been consulted EEG was with encephalopathic findings, and an MRI brain and CT brain 01/07 showed no acute abnormality. The patient was unable to be aroused early this a.m., critical care medicine was consulted. Upon my evaluation at 6:30 AM the patient was unable to be awakened with deep sternal rub and pain stimuli. No eye opening nor withdrawal to pain ,the patient's O2 saturation was within normal limits 98 to 99% on 4 LPM N/C. Concern for possible cerebral edema, or acute bleed, a stat MRI was obtained that showed no acute abnormality, I discussed findings and comparison of 01/07 MRI with no significant findings. Over the last 3-4 hours, the patient now has spontaneous eye opening, is making verbal sounds that are incomprehensible, and has passed a bedside swallow evaluation. Ammonia level upon review continues to down trend from 120 to currently 94. I telephoned the healthcare surrogate mother, Raphael, and ALLERGIST/PEDIATRIC PULMONOLOGIST and provided her medical status update upon my evaluation. A discussion regarding possible emergent intubation, and she stated that the patient would not want to be intubated. A discussion was also performed discussing INR currently of 2.3, placement of NG tube for administration of medications as well as nutrition at which point she said stated she was undecided. Extensive conversation was performed and a palliative consult has been initiated to define goals of care. I thoroughly discussed with the healthcare surrogate concern for protection of the airway as well as nutrition and administration of medication and the need for intubation. Currently the patient is protecting his airway even though he is nonverbal at this point she does not want an intubation awaiting palliative care consult for further recommendations . The patient remains a full code. I contacted Dr. Capps, in the ED informed her of the situation, the patient may require emergent intubation until clarification of goals are met. 01/14: Orders to transfer the patient to [facility] were initiated at 10 AM ,however the patient was transferred at 6 PM at [facility], mother's request. The patient's INR had trended down to 2.3. The patient was seen by neurology last evening discussed with Dr. Marcano plan was for possible lumbar puncture and paracentesis today. A scan was performed last evening patient did not have enough fluid for drainage/paracentesis (small amount of fluid). The patient received during the night and an additional 5 units of FFP and attempts to place the INR less than 1.8, but unsuccessful, INR 2.7. I discussed with Infectious Disease Dr. Nick last evening, plan for MRI with contrast of cervical, thoracic and lumbar spine this am., If unable to perform LP. Empiric antibiotics were provided. Echo is pending. no further transfusion of FFP required. I discussed with Dr. Rojo, to discontinue transfusion of FFP 6 units per day as previously ordered, as the patient has no signs of active bleeding. I also conferred with Dr. Bain, Heme- Onc, who is in agreement. The patient remains encephalopathic, attempts were made last evening for placement of NG tube unsuccessful on multiple attempts by nursing staff. Plan for placement of NG tube under fluoroscopy this a.m. to continue administration of medications. 01/15: (Dr. Obregon) I spoke with patient's healthcare decision maker, Mickey Lai again after labs that she requested were resulted. She would like to proceed with intubation for airway protection. She would not want prolonged intubation or trach. She states that he is not improving her goal would be to transition him to home hospice. She states she would like to speak with consultants regarding prognosis. I will proceed with intubation. 01/15: The patient is status post intubation, currently on PRVC overbreathing the vent. Last evening the patient's INR was noted to be significantly elevated he was scheduled to be transfused 4 units of FFP, INR is 12.2 however no active signs of bleeding or noted. Ammonia level significantly elevated despite lactulose and rifaximin ammonia level 180 this a.m.. IV infusion D5 increased to 77 cc/hour. Plan to consider TPN will consult with GI. Hydrocortisone dosing was initiated yesterday. 01/16: Additional maximal dosing polyethylene glycol, 34 g per day was added to medication regimen last night. Ammonia level this a.m. 147. Repeat MRI revealed restricted diffusion in the gold matter. The patient remains encephalopathic. The patient is tolerating tube feeds. INR 10.6. SUBJECTIVE 01/17: Pupils are essentially fixed and dilated about 7 mm. Quite coagulopathic. Patient had a positive urine tox screen for amphetamines 12/30/17 which is essentially contraindication for liver transplant. Prior documentation of active drug use. Prior alcohol use noted. Hepatitis C antibody positive but genotype/viral load negative. Objective Vital Signs / I&O: Vital Signs 01/16/18 20:16 01/16/18 23:52 01/17/18 04:12 Temperature Pulse Rate Respiratory Rate 26 H 23 28 H Blood Pressure Pulse Oximetry 99 97 95 01/17/18 06:11 01/17/18 08:00 01/17/18 08:20 Temperature 98.8 F 99.8 F H Pulse Rate 93 H 108 H Respiratory Rate 28 H 6 L 22 Blood Pressure 140/79 107/51 L Pulse Oximetry 95 94 L 01/17/18 08:39 01/17/18 10:10 01/17/18 12:05 Temperature 99.5 F 100.8 F H Pulse Rate 104 H 104 H Respiratory Rate 22 22 7 L Blood Pressure 109/51 L 106/53 L Pulse Oximetry 94 L 95 96 01/17/18 15:38 01/17/18 19:55 Temperature Pulse Rate Respiratory Rate 21 20 Blood Pressure Pulse Oximetry 96 94 L Intake & Output 01/17/18 01/17/18 01/18/18 06:59 18:59 06:59 Intake Total 915 / 915 2580.98 / 2580.98 Output Total 970 / 970 375 / 375 Balance -55 / -55 2205.98 / 2205.98 Intake: IV 530 / 530 1732.98 / 1732.98 Zovirax Inj 749 MG In NS Inj 330 / 330 329.98 / 329.98 150 ML @ 150 mls/hr IV.SIG Q8H JACQUE Rx#:[id number] Maxipime Inj 2,000 MG In NS Inj 200 / 200 100 / 100 100 ML @ 200 mls/hr IV.SIG Q8H JACQUE Rx#:[id number] Thorazine Inj 25 MG In NS Inj 1002 / 1002 500 ML @ 250.5 mls/hr IV.SIG Q6H JACQUE Rx#:[id number] Vancomycin Inj 1,000 MG In NS 250 / 250 Inj 250 ML @ 250 mls/hr IV.SIG Q12H JACQUE Rx#:[id number] Tube Feeding 285 / 285 282 / 282 Tube Irrigant 180 / 180 Water Bolus Amount 100 / 100 Intake (Blood Product) Amt 0 / 0 386 / 386 Plasma Thawed 5 Day Cp2d Unit 64 / 64 [id number] Plasma Thawed 5 Day Cp2d Unit 0 / 0 0 / 0 [id number] Plasma Thawed 5 Day Cp2d Unit 322 / 322 [id number] Output: Urine 375 / 375 Stool 300 / 300 0 / 0 Urine Amount (Catheter) 650 / 650 Indwelling Urethral Catheter 650 / 650 Chest Tube Drainage 20 / 20 Right Anterior 20 / 20 Other: Date of Last Bowel Movement 01/16/18 01/17/18 Result Diagrams: 01/17/18 03:40 01/17/18 03:40 Objective Remarks: GENERAL: Well-developed well-nourished male, comatose, intubated. SKIN: Warm and dry. Jaundice HEAD: Atraumatic. Normocephalic. EYES: Pupils equal and round. 4-5 mm with sluggish reactivity. Positive scleral icterus. No injection or drainage. ENT: No nasal bleeding or discharge. Mucous membranes pink and moist. NECK: Trachea midline. No JVD. CARDIOVASCULAR: Normal rate, regular rhythm. RESPIRATORY: No accessory muscle use. Clear to auscultation. Breath sounds equal bilaterally. GASTROINTESTINAL: Abdomen soft, non-tender, nondistended. No guarding. MUSCULOSKELETAL: Extremities without clubbing, cyanosis, or edema. No obvious deformities. NEUROLOGICAL: GCS 3 T. No gross focal/sensory deficits. No purposeful movement. Assessment and Plan - Assessment and Plan Plan: Neurologic: Severe Hepatic encephalopathy Hyperammonemia Hepatic Coma Urine drug screen positive for amphetamines 12/30/17 along with THC History of alcohol/polysubstance abuse EEG-encephalopathic findings 01/15: Repeat EEG severe metabolic encephalopathy however slightly improved per Dr. Marcano Neurology following-Dr. Solomon 01/07 MRI brain-no acute findings 01/07 CT brain-no acute findings 01/13: CT brain-no acute findings-discussed with Dr. Gomez F/U repeat EEG -R/O subclinical seizures 01/14: Unable to perform lumbar puncture, 2/2 coagulopathy obtain MRI of cervical cervical thoracic and lumbar spine 01/15 Ammonia level 180, patient continues on lactulose and rifaximin (maximum dose)- Concern for cerebral edema will add Polyethylene glycol daily. Maintain HOB elevation 30 degrees 01/16: MRI restricted diffusion in the gold matter compared to white matter can be seen with anoxic encephalopathy. No hemorrhage Recheck phenytoin level in a.m. 01/18 Respiratory: Alpha 1 antitrypsin deficiency Tobacco use disorder PRVC ventilation Albuterol/ipratropium aerosols every 4 hours with albuterol aerosols every 2 hours as needed dyspnea Spontaneous breathing trials when clinically indicated Maintain O2 saturation greater than 92% Maintain head of bed 30 Discontinued nicotine patch F/U VBG Cardiovascular: Maintain MAP greater than 65 Monitor CVP Normotensive Renal: Obstructive uropathy-resolved -- Strict I/Os Insert and maintain Pappas catheter patient is receiving diuretics urinary retention of greater than 600 cc FEN/GI: Acute alcoholic hepatitis Hepatitis C Hyperammonemia Acute hepatic failure Protein calorie malnutrition Transaminitis Cirrhosis Portal hypertension Jaundice/ Hyperbilirubinemia Ascites Hypoglycemia GI following Dr. Sher ([facility]), Dr. Rojo ([facility]) Continue lactulose, rifaximin Monitor ammonia levels-180->147 01/14 insertion of NG tube for medications and feedings- insertion via invasive radiology 01/15-Jevity 1.5 at 25 cc/hour Consider HIDA scan-defer to GI 01/15: IV fluids discontinued last night with the addition of tube feed Heme/ID: Coagulopathy Thrombocytopenia Continue vitamin K daily-we will change to IV 5 mg daily Hematology following- Dr Messer Infectious disease following- Dr. Nick Patient received 11units of FFP in the last 24 hours,this has been discontinued , INR remains elevated, unable to do interventional procedures/LP Transfuse for platelet count less than 50,000 or active signs of bleeding. 01/07 Urine culture-Tiffany albicans - received Diflucan dc'd 01/12 01/13 Urine culture-Klebsiella pneumonae 01/13: Repeat blood culture- NGTD 01/13: Provide empiric coverage for meningitis to include cefepime, acyclovir and vancomycin. D/W Dr. Nick 01/14 FFP administration discontinued, as discussed with GI Dr. Rojo and Hematology Oncology Dr. Messer. Patient has no active signs of bleeding 01/15: INR 12.2-patient to received 2 units of FFP. 7.1 INR 10.6 Endocrine: Hypoglycemia-resolved Glucose monitoring every 4 hours, low-dose regimen -- SSI Prophylaxis: GI Prophylaxis Famotidine DVT Prophylaxis -- SCDs No pharmacological DVT prophylaxis in the setting of severe thrombocytopenia and coagulopathic state Lines: Right subclavian central line 12/31, peripheral IVs 2 Level 3 follow-up. Discussed with mother and Dr. Marcano today. Active drug use would preclude from qualifications for liver transplant. Worsening coagulopathic state. Prognosis very poor
[2018-01-18] MEDS: CHLORPROMAZINE IV.SIG SCH ×3 (00:13→11:26)
[2018-01-18] MEDS: SODIUM CHLOR 0.9% IV.SIG SCH ×5 (00:13→13:29)
[2018-01-18] MEDS: Water Sterile for Irr Bot 700 ML, Lactulose Liq 300 ML RECTAL SCH ×10 (00:13→15:19)
[2018-01-18] MEDS: MethylPREDNISolone Sod Succinate Inj 40 MG/ML Vial IV.PUSH SCH ×2 (00:13→08:33)
[2018-01-18 01:21] LABS: Activated Partial Thrombo Time 42.5 sec (24.3-30.1)
[2018-01-18 01:27] LABS: Magnesium 2.4 mg/dL (1.5-2.5); Phenytoin (Dilantin) 20.4 mcg/mL (10.0-20.0); Phosphorus 2.9 mg/dL (2.5-4.9)
[2018-01-18 01:40] LABS: Baso % (Auto) 0.2 % (0.0-2.0); Eos % (Auto) 0.1 % (0.0-4.0); Hematocrit 27.8 % (39.0-51.0); Hemoglobin 9.6 gm/dL (13.0-17.0); Lymph # (Auto) 0.7 th/mm3 (1.0-4.8); Lymph % (Auto) 16.1 % (9.0-44.0); Mean Corpuscular HGB Conc 34.5 % (32.0-36.0); Mean Corpuscular Hemoglobin 29.2 pg (27.0-34.0); Mean Corpuscular Volume 84.5 fL (80.0-100.0); Mean Platelet Volume 8.8 fL (7.0-11.0); Mono % (Auto) 22.4 % (0.0-8.0); Neut # (Auto) 2.7 th/mm3 (1.8-7.7); Neut % (Auto) 61.2 % (16.0-70.0); Platelet Count 86 th/mm3 (150-450); Red Blood Count 3.29 mil/mm3 (4.50-5.90); Red Cell Distribution Width 19.6 % (11.6-17.2); White Blood Count 4.4 th/mm3 (4.0-11.0)
[2018-01-18] MEDS: Famotidine PF Inj 20 MG/2 ML Vial IV.PUSH SCH ×2 (01:57→13:30)
[2018-01-18 02:54] LABS: Platelet Morphology Normal (Normal)
[2018-01-18 02:57] LABS: Acanthocytes Occ; Burr Cells 2+
[2018-01-18] MEDS: Insulin Detemir Inj 1,000 UNIT/10 ML Vial SQ SCH (05:57)
[2018-01-18] MEDS: Pentoxifylline 400 MG Controlled Release Tablet PO SCH ×2 (05:58→13:29)
[2018-01-18] MEDS: ACYCLOVIR IV.SIG SCH ×2 (05:58→13:29)
[2018-01-18 06:34] LABS: INR 8.6 Ratio
[2018-01-18 06:49] LABS: Alanine Aminotransferase 49 U/L (12-78); Albumin 2.8 g/dL (3.4-5.0); Alkaline Phosphatase 128 U/L (45-117); Anion Gap 12 meq/L (5-15); Aspartate Aminotransferase 23 U/L (15-37); Blood Urea Nitrogen 12 mg/dL (7-18); Calcium 9.1 mg/dL (8.5-10.1); Carbon Dioxide 25.5 meq/L (21.0-32.0); Chloride 108 meq/L (98-107); Glomerular Filtration Rate 43 mL/min (>89); Glucose,Random 133 mg/dL (74-106); Potassium 4.2 meq/L (3.5-5.1); Sodium 145 meq/L (136-145); Total Protein 6.3 g/dL (6.4-8.2)
--- NOTE | 2018-01-18 07:41 | P.PNNEU ---
Subjective Subjective Comments: ramy will not txplant due to current user Active Medications: Active Medications Generic Name Dose Route Start Last Admin Trade Name Freq PRN Reason Stop Dose Admin Albuterol 2.5 mg 01/16/18 08:00 01/16/18 08:59 Albuterol Neb ([place]) INH 2.5 mg BID NEB VIOLETTE Administration Albuterol 1 ampul 01/16/18 01:00 01/18/18 00:04 Duoneb Neb (Prn) NEB 1 ampul Q4HR NEB PRN Administration WHEEZING Betamethasone/Clotrimazole 1 applicatio 01/16/18 09:00 01/17/18 20:35 Lotrisone Cream TOPICAL Not Given Q12HR VIOLETTE Sterile Water 700 ml/ 0 ml 01/16/18 04:00 01/18/18 03:10 Lactulose 300 ml RECTAL Not Given Q4HR VIOLETTE Dextrose 50 ml 01/16/18 01:00 D50w Vial IV.PUSH UNSCH PRN HYPOGLYEMIA-SEE COMMENTS Famotidine 20 mg 01/16/18 02:00 01/18/18 01:57 Pepcid Pf Inj IV.PUSH 20 mg Q12H VIOLETTE Administration Fosphenytoin Sodium 100 mgpe 01/16/18 21:00 01/17/18 20:32 Cerebyx Inj IV.SIG 100 mgpe Q12HR VIOLETTE Administration Furosemide 60 mg 01/16/18 09:00 01/17/18 08:25 Lasix Inj IV.PUSH 60 mg DAILY VIOLETTE Administration Glucagon 1 mg 01/16/18 01:00 Glucagon Inj OTHER UNSCH PRN HYPOGLYCEMIA-SEE COMMENTS Hyoscyamine 0.25 mg 01/16/18 09:00 01/17/18 17:32 Levsin PO 0.25 mg TID VIOLETTE Administration Chlorpromazine HCl 25 mg/ 501 mls @ 250.5 mls/hr 01/17/18 06:00 01/18/18 05: 58 Sodium Chloride IV.SIG Not Given Q6H VIOLETTE Acyclovir Sodium 749 mg/ 164.98 mls @ 150 mls/hr 01/16/18 06:00 01/18/18 07: 00 Sodium Chloride IV.SIG Infused Q8H VIOLETTE Infusion Cefepime HCl 2,000 mg/ Sodium 100 mls @ 200 mls/hr 01/16/18 04:00 01/18/18 03 :40 Chloride IV.SIG Infused Q8H VIOLETTE Infusion Magnesium Sulfate Inj 4 gm/ 100 mls @ 50 mls/hr 01/16/18 00:01 Sodium Chloride IV.SIG UNSCH PRN For Magnesium 0.9 - 1.1 mg/dL Magnesium Sulfate Inj 2 gm/ 100 mls @ 50 mls/hr 01/16/18 00:01 Sodium Chloride IV.SIG UNSCH PRN For Magnesium 1.2 - 1.6 mg/dL Potassium Chloride 20 meq in 100 mls @ 50 mls/hr 01/16/18 00:01 Kcl 20 Meq Premix Inj IV.SIG Q2H PRN For Potassium 2.8 - 3.2 mEq/L Potassium Chloride 20 meq in 100 mls @ 50 mls/hr 01/16/18 00:01 Kcl 20 Meq Premix Inj IV.SIG Q2H PRN For Potassium 3.3 - 3.5 mEq/L Potassium Phosphate 30 mmol/ 260 mls @ 42 mls/hr 01/16/18 00:01 Sodium Chloride IV.SIG UNSCH PRN SEE LABEL COMMENTS Sodium Phosphate 30 mmol/ 260 mls @ 42 mls/hr 01/16/18 00:01 Sodium Chloride IV.SIG UNSCH PRN For Phosphorus < 2.5 mg/dL Insulin Detemir 15 unit 01/16/18 17:00 01/18/18 05:57 Levemir Inj SQ 15 unit Q12H VIOLETTE Administration Lactulose 30 ml 01/16/18 06:00 01/18/18 05:57 Lactulose Liq PO 30 ml Q6HR VIOLETTE Administration Lactulose 30 ml 01/16/18 09:00 01/17/18 20:33 Lactulose Liq RECTAL Not Given BID VIOLETTE Magnesium Oxide 800 mg 01/16/18 00:01 Mag-Ox PO UNSCH PRN For Magnesium 1.2 - 1.6 mg/dL Melatonin 5 mg 01/16/18 01:00 Melatonin PO HS PRN INSOMNIA Memantine 10 mg 01/16/18 09:00 01/17/18 20:35 Namenda PO 10 mg Q12HR VIOLETTE Administration Methylprednisolone Sodium Succinate 40 mg 01/16/18 00:00 01/18/18 00:13 Solu-Medrol Inj IV.PUSH 40 mg Q8H VIOLETTE Administration Pentoxifylline 400 mg 01/16/18 06:00 01/18/18 05:58 Trental Sr PO 400 mg Q8HR VIOLETTE Administration Phytonadione 5 mg 01/16/18 09:00 01/17/18 08:27 Mephyton Liq PO 5 mg DAILY VIOLETTE Administration Polyethylene Glycol 34 gm 01/16/18 09:00 01/17/18 08:27 Miralax PO Not Given DAILY VIOLETTE Potassium Bicarb/Potassium Chloride 50 meq 01/16/18 00:01 01/16/18 16:12 K-Lyte PO 50 meq UNSCH PRN Administration Potassium 3.3-3.5 mEq/L Potassium Phosphate 2,000 mg 01/16/18 01:00 K-Phos Original PO Q4H PRN Phosphorus Less Than 2.5 mg/dL Potassium Phosphate 2,000 mg 01/16/18 00:01 K-Phos Original PO UNSCH PRN SEE LABEL COMMENTS Prochlorperazine Edisylate 5 mg 01/16/18 08:21 Compazine Inj IV.PUSH Q6H PRN NAUSEA OR VOMITING Propranolol HCl 20 mg 01/16/18 06:00 01/18/18 05:57 Inderal PO Not Given Q8HR VIOLETTE Rifaximin 550 mg 01/16/18 09:00 01/17/18 20:35 Xifaxan PO 550 mg BID VIOLETTE Administration Senna/Docusate Sodium 1 tab 01/16/18 09:00 01/17/18 20:35 Roseann-Colace PO 1 tab BID VIOLETTE Administration Spironolactone 150 mg 01/16/18 09:00 01/17/18 08:25 Aldactone PO 150 mg DAILY VIOLETTE Administration Allergies/Adverse Reactions: Allergies Allergy/AdvReac Type Severity Reaction Status Date / Time No Known Allergies Allergy Unknown Uncoded 12/31/17 10:31 Physical Exam Vital signs: Vital Signs 01/17/18 08:00 01/17/18 08:20 01/17/18 08:39 Temperature 99.8 F H 99.5 F Pulse Rate 108 H 104 H Respiratory Rate 6 L 22 22 Blood Pressure 107/51 L 109/51 L Pulse Oximetry 94 L 94 L 01/17/18 10:10 01/17/18 12:05 01/17/18 15:38 Temperature 100.8 F H Pulse Rate 104 H Respiratory Rate 22 7 L 21 Blood Pressure 106/53 L Pulse Oximetry 95 96 96 01/17/18 19:00 01/17/18 19:55 01/17/18 20:00 Temperature 98.7 F Pulse Rate 87 87 Respiratory Rate 15 20 Blood Pressure 118/65 117/66 Pulse Oximetry 95 94 L 01/17/18 21:00 01/17/18 22:00 01/17/18 22:23 Temperature Pulse Rate 86 83 Respiratory Rate 18 Blood Pressure 111/62 112/65 Pulse Oximetry 98 01/17/18 23:00 01/18/18 00:00 01/18/18 00:04 Temperature 97 F L Pulse Rate 81 82 83 Respiratory Rate 20 Blood Pressure 124/74 100/55 L Pulse Oximetry 01/18/18 01:00 01/18/18 01:54 01/18/18 02:00 Temperature Pulse Rate 80 79 Respiratory Rate 20 Blood Pressure 102/57 L 105/56 L Pulse Oximetry 96 01/18/18 03:00 01/18/18 04:00 01/18/18 04:20 Temperature 98.0 F Pulse Rate 78 78 Respiratory Rate 18 Blood Pressure 106/57 L 109/59 L Pulse Oximetry 98 01/18/18 05:00 Temperature Pulse Rate 78 Respiratory Rate Blood Pressure 115/68 Pulse Oximetry Intake & Output 01/17/18 01/18/18 01/18/18 18:59 06:59 18:59 Intake Total 2580.98 / 2580.98 1747 / 1747 165 / 165 Output Total 375 / 375 1950 / 1950 Balance 2205.98 / 2205.98 -203 / -203 165 / 165 Weight 84.8 kg Intake: IV 1732.98 / 1732.98 1367 / 1367 165 / 165 Zovirax Inj 749 MG In NS Inj 329.98 / 329.98 165 / 165 165 / 165 150 ML @ 150 mls/hr IV.SIG Q8H VIOLETTE Rx#:[id number] Maxipime Inj 2,000 MG In NS Inj 100 / 100 200 / 200 100 ML @ 200 mls/hr IV.SIG Q8H VIOLETTE Rx#:[id number] Thorazine Inj 25 MG In NS Inj 1002 / 1002 1002 / 1002 500 ML @ 250.5 mls/hr IV.SIG Q6H VIOLETTE Rx#:[id number] Vancomycin Inj 1,000 MG In NS 250 / 250 Inj 250 ML @ 250 mls/hr IV.SIG Q12H VIOLETTE Rx#:[id number] Tube Feeding 282 / 282 280 / 280 Tube Irrigant 180 / 180 Water Bolus Amount 100 / 100 Intake (Blood Product) Amt 386 / 386 Plasma Thawed 5 Day Cp2d Unit 64 / 64 [id number] Plasma Thawed 5 Day Cp2d Unit 0 / 0 [id number] Plasma Thawed 5 Day Cp2d Unit 322 / 322 [id number] Output: Urine 375 / 375 Stool 0 / 0 1500 / 1500 Urine Amount (Catheter) 450 / 450 Indwelling Urethral Catheter 450 / 450 Other: Date of Last Bowel Movement 01/17/18 Narrative: pupil= does respond to pain today with body movements no clonus - Urinary Catheter Management Indwelling Urethral Catheter Cath placed during this visit: yes Reason for continuing: Acute urinary retention Insertion date: 01/15/18 Insertion time: 12:45 Objective Laboratory Results - last 24 hr 01/16/18 01/17/18 01/17/18 04:16 04:57 08:43 WBC RBC Hgb Hct MCV MCH MCHC RDW Plt Count MPV Prelim Diff (Auto) Neut % (Auto) Lymph % (Auto) [place] % (Auto) Eos % (Auto) Baso % (Auto) Neut # (Auto) Lymph # (Auto) [place] # (Auto) Eos # (Auto) Baso # (Auto) WBC Differential Diff Scan Differential Comment Platelet Estimate Platelet Morphology [place] Cells Acanthocytes (Spur) Keratocytes PT INR APTT Fibrinogen Sodium Potassium Chloride Carbon Dioxide Anion Gap BUN Creatinine Estimated GFR POC Glucose 173 H Random Glucose Lactic Acid Calcium Phosphorus Magnesium Total Bilirubin AST ALT Alkaline Phosphatase Ammonia Total Protein Albumin Vancomycin Trough Phenytoin Hemochromatosis Source Cancelled Hemochromat Specimen Cancelled Hemochromatosis Method Cancelled Heredit Hemochromatosis Cancelled Hemochromatosis Results Cancelled Hemochromatosis Interp Cancelled Hemochromatosis Review Cancelled Blood Type Confirm B Positive Blood Bank Comment 01/17/18 01/17/18 01/18/18 12:28 14:11 00:50 WBC RBC Hgb Hct MCV MCH MCHC RDW Plt Count MPV Prelim Diff (Auto) Neut % (Auto) Lymph % (Auto) [place] % (Auto) Eos % (Auto) Baso % (Auto) Neut # (Auto) Lymph # (Auto) [place] # (Auto) Eos # (Auto) Baso # (Auto) WBC Differential Diff Scan Differential Comment Platelet Estimate Platelet Morphology [place] Cells Acanthocytes (Spur) Keratocytes PT INR APTT Fibrinogen Sodium Potassium Chloride Carbon Dioxide Anion Gap BUN Creatinine Estimated GFR POC Glucose 169 H Random Glucose Lactic Acid Calcium Phosphorus Magnesium Total Bilirubin AST ALT Alkaline Phosphatase Ammonia 135 H Total Protein Albumin Vancomycin Trough 17.3 H Phenytoin Hemochromatosis Source Hemochromat Specimen Hemochromatosis Method Heredit Hemochromatosis Hemochromatosis Results Hemochromatosis Inter Hemochromatosis Review Blood Type Confirm Blood Bank Comment 01/18/18 01/18/18 01/18/18 00:50 00:50 00:50 WBC 4.4 RBC 3.29 L Hgb 9.6 L Hct 27.8 L MCV 84.5 MCH 29.2 MCHC 34.5 RDW 19.6 H Plt Count 86 L D MPV 8.8 Prelim Diff (Auto) Slide review pending Neut % (Auto) 61.2 Lymph % (Auto) 16.1 [place] % (Auto) 22.4 H Eos % (Auto) 0.1 Baso % (Auto) 0.2 Neut # (Auto) 2.7 Lymph # (Auto) 0.7 L [place] # (Auto) 1.0 H Eos # (Auto) 0.0 Baso # (Auto) 0.0 WBC Differential . Diff Scan Auto diff confirmed Differential Comment . Platelet Estimate Low L Platelet Morphology Normal [place] Cells 2+ H Acanthocytes (Spur) Occ H Keratocytes Occ H PT INR APTT 42.5 H Fibrinogen 103 L Sodium Potassium Chloride Carbon Dioxide Anion Gap BUN Creatinine Estimated GFR POC Glucose Random Glucose Lactic Acid Calcium Phosphorus 2.9 Magnesium 2.4 Total Bilirubin AST ALT Alkaline Phosphatase Ammonia Total Protein Albumin Vancomycin Trough Phenytoin 20.4 H Hemochromatosis Source Hemochromat Specimen Hemochromatosis Method Heredit Hemochromatosis Hemochromatosis Results Hemochromatosis Inter Hemochromatosis Review Blood Type Confirm Blood Bank Comment 01/18/18 01/18/18 01/18/18 00:50 05:50 05:50 WBC RBC Hgb Hct MCV MCH MCHC RDW Plt Count MPV Prelim Diff (Auto) Neut % (Auto) Lymph % (Auto) [place] % (Auto) Eos % (Auto) Baso % (Auto) Neut # (Auto) Lymph # (Auto) [place] # (Auto) Eos # (Auto) Baso # (Auto) WBC Differential Diff Scan Differential Comment Platelet Estimate Platelet Morphology [place] Cells Acanthocytes (Spur) Keratocytes PT 86.0 H D INR 8.6 H* APTT Fibrinogen Sodium 145 Potassium 4.2 Chloride 108 H Carbon Dioxide 25.5 Anion Gap 12 BUN 12 Creatinine 1.84 H Estimated GFR 43 L POC Glucose Random Glucose 133 H Lactic Acid 3.7 H Calcium 9.1 Phosphorus Magnesium Total Bilirubin 24.8 H AST 23 ALT 49 Alkaline Phosphatase 128 H Ammonia Total Protein 6.3 L Albumin 2.8 L Vancomycin Trough Phenytoin Hemochromatosis Source Hemochromat Specimen Hemochromatosis Method Heredit Hemochromatosis Hemochromatosis Results Hemochromatosis Inter Hemochromatosis Review Blood Type Confirm Blood Bank Comment 01/18/18 05:50 WBC RBC Hgb Hct MCV MCH MCHC RDW Plt Count MPV Prelim Diff (Auto) Neut % (Auto) Lymph % (Auto) [place] % (Auto) Eos % (Auto) Baso % (Auto) Neut # (Auto) Lymph # (Auto) [place] # (Auto) Eos # (Auto) Baso # (Auto) WBC Differential Diff Scan Differential Comment Platelet Estimate Platelet Morphology [place] Cells Acanthocytes (Spur) Keratocytes PT INR APTT Fibrinogen Sodium Potassium Chloride Carbon Dioxide Anion Gap BUN Creatinine Estimated GFR POC Glucose Random Glucose Lactic Acid Calcium Phosphorus Magnesium Total Bilirubin AST ALT Alkaline Phosphatase Ammonia 147 H Total Protein Albumin Vancomycin Trough Phenytoin Hemochromatosis Source Hemochromat Specimen Hemochromatosis Method Heredit Hemochromatosis Hemochromatosis Results Hemochromatosis Inter Hemochromatosis Review Blood Type Confirm Blood Bank Comment Microbiology 01/16/18 12:40 Urine Culture - Preliminary Clean Catch Urine Yeast species Review/Management - Review/Management Plan: imp recheck mri hepatic enceph dil 18 lower dose 01/17/18 mri no major change may be some subtle cortical diffuse edema on flair if hospice called in i would agree to that as main problem here is hepatic dil 17.7 01/18/18 i dw mom lets give him one more day and if not better hospice tomorrow lower dil dose done
[2018-01-18] MEDS: rifAXIMin 550 MG Tablet PO SCH (08:33)
[2018-01-18] MEDS: Spironolactone 50 MG Tablet PO SCH (08:35)
[2018-01-18] MEDS: Polyethylene Glycol 3350 17 GM Packet PO SCH (08:36)
[2018-01-18] MEDS: Senna/Docusate Sodium 8.6/50 MG Tablet PO SCH (08:36)
[2018-01-18] MEDS: Phytonadione 5 MG/SWFI 5 ML Oral Syringe PO SCH (08:36)
[2018-01-18] MEDS ORDERED: Fosphenytoin Sodium Inj 100 MGPE/2 ML Vial IV.SIG SCH (09:00)
--- NOTE | 2018-01-18 10:24 | P.PNCC ---
Subjective Subjective Remarks/Hospital Course: Remarks/Hospital Course This is a 32-year-old male that presented to the ED at [place] on 12/31/2017 with complaints of nausea and vomiting and generalized malaise. The patient's medical history is significant for hepatitis C, liver failure , coagulopathy and previous encephalopathy. The patient has a medical history significant for IVDU and alcohol use disorder. Upon presentation the patient was alert and oriented but noted he was having worsening symptoms, since his admission the patient has become progressively more left and coagulopathic with INR as high as 7.9. Upon admission imaging and laboratory studies were performed which showed a significant increase in INR and CT abdomen showing hepatic cirrhosis for the laboratory studies were provided and the patient was noted to have alpha-1 antitrypsin deficiency, pulmonology was also consulted. The patient has been receiving with currently by GI 6 units of FFP daily, lactulose, rifaximin ,propranolol and vitamin K. The patient has progressively become more lethargic, neurology has been consulted EEG was with encephalopathic findings, and an MRI brain and CT brain 01/07 showed no acute abnormality. The patient was unable to be aroused early this a.m., critical care medicine was consulted. Upon my evaluation at 6:30 AM the patient was unable to be awakened with deep sternal rub and pain stimuli. No eye opening nor withdrawal to pain ,the patient's O2 saturation was within normal limits 98 to 99% on 4 LPM N/C. Concern for possible cerebral edema, or acute bleed, a stat MRI was obtained that showed no acute abnormality, I discussed findings and comparison of 01/07 MRI with no significant findings. Over the last 3-4 hours, the patient now has spontaneous eye opening, is making verbal sounds that are incomprehensible, and has passed a bedside swallow evaluation. Ammonia level upon review continues to down trend from 120 to currently 94. I telephoned the healthcare surrogate mother, Raphael, and [employer] and provided her medical status update upon my evaluation. A discussion regarding possible emergent intubation, and she stated that the patient would not want to be intubated. A discussion was also performed discussing INR currently of 2.3, placement of NG tube for administration of medications as well as nutrition at which point she said stated she was undecided. Extensive conversation was performed and a palliative consult has been initiated to define goals of care. I thoroughly discussed with the healthcare surrogate concern for protection of the airway as well as nutrition and administration of medication and the need for intubation. Currently the patient is protecting his airway even though he is nonverbal at this point she does not want an intubation awaiting palliative care consult for further recommendations . The patient remains a full code. I contacted Dr. Capps, in the ED informed her of the situation, the patient may require emergent intubation until clarification of goals are met. 01/14: Orders to transfer the patient to [facility] were initiated at 10 AM ,however the patient was transferred at 6 PM at [facility], mother's request. The patient's INR had trended down to 2.3. The patient was seen by neurology last evening discussed with Dr. Marcano plan was for possible lumbar puncture and paracentesis today. A scan was performed last evening patient did not have enough fluid for drainage/paracentesis (small amount of fluid). The patient received during the night and an additional 5 units of FFP and attempts to place the INR less than 1.8, but unsuccessful, INR 2.7. I discussed with Infectious Disease Dr. Nick last evening, plan for MRI with contrast of cervical, thoracic and lumbar spine this am., If unable to perform LP. Empiric antibiotics were provided. Echo is pending. no further transfusion of FFP required. I discussed with Dr. Rojo, to discontinue transfusion of FFP 6 units per day as previously ordered, as the patient has no signs of active bleeding. I also conferred with Dr. Bain, Heme- Onc, who is in agreement. The patient remains encephalopathic, attempts were made last evening for placement of NG tube unsuccessful on multiple attempts by nursing staff. Plan for placement of NG tube under fluoroscopy this a.m. to continue administration of medications. 01/15: (Dr. Obregon) I spoke with patient's healthcare decision maker, Mickey Lai again after labs that she requested were resulted. She would like to proceed with intubation for airway protection. She would not want prolonged intubation or trach. She states that he is not improving her goal would be to transition him to home hospice. She states she would like to speak with consultants regarding prognosis. I will proceed with intubation. 01/15: The patient is status post intubation, currently on PRVC overbreathing the vent. Last evening the patient's INR was noted to be significantly elevated he was scheduled to be transfused 4 units of FFP, INR is 12.2 however no active signs of bleeding or noted. Ammonia level significantly elevated despite lactulose and rifaximin ammonia level 180 this a.m.. IV infusion D5 increased to 77 cc/hour. Plan to consider TPN will consult with GI. Hydrocortisone dosing was initiated yesterday. 01/16: Additional maximal dosing polyethylene glycol, 34 g per day was added to medication regimen last night. Ammonia level this a.m. 147. Repeat MRI revealed restricted diffusion in the gold matter. The patient remains encephalopathic. The patient is tolerating tube feeds. INR 10.6. SUBJECTIVE 01/17: Pupils are essentially fixed and dilated about 7 mm. Quite coagulopathic. Patient had a positive urine tox screen for amphetamines 12/30/17 which is essentially contraindication for liver transplant. Prior documentation of active drug use. Prior alcohol use noted. Hepatitis C antibody positive but genotype/viral load negative. 01/18: Remains orally intubated on mechanical ventilation. Encephalopathic. Grimaces with painful stimuli Objective Vital Signs / I&O: Vital Signs 01/17/18 12:05 01/17/18 15:38 01/17/18 19:00 Temperature 98.7 F Pulse Rate 87 Respiratory Rate 7 L 21 15 Blood Pressure 118/65 Pulse Oximetry 96 96 95 01/17/18 19:55 01/17/18 20:00 01/17/18 21:00 Temperature Pulse Rate 87 86 Respiratory Rate 20 Blood Pressure 117/66 111/62 Pulse Oximetry 94 L 01/17/18 22:00 01/17/18 22:23 01/17/18 23:00 Temperature Pulse Rate 83 81 Respiratory Rate 18 Blood Pressure 112/65 124/74 Pulse Oximetry 98 01/18/18 00:00 01/18/18 00:04 01/18/18 01:00 Temperature 97 F L Pulse Rate 82 83 80 Respiratory Rate 20 Blood Pressure 100/55 L 102/57 L Pulse Oximetry 01/18/18 01:54 01/18/18 02:00 01/18/18 03:00 Temperature Pulse Rate 79 78 Respiratory Rate 20 Blood Pressure 105/56 L 106/57 L Pulse Oximetry 96 01/18/18 04:00 01/18/18 04:20 01/18/18 05:00 Temperature 98.0 F Pulse Rate 78 78 Respiratory Rate 18 Blood Pressure 109/59 L 115/68 Pulse Oximetry 98 01/18/18 08:19 Temperature Pulse Rate Respiratory Rate 20 Blood Pressure Pulse Oximetry 99 Intake & Output 01/17/18 01/18/18 01/18/18 18:59 06:59 18:59 Intake Total 2580.98 / 2580.98 1747 / 1747 165 / 165 Output Total 375 / 375 1950 / 1950 Balance 2205.98 / 2205.98 -203 / -203 165 / 165 Weight 84.8 kg Intake: IV 1732.98 / 1732.98 1367 / 1367 165 / 165 Zovirax Inj 749 MG In NS Inj 329.98 / 329.98 165 / 165 165 / 165 150 ML @ 150 mls/hr IV.SIG Q8H JACQUE Rx#:[id number] Maxipime Inj 2,000 MG In NS Inj 100 / 100 200 / 200 100 ML @ 200 mls/hr IV.SIG Q8H JACQUE Rx#:[id number] Thorazine Inj 25 MG In NS Inj 1002 / 1002 1002 / 1002 500 ML @ 250.5 mls/hr IV.SIG Q6H JACQUE Rx#:[id number] Vancomycin Inj 1,000 MG In NS 250 / 250 Inj 250 ML @ 250 mls/hr IV.SIG Q12H JACQUE Rx#:[id number] Tube Feeding 282 / 282 280 / 280 Tube Irrigant 180 / 180 Water Bolus Amount 100 / 100 Intake (Blood Product) Amt 386 / 386 Plasma Thawed 5 Day Cp2d Unit 64 / 64 [id number] Plasma Thawed 5 Day Cp2d Unit 0 / 0 [id number] Plasma Thawed 5 Day Cp2d Unit 322 / 322 [id number] Output: Urine 375 / 375 Stool 0 / 0 1500 / 1500 Urine Amount (Catheter) 450 / 450 Indwelling Urethral Catheter 450 / 450 Other: Date of Last Bowel Movement 01/17/18 Result Diagrams: 01/18/18 00:50 01/18/18 05:50 Objective Remarks: GENERAL: Well-developed well-nourished male, encephalopathic, grimaces with painful stimuli, intubated. SKIN: Warm and dry. Jaundice HEAD: Atraumatic. Normocephalic. EYES: Pupils equal and round. 4-5 mm with sluggish reactivity. Positive scleral icterus. No injection or drainage. ENT: No nasal bleeding or discharge. Mucous membranes pink and moist. NECK: Trachea midline. No JVD. CARDIOVASCULAR: Normal rate, regular rhythm. RESPIRATORY: Orally intubated on mechanical ventilation. Clear to auscultation. Breath sounds equal bilaterally. GASTROINTESTINAL: Abdomen soft, non-tender, nondistended. No guarding. MUSCULOSKELETAL: Extremities without clubbing, cyanosis, or edema. No obvious deformities. NEUROLOGICAL: Encephalopathic/grimaces with painful stimuli, no spontaneous eye opening. Remains orally intubated on mechanical ventilation. No gross focal/ sensory deficits. No purposeful movement. Assessment and Plan - Assessment and Plan Plan: Neurologic: Severe Hepatic encephalopathy Hyperammonemia Hepatic Coma Urine drug screen positive for amphetamines 12/30/17 along with THC History of alcohol/polysubstance abuse EEG-encephalopathic findings 01/15: Repeat EEG severe metabolic encephalopathy however slightly improved per Dr. Marcano Neurology following-Dr. Solomon 01/07 MRI brain-no acute findings 01/07 CT brain-no acute findings 01/13: CT brain-no acute findings-discussed with Dr. Gomez F/U repeat EEG -R/O subclinical seizures 01/14: Unable to perform lumbar puncture, 2/2 coagulopathy obtain MRI of cervical cervical thoracic and lumbar spine 01/15 Ammonia level 180, patient continues on lactulose and rifaximin (maximum dose)- Concern for cerebral edema will add Polyethylene glycol daily. Maintain HOB elevation 30 degrees 01/16: MRI restricted diffusion in the gold matter compared to white matter can be seen with anoxic encephalopathy. No hemorrhage Recheck phenytoin level in a.m. 01/18 Respiratory: Alpha 1 antitrypsin deficiency Tobacco use disorder PRVC ventilation Albuterol/ipratropium aerosols every 4 hours with albuterol aerosols every 2 hours as needed dyspnea Spontaneous breathing trials when clinically indicated Maintain O2 saturation greater than 92% Maintain head of bed 30 Discontinued nicotine patch F/U VBG Cardiovascular: Maintain MAP greater than 65 Monitor CVP Normotensive Renal: Obstructive uropathy-resolved -- Strict I/Os Insert and maintain Pappas catheter patient is receiving diuretics urinary retention of greater than 600 cc FEN/GI: Acute alcoholic hepatitis Hepatitis C Hyperammonemia Acute hepatic failure Protein calorie malnutrition Transaminitis Cirrhosis Portal hypertension Jaundice/ Hyperbilirubinemia Ascites Hypoglycemia GI following Dr. Sher ([place]), Dr. Rojo ([place]) Continue lactulose, rifaximin Monitor ammonia levels-180->147 01/14 insertion of NG tube for medications and feedings- insertion via invasive radiology 01/15-Jevity 1.5 at 25 cc/hour Consider HIDA scan-defer to GI 01/15: IV fluids discontinued last night with the addition of tube feed Heme/ID: Coagulopathy Thrombocytopenia Continue vitamin K daily-we will change to IV 5 mg daily Hematology following- Dr Messer Infectious disease following- Dr. Nick Patient received 11units of FFP in the last 24 hours,this has been discontinued , INR remains elevated, unable to do interventional procedures/LP Transfuse for platelet count less than 50,000 or active signs of bleeding. 01/07 Urine culture-Tiffany albicans - received Diflucan dc'd 01/12 01/13 Urine culture-Klebsiella pneumonae 01/13: Repeat blood culture- NGTD 01/13: Provide empiric coverage for meningitis to include cefepime, acyclovir and vancomycin. D/W Dr. Nick 01/14 FFP administration discontinued, as discussed with GI Dr. Rojo and Hematology Oncology Dr. Messer. Patient has no active signs of bleeding 01/15: INR 12.2-patient to received 2 units of FFP. 01/16 INR 10.6, 01/18 INR 8.6 Endocrine: Hypoglycemia-resolved Glucose monitoring every 4 hours, low-dose regimen -- SSI Prophylaxis: GI Prophylaxis Famotidine DVT Prophylaxis -- SCDs No pharmacological DVT prophylaxis in the setting of severe thrombocytopenia and coagulopathic state Lines: Right subclavian central line 12/31, peripheral IVs [address] Dr. Herring discussed with mother and Dr. Marcano 01/17. Active drug use would preclude from qualifications for liver transplant. Worsening coagulopathic state. Prognosis very poor. Palliative care following. Condition remains critical with liver failure, coagulopathy, respiratory failure on mechanical ventilation Time spent on critical care excluding procedures 30 minutes
--- NOTE | 2018-01-18 12:07 | P.PNID ---
Subjective Remarks: Most of the history was from medical records patient is encephalopathic. is a 32 y/o CM with PMHx of ADHD, Right malleolar fracture with infection in Aug 2017 when I saw him and he subsequently followed up with Dr.Reba Villa and reportedly did well. Subsequently he has had ED visits and admissions where he was diagnosed Hep C positive antibody. He also has a history of alcoholism per records. With this background, patient presented to the ED at [facility] with increasing fatigue, abdominal pain and vomiting progressively worsening few days prior to admission. He had been seen in the ED the prior day diagnosed with hepatitis C but left AMA. He reported a remote history of IV drug abuse which had occurred 10 years prior. His mother, who is an ICU nurse at [employer] believes he has probably used IV drugs more recently than that. Presenting labs showed ammonia of 66, WBC 7.8, potassium 4.8, BUN 6, creatinine 0.67, alkaline phosphatase 219, AST 1656, ALT 2846, albumin 3.2, bilirubin 6.1, INR 17.1 PTT 70.9. He was evaluated by gastroenterology to further evaluate his hepatitis infection. He was also seen by hematology due to his coagulopathy. 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 Hospital course: Based on review of Neurologist notes it appears he was progressively more encephalopathic difficult to arouse and so Critical care was consulted on 01/13/2018 .Patient was not responding to deep sternal rub and pain stimuli no eye opening or withdrawal to pain. Oxygen saturation was within normal limits 98-99% on 4 L nasal cannula out of concern for cerebral edema or an acute bleed a stat MRI was obtained, again showing no acute abnormality. Patient had developed some spontaneous eye opening later in the day incomprehensible sounds and passed a bedside swallow evaluation. Ammonia level was 94, up from 67 day prior. It appears that was concerned about resp status and approached Mom for intubation. Mom has been involved in care at bedside. Reportedly she did not want feeding tube or intubation as patient had declined that in past. Palliative care has been consulted for addressing goals of care. At the time of my evaluation patient is in the ICU, difficult to arouse, undergoing an EEG shortly. He is not on pressors. UO is low. Not coughing. No spontaneous eye opening or movements in my presence. Overnight events reviewed RN reports some posturing and demonstrated it for me. No fevers No rash Obtunded with no response to verbal or painful stimuli. s/P MRI to r.o epidural abscess which is negative. LP cannot be done as INR high per my dw on Wednesday. Neurology notes reviewed Palliative care notes reviewed. discussions about Liver transplant candidacy being less likely due to prior drug abuse. Antibiotics: Cefepime IV Acyclovir IV Lines: Lines ok Past Medical History: Hep C Hardware infection of leg Hepatitis Alcoholism Allergies/Adverse Reactions: Allergies No Known Allergies Allergy (Unknown, Uncoded 12/31/17 10:31) Objective Vital Signs 01/17/18 15:38 01/17/18 19:00 01/17/18 19:55 Temperature 98.7 F Pulse Rate 87 Respiratory Rate 21 15 20 Blood Pressure 118/65 Pulse Oximetry 96 95 94 L 01/17/18 20:00 01/17/18 21:00 01/17/18 22:00 Temperature Pulse Rate 87 86 83 Respiratory Rate Blood Pressure 117/66 111/62 112/65 Pulse Oximetry 01/17/18 22:23 01/17/18 23:00 01/18/18 00:00 Temperature 97 F L Pulse Rate 81 82 Respiratory Rate 18 Blood Pressure 124/74 100/55 L Pulse Oximetry 98 01/18/18 00:04 01/18/18 01:00 01/18/18 01:54 Temperature Pulse Rate 83 80 Respiratory Rate 20 20 Blood Pressure 102/57 L Pulse Oximetry 96 01/18/18 02:00 01/18/18 03:00 01/18/18 04:00 Temperature 98.0 F Pulse Rate 79 78 78 Respiratory Rate Blood Pressure 105/56 L 106/57 L 109/59 L Pulse Oximetry 01/18/18 04:20 01/18/18 05:00 01/18/18 08:19 Temperature Pulse Rate 78 Respiratory Rate 18 20 Blood Pressure 115/68 Pulse Oximetry 98 99 01/18/18 11:10 Temperature Pulse Rate Respiratory Rate 17 Blood Pressure Pulse Oximetry 99 Intake & Output 01/17/18 01/18/18 01/18/18 18:59 06:59 18:59 Intake Total 2580.98 / 2580.98 1747 / 1747 165 / 165 Output Total 375 / 375 1950 / 1950 Balance 2205.98 / 2205.98 -203 / -203 165 / 165 Weight 84.8 kg Intake: IV 1732.98 / 1732.98 1367 / 1367 165 / 165 Zovirax Inj 749 MG In NS Inj 329.98 / 329.98 165 / 165 165 / 165 150 ML @ 150 mls/hr IV.SIG Q8H JACQUE Rx#:[id number] Maxipime Inj 2,000 MG In NS Inj 100 / 100 200 / 200 100 ML @ 200 mls/hr IV.SIG Q8H JACQUE Rx#:[id number] Thorazine Inj 25 MG In NS Inj 1002 / 1002 1002 / 1002 500 ML @ 250.5 mls/hr IV.SIG Q6H JACQUE Rx#:[id number] Vancomycin Inj 1,000 MG In NS 250 / 250 Inj 250 ML @ 250 mls/hr IV.SIG Q12H JACQUE Rx#:[id number] Tube Feeding 282 / 282 280 / 280 Tube Irrigant 180 / 180 Water Bolus Amount 100 / 100 Intake (Blood Product) Amt 386 / 386 Plasma Thawed 5 Day Cp2d Unit 64 / 64 [id number] Plasma Thawed 5 Day Cp2d Unit 0 / 0 [id number] Plasma Thawed 5 Day Cp2d Unit 322 / 322 [id number] Output: Urine 375 / 375 Stool 0 / 0 1500 / 1500 Urine Amount (Catheter) 450 / 450 Indwelling Urethral Catheter 450 / 450 Other: Date of Last Bowel Movement 01/17/18 01/16/18 12:40 Clean Catch Urine Urine Culture - Preliminary Yeast species Lab - Hematology Results 01/17/18 01/18/18 03:40 00:50 WBC 6.5 4.4 RBC 3.69 L 3.29 L Hgb 10.8 L 9.6 L Hct 31.0 L 27.8 L MCV 84.1 84.5 MCH 29.2 29.2 MCHC 34.8 34.5 RDW 18.9 H 19.6 H Plt Count 129 L 86 L D MPV 8.3 8.8 Prelim Diff (Auto) Slide review pending Slide review pending Neut % (Auto) 61.7 61.2 Lymph % (Auto) 14.7 16.1 [place] % (Auto) 22.3 H 22.4 H Eos % (Auto) 0.2 0.1 Baso % (Auto) 1.1 0.2 Neut # (Auto) 4.0 2.7 Lymph # (Auto) 1.0 0.7 L [place] # (Auto) 1.5 H 1.0 H Eos # (Auto) 0.0 0.0 Baso # (Auto) 0.1 0.0 WBC Differential . . Diff Scan Auto diff confirmed Auto diff confirmed Differential Comment . . Platelet Estimate Low L Low L Platelet Morphology Normal Normal [place] Cells 1+ H 2+ H Acanthocytes (Spur) 1+ H Occ H Keratocytes Occ H Lab - Chemistry Results 01/16/18 01/16/18 01/16/18 12:40 12:56 16:31 Sodium 140 Potassium 3.4 L Chloride 101 Carbon Dioxide 24.7 Anion Gap 14 BUN 7 Creatinine 1.56 H Estimated GFR 52 L POC Glucose 150 H 143 H Random Glucose 136 H Lactic Acid Calcium 9.9 Phosphorus Magnesium Total Bilirubin 25.4 H AST 26 ALT 63 Alkaline Phosphatase 151 H Ammonia Total Protein 6.8 Albumin 3.6 01/16/18 01/16/18 01/17/18 19:30 22:31 03:40 Sodium Potassium Chloride Carbon Dioxide Anion Gap BUN Creatinine Estimated GFR POC Glucose 178 H Random Glucose Lactic Acid Calcium Phosphorus Magnesium Total Bilirubin AST ALT Alkaline Phosphatase Ammonia 130 H 142 H Total Protein Albumin 01/17/18 01/17/18 01/17/18 03:40 08:43 14:11 Sodium 140 Potassium 4.1 Chloride 103 Carbon Dioxide 22.3 Anion Gap 15 BUN 9 Creatinine 1.68 H Estimated GFR 48 L POC Glucose 173 H 169 H Random Glucose 171 H Lactic Acid Calcium 9.5 Phosphorus 3.4 Magnesium 1.9 Total Bilirubin 27.9 H AST 24 ALT 61 Alkaline Phosphatase 147 H Ammonia Total Protein 6.7 Albumin 3.3 L 01/18/18 01/18/18 01/18/18 00:50 00:50 00:50 Sodium Potassium Chloride Carbon Dioxide Anion Gap BUN Creatinine Estimated GFR POC Glucose Random Glucose Lactic Acid 3.7 H Calcium Phosphorus 2.9 Magnesium 2.4 Total Bilirubin AST ALT Alkaline Phosphatase Ammonia 135 H Total Protein Albumin 01/18/18 01/18/18 05:50 05:50 Sodium 145 Potassium 4.2 Chloride 108 H Carbon Dioxide 25.5 Anion Gap 12 BUN 12 Creatinine 1.84 H Estimated GFR 43 L POC Glucose Random Glucose 133 H Lactic Acid Calcium 9.1 Phosphorus Magnesium Total Bilirubin 24.8 H AST 23 ALT 49 Alkaline Phosphatase 128 H Ammonia 147 H Total Protein 6.3 L Albumin 2.8 L Imaging: ITS Impressions Head MRI 01/16/18 00:00 CONCLUSION: 1. Subtle restricted diffusion in the gold matter when compared to the white most prevalent in mid sylvian regions bilaterally. This is symmetric. This can be seen with anoxic encephalopathy. 2. There is no abnormal contrast enhancement. 3. There is no parenchymal hemorrhage. Chest X-Ray 01/17/18 04:00 CONCLUSION: The lungs are clear. Physical Exam: GENERAL: Acutely ill appearing male patient, in no apparent distress. SKIN: Areas of ecchymosis noted. Icteric skin. HEAD: Atraumatic. Normocephalic. No temporal or scalp tenderness. EYES: Pupils equal round and reactive. positive Scleral icterus. No injection or drainage. ENT: Nose without bleeding, purulent drainage or septal hematoma. Uvula midline. Airway patent. NECK: Trachea midline. Supple, nontender, no meningeal signs. CARDIOVASCULAR: HS audible. RESPIRATORY: AE decreased in the bases. GASTROINTESTINAL: Abdomen soft, Abdomen distended, positive fluid thrill. Non tender. No guarding or rigidity. MUSCULOSKELETAL: Extremities without clubbing, cyanosis, or edema. No joint tenderness, effusion, or edema noted. No calf tenderness. Negative Homans sign bilaterally. NEUROLOGICAL: Difficult to arouse. No response to painful stimuli. Psych could not be assessed. IV line sites with no e.o infection. Assessment and Plan - Plan Low probability for meningitis. LP cannot be done. Appears to be hepatic encephalopathy related. Rule out endocarditis. Acute hepatitis (Alcoholism and Hepatitis C positive) Acute metabolic encephalopathy: sepsis, metabolic, seizures. Right malleolar fracture with hardware infection Aug 2017 Ascites. Recs Continue Cefepime IV DC Vanco IV (target 15-20) No MRSA in blood or sputum and is nephrotoxic. Continue Acyclovir IV for now. Tiffany albicans in urine: likely contamination. Diflucan can cause increased LFTs and worsen encephalopathy. Unless true infection would like to avoid treatment. 2D ECHO Negative for vegetations Follow cultures Follow clinically. magdaleno RN magdaleno palliative care. No family in room. magdaleno dolan GI Noted Neuro note re:hospice. Agree the main problem is infact hepatic from an ID standpoint I doubt this is meningitis related Altered mental status.
[2018-01-18] MEDS ORDERED: Bisacodyl 10 MG Supp RECTAL PRN (18:20)
[2018-01-18] MEDS ORDERED: Morphine Inj 4 MG/ML Vial IV.PUSH PRN (18:20)
[2018-01-18] MEDS: Hyoscyamine Inj 0.5 MG/ML Ampul IV.PUSH SCH ×2 (18:36→20:12)
--- NOTE | 2018-01-18 18:40 | P.PNPAL ---
Reason for Visit Reason for visit: Encephalopathy, dyspnea Subjective Subjective/Interval History: Patient seen today for follow-up of symptom management of encephalopathy and dyspnea. Patient remains encephalopathic, not responding to deep pain stimuli or vigorous stimulation. EEG done 01/15 show severe metabolic encephalopathy with no seizures. Pupils remain 4 mm, sluggishly reactive. He is not breathing over the vent, he is not on sedation. Mother is considering ventilator withdrawal as the patient is not showing signs of recovery. Patient was intubated secondary to abnormal respiratory pattern and inability to protect airway. He was exhibiting agonal breathing prior to intubation. His oxygen requirements have increased to 40% FiO2. . Family/Friend Interactions: Patient's mother contacted me this morning stating that she had heard from Dr. Marcano that the patient was improving and recommended that she allow another 24 hours for any possible recovery. Initially she was willing to do that and canceled the 10 AM hospice consult. This was conveyed to nurse, Kiersten. Later in the afternoon she contacted me again stating that she was not seeing any significant recovery, was receiving mixed messages from the medical staff and wished to go ahead with the hospice consult and plan for withdrawal. Her initial plan included infusion of FFP, continuation of the central line and immediate transfer to her home with the plan for the patient to pass away at home. I did express concern regarding the need for a central line when only sublingual medications were to be prescribed by hospice, however she stated her concern was for bleeding due to his elevated INR. We did discuss Dr. Bain' s consult note indicating the lack of clinical usefulness of the INR in this clinical situation as it addressed primarily procoagulation factors. She remained adamant in her request for FFP prior to discharge. I also addressed the concern that the patient would not survive long enough to make it home and could in the transport van. She dismissed this saying she was certain he would survive until he got home. The option of care center admission was offered to provide the option of parenteral medication delivery however she dismissed this stating he would " at home and no where else". This conversation was relayed to Dr. Nick and Dr. Mcleod as she was requesting in hospital extubation, which would require execution of exhibits B and C. This was also discussed with hospice nurses Kiersten and Chris who assisted in consents signing. It was noted by the staff nurse, Hayde, that the patient's father was in attendance at the bedside the prior evening and so he was contacted by telephone for his consent, in compliance with [place] statutes. He deferred all medical decisions to the patient's mother, as witnessed by the hospice nurses. Objective Vital Signs: Vital Signs 01/17/18 19:00 01/17/18 19:55 01/17/18 20:00 Temperature 98.7 F Pulse Rate 87 87 Respiratory Rate 15 20 Blood Pressure 118/65 117/66 Pulse Oximetry 95 94 L 01/17/18 21:00 01/17/18 22:00 01/17/18 22:23 Temperature Pulse Rate 86 83 Respiratory Rate 18 Blood Pressure 111/62 112/65 Pulse Oximetry 98 01/17/18 23:00 01/18/18 00:00 01/18/18 00:04 Temperature 97 F L Pulse Rate 81 82 83 Respiratory Rate 20 Blood Pressure 124/74 100/55 L Pulse Oximetry 01/18/18 01:00 01/18/18 01:54 01/18/18 02:00 Temperature Pulse Rate 80 79 Respiratory Rate 20 Blood Pressure 102/57 L 105/56 L Pulse Oximetry 96 01/18/18 03:00 01/18/18 04:00 01/18/18 04:20 Temperature 98.0 F Pulse Rate 78 78 Respiratory Rate 18 Blood Pressure 106/57 L 109/59 L Pulse Oximetry 98 01/18/18 05:00 01/18/18 08:19 01/18/18 11:10 Temperature Pulse Rate 78 Respiratory Rate 20 17 Blood Pressure 115/68 Pulse Oximetry 99 99 01/18/18 13:57 01/18/18 16:00 01/18/18 16:09 Temperature 97.3 F L 97.3 F L Pulse Rate 79 83 Respiratory Rate 16 18 18 Blood Pressure 105/58 L 101/56 L Pulse Oximetry 99 99 96 Intake & Output 01/17/18 01/18/18 01/18/18 18:59 06:59 18:59 Intake Total 2580.98 / 2580.98 1747 / 1747 617 / 617 Output Total 375 / 375 1950 / 1950 Balance 2205.98 / 2205.98 -203 / -203 617 / 617 Weight 186 lb 15.232 oz Intake: IV 1732.98 / 1732.98 1367 / 1367 165 / 165 Zovirax Inj 749 MG In NS Inj 329.98 / 329.98 165 / 165 165 / 165 150 ML @ 150 mls/hr IV.SIG Q8H JACQUE Rx#:[id number] Maxipime Inj 2,000 MG In NS Inj 100 / 100 200 / 200 100 ML @ 200 mls/hr IV.SIG Q8H JACQUE Rx#:[id number] Thorazine Inj 25 MG In NS Inj 1002 / 1002 1002 / 1002 500 ML @ 250.5 mls/hr IV.SIG Q6H JACQUE Rx#:[id number] Vancomycin Inj 1,000 MG In NS 250 / 250 Inj 250 ML @ 250 mls/hr IV.SIG Q12H JACQUE Rx#:[id number] Tube Feeding 282 / 282 280 / 280 272 / 272 Tube Irrigant 180 / 180 180 / 180 Water Bolus Amount 100 / 100 Intake (Blood Product) Amt 386 / 386 Plasma Thawed 5 Day Cp2d Unit 64 / 64 [id number] Plasma Thawed 5 Day Cp2d Unit 0 / 0 [id number] Plasma Thawed 5 Day Cp2d Unit 322 / 322 [id number] Output: Urine 375 / 375 Stool 0 / 0 1500 / 1500 Urine Amount (Catheter) 450 / 450 Indwelling Urethral Catheter 450 / 450 Other: Date of Last Bowel Movement 01/17/18 Physical Exam: GENERAL: Young, well-nourished, well-developed, jaundiced, male, intubated, unresponsive Lines: Triple-lumen CVL right chest SKIN: Jaundice, warm and dry. HEAD: Atraumatic. Normocephalic. EYES: Pupils 4 mm equal and round. Positive scleral icterus. No injection or drainage. ENT: No nasal bleeding or discharge. Mucous membranes pink and moist. NECK: Trachea midline. No JVD. CARDIOVASCULAR: S1, S2, regular rhythm, tachycardic rate, no rub, murmur or gallop. RESPIRATORY: No accessory muscle use. Clear to auscultation. Breath sounds equal bilaterally. GASTROINTESTINAL: Abdomen distended, not tense, hypoactive bowel sounds. MUSCULOSKELETAL: Extremities without clubbing, cyanosis. 1+ dependent edema, no obvious deformities. NEUROLOGICAL: Intubated, unresponsive. PSYCHIATRIC: Unresponsive. . Diagnostic Tests Laboratory: Laboratory Results - last 72 hr 01/11/18 01/11/18 01/13/18 09:50 09:50 03:07 WBC RBC Hgb Hct MCV MCH MCHC RDW Plt Count MPV Prelim Diff (Auto) Neut % (Auto) Lymph % (Auto) [place] % (Auto) Eos % (Auto) Baso % (Auto) Neut # (Auto) Lymph # (Auto) [place] # (Auto) Eos # (Auto) Baso # (Auto) CBC Comment WBC Differential Diff Scan Differential Comment Platelet Estimate Platelet Morphology Plt Morphology Comment [place] Cells Acanthocytes (Spur) Keratocytes PT INR APTT Fibrinogen Puncture Site Patient Temperature HCO3 Base Excess O2 Saturation ABG pH ABG pCO2 ABG pO2 ABG O2 Content ABG Carboxyhemoglobin ABG Methemoglobin VBG pH VBG pCO2 VBG pO2 VBG HCO3 VBG O2 Saturation VBG O2 Content VBG Base Excess VBG Carboxyhemoglobin VBG Methemoglobin Hemoglobin O2 Delivery Device Liter Flow Vent Setting Inspired O2 Critical Value Sodium Potassium Chloride Carbon Dioxide Anion Gap BUN Creatinine Estimated GFR POC Glucose Random Glucose Lactic Acid Calcium Phosphorus Magnesium Total Bilirubin Direct Bilirubin Indirect Bilirubin AST ALT Alkaline Phosphatase Ammonia Lactate Dehydrogenase 274 H Total Protein 6.9 Albumin Ceruloplasmin 16 L Urine Color Urine Clarity Urine pH Ur Specific Alicia Urine Protein Urine Glucose (UA) Urine Ketones Urine Occult Blood Urine Nitrate Urine Bilirubin Urine Urobilinogen Ur Leukocyte Esterase Urine RBC Urine WBC Urine WBC Clumps Ur Squamous Epith Cells Calcium Oxalate Crystal Urine Bacteria Hyaline Casts Urine Mucus Urine Yeast Ur Yeast w Hyphae Micro UA Comment Urine Culture Comments Nasal Screen MRSA (PCR) Vancomycin Trough Random Vancomycin Phenytoin Hep B DNA Qnt log IU/mL LESS THAN 1.00 Hep B DNA (Units/mL) LESS THAN 10 Hemochromatosis Source Hemochromat Specimen Hemochromatosis Method Heredit Hemochromatosis Hemochromatosis Results Hemochromatosis Interp Hemochromatosis Review Blood Type Confirm Blood Bank Comment 01/13/18 01/13/18 01/13/18 05:48 06:45 06:45 WBC RBC Hgb Hct MCV MCH MCHC RDW Plt Count MPV Prelim Diff (Auto) Neut % (Auto) Lymph % (Auto) [place] % (Auto) Eos % (Auto) Baso % (Auto) Neut # (Auto) Lymph # (Auto) [place] # (Auto) Eos # (Auto) Baso # (Auto) CBC Comment WBC Differential Diff Scan Differential Comment Platelet Estimate Platelet Morphology Plt Morphology Comment [place] Cells Acanthocytes (Spur) Keratocytes PT INR APTT Fibrinogen Puncture Site RT RADIAL Patient Temperature 98.6 HCO3 29 H Base Excess 7.4 H O2 Saturation 97 ABG pH 7.74 H* ABG pCO2 20 L* ABG pO2 102 ABG O2 Content 15.2 ABG Carboxyhemoglobin 1.6 ABG Methemoglobin 0.6 VBG pH VBG pCO2 VBG pO2 VBG HCO3 VBG O2 Saturation VBG O2 Content VBG Base Excess VBG Carboxyhemoglobin VBG Methemoglobin Hemoglobin 11.1 L O2 Delivery Device NASAL CANNULA Liter Flow 2 Vent Setting Inspired O2 Critical Value Sodium 131 L Potassium 3.6 Chloride 90 L Carbon Dioxide 31.0 Anion Gap 10 BUN 4 L Creatinine 1.30 Estimated GFR 64 L POC Glucose Random Glucose 83 Lactic Acid Calcium 9.7 Phosphorus Magnesium Total Bilirubin 19.4 H Direct Bilirubin Indirect Bilirubin AST 28 ALT 102 H Alkaline Phosphatase 165 H Ammonia 95 H Lactate Dehydrogenase Total Protein 6.5 Albumin 3.7 Ceruloplasmin Urine Color Urine Clarity Urine pH Ur Specific Alicia Urine Protein Urine Glucose (UA) Urine Ketones Urine Occult Blood Urine Nitrate Urine Bilirubin Urine Urobilinogen Ur Leukocyte Esterase Urine RBC Urine WBC Urine WBC Clumps Ur Squamous Epith Cells Calcium Oxalate Crystal Urine Bacteria Hyaline Casts Urine Mucus Urine Yeast Ur Yeast w Hyphae Micro UA Comment Urine Culture Comments Nasal Screen MRSA (PCR) Vancomycin Trough Random Vancomycin Phenytoin Hep B DNA Qnt log IU/mL Hep B DNA (Units/mL) Hemochromatosis Source Hemochromat Specimen Hemochromatosis Method Heredit Hemochromatosis Hemochromatosis Results Hemochromatosis Interp Hemochromatosis Review Blood Type Confirm Blood Bank Comment 01/13/18 01/13/18 01/13/18 06:45 06:45 07:28 WBC 8.4 RBC 3.97 L Hgb 11.3 L Hct 34.0 L MCV 85.6 MCH 28.4 MCHC 33.2 RDW 16.5 Plt Count 98 L D MPV 8.4 Prelim Diff (Auto) Neut % (Auto) 70.2 H Lymph % (Auto) 10.3 [place] % (Auto) 17.8 H Eos % (Auto) 0.9 Baso % (Auto) 0.8 Neut # (Auto) 5.8 Lymph # (Auto) 0.9 L [place] # (Auto) 1.5 H Eos # (Auto) 0.1 Baso # (Auto) 0.1 CBC Comment AUTO DIFF WBC Differential Diff Scan Differential Comment AUTO DIFF CONFIRMED Platelet Estimate Platelet Morphology Plt Morphology Comment [place] Cells Acanthocytes (Spur) Keratocytes PT 23.2 H D INR 2.3 APTT Fibrinogen Puncture Site Patient Temperature HCO3 Base Excess O2 Saturation ABG pH ABG pCO2 ABG pO2 ABG O2 Content ABG Carboxyhemoglobin ABG Methemoglobin VBG pH VBG pCO2 VBG pO2 VBG HCO3 VBG O2 Saturation VBG O2 Content VBG Base Excess VBG Carboxyhemoglobin VBG Methemoglobin Hemoglobin O2 Delivery Device Liter Flow Vent Setting Inspired O2 Critical Value Sodium Potassium Chloride Carbon Dioxide Anion Gap BUN Creatinine Estimated GFR POC Glucose Random Glucose Lactic Acid Calcium Phosphorus Magnesium Total Bilirubin Direct Bilirubin 4.2 H Indirect Bilirubin AST ALT Alkaline Phosphatase Ammonia Lactate Dehydrogenase Total Protein Albumin Ceruloplasmin Urine Color Urine Clarity Urine pH Ur Specific Alicia Urine Protein Urine Glucose (UA) Urine Ketones Urine Occult Blood Urine Nitrate Urine Bilirubin Urine Urobilinogen Ur Leukocyte Esterase Urine RBC Urine WBC Urine WBC Clumps Ur Squamous Epith Cells Calcium Oxalate Crystal Urine Bacteria Hyaline Casts Urine Mucus Urine Yeast Ur Yeast w Hyphae Micro UA Comment Urine Culture Comments Nasal Screen MRSA (PCR) Vancomycin Trough Random Vancomycin Phenytoin Hep B DNA Qnt log IU/mL Hep B DNA (Units/mL) Hemochromatosis Source Hemochromat Specimen Hemochromatosis Method Heredit Hemochromatosis Hemochromatosis Results Hemochromatosis Interp Hemochromatosis Review Blood Type Confirm Blood Bank Comment 01/13/18 01/13/18 01/13/18 17:00 17:10 18:30 WBC RBC Hgb Hct MCV MCH MCHC RDW Plt Count MPV Prelim Diff (Auto) Neut % (Auto) Lymph % (Auto) [place] % (Auto) Eos % (Auto) Baso % (Auto) Neut # (Auto) Lymph # (Auto) [place] # (Auto) Eos # (Auto) Baso # (Auto) CBC Comment WBC Differential Diff Scan Differential Comment Platelet Estimate Platelet Morphology Plt Morphology Comment [place] Cells Acanthocytes (Spur) Keratocytes PT 42.3 H D INR 4.2 APTT Fibrinogen Puncture Site RT RADIAL Patient Temperature 98.6 HCO3 30 H Base Excess 7.2 H O2 Saturation 96 ABG pH 7.57 H* ABG pCO2 33 L ABG pO2 95 ABG O2 Content 16.2 ABG Carboxyhemoglobin 1.0 ABG Methemoglobin 1.0 VBG pH VBG pCO2 VBG pO2 VBG HCO3 VBG O2 Saturation VBG O2 Content VBG Base Excess VBG Carboxyhemoglobin VBG Methemoglobin Hemoglobin 12.0 O2 Delivery Device Liter Flow Vent Setting Inspired O2 Critical Value Sodium Potassium Chloride Carbon Dioxide Anion Gap BUN Creatinine Estimated GFR POC Glucose Random Glucose Lactic Acid Calcium Phosphorus Magnesium Total Bilirubin Direct Bilirubin Indirect Bilirubin AST ALT Alkaline Phosphatase Ammonia Lactate Dehydrogenase Total Protein Albumin Ceruloplasmin Urine Color Urine Clarity Urine pH Ur Specific Alicia Urine Protein Urine Glucose (UA) Urine Ketones Urine Occult Blood Urine Nitrate Urine Bilirubin Urine Urobilinogen Ur Leukocyte Esterase Urine RBC Urine WBC Urine WBC Clumps Ur Squamous Epith Cells Calcium Oxalate Crystal Urine Bacteria Hyaline Casts Urine Mucus Urine Yeast Ur Yeast w Hyphae Micro UA Comment Urine Culture Comments Nasal Screen MRSA (PCR) MRSA NOT DETECTED Vancomycin Trough Random Vancomycin Phenytoin Hep B DNA Qnt log IU/mL Hep B DNA (Units/mL) Hemochromatosis Source Hemochromat Specimen Hemochromatosis Method Heredit Hemochromatosis Hemochromatosis Results Hemochromatosis Interp Hemochromatosis Review Blood Type Confirm Blood Bank Comment 01/13/18 01/13/18 01/14/18 19:45 19:45 02:00 WBC 7.8 RBC 4.22 L Hgb 11.9 L Hct 35.2 L MCV 83.5 MCH 28.2 MCHC 33.8 RDW 17.3 H Plt Count 93 L MPV 8.7 Prelim Diff (Auto) Neut % (Auto) Lymph % (Auto) [place] % (Auto) Eos % (Auto) Baso % (Auto) Neut # (Auto) Lymph # (Auto) [place] # (Auto) Eos # (Auto) Baso # (Auto) CBC Comment WBC Differential Diff Scan Differential Comment Platelet Estimate Platelet Morphology Plt Morphology Comment [place] Cells Acanthocytes (Spur) Keratocytes PT INR APTT 43.5 H Fibrinogen Puncture Site Patient Temperature HCO3 Base Excess O2 Saturation ABG pH ABG pCO2 ABG pO2 ABG O2 Content ABG Carboxyhemoglobin ABG Methemoglobin VBG pH VBG pCO2 VBG pO2 VBG HCO3 VBG O2 Saturation VBG O2 Content VBG Base Excess VBG Carboxyhemoglobin VBG Methemoglobin Hemoglobin O2 Delivery Device Liter Flow Vent Setting Inspired O2 Critical Value Sodium 135 L Potassium 2.7 L* D Chloride 93 L Carbon Dioxide 25.8 Anion Gap 16 H BUN 5 L Creatinine 1.42 H Estimated GFR 58 L POC Glucose Random Glucose 99 Lactic Acid Calcium 9.9 Phosphorus Magnesium Total Bilirubin 22.7 H Direct Bilirubin Indirect Bilirubin AST 31 ALT 89 H Alkaline Phosphatase 186 H Ammonia Lactate Dehydrogenase Total Protein 7.2 D Albumin 3.9 Ceruloplasmin Urine Color Urine Clarity Urine pH Ur Specific [place]ia Urine Protein Urine Glucose (UA) Urine Ketones Urine Occult Blood Urine Nitrate Urine Bilirubin Urine Urobilinogen Ur Leukocyte Esterase Urine RBC Urine WBC Urine WBC Clumps Ur Squamous Epith Cells Calcium Oxalate Crystal Urine Bacteria Hyaline Casts Urine Mucus Urine Yeast Ur Yeast w Hyphae Micro UA Comment Urine Culture Comments Nasal Screen MRSA (PCR) Vancomycin Trough Random Vancomycin Phenytoin Hep B DNA Qnt log IU/mL Hep B DNA (Units/mL) Hemochromatosis Source Hemochromat Specimen Hemochromatosis Method Heredit Hemochromatosis Hemochromatosis Results Hemochromatosis Interp Hemochromatosis Review Blood Type Confirm Blood Bank Comment 01/14/18 01/14/18 01/14/18 02:00 02:00 02:00 WBC 11.3 H RBC 4.26 L Hgb 12.0 L Hct 35.2 L MCV 82.7 MCH 28.2 MCHC 34.1 RDW 17.2 Plt Count 103 L MPV 8.6 Prelim Diff (Auto) Neut % (Auto) 54.5 Lymph % (Auto) 25.7 [place] % (Auto) 19.0 H Eos % (Auto) 0.7 Baso % (Auto) 0.1 Neut # (Auto) 6.2 Lymph # (Auto) 2.9 [place] # (Auto) 2.2 H Eos # (Auto) 0.1 Baso # (Auto) 0.0 CBC Comment AUTO DIFF WBC Differential Diff Scan Differential Comment AUTO DIFF CONFIRMED Platelet Estimate LOW L Platelet Morphology Plt Morphology Comment NORMAL [place] Cells Acanthocytes (Spur) 1+ H Keratocytes OCC PT 30.0 H D INR 3.0 APTT Fibrinogen Puncture Site Patient Temperature HCO3 Base Excess O2 Saturation ABG pH ABG pCO2 ABG pO2 ABG O2 Content ABG Carboxyhemoglobin ABG Methemoglobin VBG pH VBG pCO2 VBG pO2 VBG HCO3 VBG O2 Saturation VBG O2 Content VBG Base Excess VBG Carboxyhemoglobin VBG Methemoglobin Hemoglobin O2 Delivery Device Liter Flow Vent Setting Inspired O2 Critical Value Sodium Potassium Chloride Carbon Dioxide Anion Gap BUN Creatinine Estimated GFR POC Glucose Random Glucose Lactic Acid Calcium Phosphorus Magnesium Total Bilirubin Direct Bilirubin Indirect Bilirubin AST ALT Alkaline Phosphatase Ammonia Lactate Dehydrogenase Total Protein Albumin Ceruloplasmin Urine Color Urine Clarity Urine pH Ur Specific [place]ia Urine Protein Urine Glucose (UA) Urine Ketones Urine Occult Blood Urine Nitrate Urine Bilirubin Urine Urobilinogen Ur Leukocyte Esterase Urine RBC Urine WBC Urine WBC Clumps Ur Squamous Epith Cells Calcium Oxalate Crystal Urine Bacteria Hyaline Casts Urine Mucus Urine Yeast Ur Yeast w Hyphae Micro UA Comment Urine Culture Comments Nasal Screen MRSA (PCR) Vancomycin Trough Random Vancomycin Phenytoin 13.4 Hep B DNA Qnt log IU/mL Hep B DNA (Units/mL) Hemochromatosis Source Hemochromat Specimen Hemochromatosis Method Heredit Hemochromatosis Hemochromatosis Results Hemochromatosis Interp Hemochromatosis Review Blood Type Confirm Blood Bank Comment 01/14/18 01/14/18 01/14/18 02:02 02:31 05:49 WBC RBC Hgb Hct MCV MCH MCHC RDW Plt Count MPV Prelim Diff (Auto) Neut % (Auto) Lymph % (Auto) [place] % (Auto) Eos % (Auto) Baso % (Auto) Neut # (Auto) Lymph # (Auto) [place] # (Auto) Eos # (Auto) Baso # (Auto) CBC Comment WBC Differential Diff Scan Differential Comment Platelet Estimate Platelet Morphology Plt Morphology Comment [place] Cells Acanthocytes (Spur) Keratocytes PT 30.1 H INR 3.0 APTT 33.4 H D Fibrinogen 153 L Puncture Site RT BRACHIAL Patient Temperature 98.6 HCO3 28 H Base Excess 5.4 H O2 Saturation 49 L* ABG pH 7.59 H* ABG pCO2 29 L ABG pO2 29 L* ABG O2 Content 8.3 L ABG Carboxyhemoglobin 0.9 ABG Methemoglobin 1.1 VBG pH VBG pCO2 VBG pO2 VBG HCO3 VBG O2 Saturation VBG O2 Content VBG Base Excess VBG Carboxyhemoglobin VBG Methemoglobin Hemoglobin 12.0 O2 Delivery Device NASAL CANNULA Liter Flow 2 Vent Setting Inspired O2 Critical Value Sodium Potassium Chloride Carbon Dioxide Anion Gap BUN Creatinine Estimated GFR POC Glucose Random Glucose Lactic Acid Calcium Phosphorus Magnesium Total Bilirubin Direct Bilirubin Indirect Bilirubin AST ALT Alkaline Phosphatase Ammonia 121 H Lactate Dehydrogenase Total Protein Albumin Ceruloplasmin Urine Color Urine Clarity Urine pH Ur Specific [place]ia Urine Protein Urine Glucose (UA) Urine Ketones Urine Occult Blood Urine Nitrate Urine Bilirubin Urine Urobilinogen Ur Leukocyte Esterase Urine RBC Urine WBC Urine WBC Clumps Ur Squamous Epith Cells Calcium Oxalate Crystal Urine Bacteria Hyaline Casts Urine Mucus Urine Yeast Ur Yeast w Hyphae Micro UA Comment Urine Culture Comments Nasal Screen MRSA (PCR) Vancomycin Trough Random Vancomycin Phenytoin Hep B DNA Qnt log IU/mL Hep B DNA (Units/mL) Hemochromatosis Source Hemochromat Specimen Hemochromatosis Method Heredit Hemochromatosis Hemochromatosis Results Hemochromatosis Interp Hemochromatosis Review Blood Type Confirm Blood Bank Comment 01/14/18 01/14/18 01/14/18 05:49 07:46 17:30 WBC RBC Hgb Hct MCV MCH MCHC RDW Plt Count MPV Prelim Diff (Auto) Neut % (Auto) Lymph % (Auto) [place] % (Auto) Eos % (Auto) Baso % (Auto) Neut # (Auto) Lymph # (Auto) [place] # (Auto) Eos # (Auto) Baso # (Auto) CBC Comment WBC Differential Diff Scan Differential Comment Platelet Estimate Platelet Morphology Plt Morphology Comment [place] Cells Acanthocytes (Spur) Keratocytes PT 26.9 H INR 2.7 APTT Fibrinogen Puncture Site CENTRAL LINE Patient Temperature 98.6 HCO3 Base Excess O2 Saturation ABG pH ABG pCO2 ABG pO2 ABG O2 Content ABG Carboxyhemoglobin ABG Methemoglobin VBG pH 7.59 H* VBG pCO2 29 L VBG pO2 29 L* VBG HCO3 28 H VBG O2 Saturation 49 L VBG O2 Content 8.3 L VBG Base Excess 5.4 H VBG Carboxyhemoglobin 1.1 VBG Methemoglobin Hemoglobin O2 Delivery Device NASAL CANNULA Liter Flow 2 Vent Setting Inspired O2 Critical Value Sodium Potassium 2.4 L* Chloride Carbon Dioxide Anion Gap BUN Creatinine Estimated GFR POC Glucose Random Glucose Lactic Acid Calcium Phosphorus Magnesium Total Bilirubin Direct Bilirubin Indirect Bilirubin AST ALT Alkaline Phosphatase Ammonia Lactate Dehydrogenase Total Protein Albumin Ceruloplasmin Urine Color Urine Clarity Urine pH Ur Specific [place] Urine Protein Urine Glucose (UA) Urine Ketones Urine Occult Blood Urine Nitrate Urine Bilirubin Urine Urobilinogen Ur Leukocyte Esterase Urine RBC Urine WBC Urine WBC Clumps Ur Squamous Epith Cells Calcium Oxalate Crystal Urine Bacteria Hyaline Casts Urine Mucus Urine Yeast Ur Yeast w Hyphae Micro UA Comment Urine Culture Comments Nasal Screen MRSA (PCR) Vancomycin Trough Random Vancomycin Phenytoin Hep B DNA Qnt log IU/mL Hep B DNA (Units/mL) Hemochromatosis Source Hemochromat Specimen Hemochromatosis Method Heredit Hemochromatosis Hemochromatosis Results Hemochromatosis Interp Hemochromatosis Review Blood Type Confirm Blood Bank Comment 01/14/18 01/14/18 01/15/18 18:40 23:24 00:20 WBC RBC Hgb Hct MCV MCH MCHC RDW Plt Count MPV Prelim Diff (Auto) Neut % (Auto) Lymph % (Auto) [place] % (Auto) Eos % (Auto) Baso % (Auto) Neut # (Auto) Lymph # (Auto) [place] # (Auto) Eos # (Auto) Baso # (Auto) CBC Comment WBC Differential Diff Scan Differential Comment Platelet Estimate Platelet Morphology Plt Morphology Comment [place] Cells Acanthocytes (Spur) Keratocytes PT INR APTT Fibrinogen Puncture Site CENTRAL LINE RT RADIAL Patient Temperature 98.6 98.6 HCO3 28 H Base Excess 5.3 H O2 Saturation 98 ABG pH 7.57 H* ABG pCO2 30 L ABG pO2 175 H ABG O2 Content 16.6 ABG Carboxyhemoglobin 0.9 ABG Methemoglobin 0.9 VBG pH 7.59 H* VBG pCO2 31 L VBG pO2 46 H VBG HCO3 30 H VBG O2 Saturation 80 H VBG O2 Content 12.4 VBG Base Excess 7.7 H VBG Carboxyhemoglobin VBG Methemoglobin Hemoglobin 11.8 L O2 Delivery Device NASAL CANNULA NASAL CANNULA Liter Flow 4 4 Vent Setting Inspired O2 Critical Value Sodium Potassium Chloride Carbon Dioxide Anion Gap BUN Creatinine Estimated GFR POC Glucose Random Glucose Lactic Acid Calcium Phosphorus Magnesium Total Bilirubin 23.8 H Direct Bilirubin 5.0 H Indirect Bilirubin 18.8 H AST 32 ALT 80 H Alkaline Phosphatase 172 H Ammonia Lactate Dehydrogenase Total Protein 7.2 Albumin 3.7 Ceruloplasmin Urine Color Urine Clarity Urine pH Ur Specific [place]ia Urine Protein Urine Glucose (UA) Urine Ketones Urine Occult Blood Urine Nitrate Urine Bilirubin Urine Urobilinogen Ur Leukocyte Esterase Urine RBC Urine WBC Urine WBC Clumps Ur Squamous Epith Cells Calcium Oxalate Crystal Urine Bacteria Hyaline Casts Urine Mucus Urine Yeast Ur Yeast w Hyphae Micro UA Comment Urine Culture Comments Nasal Screen MRSA (PCR) Vancomycin Trough Random Vancomycin Phenytoin Hep B DNA Qnt log IU/mL Hep B DNA (Units/mL) Hemochromatosis Source Hemochromat Specimen Hemochromatosis Method Heredit Hemochromatosis Hemochromatosis Results Hemochromatosis Interp Hemochromatosis Review Blood Type Confirm Blood Bank Comment 01/15/18 01/15/18 01/15/18 00:20 03:58 03:58 WBC RBC Hgb Hct MCV MCH MCHC RDW Plt Count MPV Prelim Diff (Auto) Neut % (Auto) Lymph % (Auto) [place] % (Auto) Eos % (Auto) Baso % (Auto) Neut # (Auto) Lymph # (Auto) [place] # (Auto) Eos # (Auto) Baso # (Auto) CBC Comment WBC Differential Diff Scan Differential Comment Platelet Estimate Platelet Morphology Plt Morphology Comment [place] Cells Acanthocytes (Spur) Keratocytes PT INR APTT Fibrinogen Puncture Site Patient Temperature HCO3 Base Excess O2 Saturation ABG pH ABG pCO2 ABG pO2 ABG O2 Content ABG Carboxyhemoglobin ABG Methemoglobin VBG pH VBG pCO2 VBG pO2 VBG HCO3 VBG O2 Saturation VBG O2 Content VBG Base Excess VBG Carboxyhemoglobin VBG Methemoglobin Hemoglobin O2 Delivery Device Liter Flow Vent Setting Inspired O2 Critical Value Sodium 137 Potassium 3.2 L D Chloride 99 Carbon Dioxide 24.7 Anion Gap 13 BUN 6 L Creatinine 1.42 H Estimated GFR 58 L POC Glucose Random Glucose 133 H Lactic Acid Calcium 9.7 Phosphorus Magnesium Total Bilirubin 24.3 H Direct Bilirubin Indirect Bilirubin AST 31 ALT 80 H Alkaline Phosphatase 165 H Ammonia 156 H 180 H Lactate Dehydrogenase Total Protein 7.0 Albumin 3.6 Ceruloplasmin Urine Color Urine Clarity Urine pH Ur Specific Alicia Urine Protein Urine Glucose (UA) Urine Ketones Urine Occult Blood Urine Nitrate Urine Bilirubin Urine Urobilinogen Ur Leukocyte Esterase Urine RBC Urine WBC Urine WBC Clumps Ur Squamous Epith Cells Calcium Oxalate Crystal Urine Bacteria Hyaline Casts Urine Mucus Urine Yeast Ur Yeast w Hyphae Micro UA Comment Urine Culture Comments Nasal Screen MRSA (PCR) Vancomycin Trough Random Vancomycin 19.0 Phenytoin 13.6 Hep B DNA Qnt log IU/mL Hep B DNA (Units/mL) Hemochromatosis Source Hemochromat Specimen Hemochromatosis Method Heredit Hemochromatosis Hemochromatosis Results Hemochromatosis Interp Hemochromatosis Review Blood Type Confirm Blood Bank Comment 01/15/18 01/15/18 01/15/18 03:58 03:58 04:50 WBC 5.2 RBC 4.15 L Hgb 12.0 L Hct 34.7 L MCV 83.6 MCH 29.0 MCHC 34.7 RDW 17.8 H Plt Count 106 L MPV 8.6 Prelim Diff (Auto) Neut % (Auto) 77.6 H Lymph % (Auto) 13.4 [place] % (Auto) 8.5 H Eos % (Auto) 0.1 Baso % (Auto) 0.4 Neut # (Auto) 4.1 Lymph # (Auto) 0.7 L [place] # (Auto) 0.4 Eos # (Auto) 0.0 Baso # (Auto) 0.0 CBC Comment AUTO DIFF WBC Differential Diff Scan Differential Comment AUTO DIFF CONFIRMED Platelet Estimate LOW L Platelet Morphology Plt Morphology Comment NORMAL [place] Cells Acanthocytes (Spur) 1+ H Keratocytes OCC PT 121.5 H D INR 12.2 H* APTT Fibrinogen Puncture Site Patient Temperature HCO3 Base Excess O2 Saturation ABG pH ABG pCO2 ABG pO2 ABG O2 Content ABG Carboxyhemoglobin ABG Methemoglobin VBG pH VBG pCO2 VBG pO2 VBG HCO3 VBG O2 Saturation VBG O2 Content VBG Base Excess VBG Carboxyhemoglobin VBG Methemoglobin Hemoglobin O2 Delivery Device Liter Flow Vent Setting Inspired O2 Critical Value Sodium Potassium Chloride Carbon Dioxide Anion Gap BUN Creatinine Estimated GFR POC Glucose Random Glucose Lactic Acid 5.1 H* Calcium Phosphorus Magnesium Total Bilirubin Direct Bilirubin Indirect Bilirubin AST ALT Alkaline Phosphatase Ammonia Lactate Dehydrogenase Total Protein Albumin Ceruloplasmin Urine Color Urine Clarity Urine pH Ur Specific Alicia Urine Protein Urine Glucose (UA) Urine Ketones Urine Occult Blood Urine Nitrate Urine Bilirubin Urine Urobilinogen Ur Leukocyte Esterase Urine RBC Urine WBC Urine WBC Clumps Ur Squamous Epith Cells Calcium Oxalate Crystal Urine Bacteria Hyaline Casts Urine Mucus Urine Yeast Ur Yeast w Hyphae Micro UA Comment Urine Culture Comments Nasal Screen MRSA (PCR) Vancomycin Trough Random Vancomycin Phenytoin Hep B DNA Qnt log IU/mL Hep B DNA (Units/mL) Hemochromatosis Source Hemochromat Specimen Hemochromatosis Method Heredit Hemochromatosis Hemochromatosis Results Hemochromatosis Interp Hemochromatosis Review Blood Type Confirm Blood Bank Comment 01/15/18 01/15/18 01/15/18 06:03 12:00 18:05 WBC RBC Hgb Hct MCV MCH MCHC RDW Plt Count MPV Prelim Diff (Auto) Neut % (Auto) Lymph % (Auto) [place] % (Auto) Eos % (Auto) Baso % (Auto) Neut # (Auto) Lymph # (Auto) [place] # (Auto) Eos # (Auto) Baso # (Auto) CBC Comment WBC Differential Diff Scan Differential Comment Platelet Estimate Platelet Morphology Plt Morphology Comment [place] Cells Acanthocytes (Spur) Keratocytes PT INR APTT Fibrinogen Puncture Site CENTRAL LINE RT RADIAL Patient Temperature 98.6 98.6 HCO3 25 Base Excess 4.4 H O2 Saturation 98 ABG pH 7.71 H* ABG pCO2 19 L* ABG pO2 200 H ABG O2 Content 15.6 ABG Carboxyhemoglobin 0.8 ABG Methemoglobin 0.8 VBG pH 7.59 H* VBG pCO2 29 L VBG pO2 44 H VBG HCO3 28 H VBG O2 Saturation 78 H VBG O2 Content 12.5 VBG Base Excess 5.5 H VBG Carboxyhemoglobin VBG Methemoglobin Hemoglobin 11.0 L O2 Delivery Device VENTILATOR VENTILATOR Liter Flow Vent Setting SEE COMMENTS [id number] Inspired O2 50 40 Critical Value Sodium Potassium 3.4 L Chloride Carbon Dioxide Anion Gap BUN Creatinine Estimated GFR POC Glucose Random Glucose Lactic Acid Calcium Phosphorus Magnesium Total Bilirubin Direct Bilirubin Indirect Bilirubin AST ALT Alkaline Phosphatase Ammonia Lactate Dehydrogenase Total Protein Albumin Ceruloplasmin Urine Color Urine Clarity Urine pH Ur Specific [place]ia Urine Protein Urine Glucose (UA) Urine Ketones Urine Occult Blood Urine Nitrate Urine Bilirubin Urine Urobilinogen Ur Leukocyte Esterase Urine RBC Urine WBC Urine WBC Clumps Ur Squamous Epith Cells Calcium Oxalate Crystal Urine Bacteria Hyaline Casts Urine Mucus Urine Yeast Ur Yeast w Hyphae Micro UA Comment Urine Culture Comments Nasal Screen MRSA (PCR) Vancomycin Trough Random Vancomycin Phenytoin Hep B DNA Qnt log IU/mL Hep B DNA (Units/mL) Hemochromatosis Source Hemochromat Specimen Hemochromatosis Method Heredit Hemochromatosis Hemochromatosis Results Hemochromatosis Interp Hemochromatosis Review Blood Type Confirm Blood Bank Comment 01/16/18 01/16/18 01/16/18 04:16 04:16 04:16 WBC 6.3 RBC 4.09 L Hgb 11.8 L Hct 34.3 L MCV 83.9 MCH 29.0 MCHC 34.5 RDW 18.3 H Plt Count 129 L MPV 8.6 Prelim Diff (Auto) Slide review pending Neut % (Auto) 56.3 Lymph % (Auto) 18.8 [place] % (Auto) 24.5 H Eos % (Auto) 0.2 Baso % (Auto) 0.2 Neut # (Auto) 3.6 Lymph # (Auto) 1.2 [place] # (Auto) 1.5 H Eos # (Auto) 0.0 Baso # (Auto) 0.0 CBC Comment WBC Differential . Diff Scan Auto diff confirmed Differential Comment . Platelet Estimate Platelet Morphology Plt Morphology Comment [place] Cells 1+ H Acanthocytes (Spur) 1+ H Keratocytes Occ H PT 105.8 H INR 10.6 H* APTT Fibrinogen Puncture Site Patient Temperature HCO3 Base Excess O2 Saturation ABG pH ABG pCO2 ABG pO2 ABG O2 Content ABG Carboxyhemoglobin ABG Methemoglobin VBG pH VBG pCO2 VBG pO2 VBG HCO3 VBG O2 Saturation VBG O2 Content VBG Base Excess VBG Carboxyhemoglobin VBG Methemoglobin Hemoglobin O2 Delivery Device Liter Flow Vent Setting Inspired O2 Critical Value Sodium Potassium Chloride Carbon Dioxide Anion Gap BUN Creatinine Estimated GFR POC Glucose Random Glucose Lactic Acid Calcium Phosphorus Magnesium Total Bilirubin Direct Bilirubin Indirect Bilirubin AST ALT Alkaline Phosphatase Ammonia Lactate Dehydrogenase Total Protein Albumin Ceruloplasmin Urine Color Urine Clarity Urine pH Ur Specific [place]ia Urine Protein Urine Glucose (UA) Urine Ketones Urine Occult Blood Urine Nitrate Urine Bilirubin Urine Urobilinogen Ur Leukocyte Esterase Urine RBC Urine WBC Urine WBC Clumps Ur Squamous Epith Cells Calcium Oxalate Crystal Urine Bacteria Hyaline Casts Urine Mucus Urine Yeast Ur Yeast w Hyphae Micro UA Comment Urine Culture Comments Nasal Screen MRSA (PCR) Vancomycin Trough Random Vancomycin Phenytoin 18.2 Hep B DNA Qnt log IU/mL Hep B DNA (Units/mL) Hemochromatosis Source Hemochromat Specimen Hemochromatosis Method Heredit Hemochromatosis Hemochromatosis Results Hemochromatosis Interp Hemochromatosis Review Blood Type Confirm Blood Bank Comment 01/16/18 01/16/18 01/16/18 04:16 04:16 04:16 WBC RBC Hgb Hct MCV MCH MCHC RDW Plt Count MPV Prelim Diff (Auto) Neut % (Auto) Lymph % (Auto) [place] % (Auto) Eos % (Auto) Baso % (Auto) Neut # (Auto) Lymph # (Auto) [place] # (Auto) Eos # (Auto) Baso # (Auto) CBC Comment WBC Differential Diff Scan Differential Comment Platelet Estimate Platelet Morphology Plt Morphology Comment [place] Cells Acanthocytes (Spur) Keratocytes PT INR APTT Fibrinogen Puncture Site Patient Temperature HCO3 Base Excess O2 Saturation ABG pH ABG pCO2 ABG pO2 ABG O2 Content ABG Carboxyhemoglobin ABG Methemoglobin VBG pH VBG pCO2 VBG pO2 VBG HCO3 VBG O2 Saturation VBG O2 Content VBG Base Excess VBG Carboxyhemoglobin VBG Methemoglobin Hemoglobin O2 Delivery Device Liter Flow Vent Setting Inspired O2 Critical Value Sodium Potassium Chloride Carbon Dioxide Anion Gap BUN Creatinine Estimated GFR POC Glucose Random Glucose Lactic Acid Calcium Phosphorus Magnesium Total Bilirubin Direct Bilirubin Indirect Bilirubin AST ALT Alkaline Phosphatase Ammonia 147 H Lactate Dehydrogenase Total Protein Albumin Ceruloplasmin Urine Color Urine Clarity Urine pH Ur Specific [place]ia Urine Protein Urine Glucose (UA) Urine Ketones Urine Occult Blood Urine Nitrate Urine Bilirubin Urine Urobilinogen Ur Leukocyte Esterase Urine RBC Urine WBC Urine WBC Clumps Ur Squamous Epith Cells Calcium Oxalate Crystal Urine Bacteria Hyaline Casts Urine Mucus Urine Yeast Ur Yeast w Hyphae Micro UA Comment Urine Culture Comments Nasal Screen MRSA (PCR) Vancomycin Trough Random Vancomycin 19.5 Phenytoin Hep B DNA Qnt log IU/mL Hep B DNA (Units/mL) Hemochromatosis Source Cancelled Hemochromat Specimen Cancelled Hemochromatosis Method Cancelled Heredit Hemochromatosis Cancelled Hemochromatosis Results Cancelled Hemochromatosis Interp Cancelled Hemochromatosis Review Cancelled Blood Type Confirm Blood Bank Comment 01/16/18 01/16/18 01/16/18 08:01 12:40 12:40 WBC RBC Hgb Hct MCV MCH MCHC RDW Plt Count MPV Prelim Diff (Auto) Neut % (Auto) Lymph % (Auto) [place] % (Auto) Eos % (Auto) Baso % (Auto) Neut # (Auto) Lymph # (Auto) [place] # (Auto) Eos # (Auto) Baso # (Auto) CBC Comment WBC Differential Diff Scan Differential Comment Platelet Estimate Platelet Morphology Plt Morphology Comment [place] Cells Acanthocytes (Spur) Keratocytes PT INR APTT Fibrinogen Puncture Site Patient Temperature HCO3 Base Excess O2 Saturation ABG pH ABG pCO2 ABG pO2 ABG O2 Content ABG Carboxyhemoglobin ABG Methemoglobin VBG pH VBG pCO2 VBG pO2 VBG HCO3 VBG O2 Saturation VBG O2 Content VBG Base Excess VBG Carboxyhemoglobin VBG Methemoglobin Hemoglobin O2 Delivery Device Liter Flow Vent Setting Inspired O2 Critical Value Sodium 140 Potassium 3.4 L Chloride 101 Carbon Dioxide 24.7 Anion Gap 14 BUN 7 Creatinine 1.56 H Estimated GFR 52 L POC Glucose 162 H Random Glucose 136 H Lactic Acid Calcium 9.9 Phosphorus Magnesium Total Bilirubin 25.4 H Direct Bilirubin Indirect Bilirubin AST 26 ALT 63 Alkaline Phosphatase 151 H Ammonia Lactate Dehydrogenase Total Protein 6.8 Albumin 3.6 Ceruloplasmin Urine Color [place] Urine Clarity Cloudy H Urine pH 5.0 Ur Specific Alicia 1.017 Urine Protein Negative Urine Glucose (UA) 50 Urine Ketones Trace Urine Occult Blood Large H Urine Nitrate Negative Urine Bilirubin Negative Urine Urobilinogen Less than 2 Ur Leukocyte Esterase Large H Urine RBC 46 H Urine WBC 91 H Urine WBC Clumps Many H Ur Squamous Epith Cells 1 Calcium Oxalate Crystal Occasional H Urine Bacteria Rare H Hyaline Casts 17 Urine Mucus Few H Urine Yeast Many H Ur Yeast w Hyphae Moderate H Micro UA Comment Culture indicated Urine Culture Comments Culture indicated Nasal Screen MRSA (PCR) Vancomycin Trough Random Vancomycin Phenytoin Hep B DNA Qnt log IU/mL Hep B DNA (Units/mL) Hemochromatosis Source Hemochromat Specimen Hemochromatosis Method Heredit Hemochromatosis Hemochromatosis Results Hemochromatosis Interp Hemochromatosis Review Blood Type Confirm Blood Bank Comment 01/16/18 01/16/18 01/16/18 12:56 13:29 16:31 WBC RBC Hgb Hct MCV MCH MCHC RDW Plt Count MPV Prelim Diff (Auto) Neut % (Auto) Lymph % (Auto) [place] % (Auto) Eos % (Auto) Baso % (Auto) Neut # (Auto) Lymph # (Auto) [place] # (Auto) Eos # (Auto) Baso # (Auto) CBC Comment WBC Differential Diff Scan Differential Comment Platelet Estimate Platelet Morphology Plt Morphology Comment [place] Cells Acanthocytes (Spur) Keratocytes PT INR APTT Fibrinogen Puncture Site Central line Patient Temperature 98.6 HCO3 Base Excess O2 Saturation ABG pH ABG pCO2 ABG pO2 ABG O2 Content ABG Carboxyhemoglobin ABG Methemoglobin VBG pH 7.60 H* VBG pCO2 26 L VBG pO2 46 H VBG HCO3 26 VBG O2 Saturation 81 H VBG O2 Content 12.3 VBG Base Excess 4.0 H VBG Carboxyhemoglobin 0.9 VBG Methemoglobin 0.8 Hemoglobin 10.8 L O2 Delivery Device Ventilator Liter Flow Vent Setting [id number] Inspired O2 30 Critical Value Yes Sodium Potassium Chloride Carbon Dioxide Anion Gap BUN Creatinine Estimated GFR POC Glucose 150 H 143 H Random Glucose Lactic Acid Calcium Phosphorus Magnesium Total Bilirubin Direct Bilirubin Indirect Bilirubin AST ALT Alkaline Phosphatase Ammonia Lactate Dehydrogenase Total Protein Albumin Ceruloplasmin Urine Color Urine Clarity Urine pH Ur Specific [place]ia Urine Protein Urine Glucose (UA) Urine Ketones Urine Occult Blood Urine Nitrate Urine Bilirubin Urine Urobilinogen Ur Leukocyte Esterase Urine RBC Urine WBC Urine WBC Clumps Ur Squamous Epith Cells Calcium Oxalate Crystal Urine Bacteria Hyaline Casts Urine Mucus Urine Yeast Ur Yeast w Hyphae Micro UA Comment Urine Culture Comments Nasal Screen MRSA (PCR) Vancomycin Trough Random Vancomycin Phenytoin Hep B DNA Qnt log IU/mL Hep B DNA (Units/mL) Hemochromatosis Source Hemochromat Specimen Hemochromatosis Method Heredit Hemochromatosis Hemochromatosis Results Hemochromatosis Interp Hemochromatosis Review Blood Type Confirm Blood Bank Comment 01/16/18 01/16/18 01/17/18 19:30 22:31 03:40 WBC RBC Hgb Hct MCV MCH MCHC RDW Plt Count MPV Prelim Diff (Auto) Neut % (Auto) Lymph % (Auto) [place] % (Auto) Eos % (Auto) Baso % (Auto) Neut # (Auto) Lymph # (Auto) [place] # (Auto) Eos # (Auto) Baso # (Auto) CBC Comment WBC Differential Diff Scan Differential Comment Platelet Estimate Platelet Morphology Plt Morphology Comment [place] Cells Acanthocytes (Spur) Keratocytes PT INR APTT Fibrinogen Puncture Site Patient Temperature HCO3 Base Excess O2 Saturation ABG pH ABG pCO2 ABG pO2 ABG O2 Content ABG Carboxyhemoglobin ABG Methemoglobin VBG pH VBG pCO2 VBG pO2 VBG HCO3 VBG O2 Saturation VBG O2 Content VBG Base Excess VBG Carboxyhemoglobin VBG Methemoglobin Hemoglobin O2 Delivery Device Liter Flow Vent Setting Inspired O2 Critical Value Sodium Potassium Chloride Carbon Dioxide Anion Gap BUN Creatinine Estimated GFR POC Glucose 178 H Random Glucose Lactic Acid Calcium Phosphorus Magnesium Total Bilirubin Direct Bilirubin Indirect Bilirubin AST ALT Alkaline Phosphatase Ammonia 130 H Lactate Dehydrogenase Total Protein Albumin Ceruloplasmin Urine Color Urine Clarity Urine pH Ur Specific [place]ia Urine Protein Urine Glucose (UA) Urine Ketones Urine Occult Blood Urine Nitrate Urine Bilirubin Urine Urobilinogen Ur Leukocyte Esterase Urine RBC Urine WBC Urine WBC Clumps Ur Squamous Epith Cells Calcium Oxalate Crystal Urine Bacteria Hyaline Casts Urine Mucus Urine Yeast Ur Yeast w Hyphae Micro UA Comment Urine Culture Comments Nasal Screen MRSA (PCR) Vancomycin Trough Random Vancomycin Phenytoin 17.7 Hep B DNA Qnt log IU/mL Hep B DNA (Units/mL) Hemochromatosis Source Hemochromat Specimen Hemochromatosis Method Heredit Hemochromatosis Hemochromatosis Results Hemochromatosis Interp Hemochromatosis Review Blood Type Confirm Blood Bank Comment 01/17/18 01/17/18 01/17/18 03:40 03:40 03:40 WBC 6.5 RBC 3.69 L Hgb 10.8 L Hct 31.0 L MCV 84.1 MCH 29.2 MCHC 34.8 RDW 18.9 H Plt Count 129 L MPV 8.3 Prelim Diff (Auto) Slide review pending Neut % (Auto) 61.7 Lymph % (Auto) 14.7 [place] % (Auto) 22.3 H Eos % (Auto) 0.2 Baso % (Auto) 1.1 Neut # (Auto) 4.0 Lymph # (Auto) 1.0 [place] # (Auto) 1.5 H Eos # (Auto) 0.0 Baso # (Auto) 0.1 CBC Comment WBC Differential . Diff Scan Auto diff confirmed Differential Comment . Platelet Estimate Low L Platelet Morphology Normal Plt Morphology Comment [place] Cells 1+ H Acanthocytes (Spur) 1+ H Keratocytes PT 193.5 H D INR Greater than 18.2 H* APTT Fibrinogen Puncture Site Patient Temperature HCO3 Base Excess O2 Saturation ABG pH ABG pCO2 ABG pO2 ABG O2 Content ABG Carboxyhemoglobin ABG Methemoglobin VBG pH VBG pCO2 VBG pO2 VBG HCO3 VBG O2 Saturation VBG O2 Content VBG Base Excess VBG Carboxyhemoglobin VBG Methemoglobin Hemoglobin O2 Delivery Device Liter Flow Vent Setting Inspired O2 Critical Value Sodium Potassium Chloride Carbon Dioxide Anion Gap BUN Creatinine Estimated GFR POC Glucose Random Glucose Lactic Acid Calcium Phosphorus Magnesium Total Bilirubin Direct Bilirubin Indirect Bilirubin AST ALT Alkaline Phosphatase Ammonia 142 H Lactate Dehydrogenase Total Protein Albumin Ceruloplasmin Urine Color Urine Clarity Urine pH Ur Specific [place] Urine Protein Urine Glucose (UA) Urine Ketones Urine Occult Blood Urine Nitrate Urine Bilirubin Urine Urobilinogen Ur Leukocyte Esterase Urine RBC Urine WBC Urine WBC Clumps Ur Squamous Epith Cells Calcium Oxalate Crystal Urine Bacteria Hyaline Casts Urine Mucus Urine Yeast Ur Yeast w Hyphae Micro UA Comment Urine Culture Comments Nasal Screen MRSA (PCR) Vancomycin Trough Random Vancomycin Phenytoin Hep B DNA Qnt log IU/mL Hep B DNA (Units/mL) Hemochromatosis Source Hemochromat Specimen Hemochromatosis Method Heredit Hemochromatosis Hemochromatosis Results Hemochromatosis Interp Hemochromatosis Review Blood Type Confirm Blood Bank Comment 01/17/18 01/17/18 01/17/18 03:40 04:57 08:43 WBC RBC Hgb Hct MCV MCH MCHC RDW Plt Count MPV Prelim Diff (Auto) Neut % (Auto) Lymph % (Auto) [place] % (Auto) Eos % (Auto) Baso % (Auto) Neut # (Auto) Lymph # (Auto) [place] # (Auto) Eos # (Auto) Baso # (Auto) CBC Comment WBC Differential Diff Scan Differential Comment Platelet Estimate Platelet Morphology Plt Morphology Comment [place] Cells Acanthocytes (Spur) Keratocytes PT INR APTT Fibrinogen Puncture Site Patient Temperature HCO3 Base Excess O2 Saturation ABG pH ABG pCO2 ABG pO2 ABG O2 Content ABG Carboxyhemoglobin ABG Methemoglobin VBG pH VBG pCO2 VBG pO2 VBG HCO3 VBG O2 Saturation VBG O2 Content VBG Base Excess VBG Carboxyhemoglobin VBG Methemoglobin Hemoglobin O2 Delivery Device Liter Flow Vent Setting Inspired O2 Critical Value Sodium 140 Potassium 4.1 Chloride 103 Carbon Dioxide 22.3 Anion Gap 15 BUN 9 Creatinine 1.68 H Estimated GFR 48 L POC Glucose 173 H Random Glucose 171 H Lactic Acid Calcium 9.5 Phosphorus 3.4 Magnesium 1.9 Total Bilirubin 27.9 H Direct Bilirubin Indirect Bilirubin AST 24 ALT 61 Alkaline Phosphatase 147 H Ammonia Lactate Dehydrogenase Total Protein 6.7 Albumin 3.3 L Ceruloplasmin Urine Color Urine Clarity Urine pH Ur Specific [place] Urine Protein Urine Glucose (UA) Urine Ketones Urine Occult Blood Urine Nitrate Urine Bilirubin Urine Urobilinogen Ur Leukocyte Esterase Urine RBC Urine WBC Urine WBC Clumps Ur Squamous Epith Cells Calcium Oxalate Crystal Urine Bacteria Hyaline Casts Urine Mucus Urine Yeast Ur Yeast w Hyphae Micro UA Comment Urine Culture Comments Nasal Screen MRSA (PCR) Vancomycin Trough Random Vancomycin 27.1 Phenytoin Hep B DNA Qnt log IU/mL Hep B DNA (Units/mL) Hemochromatosis Source Hemochromat Specimen Hemochromatosis Method Heredit Hemochromatosis Hemochromatosis Results Hemochromatosis Interp Hemochromatosis Review Blood Type Confirm B Positive Blood Bank Comment 01/17/18 01/17/18 01/18/18 12:28 14:11 00:50 WBC RBC Hgb Hct MCV MCH MCHC RDW Plt Count MPV Prelim Diff (Auto) Neut % (Auto) Lymph % (Auto) [place] % (Auto) Eos % (Auto) Baso % (Auto) Neut # (Auto) Lymph # (Auto) [place] # (Auto) Eos # (Auto) Baso # (Auto) CBC Comment WBC Differential Diff Scan Differential Comment Platelet Estimate Platelet Morphology Plt Morphology Comment [place] Cells Acanthocytes (Spur) Keratocytes PT INR APTT Fibrinogen Puncture Site Patient Temperature HCO3 Base Excess O2 Saturation ABG pH ABG pCO2 ABG pO2 ABG O2 Content ABG Carboxyhemoglobin ABG Methemoglobin VBG pH VBG pCO2 VBG pO2 VBG HCO3 VBG O2 Saturation VBG O2 Content VBG Base Excess VBG Carboxyhemoglobin VBG Methemoglobin Hemoglobin O2 Delivery Device Liter Flow Vent Setting Inspired O2 Critical Value Sodium Potassium Chloride Carbon Dioxide Anion Gap BUN Creatinine Estimated GFR POC Glucose 169 H Random Glucose Lactic Acid Calcium Phosphorus Magnesium Total Bilirubin Direct Bilirubin Indirect Bilirubin AST ALT Alkaline Phosphatase Ammonia 135 H Lactate Dehydrogenase Total Protein Albumin Ceruloplasmin Urine Color Urine Clarity Urine pH Ur Specific [place] Urine Protein Urine Glucose (UA) Urine Ketones Urine Occult Blood Urine Nitrate Urine Bilirubin Urine Urobilinogen Ur Leukocyte Esterase Urine RBC Urine WBC Urine WBC Clumps Ur Squamous Epith Cells Calcium Oxalate Crystal Urine Bacteria Hyaline Casts Urine Mucus Urine Yeast Ur Yeast w Hyphae Micro UA Comment Urine Culture Comments Nasal Screen MRSA (PCR) Vancomycin Trough 17.3 H Random Vancomycin Phenytoin Hep B DNA Qnt log IU/mL Hep B DNA (Units/mL) Hemochromatosis Source Hemochromat Specimen Hemochromatosis Method Heredit Hemochromatosis Hemochromatosis Results Hemochromatosis Interp Hemochromatosis Review Blood Type Confirm Blood Bank Comment 01/18/18 01/18/18 01/18/18 00:50 00:50 00:50 WBC 4.4 RBC 3.29 L Hgb 9.6 L Hct 27.8 L MCV 84.5 MCH 29.2 MCHC 34.5 RDW 19.6 H Plt Count 86 L D MPV 8.8 Prelim Diff (Auto) Slide review pending Neut % (Auto) 61.2 Lymph % (Auto) 16.1 [place] % (Auto) 22.4 H Eos % (Auto) 0.1 Baso % (Auto) 0.2 Neut # (Auto) 2.7 Lymph # (Auto) 0.7 L [place] # (Auto) 1.0 H Eos # (Auto) 0.0 Baso # (Auto) 0.0 CBC Comment WBC Differential . Diff Scan Auto diff confirmed Differential Comment . Platelet Estimate Low L Platelet Morphology Normal Plt Morphology Comment [place] Cells 2+ H Acanthocytes (Spur) Occ H Keratocytes Occ H PT INR APTT 42.5 H Fibrinogen 103 L Puncture Site Patient Temperature HCO3 Base Excess O2 Saturation ABG pH ABG pCO2 ABG pO2 ABG O2 Content ABG Carboxyhemoglobin ABG Methemoglobin VBG pH VBG pCO2 VBG pO2 VBG HCO3 VBG O2 Saturation VBG O2 Content VBG Base Excess VBG Carboxyhemoglobin VBG Methemoglobin Hemoglobin O2 Delivery Device Liter Flow Vent Setting Inspired O2 Critical Value Sodium Potassium Chloride Carbon Dioxide Anion Gap BUN Creatinine Estimated GFR POC Glucose Random Glucose Lactic Acid Calcium Phosphorus 2.9 Magnesium 2.4 Total Bilirubin Direct Bilirubin Indirect Bilirubin AST ALT Alkaline Phosphatase Ammonia Lactate Dehydrogenase Total Protein Albumin Ceruloplasmin Urine Color Urine Clarity Urine pH Ur Specific [place]ia Urine Protein Urine Glucose (UA) Urine Ketones Urine Occult Blood Urine Nitrate Urine Bilirubin Urine Urobilinogen Ur Leukocyte Esterase Urine RBC Urine WBC Urine WBC Clumps Ur Squamous Epith Cells Calcium Oxalate Crystal Urine Bacteria Hyaline Casts Urine Mucus Urine Yeast Ur Yeast w Hyphae Micro UA Comment Urine Culture Comments Nasal Screen MRSA (PCR) Vancomycin Trough Random Vancomycin Phenytoin 20.4 H Hep B DNA Qnt log IU/mL Hep B DNA (Units/mL) Hemochromatosis Source Hemochromat Specimen Hemochromatosis Method Heredit Hemochromatosis Hemochromatosis Results Hemochromatosis Interp Hemochromatosis Review Blood Type Confirm Blood Bank Comment 01/18/18 01/18/18 01/18/18 00:50 05:50 05:50 WBC RBC Hgb Hct MCV MCH MCHC RDW Plt Count MPV Prelim Diff (Auto) Neut % (Auto) Lymph % (Auto) [place] % (Auto) Eos % (Auto) Baso % (Auto) Neut # (Auto) Lymph # (Auto) [place] # (Auto) Eos # (Auto) Baso # (Auto) CBC Comment WBC Differential Diff Scan Differential Comment Platelet Estimate Platelet Morphology Plt Morphology Comment [place] Cells Acanthocytes (Spur) Keratocytes PT 86.0 H D INR 8.6 H* APTT Fibrinogen Puncture Site Patient Temperature HCO3 Base Excess O2 Saturation ABG pH ABG pCO2 ABG pO2 ABG O2 Content ABG Carboxyhemoglobin ABG Methemoglobin VBG pH VBG pCO2 VBG pO2 VBG HCO3 VBG O2 Saturation VBG O2 Content VBG Base Excess VBG Carboxyhemoglobin VBG Methemoglobin Hemoglobin O2 Delivery Device Liter Flow Vent Setting Inspired O2 Critical Value Sodium 145 Potassium 4.2 Chloride 108 H Carbon Dioxide 25.5 Anion Gap 12 BUN 12 Creatinine 1.84 H Estimated GFR 43 L POC Glucose Random Glucose 133 H Lactic Acid 3.7 H Calcium 9.1 Phosphorus Magnesium Total Bilirubin 24.8 H Direct Bilirubin Indirect Bilirubin AST 23 ALT 49 Alkaline Phosphatase 128 H Ammonia Lactate Dehydrogenase Total Protein 6.3 L Albumin 2.8 L Ceruloplasmin Urine Color Urine Clarity Urine pH Ur Specific Alicia Urine Protein Urine Glucose (UA) Urine Ketones Urine Occult Blood Urine Nitrate Urine Bilirubin Urine Urobilinogen Ur Leukocyte Esterase Urine RBC Urine WBC Urine WBC Clumps Ur Squamous Epith Cells Calcium Oxalate Crystal Urine Bacteria Hyaline Casts Urine Mucus Urine Yeast Ur Yeast w Hyphae Micro UA Comment Urine Culture Comments Nasal Screen MRSA (PCR) Vancomycin Trough Random Vancomycin Phenytoin Hep B DNA Qnt log IU/mL Hep B DNA (Units/mL) Hemochromatosis Source Hemochromat Specimen Hemochromatosis Method Heredit Hemochromatosis Hemochromatosis Results Hemochromatosis Interp Hemochromatosis Review Blood Type Confirm Blood Bank Comment 01/18/18 01/18/18 05:50 11:06 WBC RBC Hgb Hct MCV MCH MCHC RDW Plt Count MPV Prelim Diff (Auto) Neut % (Auto) Lymph % (Auto) [place] % (Auto) Eos % (Auto) Baso % (Auto) Neut # (Auto) Lymph # (Auto) [place] # (Auto) Eos # (Auto) Baso # (Auto) CBC Comment WBC Differential Diff Scan Differential Comment Platelet Estimate Platelet Morphology Plt Morphology Comment [place] Cells Acanthocytes (Spur) Keratocytes PT INR APTT Fibrinogen Puncture Site Patient Temperature HCO3 Base Excess O2 Saturation ABG pH ABG pCO2 ABG pO2 ABG O2 Content ABG Carboxyhemoglobin ABG Methemoglobin VBG pH VBG pCO2 VBG pO2 VBG HCO3 VBG O2 Saturation VBG O2 Content VBG Base Excess VBG Carboxyhemoglobin VBG Methemoglobin Hemoglobin O2 Delivery Device Liter Flow Vent Setting Inspired O2 Critical Value Sodium Potassium Chloride Carbon Dioxide Anion Gap BUN Creatinine Estimated GFR POC Glucose Random Glucose Lactic Acid Calcium Phosphorus Magnesium Total Bilirubin Direct Bilirubin Indirect Bilirubin AST ALT Alkaline Phosphatase Ammonia 147 H Lactate Dehydrogenase Total Protein Albumin Ceruloplasmin Urine Color Urine Clarity Urine pH Ur Specific Alicia Urine Protein Urine Glucose (UA) Urine Ketones Urine Occult Blood Urine Nitrate Urine Bilirubin Urine Urobilinogen Ur Leukocyte Esterase Urine RBC Urine WBC Urine WBC Clumps Ur Squamous Epith Cells Calcium Oxalate Crystal Urine Bacteria Hyaline Casts Urine Mucus Urine Yeast Ur Yeast w Hyphae Micro UA Comment Urine Culture Comments Nasal Screen MRSA (PCR) Vancomycin Trough Random Vancomycin Phenytoin 18.1 Hep B DNA Qnt log IU/mL Hep B DNA (Units/mL) Hemochromatosis Source Hemochromat Specimen Hemochromatosis Method Heredit Hemochromatosis Hemochromatosis Results Hemochromatosis Interp Hemochromatosis Review Blood Type Confirm Blood Bank Comment Result Diagrams: 01/18/18 00:50 01/18/18 05:50 Microbiology: Microbiology 01/16/18 12:40 Urine Culture - Final Clean Catch Urine Tiffany albicans Imaging: Head MRI 01/16/18 00:00 CONCLUSION: 1. Subtle restricted diffusion in the gold matter when compared to the white most prevalent in mid [place]lvian regions bilaterally. This is symmetric. This can be seen with anoxic encephalopathy. 2. There is no abnormal contrast enhancement. 3. There is no parenchymal hemorrhage. Chest X-Ray 01/17/18 04:00 CONCLUSION: The lungs are clear. Procedures: 01/15: Intubation. . 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 He is single and has no children. He was never in the . And is only one one daughter Spiritual:. Identifies with the [employer] wanda. 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 Legal: no legal issues identified. Ethical issues impacting care: No ethical issues identified. . Important Contacts: Mother: Mickey Lai , . Prognosis: His prognosis is guarded. Per the mother, GI has stated he has approximately 75 % chance of surviving this hospitalization. His level of consciousness and respiratory status have declined today and he is now on a 100% nonrebreather. The mother states that he would not want to be intubated per her prior conversation with him, been clarified that to use date that he would not want to be on a ventilator long-term. At this time she is still refusing intubation but would allow BiPAP if needed. She would like to be contacted for any further decline as she may consider intubation if situation is critical. He has significant liver damage and coagulopathy. He is at elevated risk of continued complications and decline. . Code Status: Full Code (Pending hospice consultation.) Plan: PLAN: Legal decision maker: At this time the patient is not capacitated for medical decision-making. He has an altered mental status and declined LOC. Both parents are alive would be the proxy decision makers. As the mother is an ICU nurse, is primary point of contact. Goals: To be determined CODE STATUS: FULL CODE. SYMPTOMS: * Encephalopathy: Likely hepatic, ammonia is 142. Patient had been receiving lactulose 30 mL every 6 hours orally and 30 mL twice daily rectally as well as rifaximin 550 mg twice daily. He is intubated and unresponsive, off sedation. He has now had an NG tube placed for medication administration. * Dyspnea: He is currently mechanically ventilated for airway protection and fragile respiratory status. Mother is requesting withdrawal of ventilatory support, due to poor patient prognosis and continued decline. Hospice at bedside. Palliative care will continue to follow the patient during hospital course as condition evolves, to assist patient/decision-maker with understanding of their medical conditions, weighing benefits/burdens of treatment options, for clarification of goals of treatment. Additionally will assist with any symptoms of palliative concern. . Attestation Collaborating MD Comments: Chart reviewed. Case discussed with palliative care F[employer]IC [employer] TEXTILE FACTORY WORKER and with Dr. Nick. I personally spoke with patient's mother at bedside. Patient is has end stage liver disease with no hope of recovery. Mother has decided to withdraw life support and try to take the patient home to . She is a nurse and feels comfortable caring for him at home. She wants to avoid premedicating the patient prior to withdrawal as she is concerned that any respiratory suppression might reduce the chances of him making it home to . Multiple discussions have taken place with the mother this evening. She understands that he may in transit regardless. She understands that we might not be able to medicate him should he develop respiratory distress en route home. The hospice care center has been offered but she has declined. I discussed the case with the hospice nurse, decided on home comfort orders and discussed these orders with the mother. She was comfortable with these. Dr. Nick placed the patient on CPAP to get a sense of whether he would be struggling post extubation. Patient appeared comfortable on CPAP at time of my visit. No evidence of respiratory distress. Hospice nurse is aware that a hospital bed must be set up and the home comfort meds must be in place before transport can take place. The MICU bedside nurse is aware of the mother's requests and I have personally discussed our plan and orders for extubation with her. TIME : Total combined time of F[employer] FACTORY WORKER and physician was well over 40 minutes with over 50% of time spent on counseling / coordination of care. . Attestation: To help prompt me to consider important information that might be impacting today's encounter and assessment, information from prior notes written by myself or my colleagues may have been "brought forward" into today's note. My signature on this note, however, is an attestation that I personally performed the exam, history, and/or decision-making noted today, and, unless otherwise indicated, the interactions with patient, family, and staff as well as the review of records all occurred today. I also attest that the listed assessment and stated plan reflect my best clinical judgment today based on the combination of historical information, prior notes, and today's exam/ interactions. When time spent is documented, it refers only to time spent today by the signer, or if indicated, combined time spent today by collaborating physician/nurse practitioner. .
[2018-01-18 19:52] VITALS: RESP 13; O2SAT 99
--- NOTE | 2018-01-18 20:04 | P.PN ---
Subjective Interval history: unresponsive on the vent Physical Exam Vital signs: Vital Signs 01/17/18 21:00 01/17/18 22:00 01/17/18 22:23 Temperature Pulse Rate 86 83 Respiratory Rate 18 Blood Pressure 111/62 112/65 Pulse Oximetry 98 01/17/18 23:00 01/18/18 00:00 01/18/18 00:04 Temperature 97 F L Pulse Rate 81 82 83 Respiratory Rate 20 Blood Pressure 124/74 100/55 L Pulse Oximetry 01/18/18 01:00 01/18/18 01:54 01/18/18 02:00 Temperature Pulse Rate 80 79 Respiratory Rate 20 Blood Pressure 102/57 L 105/56 L Pulse Oximetry 96 01/18/18 03:00 01/18/18 04:00 01/18/18 04:20 Temperature 98.0 F Pulse Rate 78 78 Respiratory Rate 18 Blood Pressure 106/57 L 109/59 L Pulse Oximetry 98 01/18/18 05:00 01/18/18 08:19 01/18/18 11:10 Temperature Pulse Rate 78 Respiratory Rate 20 17 Blood Pressure 115/68 Pulse Oximetry 99 99 01/18/18 13:57 01/18/18 16:00 01/18/18 16:09 Temperature 97.3 F L 97.3 F L Pulse Rate 79 83 Respiratory Rate 16 18 18 Blood Pressure 105/58 L 101/56 L Pulse Oximetry 99 99 96 01/18/18 19:49 Temperature Pulse Rate Respiratory Rate 13 Blood Pressure Pulse Oximetry 99 Intake & Output 01/18/18 01/18/18 01/19/18 06:59 18:59 06:59 Intake Total 1747 / 1747 881.98 / 881.98 Output Total 1950 / 1950 410 / 410 Balance -203 / -203 471.98 / 471.98 Weight 84.8 kg Intake: IV 1367 / 1367 429.98 / 429.98 Zovirax Inj 749 MG In NS Inj 165 / 165 329.98 / 329.98 150 ML @ 150 mls/hr IV.SIG Q8H [facility] Rx#:[id number] Maxipime Inj 2,000 MG In NS Inj 200 / 200 100 / 100 100 ML @ 200 mls/hr IV.SIG Q8H [facility] Rx#:[id number] Thorazine Inj 25 MG In NS Inj 1002 / 1002 500 ML @ 250.5 mls/hr IV.SIG Q6H [facility] Rx#:[id number] Tube Feeding 280 / 280 272 / 272 Tube Irrigant 180 / 180 Water Bolus Amount 100 / 100 Output: Stool 1500 / 1500 60 / 60 Urine Amount (Catheter) 450 / 450 350 / 350 Indwelling Urethral Catheter 450 / 450 350 / 350 Narrative: GENERAL: unresponsive on vent support SKIN: Warm and dry. HEAD: Atraumatic. Normocephalic. EYES: Pupils equal and round. No scleral icterus. No injection or drainage. ENT: No nasal bleeding or discharge. Mucous membranes pink and moist. NECK: Trachea midline. No JVD. CARDIOVASCULAR: Regular rate and rhythm. RESPIRATORY: No accessory muscle use. Clear to auscultation. Breath sounds equal bilaterally. GASTROINTESTINAL: Abdomen soft, non-tender, nondistended. Hepatic and splenic margins not palpable. MUSCULOSKELETAL: Extremities without clubbing, cyanosis, or edema. No obvious deformities. NEUROLOGICAL: Awake and alert. No obvious cranial nerve deficits. Motor grossly within normal limits. Five out of 5 muscle strength in the arms and legs. Normal speech. PSYCHIATRIC: Appropriate mood and affect; insight and judgment normal. - Urinary Catheter Management Indwelling Urethral Catheter Cath placed during this visit: yes Reason for continuing: Terminally ill/Comfort care Insertion date: 01/15/18 Insertion time: 12:45 Results - Labs CBC & Chem 7: 01/18/18 00:50 01/18/18 05:50 Laboratory Results - last 24 hr 01/17/18 01/18/18 01/18/18 04:57 00:50 00:50 WBC RBC Hgb Hct MCV MCH MCHC RDW Plt Count MPV Prelim Diff (Auto) Neut % (Auto) Lymph % (Auto) [place] % (Auto) Eos % (Auto) Baso % (Auto) Neut # (Auto) Lymph # (Auto) [place] # (Auto) Eos # (Auto) Baso # (Auto) WBC Differential Diff Scan Differential Comment Platelet Estimate Platelet Morphology [place] Cells Acanthocytes (Spur) Keratocytes PT INR APTT 42.5 H Fibrinogen 103 L Sodium Potassium Chloride Carbon Dioxide Anion Gap BUN Creatinine Estimated GFR Random Glucose Lactic Acid Calcium Phosphorus Magnesium Total Bilirubin AST ALT Alkaline Phosphatase Ammonia 135 H Total Protein Albumin Phenytoin Blood Type Confirm B Positive Blood Bank Comment 01/18/18 01/18/18 01/18/18 00:50 00:50 00:50 WBC 4.4 RBC 3.29 L Hgb 9.6 L Hct 27.8 L MCV 84.5 MCH 29.2 MCHC 34.5 RDW 19.6 H Plt Count 86 L D MPV 8.8 Prelim Diff (Auto) Slide review pending Neut % (Auto) 61.2 Lymph % (Auto) 16.1 [place] % (Auto) 22.4 H Eos % (Auto) 0.1 Baso % (Auto) 0.2 Neut # (Auto) 2.7 Lymph # (Auto) 0.7 L [place] # (Auto) 1.0 H Eos # (Auto) 0.0 Baso # (Auto) 0.0 WBC Differential . Diff Scan Auto diff confirmed Differential Comment . Platelet Estimate Low L Platelet Morphology Normal [place] Cells 2+ H Acanthocytes (Spur) Occ H Keratocytes Occ H PT INR APTT Fibrinogen Sodium Potassium Chloride Carbon Dioxide Anion Gap BUN Creatinine Estimated GFR Random Glucose Lactic Acid 3.7 H Calcium Phosphorus 2.9 Magnesium 2.4 Total Bilirubin AST ALT Alkaline Phosphatase Ammonia Total Protein Albumin Phenytoin 20.4 H Blood Type Confirm Blood Bank Comment 01/18/18 01/18/18 01/18/18 05:50 05:50 05:50 WBC RBC Hgb Hct MCV MCH MCHC RDW Plt Count MPV Prelim Diff (Auto) Neut % (Auto) Lymph % (Auto) [place] % (Auto) Eos % (Auto) Baso % (Auto) Neut # (Auto) Lymph # (Auto) [place] # (Auto) Eos # (Auto) Baso # (Auto) WBC Differential Diff Scan Differential Comment Platelet Estimate Platelet Morphology [place] Cells Acanthocytes (Spur) Keratocytes PT 86.0 H D INR 8.6 H* APTT Fibrinogen Sodium 145 Potassium 4.2 Chloride 108 H Carbon Dioxide 25.5 Anion Gap 12 BUN 12 Creatinine 1.84 H Estimated GFR 43 L Random Glucose 133 H Lactic Acid Calcium 9.1 Phosphorus Magnesium Total Bilirubin 24.8 H AST 23 ALT 49 Alkaline Phosphatase 128 H Ammonia 147 H Total Protein 6.3 L Albumin 2.8 L Phenytoin Blood Type Confirm Blood Bank Comment 01/18/18 11:06 WBC RBC Hgb Hct MCV MCH MCHC RDW Plt Count MPV Prelim Diff (Auto) Neut % (Auto) Lymph % (Auto) [place] % (Auto) Eos % (Auto) Baso % (Auto) Neut # (Auto) Lymph # (Auto) [place] # (Auto) Eos # (Auto) Baso # (Auto) WBC Differential Diff Scan Differential Comment Platelet Estimate Platelet Morphology [place] Cells Acanthocytes (Spur) Keratocytes PT INR APTT Fibrinogen Sodium Potassium Chloride Carbon Dioxide Anion Gap BUN Creatinine Estimated GFR Random Glucose Lactic Acid Calcium Phosphorus Magnesium Total Bilirubin AST ALT Alkaline Phosphatase Ammonia Total Protein Albumin Phenytoin 18.1 Blood Type Confirm Blood Bank Comment Microbiology 01/16/18 12:40 Clean Catch Urine Urine Culture - Final Tiffany albicans Assessment and Plan - Assessment (1) Respiratory failure Code(s): J96.90 - Respiratory failure, unspecified, unspecified whether with hypoxia or hypercapnia Status: Acute (2) Hepatic encephalopathy Code(s): K72.90 - Hepatic failure, unspecified without coma Status: Acute - Plan respiratory failure hepatic encephalopathy plan mother at bedside aware of sons condition wishes to d/c life support
[2018-01-18 20:30] VITALS: BP 98/85; PULSE 84; TEMP 98.8
[2018-01-20 14:26] LABS: Urine Volume 2925 mL
[2018-01-27 14:42] LABS: Specimen HFE WB Whole Blood
--- NOTE | 2018-03-17 09:09 | P.DS ---
Date of admission: 12/31/17 12:46 Primary care physician: No Primary Care Physician Attending physician on discharge: Mili Boudreaux Anticipated date of discharge: 01/18/18 Brief History from admission: Hospital Course This is a 32-year-old male that presented to the ED at [place] on 12/31/2017 with complaints of nausea and vomiting and generalized malaise. The patient's medical history is significant for hepatitis C, liver failure , coagulopathy and previous encephalopathy. The patient has a medical history significant for IVDU and alcohol use disorder. Upon presentation the patient was alert and oriented but noted he was having worsening symptoms, since his admission the patient has become progressively more left and coagulopathic with INR as high as 7.9. Upon admission imaging and laboratory studies were performed which showed a significant increase in INR and CT abdomen showing hepatic cirrhosis for the laboratory studies were provided and the patient was noted to have alpha-1 antitrypsin deficiency, pulmonology was also consulted. The patient has been receiving with currently by GI 6 units of FFP daily, lactulose, rifaximin ,propranolol and vitamin K. The patient has progressively become more lethargic, neurology has been consulted EEG was with encephalopathic findings, and an MRI brain and CT brain 01/07 showed no acute abnormality. The patient was unable to be aroused early this a.m., critical care medicine was consulted. Upon my evaluation at 6:30 AM the patient was unable to be awakened with deep sternal rub and pain stimuli. No eye opening nor withdrawal to pain ,the patient's O2 saturation was within normal limits 98 to 99% on 4 LPM N/C. Concern for possible cerebral edema, or acute bleed, a stat MRI was obtained that showed no acute abnormality, I discussed findings and comparison of 01/07 MRI with no significant findings. Over the last 3-4 hours, the patient now has spontaneous eye opening, is making verbal sounds that are incomprehensible, and has passed a bedside swallow evaluation. Ammonia level upon review continues to down trend from 120 to currently 94. I telephoned the healthcare surrogate mother, Raphael, and REFLESHER and provided her medical status update upon my evaluation. A discussion regarding possible emergent intubation, and she stated that the patient would not want to be intubated. A discussion was also performed discussing INR currently of 2.3, placement of NG tube for administration of medications as well as nutrition at which point she said stated she was undecided. Extensive conversation was performed and a palliative consult has been initiated to define goals of care. I thoroughly discussed with the healthcare surrogate concern for protection of the airway as well as nutrition and administration of medication and the need for intubation. Currently the patient is protecting his airway even though he is nonverbal at this point she does not want an intubation awaiting palliative care consult for further recommendations . The patient remains a full code. I contacted Dr. Capps, in the ED informed her of the situation, the patient may require emergent intubation until clarification of goals are met. 01/14: Orders to transfer the patient to [facility] were initiated at 10 AM ,however the patient was transferred at 6 PM at healthcare POA, mother's request. The patient's INR had trended down to 2.3. The patient was seen by neurology last evening discussed with Dr. Ayala plan was for possible lumbar puncture and paracentesis today. A scan was performed last evening patient did not have enough fluid for drainage/paracentesis (small amount of fluid). The patient received during the night and an additional 5 units of FFP and attempts to place the INR less than 1.8, but unsuccessful, INR 2.7. I discussed with Infectious Disease Dr. Nick last evening, plan for MRI with contrast of cervical, thoracic and lumbar spine this am., If unable to perform LP. Empiric antibiotics were provided. Echo is pending. no further transfusion of FFP required. I discussed with Dr. Rojo, to discontinue transfusion of FFP 6 units per day as previously ordered, as the patient has no signs of active bleeding. I also conferred with Dr. Bain, Heme- Onc, who is in agreement. The patient remains encephalopathic, attempts were made last evening for placement of NG tube unsuccessful on multiple attempts by nursing staff. Plan for placement of NG tube under fluoroscopy this a.m. to continue administration of medications. 01/15: (Dr. Obregon) I spoke with patient's healthcare decision maker, Mickey Lai again after labs that she requested were resulted. She would like to proceed with intubation for airway protection. She would not want prolonged intubation or trach. She states that he is not improving her goal would be to transition him to home hospice. She states she would like to speak with consultants regarding prognosis. I will proceed with intubation. 01/15: The patient is status post intubation, currently on PRVC overbreathing the vent. Last evening the patient's INR was noted to be significantly elevated he was scheduled to be transfused 4 units of FFP, INR is 12.2 however no active signs of bleeding or noted. Ammonia level significantly elevated despite lactulose and rifaximin ammonia level 180 this a.m.. IV infusion D5 increased to 77 cc/hour. Plan to consider TPN will consult with GI. Hydrocortisone dosing was initiated yesterday. 01/16: Additional maximal dosing polyethylene glycol, 34 g per day was added to medication regimen last night. Ammonia level this a.m. 147. Repeat MRI revealed restricted diffusion in the gold matter. The patient remains encephalopathic. The patient is tolerating tube feeds. INR 10.6. 01/17: Pupils are essentially fixed and dilated about 7 mm. Quite coagulopathic. Patient had a positive urine tox screen for amphetamines 12/30/17 which is essentially contraindication for liver transplant. Prior documentation of active drug use. Prior alcohol use noted. Hepatitis C antibody positive but genotype/viral load negative. 01/18: Remains orally intubated on mechanical ventilation. Encephalopathic. Grimaces with painful stimuli - Assessment and Plan ON DAY OF DISCHARGE Plan: Neuro/Psych: Glaucoma Medicine reconciliation currently in process for her glaucoma medications which she is on 4 according to son at bedside. Acetaminophen 650 mg by mouth every 6 hours as needed fever Hydrocodone/acetaminophen 5/325 1 tablet every 4 hours as needed pain 1 through 5 Morphine sulfate 2 mg IV every 2 hours as needed pain 6 or 10 CV: Septic shock Lactic acidosis History of atrial fibrillation A. fib with RVR Cardiac arrest status post CPR Elevated troponin with NSTEMI Received 4 L normal saline in ED. Serial lactates until cleared. Switched to bicarb drip in view of metabolic acidosis. 5% albumin every 8 hourly. Continue stress dose steroids in view of refractory shock requiring high-dose pressors. Currently on norepinephrine at 6 mcg/min/vasopressin 0.04 U/min to maintain mean arterial pressure greater or equal to [address]-T changes in the anterior leads. Normal sinus rhythm. Normal KS, QRS and QT intervals. On amiodarone infusion with adequate rate control. Given digoxin 0.5 mg IV earier Resp: Acute respiratory failure on mechanical ventilation On mechanical ventilation, vent bundle, bronchodilators GI: UGI bleed Elevated total bilirubin Hypoalbuminemia OG tube. Holding tube feeds in view of bloody NG output. GI consult requested.. Pantoprazole for GI prophylaxis. Docusate sodium/senna 1 tablet twice daily for bowel regimen CT abdomen/pelvis revealed no acute intra-abdominal findings. Double-J stent remains in place : Status post left renal stent retrieval with placement of double-J stent/ lithotripsy History of recurrent nephrolithiasis with lithotripsy Dr. Steen did the procedure above. Pappas catheterization for accurate intake output. Urology consult requested for further evaluation in view of hematuria and recent urologic procedure causing septic shock-discussed with Dr. Bradford on . Urology evaluation noted CT abdomen pelvis on admission did not show any evidence of obstruction abscess formation and showed double-J stent in appropriate position. Endo: Sliding scale insulin if necessary to maintain euglycemia On stress dose steroids Renal: Strict intake output, monitor and replete electrolytes, follow BUN creatinine. Heme: Leukopenia with neutropenia - improved Thrombocytopenia Monitor CBC daily. Follow trends. Neutropenic precautions Type and screen. Transfuse to keep hemoglobin above 8 g percent ID: Septic shock likely secondary to urinary tract infection Currently on vancomycin and cefepime ID consulted and following. Blood cultures 2, UA 01/25 pending FEN: Hypomagnesia Replace electrolytes as clinically indicated per ICU electrolyte protocol MSK: PT evaluate and treat Access -Right IJ CVL placed in 01/25 - A line Prophylaxis -GI -pantoprazole -DVT -SCD Extensive discussion held with patient's son and daughter following evaluation of patient and discussion with Dr. Dumont. They understand that she is critically ill and possibly terminal multiorgan failure from septic shock and ongoing GI bleed, worsening thrombocytopenia, worsening respiratory failure with low likelihood of survival. Patient has expressed her wishes to them previously and this morning that she would not want aggressive care in this situation and they wish to transition to comfort measures only and wish to stop all aggressive measures including mechanical ventilation pressors antibiotics. I have discussed this with Dr. Thony Dumont who was in agreement and he feels that patient is terminal. Family wishes to transition to hospice. Case management give patient a list to choose hospice facility of their choice and hospice consult requested. Exhibits B & C completed. Copies of patient's advanced directive and healthcare proxy placed on chart. Patient's mother wishes to proceed with normal wean and comfort measures. Placed orders for vent withdrawal and to stop all other medications including all drips/ pressors. Patient initiated on Ativan/morphine/Dilaudid as needed and proceeded with terminal wean and extubated patient. PAtient was discharged home with hospice on 01/18/18 per mother's wishes. DS: Summary Hospital Course: Remarks/Hospital Course This is a 32-year-old male that presented to the ED at [place] on 12/31/2017 with complaints of nausea and vomiting and generalized malaise. The patient's medical history is significant for hepatitis C, liver failure , coagulopathy and previous encephalopathy. The patient has a medical history significant for IVDU and alcohol use disorder. Upon presentation the patient was alert and oriented but noted he was having worsening symptoms, since his admission the patient has become progressively more left and coagulopathic with INR as high as 7.9. Upon admission imaging and laboratory studies were performed which showed a significant increase in INR and CT abdomen showing hepatic cirrhosis for the laboratory studies were provided and the patient was noted to have alpha-1 antitrypsin deficiency, pulmonology was also consulted. The patient has been receiving with currently by GI 6 units of FFP daily, lactulose, rifaximin ,propranolol and vitamin K. The patient has progressively become more lethargic, neurology has been consulted EEG was with encephalopathic findings, and an MRI brain and CT brain 01/07 showed no acute abnormality. The patient was unable to be aroused early this a.m., critical care medicine was consulted. Upon my evaluation at 6:30 AM the patient was unable to be awakened with deep sternal rub and pain stimuli. No eye opening nor withdrawal to pain ,the patient's O2 saturation was within normal limits 98 to 99% on 4 LPM N/C. Concern for possible cerebral edema, or acute bleed, a stat MRI was obtained that showed no acute abnormality, I discussed findings and comparison of 01/07 MRI with no significant findings. Over the last 3-4 hours, the patient now has spontaneous eye opening, is making verbal sounds that are incomprehensible, and has passed a bedside swallow evaluation. Ammonia level upon review continues to down trend from 120 to currently 94. I telephoned the healthcare surrogate mother, Raphael, and REFLESHER and provided her medical status update upon my evaluation. A discussion regarding possible emergent intubation, and she stated that the patient would not want to be intubated. A discussion was also performed discussing INR currently of 2.3, placement of NG tube for administration of medications as well as nutrition at which point she said stated she was undecided. Extensive conversation was performed and a palliative consult has been initiated to define goals of care. I thoroughly discussed with the healthcare surrogate concern for protection of the airway as well as nutrition and administration of medication and the need for intubation. Currently the patient is protecting his airway even though he is nonverbal at this point she does not want an intubation awaiting palliative care consult for further recommendations . The patient remains a full code. I contacted Dr. Capps, in the ED informed her of the situation, the patient may require emergent intubation until clarification of goals are met. 01/14: Orders to transfer the patient to [facility] were initiated at 10 AM ,however the patient was transferred at 6 PM at [facility] [place], mother's request. The patient's INR had trended down to 2.3. The patient was seen by neurology last evening discussed with Dr. Ayala plan was for possible lumbar puncture and paracentesis today. A scan was performed last evening patient did not have enough fluid for drainage/paracentesis (small amount of fluid). The patient received during the night and an additional 5 units of FFP and attempts to place the INR less than 1.8, but unsuccessful, INR 2.7. I discussed with Infectious Disease Dr. Nick last evening, plan for MRI with contrast of cervical, thoracic and lumbar spine this am., If unable to perform LP. Empiric antibiotics were provided. Echo is pending. no further transfusion of FFP required. I discussed with Dr. Rojo, to discontinue transfusion of FFP 6 units per day as previously ordered, as the patient has no signs of active bleeding. I also conferred with Dr. Bain, Heme- Onc, who is in agreement. The patient remains encephalopathic, attempts were made last evening for placement of NG tube unsuccessful on multiple attempts by nursing staff. Plan for placement of NG tube under fluoroscopy this a.m. to continue administration of medications. 01/15: (Dr. Obregon) I spoke with patient's healthcare decision maker, Mickey Lai again after labs that she requested were resulted. She would like to proceed with intubation for airway protection. She would not want prolonged intubation or trach. She states that he is not improving her goal would be to transition him to home hospice. She states she would like to speak with consultants regarding prognosis. I will proceed with intubation. 01/15: The patient is status post intubation, currently on PRVC overbreathing the vent. Last evening the patient's INR was noted to be significantly elevated he was scheduled to be transfused 4 units of FFP, INR is 12.2 however no active signs of bleeding or noted. Ammonia level significantly elevated despite lactulose and rifaximin ammonia level 180 this a.m.. IV infusion D5 increased to 77 cc/hour. Plan to consider TPN will consult with GI. Hydrocortisone dosing was initiated yesterday. 01/16: Additional maximal dosing polyethylene glycol, 34 g per day was added to medication regimen last night. Ammonia level this a.m. 147. Repeat MRI revealed restricted diffusion in the ogld matter. The patient remains encephalopathic. The patient is tolerating tube feeds. INR 10.6. SUBJECTIVE 01/17: Pupils are essentially fixed and dilated about 7 mm. Quite coagulopathic. Patient had a positive urine tox screen for amphetamines 12/30/17 which is essentially contraindication for liver transplant. Prior documentation of active drug use. Prior alcohol use noted. Hepatitis C antibody positive but genotype/viral load negative. 01/18: Remains orally intubated on mechanical ventilation. Encephalopathic. Grimaces with painful stimuli - Time Spent with Patient Total time spent providing and/or coordinating discharge services: Greater than 30 minutes Results Procedures completed during hospitalization: intubation - Impressions ITS Impressions Head MRI 01/16/18 00:00 CONCLUSION: 1. Subtle restricted diffusion in the gold matter when compared to the white most prevalent in mid [place] regions bilaterally. This is symmetric. This can be seen with anoxic encephalopathy. 2. There is no abnormal contrast enhancement. 3. There is no parenchymal hemorrhage. Chest X-Ray 01/17/18 04:00 CONCLUSION: The lungs are clear. Discharge Plan - Discharge Disposition Patient Disposition: 50 Hospice/Home - Discharge Order Discharge Orders: Discharge Order (Routine); Ordered 01/18/18 Ordered By: Mendel Nick - Physicians Team Primary Care Provider: Primary Care Beck,Estrella Attending Provider: Mili Boudreaux Other Providers: Fozia Vergara MD ; Manuel Nina MD ; Mirian Foy MD ; Rodolfo Ayala MD ; Connie Nick MD ; Doris Granado MD ; Yon Marvin MD ; Mili Boudreaux MD ; Pal Cornelius MD - Rxs /Orders / Referrals /Forms Referrals: Primary Care HinaiEstrella [Primary Care Provider] - See Instructions
== END 2018-01-18 21:00 | disposition hospice, home (50) ==
LOC: HIMC 12:46
PROVIDERS: ADMIT Anesthesiology; ATTEND Anesthesiology